=== PATIENT | female | born 1955 | race Caucasian/White ===

== ENCOUNTER 2016-10-21 13:45 | Inpatient (IN) | payer MEDICARE, MEDICAID ==
[~2016-10-21] VITALS: Ht 162.6 cm; Wt 84.2 kg
--- NOTE | ~2016-10-21 | HEMODYNAMI ---
PATIENT:DIANA PARISH MEDICAL RECORD: [id number] : 59 [id number] ADMISSION DATE: 10/21/16 Generatedon:10/24/201612:03 Patient name: DIANA PARISH Patient #: [id number] : 1955 Date of study: 10/24/2016 Page: Of Hemodynamic Procedure Report Patient Data Patient Demographics Procedure consent was obtained First Name: DIANA Gender: Female Last Name: JEM : 1955 [facility] Initial: D Age: 61 year(s) Patient #: [id number] Race: SSN: [id number] Additional ID: [id number] Contact details Address: [address] State: [place] City: [place] Zip code: [address] Past Medical History Allergies Allergen Reaction Date Comments Reported Penicillins 06/24/2016 Admission Admission Data Admission Date: 10/21/2016 Admission Time: 16:04 Admit Source: Other Insurance Payor: Medicaid, Room #: D.2301 Medicare Lab Results Lab Result Date: 10/24/2016 Lab Result Time: 0:00 Biochemistry Name Units Result Min Max BUN mg/dl 28 --(----)-* 7 18 Creatinine mg/dl 1.8 --(----)-* 0.6 1.3 CBC Name Units Result Min Max Hemoglobin g/dl 16.6 --(---*)-- 13.5 17.5 Procedure Procedure Types Cath Procedure Diagnostic Procedure LHC LHC w/Coronaries w/Grafts PCI Procedure Coronary Stent Initial Procedure Description Procedure Date Procedure Date: 10/24/2016 Procedure Start Time: 11:09 Procedure End Time: 12:02 Procedure Staff Name Function Sanchez Saleh MD Performing Physician Melisa Martinez RT Scrub Carrie Acevedo RN Nurse Ethan Purdy RT Motors And Generators Inspector Aissatou Huddleston RT Monitor Procedure Data Cath Procedure Fluoroscopy Diagnostic fluoroscopy Total fluoroscopy Time: 9.3 time: 9.3 min min Diagnostic fluoroscopy Total fluoroscopy dose: dose: 1538 mGy 1538 mGy Contrast Material Contrast Material Type Amount (ml) Isovue 300 134 Entry Location Entry Primary Successful Side Size Upsize Upsize Entry Closure Succes sful Closure Location (Fr) 1 (Fr) 2 (Fr) Remarks Device Remarks Femoral Left 5 Fr Vascade artery Closure System Brachial Right 5 Fr 6 Fr Exoseal artery Short Estimated blood loss: 20 ml Diagnostic catheters Device Type Used For End Catheter Placement Cordis 5Fr 3DRC Catheter Procedure (MP) Cordis 5Fr JL 4.0 LV Angiography Catheter (MP) Terumo 5Fr Prescott 110cm Procedure catheter Procedure Complications No complications Procedure Medications Medication Administration Route Dosage Oxygen 10 l/min Heparin Flush Bag added to field 2 bags (1000units/500ml NS) Lidocaine 2% added to field 20 Dopamine I.V. drip 5 mcg/kg/min (400mg/250ml D5W) unlisted medication 30 mcg/kg/min unlisted medication 35 mcg/kg/min unlisted medication 40 mcg/kg/min Fentanyl I.V. 50 mcg Fentanyl I.V. 50 mcg 0.9% NaCl I.V. 75 ml Heparin Bolus I.V. 4000 units Hemodynamics Rest HGB: 16.6 (g/dl) Heart Rate: 59 (bpm) Snapshots Pre Cath Intra NCS Post Cath Vital Signs Time Heart Resp SPO2 NIBP Rhythm Pain Sedation Rate (ipm) (%) (mmHg) Status Level (bpm) 10:29:13 58 20 95 Time NSR 0 (11) 4(A) Exceeded , No pain 10:30:07 58 20 95 Aborted NSR 0 (11) 4(A) , No pain 10:31:51 65 21 94 108/59(83) NSR 0 (11) 4(A) , No pain 10:36:05 58 20 94 98/67(79) NSR 0 (11) 4(A) , No pain 10:40:11 58 20 94 109/66(79) NSR 0 (11) 4(A) , No pain 10:44:17 58 20 95 104/62(86) NSR 0 (11) 4(A) , No pain 10:49:16 58 21 95 Measuring NSR 0 (11) 4(A) , No pain 10:50:31 60 21 94 102/64(78) NSR 0 (11) 4(A) , No pain 10:54:37 59 20 94 105/70(84) NSR 0 (11) 4(A) , No pain 10:58:47 59 20 94 106/64(86) NSR 0 (11) 4(A) , No pain 11:02:55 60 20 94 110/69(88) NSR 0 (11) 4(A) , No pain 11:07:07 60 20 93 107/63(88) NSR 0 (11) 4(A) , No pain 11:11:17 60 20 94 113/65(85) NSR 0 (11) 4(A) , No pain 11:15:27 61 20 94 105/68(83) NSR 0 (11) 4(A) , No pain 11:19:35 58 20 94 106/68(84) NSR 0 (11) 4(A) , No pain 11:23:42 59 20 94 105/70(85) NSR 0 (11) 4(A) , No pain 11:27:50 59 20 96 105/71(84) NSR 0 (11) 4(A) , No pain 11:31:56 60 20 97 113/73(91) NSR 0 (11) 4(A) , No pain 11:36:08 60 20 95 112/68(85) NSR 0 (11) 4(A) , No pain 11:40:18 60 20 95 110/73(87) NSR 0 (11) 4(A) , No pain 11:44:28 60 20 95 110/66(84) NSR 0 (11) 4(A) , No pain 11:48:35 63 20 95 112/75(87) NSR 0 (11) 4(A) , No pain 11:52:45 64 21 94 116/74(92) NSR 0 (11) 4(A) , No pain 11:56:55 64 20 97 113/74(92) NSR 0 (11) 4(A) , No pain 11:59:53 62 20 95 112/64(91) NSR 0 (11) 4(A) , No pain Medications Time Medication Route Dose Verified Delivered Reason Notes Effectiveness by by 10:14:00 Oxygen ETT 10 l/min Sanchez Carrie Per physician Delfino Acevedo RN 10:14:09 Lidocaine 2% added 20ml vial Sanchez Carrie used for to Delfino Acevedo RN procedure field 10:14:19 Propofol IV 30 Sanchez Carrie for sedation pt on 1000mg/100ml mcg/kg/min Delfino Acevedo RN propofol infusion for intubation sedation 10:14:19 Dopamine I.V. 5 mcg/kg/min Sanchez Carrie Per physician continuing (400mg/250ml drip Delfino Acevedo RN from icu D5W) 10:14:50 0.9% NaCl I.V. 75 ml Sanchez Carrie Per physician Delfino Acevedo RN 10:14:57 Heparin Flush added 2 bags Sanchez Carrie used for Bag to Delfino Acevedo RN procedure (1000units/500ml field NS) 10:44:01 Propofol IV 35mcg/kg/min Sanchez Carrie for sedation pt on 1000mg/100ml Delfino cAevedo RN propofol infusion for intubation sedation. dose increased due to patient movement 10:54:55 Propofol IV 40 Sanchez Carrie for sedation pt on 1000mg/100ml mcg/kg/min Delfino Acevedo RN propofol infusion for intubation sedation. dose increased due to patient movement 11:10:38 Fentanyl I.V. 50 mcg Sanchez Carrie for sedation Delfino Acevedo RN 11:14:54 Fentanyl I.V. 50 mcg Sanchez Carrie for sedation Delfino Acevedo RN 11:49:43 Heparin Bolus I.V. 4000 units Sanchez Maganaecca for dose Delfino Acevedo RN anticoagulation verified wt dr saleh Procedure Log Time Note 10:03:52 Informed consent obtained and on chart 10:10:23 Insurance Payor : Medicare, Medicaid 10:11:20 Lab Result : Hemoglobin 16.6 g/dl 10:11:20 Lab Result : Creatinine 1.8 mg/dl 10:11:20 Lab Result : BUN 28 mg/dl 10:11:32 Procedure type changed to Cath procedure, Diagnostic procedure, LHC, LHC w/Coronaries w/Grafts, PCI procedure, Coronary Stent Initial 10:12:08 Diagnostic Cath Status : Elective 10:13:11 Admit Source: Other 10:13:16 Ethan Purdy RT(R) sent for patient. Start room use. 10:13:18 Time tracking: Regular hours 10:13:24 Plan of Care:Hemodynamics will remain stable., Cardiac rhythm will remain stable., Comfort level will be maintained., Respiratory function will remain adequate., Patient/ family verbilizes understanding of procedure., Procedure tolerated without complication., Recovers from procedure without complications.. 10:14:00 Oxygen 10 l/min ETT was given by Carrie Acevedo RN; Per physician; 10:14:04 Patient received from ICU to CCL 1 On ventilator. Tansferred to table in Supine position. 10:14:09 Lidocaine 2% 20ml vial added to field was given by Carrie Acevedo RN; used for procedure; 10:14:19 Propofol 1000mg/100ml 30 mcg/kg/min IV was given by Carrie Acevedo RN; for sedation; pt on propofol infusion for intubation sedation 10:14:19 Dopamine (400mg/250ml D5W) 5 mcg/kg/min I.V. drip was given by Carrie Acevedo RN; Per physician; continuing from icu 10:14:29 H&P Date Dictated: 10/21/2016 Within 30 days and on chart.. 10:14:35 Family in waiting room. 10:14:37 Patient NPO since Midnight. 10:14:50 0.9% NaCl 75 ml I.V. was given by Carrie Acevedo RN; Per physician; 10:14:57 Heparin Flush Bag (1000units/500ml NS) 2 bags added to field was given by Carrie Acevedo RN; used for procedure; 10:26:04 Correct patient and procedure confirmed by team. 10:28:42 ECG and BP/O2 sat monitors applied to patient. 10:28:46 Vital chart was started 10:28:49 Baseline sample Acquired. 10:28:59 Rhythm: sinus rhythm 10:29:01 Full Disclosure recording started 10:29:11 Unable to provide pre-op teaching due to educational barrier. sedated/ventilator 10:30:38 Is the patient allergic to Iodine/contrast media? No. 10:30:42 Is patient on blood thinner?Yes 10:30:47 ACC The patient was administered the following blood thiners within the last 24 hours: ACCPlavix 10:31:45 Airway obstruction? Yes COPD 10:32:41 IV patent on arrival in left forearm with 0.9% NaCl at [facility]. 10:35:14 Lab results completed and on chart. 10:35:18 Right groin area was prepped with chlora-prep and draped in sterile fashion 10:35:26 Alarms reviewed by R. N. 10:35:32 Sharps counted by scrub and verified by R.N. 10:35:34 Physician paged 10:35:40 Use device set Femoral Dx 10:35:41 Acist Syringe opened to sterile field. 10:35:42 Bag Decanter opened to sterile field. 10:35:42 Cardinal Cath Pack opened to sterile field. 10:35:43 Terumo 5Fr [place] Sheath opened to sterile field. 10:35:43 St Blaise 260cm J .035 wire opened to sterile field. 10:35:45 Acist Hand Control opened to sterile field. 10:35:45 Acist Manifold opened to sterile field. 10:35:48 Cordis Infinity 5Fr Multipack catheter opened to sterile field. 10:35:49 Tegaderm 4 x 4 opened to sterile field. 10:37:54 Zero performed for pressure channel P1 10:43:41 Physical assessment completed. ASA score P 3 - A patient with severe systemic disease as per Sanchez Saleh MD. 10:44:01 Propofol 1000mg/100ml 35mcg/kg/min IV was given by Carrie Acevedo RN; for sedation; pt on propofol infusion for intubation sedation. dose increased due to patient movement 10:54:55 Propofol 1000mg/100ml 40 mcg/kg/min IV was given by Carrie Acevedo RN; for sedation; pt on propofol infusion for intubation sedation. dose increased due to patient movement 11:06:36 Physician arrived 11:06:36 --------ALL STOP TIME OUT------ 11:06:37 Final Timeout: patient, procedure, and site verified with staff and physician. All members of the team are in agreement. 11:06:39 Right groin site verified by team. 11:06:49 Sedation plan: IV Moderate Sedation Fentanyl 11:09:51 Procedure started. 11:09:54 Local anesthetic to right femoral artery with Lidocaine 2% by Sanchez Saleh MD.INITIAL ACCESS ONLY 11:10:38 Fentanyl 50 mcg I.V. was given by Carrie Acevedo RN; for sedation; 11:14:54 Fentanyl 50 mcg I.V. was given by Carrie Acevedo RN; for sedation; 11:16:02 unable to get access on the right illiac 11:16:12 Local anesthetic to left femerol artery with Lidocaine 2% by Sanchez Saleh MD.ADDITIONAL ACCESS 11:16:34 A 5 Fr sheath was inserted into the Left Femoral artery 11:16:54 A Cordis 5Fr 3DRC Catheter (MP) was advanced over the wire and used for Procedure. 11:19:09 Left illiac total occluded 11:19:32 Terumo 5Fr [place] Sheath opened to sterile field. 11:33:16 Patient diabetic? Yes. 11:33:18 If diabetic: On Metformin? No 11:33:28 Snore? Yes 11:33:30 Sleep apnea? No 11:33:31 Deviated septum? No 11:33:40 Dentures? No ? 11:35:48 Bilateral groins site verified by team. 11:36:16 Right Brachial site verified by team. 11:36:51 Local anesthetic to right brachial artery with Lidocaine 2% by Sanchez Saleh MD.ADDITIONAL ACCESS 11:38:43 Vascade 5Fr Closure Device opened to sterile field. 11:39:19 Sheath removed intact; hemostasis achieved with Vascade Closure System to the Left Femoral artery. 11:41:43 Terumo 5Fr [place] Sheath opened to sterile field. 11:42:22 A 5 Fr sheath was inserted into the Right Brachial artery 11:44:03 A Cordis 5Fr JL 4.0 Catheter (MP) was advanced over the wire and used for LV Angiography. 11:44:17 EF : 15 % 11:44:24 SVG to LAD occluded. 11:45:12 Catheter removed. 11:45:17 A Terumo 5Fr Prescott 110cm catheter was advanced over the wire and used for Procedure. 11:46:09 LCA angiography performed. 11:47:21 RCA angiography performed. 11:47:31 Terumo 6Fr [place] Sheath opened to sterile field. 11:47:32 Merit BasixCompak Inflation Kit opened to sterile field. 11:47:35 Smalls Whisper J 300cm 0.014 guide wire opened to sterile field. 11:48:06 Medtronic Launcher 6Fr JL 3.5 guide catheter opened to sterile field. 11:48:25 Catheter removed. 11:48:26 Proceeding to intervention. 11:48:34 PCI Cath status Elective 11:48:45 Sheath upsized to a 6 Fr Short. 11:49:00 ACC PCI Site: mLAD has ?% stenosis. 11:49:10 6 Fr jl 3.5 guide catheter was inserted over the wire 11:49:18 Whisper wire advanced. 11:49:43 Heparin Bolus 4000 units I.V. was given by Carrie Acevedo RN; for anticoagulation; dose verified wt dr saleh 11:52:56 Inflation number: 1 A Common Sense Media Leslie 2.5 X 15 balloon was prepped and advanced across the Mid LAD, then inflated to 11 HAYDE for 0:10 (min:sec). 11:53:15 Balloon removed over the wire. 11:56:50 Inflation Number: 2 A Instructuretronic Integrity 2.5 X 18 stent was prepped and advanced across the Mid LAD. The stent was deployed at 13 HAYDE for 0:10 (min:sec). 11:57:48 Cordis 6Fr Exoseal opened to sterile field. 11:57:54 Guide catheter removed. 11:58:11 Sheath removed intact; hemostasis achieved with Exoseal to the Right Brachial artery. 11:58:20 Procedure ended.(Physican Out) 11:59:31 Fluoroscopy time 09.30 minutes. 11:59:38 Fluoroscopy dose: 1538 mGy 11:59:38 Flurop Dose total: 1538 11:59:45 Contrast amount:Isovue 300 134ml. 11:59:46 Sharps counted by scrub and verified by R.N. 11:59:51 Insertion/operative site no bleeding no hematoma. 12:00:07 Post-op/insertion site Left Femoral artery dressed using a 4 x 4 and Tegaderm. 12:00:13 Post-op/insertion site Right Brachial artery dressed using a 4 x 4 and Tegaderm. 12:00:20 Post-procedure physical assessment completed. ASA score P 3 - A patient with severe systemic disease as per Sanchez Saleh MD. 12:00:25 Post procedure rhythm: unchanged. 12:00:29 Estimated blood loss: 20 ml 12:00:42 Patient needs reinforcement of post procedure teaching. 12:00:54 Procedure and supply charges have been captured, reviewed, submitted and are correct. 12:02:04 Procedure Complication : No complications 12:02:08 Vital chart was stopped 12:02:09 See physician's report for complete and final results. 12:02:14 Report given to ICU. 12:02:18 Patient transfered to ICU with Bed. 12:02:21 Procedure ended. 12:02:21 Full Disclosure recording stopped 12:02:34 End room use (Document Last) Intervention Summary Intervention Notes Time ActionType Lesion and Equipment Action# Pressure Duration Attributes Used 11:52:56 Inflate Mid LAD Hebron 1 11 00:10 balloon Sci Leslie 2.5 X 15 balloon 11:56:50 [address] stent Mid LAD Medtronic 2 13 00:10 Integrity 2.5 X 18 stent Device Usage Item Name Manufacture Quantity Catalog Number Hospital Part Current Mini mal Lot# / Charge Number Stock Stock Serial# Code Acist Acist 1 55289 428482 036202 808636 20 Syringe Medical Systems Inc Bag Microtek 1 2002S 883474 73314 418752 5 Decanter Medical Inc. Cardinal Cardinal 1 [id number] 086669 05321 045731 5 Cath Pack Health Terumo 5Fr Terumo 3 [id number] 867794 219178 815624 [address] Blaise 1 325170 993910 789240 992076 30 260cm J .035 wire Acist Hand Acist 1 73675 024595 945006 380013 5 Control Medical Systems Inc Acist Acist 1 11635 127641 120359 586805 5 Manifold Medical Systems Inc Cordis Cardinal 1 [id number] 423414 08665 837631 30 HealthSource 5Fr Multipack catheter Tegaderm 4 3M 1 1626W 877763 324094 455748 5 x 4 Cordis 5Fr Cardinal 1 750678 5 N2N Commerce Skift Catheter (MP) Vascade 5Fr Cardiva 1 [id number] 916255 17019 699447 10 Closure NeuWave Medical, Device Inc. Terumo 6Fr Terumo 1 [id number] 950839 979067 796314 40 Slender Glidesheath Cordis 5Fr Cardinal 1 485485 5 JL 4.0 Health Catheter (MP) Terumo 5Fr Terumo 1 16-2794 860219 853871 859027 5 Prescott 110cm catheter Terumo 6Fr Terumo 1 [id number] 777513 274451 805818 40 [place] Sheath Merit Merit 1 AD4222 583583 735062 505487 15 BasixCompak Medical Inflation Kit Smalls Smalls 1 [id number] 821526 512940 596762 5 Whisper J Vascular 300cm 0.014 guide wire Medtronic Medtronic 1 [id number] 332970 72367 853050 1 Launcher 6Fr JL 3.5 guide catheter Hebron Sci Hebron 1 [id number] 572066 844067 311966 1 [id number] PayParrot Scientific 2.5 X 15 balloon Medtronic Medtronic 1 [id number] 465687 397881 680330 1 [id number] Integrity 2.5 X 18 stent Cordis 6Fr Cardinal 1 EX600 955718 517202 289781 10 [facility] Skift Signature Audit [place] Stage Time Signature Unsigned Intra-Procedure 10/24/2016 Aissatou Huddleston 12:03:01 PM RT(R) Signatures Monitor : Aissatou Huddleston Signature : RT Date : Time : [id number] [place] [address]
[~2016-10-21 13:45] MED LIST: AMBIEN10 MG; ATENOLOL25 MG PO; ATROVENT 0.02%2.5 ML UPD; BETAPACE 80 MG80 MG PO; BREO ELLIPTA 11 EACH INH; CARDIZEM CD240 MG PO; COMBIVENT INH14.7 GM INH; CRESTOR20 MG; FLOVENT DI50 MCG/DIS; IMDUR30 MG; IMDUR30 MG OR; KLOR-CON 1010 MEQ PO; LASIX20 MG; NORCO 10/325 TA1 TA1; PACERONE200 MG PO; PAXIL20 MG; PLAVIX75 MG PO; PROAIR HFA8.5 GM INH; XARELTO20 MG PO
[2016-10-21 14:24] LABS: BASOPHILS 0.4 % (0.0-2.0); EOSINOPHILS 1.9 % (0-7); HEMATOCRIT 47.7 % (36.0-48.0); HEMOGLOBIN 14.9 g/dL (12-16); IMMATURE GRANULOCYTES 0.2 % (0-5); LYMPHOCYTES 25.9 % (15-50); MCH 32.7 pg (26.0-34.0); MCHC 31.2 g/dL (31.0-37.0); MCV 104.6 fL (80.0-100.0); MEAN PLATELET VOLUME 10.6 fL (7.4-10.4); NEUTROPHILS 62.6 % (40-80); PLATELET COUNT 120 10x3/uL (130-400); RBC 4.56 10x6/uL (4.00-5.40); RDW 15.7 % (11.5-14.5); WBC 5.3 10x3/uL (4.8-10.8)
[2016-10-21 14:37] LABS: ALBUMIN 3.1 g/dL (3.4-5.0); ANION GAP 8.8 mmol/L (8-16); BILIRUBIN - TOTAL 1.05 mg/dL (0.2-1.3); CALCIUM 8.7 mg/dL (8.5-10.1); CARBON DIOXIDE 32.6 mmol/L (21.0-32.0); CREATININE - SERUM 1.1 mg/dL (0.6-1.3); POTASSIUM - SERUM 3.4 mmol/L (3.5-5.1); PROTEIN - SERUM 6.5 g/dL (6.4-8.2)
[2016-10-21 14:47] LABS: TROPONIN-I 0.036 ng/mL (0.000-0.060)
[2016-10-21 15:28] LABS: APPEARANCE HAZY (CLEAR); BILIRUBIN NEGATIVE (NEGATIVE); COLOR YELLOW (YELLOW); GLUCOSE NEGATIVE (NEGATIVE); KETONE NEGATIVE (NEGATIVE); LEUKOCYTE ESTERASE TRACE (NEGATIVE); NITRITE NEGATIVE (NEGATIVE); PROTEIN TRACE mg/dL (NEGATIVE)
[2016-10-21 15:29] LABS: BACTERIA MANY /hpf (NONE SEEN); EPITHELIAL CELLS 0-5 /hpf (0-5); RED CELLS - URINE 0-5 /hpf (0-5); WHITE CELLS - URINE 0-5 /hpf (0-5)
--- NOTE | 2016-10-21 17:10 | NUR ---
TRANSFER FROM ER BY W/C. RASHIDAINTED TO ROOM. CALL LIGHT IN REACH. WILL CONT. PLAN OF CARE.
[2016-10-21 17:23] VITALS: BP 130/90; BMI 34.2
[2016-10-21] MEDS ORDERED: LASIX40 MG PO (17:40)
[2016-10-21] MEDS ORDERED: REQUIP0.25 MG PO (17:43)
[2016-10-21] MEDS ORDERED: PROPAFENONE HC150 MG PO (17:45)
[2016-10-21] MEDS ORDERED: SINGULAIR10 MG PO (17:46)
[2016-10-21] MEDS ORDERED: HYDROCODONE-APA1 TAB PO (17:48)
[2016-10-21] MEDS ORDERED: LOPRESSOR25 MG PO (17:49)
[2016-10-21] MEDS ORDERED: LEVOTHYROXINE75 MCG PO (17:50)
--- NOTE | 2016-10-21 19:00 | NUR ---
RECEIVED REPORT AND ASSUMED PT CARE FROM DAY SHIFT NURSE @ THIS TIME.
[2016-10-21 20:25] VITALS: BP 116/81
--- NOTE | 2016-10-21 21:30 | NUR ---
PT RESTING IN BED WITHOUT C/O OR DISTRESS NOTED. DENIES ANY FUTHER C/O PAIN. ST ON TELE, HR 100'S. OCC PAC'S NOTED. CALL LIGHT WITHIN REACH. WILL CONT TO MONITOR.
[2016-10-22 00:41] VITALS: BP 120/70
[2016-10-22 05:48] VITALS: BP 126/72
[2016-10-22 06:34] LABS: BASOPHILS 0.6 % (0.0-2.0); EOSINOPHILS 2.1 % (0-7); HEMATOCRIT 46.6 % (36.0-48.0); HEMOGLOBIN 14.2 g/dL (12-16); IMMATURE GRANULOCYTES 0.2 % (0-5); LYMPHOCYTES 39.4 % (15-50); MCH 31.8 pg (26.0-34.0); MCHC 30.5 g/dL (31.0-37.0); MCV 104.3 fL (80.0-100.0); MONOCYTES 8.7 % (2-11); PLATELET COUNT 122 10x3/uL (130-400); RBC 4.47 10x6/uL (4.00-5.40); RDW 15.7 % (11.5-14.5); WBC 5.3 10x3/uL (4.8-10.8)
[2016-10-22 07:09] LABS: ALBUMIN 2.9 g/dL (3.4-5.0); BILIRUBIN - TOTAL 1.2 mg/dL (0.2-1.3); CALCIUM 8.5 mg/dL (8.5-10.1); CARBON DIOXIDE 31.6 mmol/L (21.0-32.0); POTASSIUM - SERUM 3.6 mmol/L (3.5-5.1); PROTEIN - SERUM 6.2 g/dL (6.4-8.2); TROPONIN-I 0.043 ng/mL (0.000-0.060)
[2016-10-22 08:55] VITALS: BP 130/89
--- NOTE | 2016-10-22 10:00 | NUR ---
TELEMETRY SR. RESP UL ON 02 2L NC. CALL LIGHT IN REACH. WILL CONT. PLAN OF CARE.
[2016-10-22 12:38] VITALS: Ht 162.6 cm; Wt 84.2 kg
[2016-10-22 13:42] VITALS: BP 125/85
--- NOTE | 2016-10-22 16:45 | NUR ---
US CHIVO AT BS. WILL CONT. PLAN OF CARE.
[2016-10-22 17:02] VITALS: BP 122/80
[2016-10-22 20:15] VITALS: BP 104/73
--- NOTE | 2016-10-22 22:40 | NUR ---
PT SITTING UP IN BEDSIDE CHAIR. ALERT/ORIENTED. DECLINED TO HAVE FSBS DONE. HS MEDS GIVEN. 96/SR PER TELEMETRY. SEE ASSESSMENT. CPOC.
[2016-10-23 00:23] VITALS: BP 103/72
--- NOTE | 2016-10-23 03:14 | NUR ---
ASSISTED UP TO USE BATHROOM TO VOID, O2 @ 4L/NC. NO DISTRESS. CPOC.
[2016-10-23 04:20] VITALS: BP 105/72
[2016-10-23 05:11] LABS: BASOPHILS 0.5 % (0.0-2.0); EOSINOPHILS 1.1 % (0-7); HEMOGLOBIN 14.4 g/dL (12-16); IMMATURE GRANULOCYTES 0.4 % (0-5); LYMPHOCYTES 31.2 % (15-50); MCH 32.1 pg (26.0-34.0); MCHC 30.6 g/dL (31.0-37.0); MCV 104.7 fL (80.0-100.0); MEAN PLATELET VOLUME 10.8 fL (7.4-10.4); MONOCYTES 9.2 % (2-11); NEUTROPHILS 57.6 % (40-80); PLATELET COUNT 108 10x3/uL (130-400); RBC 4.49 10x6/uL (4.00-5.40); RDW 15.4 % (11.5-14.5); WBC 5.7 10x3/uL (4.8-10.8)
[2016-10-23 06:06] LABS: BILIRUBIN - TOTAL 1.4 mg/dL (0.2-1.3); CALCIUM 8.2 mg/dL (8.5-10.1); CARBON DIOXIDE 29.1 mmol/L (21.0-32.0)
[2016-10-23 06:08] LABS: ANION GAP 13.1 mmol/L (8-16); CREATININE - SERUM 1.3 mg/dL (0.6-1.3); POTASSIUM - SERUM 4.2 mmol/L (3.5-5.1)
--- NOTE | 2016-10-23 07:30 | NUR ---
RESTING QUIETLY SITTING IN CHAIR RESP UNLABORED DENIES ANY NEEDS OR DISCOMFORT AT THIS TIME NAD NOTED
[2016-10-23 08:00] VITALS: BP 96/65
[2016-10-23 11:42] LABS: BASOPHILS 0.2 % (0.0-2.0); EOSINOPHILS 1.9 % (0-7); HEMATOCRIT 47.6 % (36.0-48.0); HEMOGLOBIN 14.7 g/dL (12-16); IMMATURE GRANULOCYTES 0.4 % (0-5); LYMPHOCYTES 29.6 % (15-50); MCH 32.3 pg (26.0-34.0); MCHC 30.9 g/dL (31.0-37.0); MCV 104.6 fL (80.0-100.0); MEAN PLATELET VOLUME 11.2 fL (7.4-10.4); MONOCYTES 9.9 % (2-11); PLATELET COUNT 104 10x3/uL (130-400); RBC 4.55 10x6/uL (4.00-5.40); RDW 15.5 % (11.5-14.5); WBC 5.4 10x3/uL (4.8-10.8)
--- NOTE | 2016-10-23 11:51 | NUR ---
FSBS 107
[2016-10-23 11:56] LABS: ANION GAP 13.3 mmol/L (8-16); CALCIUM 8.8 mg/dL (8.5-10.1); CARBON DIOXIDE 29.9 mmol/L (21.0-32.0); CREATININE - SERUM 1.5 mg/dL (0.6-1.3); POTASSIUM - SERUM 4.2 mmol/L (3.5-5.1)
[2016-10-23 12:00] VITALS: BP 95/68
[2016-10-23 16:00] VITALS: BP 104/71
[2016-10-23 20:00] VITALS: BP 109/70
[2016-10-24] VITALS (65 sets, daily range): BP systolic 81–137; BP diastolic 29–91
--- NOTE | 2016-10-24 02:08 | NUR ---
0200 DR. ARTEAGA NOTIFIED OF PT STATUS. 0206 SIXTO GALE NEXT OF KIN NOTIFIED 0210 DR. CACERES NOTIFIED 0215 TRANSFERED PT TO ROOM 2301
[2016-10-24 02:13] LABS: ALBUMIN 3.1 g/dL (3.4-5.0); ALKALINE PHOSPHATASE 84 U/L (46-116); ALT (SGPT) 19 U/L (10-68); BILIRUBIN - TOTAL 2.43 mg/dL (0.2-1.3); CALCIUM 8.8 mg/dL (8.5-10.1); CHLORIDE - SERUM 97 mmol/L (98-107); PROTEIN - SERUM 6.6 g/dL (6.4-8.2); SODIUM 134 mmol/L (136-145); UREA NITROGEN 25 mg/dL (7-18)
[2016-10-24 02:14] LABS: CALC OSMOLALITY 269 mosm/kg (275-300); CARBON DIOXIDE 21.7 mmol/L (21.0-32.0); CREATININE - SERUM 1.9 mg/dL (0.6-1.3); eGFR NON AFRICAN AMERICAN 29 mL/min (90-120)
[2016-10-24 02:15] LABS: GLUCOSE 65 mg/dL (74-106); POTASSIUM - SERUM 6.1 mmol/L (3.5-5.1)
--- NOTE | 2016-10-24 02:20 | NUR ---
PT REC'D TO ROOM 2301 ON VENT VIA 7.5 ETT TAPED @ 22CM LIPLINE SEE FLOWSHEET FOR VENT SETTINGS, BILAT SOFT WRIST RESTRAINTS APPLIED, RIGHT A/C PIV WITH NS @ 50CC/HR, RIGHT FOREARM PIV WITH DOPAMINE INFUSING @ 5MCG/KG/MIN, BBS CLEAR TO AUSCULTATION, 16FR NORTH STARTED WITH A SMALL RETURN OF APPROX 20CC JAKUB COLORED URINE, BILAT SCD'S APPLIED, LE'S DRY, PPP, SR UP X 2, VISIBLE TO NURSES STATION
[2016-10-24 02:27] LABS: CKMB 2.5 U/L (0.0-3.6); CREATINE KINASE 87 UL (21-215)
[2016-10-24 02:29] LABS: TROPONIN-I 0.185 ng/mL (0.000-0.060)
--- NOTE | 2016-10-24 02:58 | NUR ---
0133 [employer] SECTION DIRECTOR REPORTS PT NOT FEELING WELL, VS WERE FOLLOWS 90/50, 91, 22, 98% 4LPM, 97.5. SR WITH MASSIVE ST ELEVATION. FOUND PT IN RECLINER AGONAL BREATHING. RAPID RESPONSE CALLED, MOVED TO PT TO BED COMPLETELY UNRESPONSIVE AT THIS TIME UNABLE TO PALPATE PULSE. SIMONE BELL CALLED AT 0135. SEE CODE BLUE SHEET.
--- NOTE | 2016-10-24 03:05 | NUR ---
FSBS 51
--- NOTE | 2016-10-24 03:10 | NUR ---
1/2 AMP D50 ADMINISTERED VIA RIGHT A/C PIV, PT REMAINS UNRESPONSIVE ON THE VENT, BP STABLE ON DOPAMINE, WILL MONITOR CLOSELY FOR CHANGES.
--- NOTE | 2016-10-24 03:35 | NUR ---
SERUM GLUCOSE 142 PER ABG
--- NOTE | 2016-10-24 03:55 | NUR ---
PT COUGHING AND GAGGING ON ETT, AWAKENS TO VERBAL STIMULI, FOLLOWING COMMANDS AT THIS, EXPLAINED WHAT HAPPENED TO PT, PT NODS IN UNDERSTANDING, DIPRIVAN BEGUN TO RIGHT A/C @ 5MCG/KG/MIN.
--- NOTE | 2016-10-24 04:15 | NUR ---
PT RESTING COMFORTABLY ON VENT, 16 FR OGT PLACED, PLACEMENT VERIFIED VIA SM AIR BOLUS AUSCULTATED OVER EPIGASTRIM, OGT TO LIWS, THIN YELLOW DRAINAGE NOTED.
[2016-10-24 05:45] LABS: BASOPHILS 0.1 % (0.0-2.0); EOSINOPHILS 0.1 % (0-7); HEMATOCRIT 52.8 % (36.0-48.0); HEMOGLOBIN 16.6 g/dL (12-16); IMMATURE GRANULOCYTES 0.6 % (0-5); LYMPHOCYTES 8.3 % (15-50); MCH 32.5 pg (26.0-34.0); MCHC 31.4 g/dL (31.0-37.0); MCV 103.3 fL (80.0-100.0); MEAN PLATELET VOLUME 11.6 fL (7.4-10.4); MONOCYTES 2.3 % (2-11); NEUTROPHILS 88.6 % (40-80); PLATELET COUNT 100 10x3/uL (130-400); RBC 5.11 10x6/uL (4.00-5.40); RDW 15.2 % (11.5-14.5); WBC 10.5 10x3/uL (4.8-10.8)
[2016-10-24 05:55] LABS: ALBUMIN 3.9 g/dL (3.4-5.0); ALKALINE PHOSPHATASE 107 U/L (46-116); ALT (SGPT) 24 U/L (10-68); CALC OSMOLALITY 277 mosm/kg (275-300); CALCIUM 9.5 mg/dL (8.5-10.1); CARBON DIOXIDE 19.6 mmol/L (21.0-32.0); CHLORIDE - SERUM 97 mmol/L (98-107); CKMB 3.1 U/L (0.0-3.6); CREATINE KINASE 108 UL (21-215); CREATININE - SERUM 1.8 mg/dL (0.6-1.3); GLUCOSE 96 mg/dL (74-106); PROTEIN - SERUM 7.8 g/dL (6.4-8.2); SODIUM 136 mmol/L (136-145); TROPONIN-I 0.066 ng/mL (0.000-0.060); UREA NITROGEN 28 mg/dL (7-18); eGFR NON AFRICAN AMERICAN 30 mL/min (90-120)
--- NOTE | 2016-10-24 06:00 | NUR ---
NO VISITORS IN AT THIS TIME, AM MEDS GIVEN
--- NOTE | 2016-10-24 07:15 | NUR ---
ASSESSMENT COMPLETE. AROUSES TO PAINFUL STIMULI, OPENS EYES ON VENT, BECOMES AGITATED WHEN SHE OPENS HER EYES, UNABLE TO ASSESS IF SHE FOLLOWS COMMANDS. PERRLA 4MM BRISK. S1S2 NOTED, RADIAL AND PEDAL PULSES PALP. NSR 62. RUL, RML, LIMA EXPIRATORY WHEEZE AND CRACKLES. RLL, LLL DIMINISHED. HYPOACTIVE BOWEL SOUNDS X4. OGT IN PLACE, CLAMPED. GENERALIZED WEAKNESS. NORTH DRAINING CONCENTRATED URINE. SCD'S ON. SEE FLOWSHEET FOR VENT SETTINGS. RF AND RAC PIV SEE IV FLOWSHEET. FOR OTHER ASSESSMENT FINDINGS SEE FLOWSHEET.
--- NOTE | 2016-10-24 08:15 | NUR ---
CALLED PATIENT'S EMERGENCY NUMBER LISTED, THE NUMBER IS FOR A FAMILY FRIEND, FRANCISCA CARABALLO. SHE SAID SHE SPOKE WITH THE PATIENT LAST NIGHT PRIOR TO THE CODE AND THE PATIENT SAID SHE WOULD BE GOING FOR A HEART CATH IN AM. VERBAL CONSENT OBTAINED AND WITNESSED WITH A SECOND RN. ASKED FRANCISCA FOR SON'S PHONE NUMBER.
--- NOTE | 2016-10-24 08:30 | NUR ---
TRIED TO CALL PATIENT'S SON, REESE, AT [phone] PER THE NUMBER GIVEN BY FRANCISCA BUT NO ONE ANSWERED. LEFT A VOICEMAIL. CALLED FRANCISCA BACK AND DOUBLE VERIFIED CONSENT FOR BLOOD AND CARDIAC CATH FOR TODAY. SHE SAID SHE DID NOT HAVE ANY OTHER NUMBERS FOR A PATIENT'S FAMILY MEMBER.
[2016-10-24 09:24] LABS: APPEARANCE SLT CLOUDY (CLEAR); BILIRUBIN NEGATIVE (NEGATIVE); COLOR DK YELLOW (YELLOW); GLUCOSE NEGATIVE (NEGATIVE); KETONE NEGATIVE (NEGATIVE); LEUKOCYTE ESTERASE 1+ (NEGATIVE); NITRITE NEGATIVE (NEGATIVE); PROTEIN 1+ mg/dL (NEGATIVE); SPECIFIC GRAVITY 1.015 (1.005-1.020)
[2016-10-24 09:26] LABS: BACTERIA MODERATE /hpf (NONE SEEN); HYALINE CAST 0-5 /lpf (NONE SEEN); MUCUS <1+ /lpf (NONE SEEN); RED CELLS - URINE 0-5 /hpf (0-5); WAXY CAST RARE /lpf (NONE SEEN)
[2016-10-24 09:27] LABS: AMORPHOUS SEDIMENT <1+ /lpf (NONE SEEN)
--- NOTE | 2016-10-24 09:59 | NUR ---
Nutrition follow-up: Pt is now intubated, sedated; s/p code blue Labs reviewed NPO; 16F OGT -> LIWS scheduled for heart cath Will need nutrition support started if pt remains NPO > 24-[address] following.
--- NOTE | 2016-10-24 10:00 | NUR ---
DR. BEJARANO AT BEDSIDE. NO NEW ORDERS.
--- NOTE | 2016-10-24 10:18 | NUR ---
VENDOR QUALITY SUPERVISOR TRANSFERRING PATIENT. NSR IN 70'S. BP STABLE, 5MC DOP, 30MIC DIP. O2 SAT 93%.
--- NOTE | 2016-10-24 10:39 | NUR ---
DR. ADRIAN AT BEDSIDE REVIEWING PATIENT'S CHART.
--- NOTE | 2016-10-24 11:10 | NUR ---
PATIENT'S SON REESE FERNANDO, SAID FRANCISCA REACHED OUT TO HIM THROUGH FACEBOOK. HE IS ON HIS WAY TO THE HOSPITAL NOW. UPDATED ON THE PATIENT'S CONDITION.
--- NOTE | 2016-10-24 12:45 | NUR ---
PATIENT ARRIVED BACK TO UNIT, CONNECTED BACK TO MONITORS. VSS. FULL ASSESSMENT TO FOLLOW IN DOCUMENTATION
--- NOTE | 2016-10-24 13:25 | NUR ---
PATIENT'S SON AT BEDSIDE. UPDATED ON CONDITION. WILL CHANGE HIM TO EMERGENCY CONTACT
[2016-10-24 13:56] LABS: ANION GAP 16.2 mmol/L (8-16); CALCIUM 8.4 mg/dL (8.5-10.1); CARBON DIOXIDE 26.3 mmol/L (21.0-32.0); CREATININE - SERUM 1.8 mg/dL (0.6-1.3); POTASSIUM - SERUM 4.5 mmol/L (3.5-5.1)
--- NOTE | 2016-10-24 14:16 | EC ---
PATIENT:DIANA PARISH DATE OF SERVICE: 10/21/16 SEX: F MEDICAL RECORD: [id number] DATE OF : 59 LOCATION:[facility] D230 AGE OF PATIENT: 61 ADMISSION DATE: 10/21/16 REFERRING PHYSICIAN: INTERPRETING PHYSICIAN: MARY CARMEN SALEH MD ECHOCARDIOGRAM REPORT ECHO CHARGES 4 ECHO COMPLETE CLINICAL DIAGNOSIS: CHF ECHOCARDIOGRAPHIC MEASUREMENTS (adult normal given) AC root (d.<3.7cm) 3.3 LV Septum d (<1.2 cm> 1.1 Valve Excursion 1.7 LV Septum (systole) 1.6 Left Atria (s.<4.0cm> 4.8 LVPW d(<1.2cm) 1.1 RV (d.<2.3cm) 2.7 LVPW (sytole) 1.6 LV diastole(<5.6CM) 5.7 MV E-F(>70mm/sec) LV systole 4.3 LVOT Diameter 2.0 MV exc.(>10mm) Est.ejection fraction (50-75%) Pericardial Effusion N DOPPLER: LVIT A E 128.0 LA RVSP 45.4 LVOT 47.0 AOP1/2T Asc. Ao 106 RVOT 51.0 RA PA 47.0 AV Gradient Peak 4.5 AV Mean 2.4 AV Area 1.2 MV Gradient Peak 7.4 MV Mean 2.7 MV Area COMMENTS: Glass Mold Repairer: Arielle ESCALERA Oracle Apex Developer:Arielle Saleh TAPE# PACS DATE OF SERVICE: 10/23/2016 Echocardiogram FINDINGS: 1. Left ventricular chamber size is mildly dilated. Left ventricular systolic function is markedly reduced, overall ejection fraction 20%. 2. Left atrium is enlarged at ____ cm. Right atrium and right ventricle chamber sizes are as well mildly dilated. 3. Valvular structures have normal structure and motion. ECHOCARDIOGRAM REPORT [id number] DIANA PARISH 4. Doppler interrogation reveals moderate mitral regurgitation, moderate tricuspid regurgitation, no other valvular insufficiency or stenosis. Pulmonary systolic pressure is mildly elevated estimated at 45 mmHg. 5. No evidence of pericardial effusion or left ventricular thrombus. TRANSINT:[id number] Voice Confirmation ID: [id number] DOCUMENT ID: [id number] MARY CARMEN SALEH MD at 6487 CC: [id number] DICTATION DATE: 10/24/16 1001 TECHNOLOGY APPLICATIONS ENGINEER: 10/24/16 1147 ADM IN [facility] [address] [id number]
--- NOTE | 2016-10-24 14:16 | CN ---
PATIENT NAME:DIANA PARISH MEDICAL RECORD: [id number] : 59 LOCATION:[id number] ADMIT DATE: 10/21/16 ACCOUNT: [id number] CONSULTING PHYSICIAN: MARY CARMEN CACERES MD REFERRING PHYSICIAN: NOHEMI ARTEAGA MD DATE OF CONSULTATION: 10/21/2016 DIAGNOSES: 1. Shortness of breath, dyspnea on exertion. 2. Chronic obstructive pulmonary disease. 3. Paroxysmal atrial fibrillation. 4. Angina. 5. Coronary artery disease. 6. Previous percutaneous transluminal coronary angioplasty stent. 7. Hypertension. HISTORY OF PRESENT ILLNESS: Mrs. Parish presents with increasing shortness of breath as well as chest pain and chest discomfort compatible with angina. She has a history of coronary artery disease. Last cardiac intervention was 06/24/2016. Her symptomatology has worsened over the past week. She has had a history of paroxysmal atrial fibrillation for which she could not tolerate sotalol due to diarrhea. This was changed from her amiodarone to Rythmol. She is on Rythmol as well. She is on Lopressor. The Lopressor is only at 25 mg b.i.d., her heart rates in the 110 to 115 range. REVIEW OF SYSTEMS: The patient reports easy bruising but reports no swollen glands. The patient reports no fever, no night sweats, no significant weight gain, no significant weight loss. No significant exercise tolerance. The patient reports no dry eyes, no irritation, no vision change. The patient reports no difficulty hearing and no ear pain. The patient reports no frequent nose bleeds or nose and sinus problems. The patient reports on arm pain on exertion. No shortness of breath while lying down. No history of heart murmur. The patient reports no cough, no wheezing or coughing up blood. The patient reports no abdominal pain, no vomiting. Normal appetite. No diarrhea and not vomiting blood. No nausea and no constipation. The patient reports no incontinence. No difficulty urinating. No hematuria. No increased frequency. The patient reports no muscle aches. No weakness, no arthralgias, no back pain. No swelling of the extremities. The patient reports no abnormal mole, no jaundice, no rashes. Reports no loss of consciousness. No weakness and no numbness. No seizures, dizziness, or headaches. The patient reports no depression, no sleep disturbance, feeling safe in a relationship and no alcohol abuse. The patient reports on fatigue. Reports no runny nose or sinus pressure. No itching, no hives, and no frequent sneezing. PHYSICAL EXAMINATION: GENERAL APPEARANCE: Well-nourished, well-developed, appears stated age. Level of distress, comfortable. PSYCHIATRIC: Mental status, alert, normal affect. Orientation, oriented to time, place and person. EYES: Lids and conjunctiva, noninjected. No discharge, no pallor. ENT: Lips, teeth, gums, normal dentition. Oropharynx, no cyanosis, no pallor. NECK: Carotid arteries, bilateral normal upstroke, no bruits, no thrills. JUGULAR VEINS: No jugular venous pressure or distention. CERVICAL LYMPH NODES: Nontender, nonenlarged. THYROID: Not enlarged. Nontender. No nodules. CONSULT REPORT [id number] DIANA PARISH LUNGS: Respiratory effort, unlabored. CHEST: Normal curvature. No thoracic deformity. No chest wall tenderness. Percussion, resonant. Auscultation, clear. No wheezes, no rales, no rhonchi. CARDIOVASCULAR: Precordial exam, nondisplaced. No heaves or pericardial thrills. Rate and rhythm, regular. Heart sounds, normal S1, normal S2. No S3, no gallop, no rub. Systolic murmur, not heard. Diastolic murmur, not heard. EXTREMITIES: No cyanosis, no edema. Peripheral pulses, full and equal in all extremities, except as noted. No bruits appreciated. ABDOMEN: Soft, nondistended. Normal aorta. No bruit. Nontender. No masses. Liver, nontender, no hepatomegaly. Spleen, nontender, no splenomegaly. MUSCULOSKELETAL: No joint tenderness. No joint swelling. No erythema. NEUROLOGICAL: Normal gait, normal strength, normal tone. SKIN: Warm and dry. OVERALL IMPRESSION: She does not have congestive heart failure, ejection fraction is 55%. She does not have significant valvular disease. This is most likely due to the tachycardia as well as possible new hemodynamically significant coronary artery disease. We will try to avoid cardiac catheterization at this time. Optimizing medical management. We will increase Lopressor to 100 mg b.i.d. and see how she tolerates this from the standpoint of her COPD and see if this improves her symptomatology of shortness of breath. TRANSINT:[id number] Voice Confirmation ID: [id number] DOCUMENT ID: [id number] MARY CARMEN CACERES MD at 1416 CC: [id number] DICTATION DATE: 10/21/161819 GLASS NOVELTY MAKER: 10/21/16 2352 ADM IN [place] [id number] [place] [address]
--- NOTE | 2016-10-24 14:31 | NUR ---
NOTIFIED DR. CACERES THAT I WAS UNABLE TO DOPPLER PATIENT'S LEFT PEDAL PULSE. HE SAID HE WAS AWARE. NOTIFIED HIM THAT THE PATIENT'S HR DROPPED INTO THE 40'S WHEN TRYING TO WEAN DOPAMINE. NEW ORDERS RECEIVED.
--- NOTE | 2016-10-24 15:15 | NUR ---
REASSESSMENT COMPLETE. NO CHANGES IN NEURO, RESPIRATORY, GI/, OR MUSC ASSESSMENT. RIGHT GROIN DRESSING DOES NOT APPEAR TO HAVE ANY MORE BLEEDING. FOR OTHER ASSESSMENT FINDINGS SEE FLOWSHEET
--- NOTE | 2016-10-24 17:15 | NUR ---
ASKED DR. ADRIAN IF SHE WANTED ME TO HOLD THE EVENING DOSE OF LASIX, SHE SAID YES, HOLD IT. RESUME IN AM
--- NOTE | 2016-10-24 18:54 | NUR ---
PATIENT'S SON CALLED. PASSWORD VERIFIED, UPDATE PROVIDED.
--- NOTE | 2016-10-24 19:35 | NUR ---
REC'D PT ON VENT VIA 7.5ETT TAPED @ 22CM LIPLINE SEE FLOWSHEET FOR VENT SETTINGS, PT AROUSABLE TO VOICE BUT DOES NOT FOLLOW COMMANDS, RIGHT A/C PIV WITH DIPRIVAN INFUSING @ 40MCG/KG/MIN, RIGHT FOREARM PIV WITH DOPAMINE @ 5MCG/KG/MIN, RIGHT HAND PIV WITH 1/2NS @ 100CC/HR, OGT TAPED SECURELY TO ETT, PLACEMENT VERIFIED VIA SM AIR BOLUS AUSCULTATED OVER EPIGASTRIM, RIGHT BRACHIAL DRSG CDI NO BLEEDING OR HEMATOMA, RIGHT GROIN DRSG WITH BLOODY DRAINAGE NOTED, NO FURTHER BLEEDING NOTED, LEFT GROIN DRSG CDI, NO BLEEDING OR HEMATOMA, NORTH PATENT DRAINING CONCENTRATED URINE, PP WEAK TO RIGHT FOOT, LEFT PULSES ABSENT, MD AWARE, BILAT SOFT WRIST RESTRAINTS INTACT, SR UP X 2, BED IN LOW POSITION, VISIBLE TO NURSES STATION.
--- NOTE | 2016-10-24 20:40 | NUR ---
EVENING MEDS GIVEN, VSS, RT AT BS, PT WEANED TO 80%, WILL MONITOR FOR CHANGES.
--- NOTE | 2016-10-24 21:00 | NUR ---
NO VISITORS IN AT THIS TIME
--- NOTE | 2016-10-24 21:00 | NUR ---
NO VISITORS IN AT THIS TIME.
--- NOTE | 2016-10-24 23:00 | NUR ---
REASSESSMENT COMPLETED, PT COUGHING AND GAGGING ON ETT, DIPRIVAN INCREASED TO 45MCG/KG/MIN, RIGHT A/C PIV LEAKING, DC'D WITH CATH TIP INTACT, Delmy WEBBER RN PLACED @ 20 GAUGE TO RIGHT HAND X 2 ATTEMPTS, DIPRIVAN PLACED TO LEFT HAND PIV, BP STABLE.
[2016-10-25] VITALS (39 sets, daily range): BP systolic 83–150; BP diastolic 46–92
--- NOTE | 2016-10-25 01:00 | NUR ---
PT REPOSITIONED UP IN BED, ARMS ELEVATED AND HEELS BRIDGED FOR COMFORT, VSS.
--- NOTE | 2016-10-25 03:00 | NUR ---
RADIOLOGY @ BS FOR CXR
[2016-10-25 04:22] LABS: BASOPHILS 0 % (0.0-2.0); EOSINOPHILS 0 % (0-7); HEMATOCRIT 48.3 % (36.0-48.0); HEMOGLOBIN 15.7 g/dL (12-16); IMMATURE GRANULOCYTES 0.2 % (0-5); LYMPHOCYTES 7.3 % (15-50); MCH 32.4 pg (26.0-34.0); MCHC 32.5 g/dL (31.0-37.0); MEAN PLATELET VOLUME 11.6 fL (7.4-10.4); MONOCYTES 3.6 % (2-11); NEUTROPHILS 88.9 % (40-80); RBC 4.84 10x6/uL (4.00-5.40); RDW 15.5 % (11.5-14.5); WBC 9.6 10x3/uL (4.8-10.8)
[2016-10-25 04:36] LABS: MCV 99.8 fL (80.0-100.0); PLATELET COUNT 123 10x3/uL (130-400)
[2016-10-25 04:41] LABS: BILIRUBIN - TOTAL 3.1 mg/dL (0.2-1.3); CALCIUM 8.3 mg/dL (8.5-10.1); CREATININE - SERUM 1.5 mg/dL (0.6-1.3); PROTEIN - SERUM 5.9 g/dL (6.4-8.2)
[2016-10-25 04:42] LABS: APTT 29.6 SECONDS (22.8-39.4); INR 2.2 (0.85-1.17); PROTIME 24.5 SECONDS (11.6-15.0)
[2016-10-25 04:43] LABS: ALBUMIN 2.8 g/dL (3.4-5.0)
[2016-10-25 04:58] LABS: D-DIMER-QUANTITATIVE 19.84 ug/mLFEU (0.20-0.54)
[2016-10-25 05:02] LABS: MAGNESIUM - SERUM 1.8 mg/dL (1.8-2.4); PHOSPHOROUS 3.5 mg/dL (2.5-4.9)
[2016-10-25 05:04] LABS: TROPONIN-I 0.211 ng/mL (0.000-0.060)
--- NOTE | 2016-10-25 05:30 | NUR ---
PT REPOSITIONED UP AND ONTO RIGHT SIDE SUPPORTED WITH PILLOWS, BP STABLE WILL CONT TO MONITOR FOR CHANGES.
--- NOTE | 2016-10-25 06:15 | NUR ---
AM MEDS GIVEN DOWN OGT AND CLAMPED X 30 MINUTES, NO VISITORS IN AT THIS TIME.
--- NOTE | 2016-10-25 10:11 | NUR ---
PATIENT IS ON THE VENT AND SEDATED. SHE IS NOT ABLE TO ANSWER MY QUESTIONS. I HAVE NOT SEEN ANY FAMILY HERE TO INTERVIEW. CM TO FOLLOW.
--- NOTE | 2016-10-25 17:50 | NUR ---
0800 AM ASSESMENT IS COMPLETE SEE FLOW SHEEET FOR FINDINGS.. PT IS SEDATED ON VENT AND ORALLY INTUBATED... DIPRIVAN FOR SEDATION AND DOPAMINE INFUSING.. THERE ARE 3 PIV 2 ON THE RIGHT AND 1 LEFT ALL WITHOUT REDNESS OR SWELLING.. OGT TO LIWS WITH THICK GREEN DRAINAGE IN CANNISTER.. 0900 WITHOUT VISITOR AT BEDSIDE.. 1000 [address] ADRIAN IN TO SEE PT .. UPDATE GIVEN.. 1130 DR BEJARANO IN TO SEE PT UPDATE GIVEN AND SEDATION IS DECREASED SLIGHTLY THERE IS A CHANGE MADE TO THE VENT BY DR SOREN ZHOUVRODALIS OF 14 TV 500 PEP5 PS 12 1200 VISITOR AT THE BEDSIDE.. UPDATE ISGIVEN.. 1300 CCONTINUE TO TITRATE THE DIPRIVAN AND DOPAMINE DOWN .. 1400 SON CALLED UPDATE GIVEN.. 1500 WITHOUT VISITORS AT THIS TIME.. 1700 SON CALLED AND UPDATE GIVEN AGAIN.. PT REMAINS WITHOUT CHANGES..
--- NOTE | 2016-10-25 19:20 | NUR ---
REPORT REC'D AND CARE ASSUMED, REC'D PT ON VENT VIA 7.5 ETT TAPED SECURELY AT 22CM LIPLINE SEE FLOWSHEETS FOR VENT SETTINGS, PT AROUSABLE TO NAME DOES NOT OPEN EYES OR FOLLOW COMMANDS, OGT TAPED SECURELY TO ETT, PLACEMENT VERIFIED VIA SM AIR BOLUS AUSCULTATED OVER EPIGASTRIM, LEFT HAND PIV WITH DIPRIVAN @ 20MCG/KG/MIN, PT RESTLESS IN BED BITING ETT, DIPRIVAN INCREASED TO 30MCG/KG/MIN, RIGHT FOREARM SWOLLEN AT PIV SITE DOPAMINE PAUSED, PT JUMPS WHEN FLUSHING, DOPAMINE MOVED TO RIGHT HAND WITH 1/2NS @ 100, DOPAMINE INFUSING @ 4.4MCG/KG/MIN, NORTH PATENT DRAINING CONCENTRATED URINE, RIGHT PP BY DOPPLER, UNABLE TO DOPPLER PULSE ON LEFT, MD AWARE, BILAT SOFT WRIST RESTRAINTS INTACT.
--- NOTE | 2016-10-25 20:15 | NUR ---
RIGHT FOREARM PIV DC'D WITH CATH TIP INTACT, 20GAUGE ATTEMPTED TO LEFT FOREARM BY MYSELF WHICH WAS UNSUCCESSFUL, 20 GAUGE PLACED TO LEFT FOREARM BY Delmy WEBBER RN X 1, DOPAMINE RESUMED TO LEFT FOREARM PIV.
--- NOTE | 2016-10-25 21:05 | NUR ---
EVENING MEDS GIVEN, PT REPOSITIONED UP AND ONTO RIGHT SIDE SUPPORTED WITH PILLOWS.
--- NOTE | 2016-10-25 23:30 | NUR ---
REASSESSMENT COMPLETED, PT REPOSITIONED IN BED FOR COMFORT, VSS, WILL CONT TO MONITOR FOR CHANGES.
[2016-10-26] VITALS (38 sets, daily range): BP systolic 103–148; BP diastolic 54–100
--- NOTE | 2016-10-26 01:00 | NUR ---
NO CHANGES IN STATUS
--- NOTE | 2016-10-26 03:00 | NUR ---
COMPLETE BATH AND LINEN CHANGE GIVEN, DRSGS TO RIGHT ARM AND GROIN CHANGED AND REDRESSED WITH GAUZE AND TEGADERMS, LEFT GROIN DRSG REMOVED AND LEFT OPEN TO AIR.
--- NOTE | 2016-10-26 03:40 | NUR ---
RADIOLOGY @ BS FOR AM CXR
--- NOTE | 2016-10-26 05:00 | NUR ---
PT REPOSITIONED UP AND ONTO RIGHT SIDE SUPPORTED WITH PILLOWS.
[2016-10-26 05:06] LABS: BASOPHILS 0 % (0.0-2.0); EOSINOPHILS 0 % (0-7); HEMATOCRIT 48.4 % (36.0-48.0); HEMOGLOBIN 15.5 g/dL (12-16); IMMATURE GRANULOCYTES 0.2 % (0-5); LYMPHOCYTES 5.2 % (15-50); MEAN PLATELET VOLUME 11.8 fL (7.4-10.4); MONOCYTES 3.7 % (2-11); NEUTROPHILS 90.9 % (40-80); PLATELET COUNT 117 10x3/uL (130-400); RBC 4.84 10x6/uL (4.00-5.40); RDW 15.9 % (11.5-14.5); WBC 9.1 10x3/uL (4.8-10.8)
[2016-10-26 05:37] LABS: ALBUMIN 2.7 g/dL (3.4-5.0); BILIRUBIN - TOTAL 2.6 mg/dL (0.2-1.3); CALCIUM 8.4 mg/dL (8.5-10.1); CARBON DIOXIDE 29.6 mmol/L (21.0-32.0); MAGNESIUM - SERUM 1.6 mg/dL (1.8-2.4); POTASSIUM - SERUM 3.6 mmol/L (3.5-5.1); PROTEIN - SERUM 5.8 g/dL (6.4-8.2)
--- NOTE | 2016-10-26 06:20 | NUR ---
AM MEDS GIVEN, NO VISITORS IN AT THIS TIME, PULMOCARE BEGUN TO OGT @ 20CC/HR WILL MONITOR FOR CHANGES.
--- NOTE | 2016-10-26 09:39 | NUR ---
Nutrition follow-up: Pulmocare started @ 20 ml/hr via OGT Labs reviewed Wt: 199# Recommend advancing TF to goal rate of 50 ml/hr. RDN following.
--- NOTE | 2016-10-26 13:21 | NUR ---
PATIENT REMAINS ON THE VENT AND UNBLE TO ANSWER QUESTIONS. I STILL HAVE NOT SEEN ANY FAMILY HERE TO INTERVIEW. CM TO FOLLOW.
--- NOTE | 2016-10-26 14:30 | NUR ---
EXTUBATED AND OGT DC'D BY RT, 4L NC INITIATED, AWAKE AND FOLLOWS COMMANDS, SAT 95%, CALL LIGHT IN REACH, NO NEEDS AT THIS TIME
--- NOTE | 2016-10-26 15:00 | NUR ---
ASSESSMENT COMPLETE, NO ACUTE CHANGE FROM PREVIOUS, VSS, CONITNUES ON DOPAMINE AT 3 MCG, AWAKE AND FOLLOWING COMMANDS
--- NOTE | 2016-10-26 17:15 | NUR ---
BP 144/75, HR 62, DOPAMINE TITRATED TO 2 MCG
--- NOTE | 2016-10-26 18:30 | NUR ---
FSBS 154, 2 UNITS HUMALOG GIVEN PER S/S, DAUGHTER AT BEDSIDE, STATUS UPDATED, NO NEEDS AT THIS TIME
--- NOTE | 2016-10-26 19:00 | NUR ---
REPORT RECEIVED AND ASSESSMENT COMPLETED. HAD TO USE DOPPLER TO FIND PULSE IN RIGHT ARM, BUT IT IS PRESENT. SOME BRUISING AROUND RIGHT BRACHIAL CATH SITE. PT ON 2 MCG DOPAMINE DRIP. VSS. WILL CONTINUE TO MONITOR
--- NOTE | 2016-10-26 19:29 | NUR ---
BEDSIDE SHIFT REPORT GIVEN TO STEVE RN
--- NOTE | 2016-10-26 21:35 | NUR ---
2100 MEDS GIVEN NO OTHER CHANGES AT THIS TIME. VSS. WILL MONITOR.
--- NOTE | 2016-10-26 23:18 | NUR ---
2300 ASSESSMENT COMPLETED. SEE ASSESSMENT FOR DETAILS. DOPAMINE TITRATED UP TO 3MCG. WILL CONTINUE TO MONITOR.
[2016-10-27] VITALS (84 sets, daily range): BP systolic 92–156; BP diastolic 43–103
--- NOTE | 2016-10-27 01:00 | NUR ---
PT SLEEPING IN ROOM. VSS. WILL MONITOR FOR CHANGES.
--- NOTE | 2016-10-27 03:00 | NUR ---
REASSESSMENT COMPLETED. SEE FLOWSHEET. DOPAMINE INCREASED TO 4 MCG. VSS. WILL MONITOR.
[2016-10-27 04:56] LABS: BASOPHILS 0 % (0.0-2.0); EOSINOPHILS 0 % (0-7); HEMOGLOBIN 15.6 g/dL (12-16); IMMATURE GRANULOCYTES 0.1 % (0-5); LYMPHOCYTES 4.4 % (15-50); MCH 32.2 pg (26.0-34.0); MCHC 31.2 g/dL (31.0-37.0); MEAN PLATELET VOLUME 11.1 fL (7.4-10.4); MONOCYTES 3.8 % (2-11); NEUTROPHILS 91.7 % (40-80); PLATELET COUNT 94 10x3/uL (130-400); RBC 4.85 10x6/uL (4.00-5.40); RDW 16.2 % (11.5-14.5); WBC 8.7 10x3/uL (4.8-10.8)
[2016-10-27 05:10] LABS: MCV 103.1 fL (80.0-100.0)
--- NOTE | 2016-10-27 05:11 | NUR ---
NO CHANGES IN STATUS AT THIS TIME. VSS. WILL MONITOR.
[2016-10-27 05:24] LABS: CALC OSMOLALITY 282 mosm/kg (275-300); CALCIUM 8.6 mg/dL (8.5-10.1); CARBON DIOXIDE 31.1 mmol/L (21.0-32.0); CHLORIDE - SERUM 101 mmol/L (98-107); CREATININE - SERUM 0.8 mg/dL (0.6-1.3); GLUCOSE 160 mg/dL (74-106); POTASSIUM - SERUM 3.7 mmol/L (3.5-5.1); SODIUM 139 mmol/L (136-145); UREA NITROGEN 18 mg/dL (7-18); eGFR NON AFRICAN AMERICAN 78 mL/min (90-120)
--- NOTE | 2016-10-27 07:00 | NUR ---
REC'D CARE OF PT.
--- NOTE | 2016-10-27 07:56 | NUR ---
INITIAL ASSESSMENT COMPLETED PER FLOW SHEET
--- NOTE | 2016-10-27 10:27 | NUR ---
PATIENT STATES SHE LIVES ALONE. SHE HAS TWO CHILDREN, DEUCE, BUT DOES NOT PROVIDE THEIR PHONE NUMBERS. SHE STATES SHE DOES NOT HAVE ANYONE AT HOME TO ASSIST HER AT DISCHARGE. WE DISCUSSED POSSIBLE REHAB FOR HER AT DISCHARGE, ACUTE OR SNF. PATIENT'S PCP IS DR. UMER MALIK. SHE GETS HER MEDICATIONS FROM [facility]. SHE HAS O2 AT HOME AND A NEBULIZER. SHE STATES SHE GETS IT FROM [facility]. THERE ARE 4 STEPS TO ENTER HER HOME. PATIENT MAY NEED TO GO TO REHAB BEFORE GOING HOME SINCE SHE LIVES ALONE AND STATES SHE DOES NOT HAVE ANYONE TO ASSIST HER. CM TO FOLLOW. Is the patient Alert and Oriented? Yes 0 * How many steps to enter\exit or inside your home? 4 0 * PCP DR. UMER MALIK 0 * Pharmacy [facility] 0 * Preadmission Environment Home Alone 0 * ADLs Independent 0 * Equipment Nebulizer Oxygen 0 * Other Equipment PATIENT STATES SHE GETS HER O2 AND NEBS FROM [facility] 0 * List name and contact numbers for known caregivers / representatives who currently or will assist patient after discharge: CHILDREN: DEUCE DOES NOT HAVE PHONE NUMBER 0 * Community resources currently utilized None 0 * Additional services required to return to the preadmission environment? Yes 0 * Can the patient safely return to the preadmission environment? No 0 * Has this patient been hospitalized within the prior 30 days at any hospital? No 0 Grand Total: 0
--- NOTE | 2016-10-27 11:16 | NUR ---
CONFUSED AT TIMES. A&O AT THIS TIME. SEE FLOW SHEET FOR ASSESSMENT.
--- NOTE | 2016-10-27 12:39 | NUR ---
BACK TO BED INDEPENDENTLY.
--- NOTE | 2016-10-27 14:05 | NUR ---
STARTED WEANING DOPAMINE. HR DROPS FROM 60'S INTO 40'S. BACK ON AT 4 MCG.
--- NOTE | 2016-10-27 16:07 | NUR ---
TAKING FULL LIQUIDS FINE.
--- NOTE | 2016-10-27 18:00 | NUR ---
FAMILY AT BEDSIDE. UPDATED.
--- NOTE | 2016-10-27 19:00 | NUR ---
REPORT RECEIVED. PT'S CARE ASSUMED. ASSESSMENT COMPLETED PER FLOW SHEETS. PT AWAKE, ORIENTED TO NAME, CONFUSED WITH PLACE AND TIME. REORIENTED. DENIES SOB OR DISCOMFORT AT THIS TIME. HVAC MECHANICAL ENGINEER SHOWS S/R HR TO 72. LUNG SOUNDS CRACKLES TO ULB WITH DIMINISHED TO LLB, UNLABORED. O2SAT TO 96% ON 5L VIA NC. PIV INTACT, INFUSING IV FLUIDS VIA PUMP. NORTH INTACT TO GRAVITY WITH CL.Y DRAINAGE TO BAG. PPP, SCD'S OFF FOR SKIN INTEGRITY. CALL LIGHT IN REACH. WILL CONT TO MONITOR.
--- NOTE | 2016-10-27 21:00 | NUR ---
NO VISITORS AT THIS TIME. SCHEDULED MEDS GIVEN PER ORDER.PT SWALLOWS WITHOUT DIFFIC. VSS. CONT TO MONITOR.
--- NOTE | 2016-10-27 23:00 | NUR ---
REASSESSMENT COMPLETED PER FLOW SHEETS. NO ACUTE SINGS OF DISTRESS NOTED AT THIS TIME. VSS. REPOSITIONED FOR COMFORT. PILLOWS IN USE FOR SUPPORT. HOB UP. SIDE RAILS UP X2. CALL LIGHT IN REACH. CPOC.
[2016-10-28] VITALS (41 sets, daily range): BP systolic 90–150; BP diastolic 49–105
--- NOTE | 2016-10-28 01:00 | NUR ---
PT RESTING QUIETLY WITHOUT DISTRESS. TITRATED DOPAMINE PER ORDER. VSS. NO COMPLAINS VOICES AT THIS TIME. REPOSITIONED FOR COMFORT. CALL LIGHT IN REACH. CPOC.
--- NOTE | 2016-10-28 03:00 | NUR ---
REASSESSMENT COMPLETED. SEE FLOW SHEETS FOR ALL FINDINGS. NO ACUTE CHANGES IN PT'S CONDITION NOTED. VSS. TITRATE DOPAMINE PER ORDER. CONT TO MONITOR.
[2016-10-28 04:58] LABS: BASOPHILS 0 % (0.0-2.0); EOSINOPHILS 0 % (0-7); HEMOGLOBIN 14.7 g/dL (12-16); IMMATURE GRANULOCYTES 0.1 % (0-5); MCH 32.2 pg (26.0-34.0); MCHC 31.3 g/dL (31.0-37.0); MCV 102.8 fL (80.0-100.0); MEAN PLATELET VOLUME 10.9 fL (7.4-10.4); MONOCYTES 4.7 % (2-11); NEUTROPHILS 90.2 % (40-80); PLATELET COUNT 78 10x3/uL (130-400); RBC 4.57 10x6/uL (4.00-5.40); RDW 15.7 % (11.5-14.5); WBC 6.8 10x3/uL (4.8-10.8)
[2016-10-28 05:18] LABS: ALBUMIN 2.5 g/dL (3.4-5.0); ALKALINE PHOSPHATASE 70 U/L (46-116); ALT (SGPT) 43 U/L (10-68); BILIRUBIN - TOTAL 1.72 mg/dL (0.2-1.3); CALC OSMOLALITY 285 mosm/kg (275-300); CALCIUM 8.1 mg/dL (8.5-10.1); CARBON DIOXIDE 32.3 mmol/L (21.0-32.0); CHLORIDE - SERUM 102 mmol/L (98-107); CREATININE - SERUM 0.8 mg/dL (0.6-1.3); GLUCOSE 175 mg/dL (74-106); MAGNESIUM - SERUM 1.6 mg/dL (1.8-2.4); PHOSPHOROUS 2.4 mg/dL (2.5-4.9); POTASSIUM - SERUM 3.2 mmol/L (3.5-5.1); PROTEIN - SERUM 5.6 g/dL (6.4-8.2); SODIUM 141 mmol/L (136-145); UREA NITROGEN 15 mg/dL (7-18); eGFR NON AFRICAN AMERICAN 78 mL/min (90-120)
[2016-10-28 05:34] LABS: PLATELET ESTIMATE DECREASED
--- NOTE | 2016-10-28 07:30 | NUR ---
RECEIVED PT FOR CARE. PT RESTING IN BED WITH EYES OPEN. CALL LIGHT WITHIN REACH. ASSESSMENT COMPLETED. VSS AT THIS TIME.
--- NOTE | 2016-10-28 09:21 | NUR ---
PHYSICAL THERAPY AT BEDSIDE. PT ASSISTED UP TO CHAIR. CALL LIGHT WITHIN REACH.
--- NOTE | 2016-10-28 09:22 | NUR ---
Nutrition follow-up: Pt extubated and pt receiving a full liquid diet at this time. Labs reviewed Wt: 199# RDN will order Glucerna Shake with meals RDN following.
--- NOTE | 2016-10-28 11:12 | OP ---
PATIENT NAME: DIANA PARISH MEDICAL RECORD: [id number] :59 LOCATION:D.[facility] D.2301 ADMISSION DATE:10/21/16 SURGEON: MARY CARMEN CACERES MD DATE OF OPERATION: 10/24/2016 PROCEDURES: 1. PTCA, stent LAD through the patent vein graft. 2. Left heart catheterization. 3. Selective coronary angiography. 4. Vein graft angiography. INDICATION: Status post ventricular tachycardia arrest, coronary artery disease and angina. PROCEDURE IN DETAIL: After informed consent was obtained and after detailed explanation of risks, benefits, as well as alternative therapies, the patient with angiogram and angioplasty. The left femoral area was prepped and draped in normal sterile fashion. The left femoral artery was cannulated via modified Seldinger technique with placement of 5-Japanese sheath. However, there is total occlusion of the iliac, right femoral area. We could not find any vascular structure. The right brachial area was prepped and draped in normal sterile fashion placement of 6-Japanese sheath. The catheterization was performed through this sheath. FINDINGS: 1. The left main is with no significant angiographic disease. 2. Left anterior descending is totally occluded proximally. 3. Vein graft to the LAD is patent; however, there is a 90% to 95% stenosis after the patent vein graft. 4. Left circumflex has severe diffuse disease and has totally occluded in mid vessel. The distal circumflex fills via left to left collaterals. 5. The right coronary is diffusely diseased, only mildly. No discrete flow-limiting stenosis. PTCA STENT OF THE LAD THROUGH THE VEIN GRAFT: The stent used was a 2.5 x 18 mm Integrity. Result was 0% residual stenosis. OVERALL IMPRESSION: Successful percutaneous transluminal coronary angioplasty stent of the left anterior descending through the patent vein graft going from 90% to 95% initial stenosis to 0% residual. TRANSINT:[id number] Voice Confirmation ID: [id number] DOCUMENT ID: [id number] MARY CARMEN CACERES MD at 1112 CC: [id number] DICTATION DATE: 10/24/16 1203 AREA FIELD MANAGER: 10/24/16 1413 [place] [address]
--- NOTE | 2016-10-28 11:42 | NUR ---
NOTIFIED DR. CACERES OF PT'S BRADYCARDIA AND HAVING SOME JUNCTIONAL RHYTHM BEATS. ORDERS TO STOP METOPROLOL AND CORDARONE AT THIS TIME.
--- NOTE | 2016-10-28 15:37 | NUR ---
1330-ASSISTED TO BED-TOLERATED WELL- 1415-RESP RX STARTED-HR [id number] TURNED OFF--PT C/O SLIGHT SOB- 1500-FAMILY AT BEDSDIDE-INFORMED OF PT MISSING GLASSES-ASSISTING TO LOOK FOR SAME
--- NOTE | 2016-10-28 17:25 | NUR ---
PT REPORTED STILL NOT ABLE TO FIND GLASSES-BELONGING BAGS CHECKED UNT APPEALS EXAMINER INFORMED
--- NOTE | 2016-10-28 19:00 | NUR ---
RECEIVED PATIENT FOR CARE, PT RESTING IN BED WITH EYES CLOSED, OPENS EYES TO ME ENTERING ROOM. VSS, SHIFT ASSESSMENT COMPLETE. SEE FLOWSHEET. PT DENIES NEED, NO RESP DISTRESS NOTED. PATIENT IS IN CONTROLLED A-FIB AT THIS MOMENT, WILL MONITOR.
--- NOTE | 2016-10-28 21:00 | NUR ---
NO VISITORS AT THIS TIME, VSS, PT RESTING WITH EYES CLOSED.
--- NOTE | 2016-10-28 22:36 | NUR ---
PATIENT'S DAUGHTER CALLED AT THIS TIME, UPDATE GIVEN.
--- NOTE | 2016-10-28 23:00 | NUR ---
REASSESSMENT COMPLETE, NO CHANGES AT THIS TIME. REPOSITIONED FOR COMFORT.
[2016-10-29] VITALS (21 sets, daily range): BP systolic 73–150; BP diastolic 51–110
--- NOTE | 2016-10-29 01:00 | NUR ---
PATIENT RESTING WITH EYES CLOSED, RR EVEN AND NON-LABORED. CONTROLLED A-FIB ON HM.
--- NOTE | 2016-10-29 03:00 | NUR ---
REASSESSMENT COMPLETE. NO CHANGES AT THIS TIME.
[2016-10-29 04:41] LABS: BASOPHILS 0 % (0.0-2.0); EOSINOPHILS 0.3 % (0-7); HEMATOCRIT 46.9 % (36.0-48.0); IMMATURE GRANULOCYTES 0.3 % (0-5); LYMPHOCYTES 10.3 % (15-50); MCH 32.7 pg (26.0-34.0); MCV 102.2 fL (80.0-100.0); MEAN PLATELET VOLUME 11.6 fL (7.4-10.4); MONOCYTES 7.1 % (2-11); PLATELET COUNT 54 10x3/uL (130-400); RBC 4.59 10x6/uL (4.00-5.40)
[2016-10-29 04:48] LABS: CALC OSMOLALITY 284 mosm/kg (275-300); CALCIUM 7.9 mg/dL (8.5-10.1); CARBON DIOXIDE 37.4 mmol/L (21.0-32.0); CHLORIDE - SERUM 102 mmol/L (98-107); CREATININE - SERUM 0.6 mg/dL (0.6-1.3); MAGNESIUM - SERUM 1.6 mg/dL (1.8-2.4); PHOSPHOROUS 1.8 mg/dL (2.5-4.9); POTASSIUM - SERUM 3.6 mmol/L (3.5-5.1); SODIUM 142 mmol/L (136-145); UREA NITROGEN 14 mg/dL (7-18); eGFR NON AFRICAN AMERICAN > 90 mL/min (90-120)
[2016-10-29 04:49] LABS: GLUCOSE 118 mg/dL (74-106)
--- NOTE | 2016-10-29 05:00 | NUR ---
PATIENT DENIES NEED, REPOSITIONED FOR COMFORT. VSS.
--- NOTE | 2016-10-29 07:00 | NUR ---
REC'D REPORT FROM OUTGOING RN - PT LYING IN BED SUPINE - AA&O X4 - CONTINUE POC
--- NOTE | 2016-10-29 08:00 | NUR ---
ASSESSMENT COMPLETE - VVS - CONTROLLED AFIB PER CONT CARBON COATER MACHINE OPERATOR - BREAKFAST TRAY GIVEN TO PT. - PT ATE ~50%. CONTINUE POC
--- NOTE | 2016-10-29 08:30 | NUR ---
PHYS THERAPY AT BEDSIDE - TRANSFERRED PT TO CHAIR (SEE PT FLOW SHEET) - PT RESTING COMFORTAABLY. CONT POC.
--- NOTE | 2016-10-29 11:00 | NUR ---
SHAMPOOED PTs HAIR - PT RESTING IN CHAIR - ASSESSMENT COMPLETE - CONT POC
--- NOTE | 2016-10-29 11:45 | NUR ---
REESE CALLED STATED - PT'S FREIND 'CARLO MAY HAVE PT'S GLASSES'. ASKED EITHER PT OR SON WILL CONTACT CARLO. PT DID NOT REMEMBER CARLO'S NUMBER - BUT ASKED THIS RN TO PLUG IN CELL PHONE TO OBTAIN NUMBER.
--- NOTE | 2016-10-29 12:00 | NUR ---
LUNCH TRAY SET UP FOR PT - PT RECLINING IN CHAIR EATING. PT ASKED FOR HER GLASSES. PT STATED SHE HAD THEM WHEN SHE CAME TO HOSPITAL. WILL F/U WITH HOUSE SUPRVIOSR AND HOUSEKEEPING.
--- NOTE | 2016-10-29 12:45 | NUR ---
DR. BEJARANO ORDERED CARDIZEM DRIP SET RATE OF 10 ML/HOUR. CPOC
--- NOTE | 2016-10-29 14:15 | NUR ---
REESE - PT'S SON - CALLED TO ASK IF 'DEBBI' HAS A PARISH TO PT'S HOME AND IF DEBBI DRIVES A WHITE CAR. PT RESTING WITH EYES CLOSED - RESPRIATIONS REG RATE AND RHYTHM. EASILY AROUNDS TO VERBAL STIMULI. PT STATED HER NEIGHBOR. ROS HAS A PARISH AND DEBBI'S GIRLFREIND DRIVES WHITE CAR. INFORMED REESE - THANKED FOR PHONE CALL
--- NOTE | 2016-10-29 16:00 | NUR ---
I&O COMPLETE - PT RESTING VOICED NO NEEDS AT THIS TIME - 3580 DINNER TRAY SET UP FOR PT. CONT POC
--- NOTE | 2016-10-29 17:45 | NUR ---
PAGED DR DUMONT TO ASK IF PT COULD BE TRANSFERRED TO TELEMETRY FLOOR. AGREED TO TRANSFER.
--- NOTE | 2016-10-29 19:05 | NUR ---
REPORT RECEIVED AND CARE TAKEN OVER. SHIFT ASSESSMENT COMPLETE, PATIENT STATES SHE'S HAD A GOOD DAY AND FEELS MUCH BETTER. PATIENT IS AFEBRILE, ALERT AND ORIENTED. CRACKLES HEARD IN UPPER LOBES OF LUNGS, DIMINISHED IN BASES. S1S2 NOTED WITH HM SHOWING UNCONTROLLED A-FIB WITH A RATE OF 122. CARDIZEM STARTED TODAY AND GOING AT 10MLS/HR. BOWEL SOUNDS ACTIVE, PERIPHERAL PULSES PALPABLE. GENERAILIZED EDEMA NOTED IN ALL EXTREMITIES. PIRIPHERAL IV'S IN BOTH HANDS AND LEFT FOREARM. ALL ARE PATENT, FLUSH WITH EASE, AND WITHOUT SWELLING OR REDNESS. BRUISES NOTED ON LEFT AC SITE AND GROIN FROM RECENT CATH SITE. NROTH CATHETER DRAINING CLEAR YELLOW URINE TO GRAVITY, WITHOUT KINKS. PATIENT REQUESTS CUP OF ICE, DENIES FURTHER NEED. VSS, WILL CONTINUE TO MONITOR.
--- NOTE | 2016-10-29 21:00 | NUR ---
FAMILY AT BEDSIDE, REPORT GIVEN, IN PROCESS OF TRANSFERRING PT TO FLOOR.
--- NOTE | 2016-10-29 22:16 | NUR ---
PT ARRIVED VIA BED FORM ICU. NORTH CAUGHT IN WHEELS AND LEAKING. NEW NORTH BAG PLACED. UCAF PER CM HR 109. O2 2LNC. BRUSIES NOTED TO BILAT ARMS. SCD'S REMOVED AND SKIN INSPECTED. NO BREAKDOWN NOTED. ALERT AND ORIENTED. FAMILY AT BEDSIDE. WILL CONTINUE TO MONITOR.
--- NOTE | 2016-10-30 00:01 | NUR ---
FSBS 185. 2 UNITS HUMALOG GIVEN SUB-Q TO UPPER L ARM PER S/S. PT DENIES ANY DISCOMFORT. WILL CONTINUE TO MONITOR.
--- NOTE | 2016-10-30 02:36 | NUR ---
PT AWAKE; DENIES ANY DISCOMFORT. WILL CONTINUE TO MONITOR. SR UP X2, CALL LIGHT WITHIN REACH.
[2016-10-30 04:25] VITALS: BP 126/65
--- NOTE | 2016-10-30 05:23 | NUR ---
PT AWAKE; DENIES ANY DISCOMFORT. WILL CONTINUE TO MONITOR.
--- NOTE | 2016-10-30 06:21 | NUR ---
VSS THIS AM. CAF PER CM. PT DENIES ANY DISCOMFORT. NEEDS MET; WILL CONTINUE TO MONITOR.
[2016-10-30 06:31] LABS: BASOPHILS 0 % (0.0-2.0); EOSINOPHILS 0.2 % (0-7); HEMATOCRIT 46.9 % (36.0-48.0); HEMOGLOBIN 15.3 g/dL (12-16); IMMATURE GRANULOCYTES 0.3 % (0-5); MCH 32.6 pg (26.0-34.0); MCHC 32.6 g/dL (31.0-37.0); MEAN PLATELET VOLUME 11.3 fL (7.4-10.4); MONOCYTES 8.8 % (2-11); NEUTROPHILS 82.7 % (40-80); RBC 4.69 10x6/uL (4.00-5.40); RDW 16.1 % (11.5-14.5); WBC 6.3 10x3/uL (4.8-10.8)
[2016-10-30 06:32] LABS: PLATELET COUNT 68 10x3/uL (130-400)
[2016-10-30 06:43] LABS: CALC OSMOLALITY 285 mosm/kg (275-300); CALCIUM 8.4 mg/dL (8.5-10.1); CARBON DIOXIDE 35.8 mmol/L (21.0-32.0); CHLORIDE - SERUM 101 mmol/L (98-107); CREATININE - SERUM 0.7 mg/dL (0.6-1.3); GLUCOSE 133 mg/dL (74-106); MAGNESIUM - SERUM 1.9 mg/dL (1.8-2.4); PHOSPHOROUS 2.1 mg/dL (2.5-4.9); SODIUM 143 mmol/L (136-145); UREA NITROGEN 11 mg/dL (7-18); eGFR NON AFRICAN AMERICAN > 90 mL/min (90-120)
[2016-10-30 06:46] LABS: POTASSIUM - SERUM 2.9 mmol/L (3.5-5.1)
[2016-10-30 08:44] VITALS: BP 140/64
--- NOTE | 2016-10-30 09:19 | NUR ---
TELEMETRY AFIB. RESP UL ON 02 2L NC. IV PATENT. AMBULATES HALLWAY WITH PT ASSIST. WILL CONT. PLAN OF CARE.
[2016-10-30 13:13] VITALS: BP 130/91
[2016-10-30 17:01] VITALS: BP 118/68
--- NOTE | 2016-10-30 19:39 | NUR ---
RESUMED CARE OF PT, LYING IN BED RESPIRATIONS EVEN AND UNLABORED ON 2LPM VIA NC. 93 CAF ON TELEMETRY. RIGHT HAND INFUSING CARDIZEM @ 10 AND 1/2 NS @ 50. NORTH TO GRAVITY. PLAN OF CARE DISCUSSED. NO NEEDS VOICED AT THIS TIME, WILL CONTINUE TO MONITOR. SEE NURSE ASSESSMENT. CALL LIGHT IN REACH.
[2016-10-30 20:00] VITALS: BP 111/77
--- NOTE | 2016-10-30 23:47 | NUR ---
CRESTER AT BEDSIDE TO OBTAIN VITALS, CALL LIGHT IN REACH. WILL CONTINUE TO MONITOR. FSBS 187, REFUSED TREATMENT AT THIS TIME.
[2016-10-31] VITALS: BP 102/53
[2016-10-31 04:00] VITALS: BP 119/58
[2016-10-31 05:09] LABS: BASOPHILS 0 % (0.0-2.0); EOSINOPHILS 2.5 % (0-7); HEMATOCRIT 45.6 % (36.0-48.0); HEMOGLOBIN 14.3 g/dL (12-16); IMMATURE GRANULOCYTES 0.4 % (0-5); LYMPHOCYTES 14.8 % (15-50); MCH 31.6 pg (26.0-34.0); MCHC 31.4 g/dL (31.0-37.0); MCV 100.9 fL (80.0-100.0); MEAN PLATELET VOLUME 10.4 fL (7.4-10.4); MONOCYTES 10.8 % (2-11); NEUTROPHILS 71.5 % (40-80); RBC 4.52 10x6/uL (4.00-5.40); RDW 16.1 % (11.5-14.5); WBC 7.7 10x3/uL (4.8-10.8)
[2016-10-31 05:28] LABS: PLATELET COUNT 93 10x3/uL (130-400)
[2016-10-31 05:51] LABS: ALBUMIN 2.4 g/dL (3.4-5.0); ALKALINE PHOSPHATASE 74 U/L (46-116); ALT (SGPT) 30 U/L (10-68); CALCIUM 8.5 mg/dL (8.5-10.1); CARBON DIOXIDE 35.8 mmol/L (21.0-32.0); CHLORIDE - SERUM 101 mmol/L (98-107); CREATININE - SERUM 0.8 mg/dL (0.6-1.3); GLUCOSE 134 mg/dL (74-106); MAGNESIUM - SERUM 1.7 mg/dL (1.8-2.4); PHOSPHOROUS 2.6 mg/dL (2.5-4.9); PROTEIN - SERUM 5.7 g/dL (6.4-8.2); SODIUM 140 mmol/L (136-145); eGFR NON AFRICAN AMERICAN 78 mL/min (90-120)
[2016-10-31 06:00] LABS: CALC OSMOLALITY 282 mosm/kg (275-300); POTASSIUM - SERUM 3.3 mmol/L (3.5-5.1); UREA NITROGEN 17 mg/dL (7-18)
--- NOTE | 2016-10-31 06:35 | NUR ---
MORNING MEDS PASSED, NO CHANGES FROM PREVIOUS ASSESSMENT. 40MEQ POTASSIUM GIVEN FOR AM POTASSIUM OF 3.3. WILL CONTINUE TO MONITOR.
[2016-10-31 08:00] VITALS: BP 104/67
--- NOTE | 2016-10-31 08:00 | NUR ---
EATING BREAKFAST TOLERATING WELL DENIES ANY NEEDS OR DISCOMFORT
--- NOTE | 2016-10-31 09:20 | NUR ---
ASSESSMENT COMPLETED.pT IS ON dROPPLET ISOLATION.TELEMERTY SHOWS CAF WITH A RATE OF 76.02 AT 2 L/M PER NC.PT HAS LEFT HAND SL AND A RIGHT HAND WITH A CARDIZEM DRIP AT 10 AND 0.5 NS AT 50. NORTH CATH TO BESIDE DRAINAGE. SCD ON.UP IN BEDSIDE CHAIR. WILL MONITOR
[2016-10-31] MEDS ORDERED: LOPRESSOR25 MG PO (10:14)
[2016-10-31] MEDS ORDERED: XARELTO20 MG PO (10:15)
[2016-10-31 12:00] VITALS: BP 109/79
[2016-10-31 16:00] VITALS: BP 119/72
--- NOTE | 2016-10-31 17:13 | NUR ---
UP IN CHAIR. DENIES ANY NEEDS.CALL LIGHT IN REACH
--- NOTE | 2016-10-31 19:30 | NUR ---
ASSESSMENT COMPLETE, DENIES NEEDS AT THIS TIME. 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 O2 @2L NC IN PLAXCE, TELEMETRY IN PLACE SHOWING HR 106 UCAFIB PER JUNIOR NETWORK ENGINEER. LEFT HAND WITH 1/2 NS INFUSING W/O DIFF VIA PUMPAT 50CC/HR NO R/S NOTED AT SITE. CARDIZEM INFUSING W/O DIFF VIA PUMP AT 10CC/HR TO RT HAND WITH NO R/S NOTED AT SITE. UP WITH PT, NORTH CATH INTACT AND PATENT WITH YELLOW URINE NOTED IN BAG. BILAT GROIN DRSGS CDI. BRUISING NOTED TO BILAT ARMS. HOB UP SR UP X2, C/L IN REACH. CONTINUE TO MONITOR.
[2016-10-31 20:03] VITALS: BP 121/66
[2016-11-01 01:37] VITALS: BP 123/62
[2016-11-01 04:19] VITALS: BP 136/85
[2016-11-01 06:01] LABS: BASOPHILS 0 % (0.0-2.0); EOSINOPHILS 0.8 % (0-7); HEMATOCRIT 46.8 % (36.0-48.0); HEMOGLOBIN 14.9 g/dL (12-16); IMMATURE GRANULOCYTES 0.4 % (0-5); LYMPHOCYTES 11.7 % (15-50); MCH 32.1 pg (26.0-34.0); MCHC 31.8 g/dL (31.0-37.0); MCV 100.9 fL (80.0-100.0); MEAN PLATELET VOLUME 10.7 fL (7.4-10.4); MONOCYTES 9.2 % (2-11); NEUTROPHILS 77.9 % (40-80); RBC 4.64 10x6/uL (4.00-5.40); RDW 16.1 % (11.5-14.5); WBC 7.5 10x3/uL (4.8-10.8)
[2016-11-01 06:06] LABS: PLATELET COUNT 113 10x3/uL (130-400)
[2016-11-01 06:25] LABS: CALC OSMOLALITY 278 mosm/kg (275-300); CALCIUM 9.1 mg/dL (8.5-10.1); CHLORIDE - SERUM 100 mmol/L (98-107); CREATININE - SERUM 0.7 mg/dL (0.6-1.3); GLUCOSE 160 mg/dL (74-106); POTASSIUM - SERUM 3.9 mmol/L (3.5-5.1); PRO BNP 5586 pg/mL (0-125); SODIUM 137 mmol/L (136-145); UREA NITROGEN 17 mg/dL (7-18); eGFR NON AFRICAN AMERICAN > 90 mL/min (90-120)
--- NOTE | 2016-11-01 07:40 | NUR ---
ASSESSMENT COMPLETED.TELEMTERY SHOWS CAF AT 88. CARDIZEM DRIP AT 10CC HR INFUSING INTO RIGHT HAND. NORTH CATH PATENT TO BEDSIDE GRAVITY BAG. DENIES ANY NEEDS. SR UP WITH CALL LIGHT IN REACH.
[2016-11-01 08:06] VITALS: BP 157/78
--- NOTE | 2016-11-01 11:12 | NUR ---
IV RESTARTED IN R ARM ON 2ND ATTEMPT WITH 20G. MONITOR SHOWS CAF AT RATE OF 92
[2016-11-01 12:01] VITALS: BP 116/74
--- NOTE | 2016-11-01 13:23 | NUR ---
Nutrition Follow Up: Chart reviewed. Pt is eating 75% meal avg on a Diabetic [facility] Soft diet. Wt loss 11# since admit. +BM 11/01/16. Labs noted - Glucose elevated. Meds noted including 1/2 NS @ 50 ml/hr, Prednisone, Lactulose, Humalog, Lasix. Pt with good po intake at this time. Rec continue current diet. RD following.
--- NOTE | 2016-11-01 14:12 | NUR ---
HOB UP. DENIES ANY NEEDS. VISITOR AT BEDSIDE. WILL MONITOR
[2016-11-01 16:14] VITALS: BP 129/72
--- NOTE | 2016-11-01 18:06 | NUR ---
PT EATING DIET. DENIES ANY NEEDS. CALL LIGHT IN REACH WITH SR UP
--- NOTE | 2016-11-01 19:30 | NUR ---
LYING SUPINE IN BED WITH HOB UP, SR UP X2, C/L IN REACH. TV ON REMAINS IN DROPLET ISOLATION PER PROTOCOL FOR MRSA IN SPUTUM. RESP UNLAB. CARDIZEM GTT AT 5CC/HR VIA PUMP TO RT HAND WITH NO R/S NOTED AT SITE. 1/2NS INFUSING W/O DIFF VIA PUMP AT 10CC/HR TO RT UPPER ARM WITH NO R/S NOTED SITE. NORTH CATH INTACT AND PATENT WITH YELLOW URINE NOTED IN BAG. VOICES NO C/O PAIN OR DISCOMFORT AT THIS TIME. CONTINUE TO MONITOR.
[2016-11-01 20:09] VITALS: BP 124/61
--- NOTE | 2016-11-01 22:57 | NUR ---
EYES CLOSED, RESP UNLAB WITH O2 @ 5L NC IN USE. HOB UP SR UP X2, C/L IN REACH CONTINUE TO MONITOR.
[2016-11-02 01:22] VITALS: BP 144/70
[2016-11-02 06:27] VITALS: BP 126/75
[2016-11-02 06:39] LABS: BASOPHILS 0 % (0.0-2.0); EOSINOPHILS 0.8 % (0-7); HEMATOCRIT 45.2 % (36.0-48.0); HEMOGLOBIN 14.4 g/dL (12-16); IMMATURE GRANULOCYTES 0.3 % (0-5); LYMPHOCYTES 12.7 % (15-50); MCH 32.3 pg (26.0-34.0); MCHC 31.9 g/dL (31.0-37.0); MCV 101.3 fL (80.0-100.0); MEAN PLATELET VOLUME 10.4 fL (7.4-10.4); MONOCYTES 10.7 % (2-11); NEUTROPHILS 75.5 % (40-80); RBC 4.46 10x6/uL (4.00-5.40); RDW 16.2 % (11.5-14.5); WBC 9.2 10x3/uL (4.8-10.8)
[2016-11-02 06:42] LABS: PLATELET COUNT 136 10x3/uL (130-400)
[2016-11-02 06:50] LABS: CALC OSMOLALITY 284 mosm/kg (275-300); CALCIUM 8.8 mg/dL (8.5-10.1); CARBON DIOXIDE 34.2 mmol/L (21.0-32.0); CHLORIDE - SERUM 101 mmol/L (98-107); CREATININE - SERUM 0.7 mg/dL (0.6-1.3); GLUCOSE 160 mg/dL (74-106); POTASSIUM - SERUM 3.9 mmol/L (3.5-5.1); SODIUM 140 mmol/L (136-145); UREA NITROGEN 21 mg/dL (7-18); eGFR NON AFRICAN AMERICAN > 90 mL/min (90-120)
[2016-11-02 08:00] VITALS: BP 120/75
[2016-11-02 11:42] VITALS: BP 110/62; BP 123/79
--- NOTE | 2016-11-02 12:34 | NUR ---
PT IS ALERT. ASSESSMENT DONE PER FLOWSHEET. NO OTHER NEEDS AT THIS TIME. CHRISTA ORTIZ DC'D AT THIS TIME. WILL CONTINUE TO MONITOR.
[2016-11-02 16:00] VITALS: BP 121/73
[2016-11-02 20:02] VITALS: BP 114/76
[2016-11-03 01:11] VITALS: BP 120/78
[2016-11-03 04:36] VITALS: BP 113/78
[2016-11-03 05:20] LABS: BASOPHILS 0 % (0.0-2.0); HEMOGLOBIN 14.9 g/dL (12-16); IMMATURE GRANULOCYTES 0.4 % (0-5); LYMPHOCYTES 17.1 % (15-50); MCH 32.3 pg (26.0-34.0); MCHC 31.7 g/dL (31.0-37.0); MCV 101.7 fL (80.0-100.0); MEAN PLATELET VOLUME 10.5 fL (7.4-10.4); MONOCYTES 9.4 % (2-11); NEUTROPHILS 72.1 % (40-80); RBC 4.62 10x6/uL (4.00-5.40); WBC 9.3 10x3/uL (4.8-10.8)
[2016-11-03 05:25] LABS: PLATELET COUNT 173 10x3/uL (130-400)
[2016-11-03 05:32] LABS: CALC OSMOLALITY 282 mosm/kg (275-300); CARBON DIOXIDE 33.4 mmol/L (21.0-32.0); CHLORIDE - SERUM 99 mmol/L (98-107); CREATININE - SERUM 0.8 mg/dL (0.6-1.3); GLUCOSE 153 mg/dL (74-106); POTASSIUM - SERUM 4.1 mmol/L (3.5-5.1); SODIUM 138 mmol/L (136-145); UREA NITROGEN 24 mg/dL (7-18); eGFR NON AFRICAN AMERICAN 78 mL/min (90-120)
[2016-11-03 08:00] VITALS: BP 117/73
--- NOTE | 2016-11-03 09:24 | NUR ---
PT IS ALERT. ASSESSMENT DONE PER FLOWSHEET. NO CO PAIN AT THIS TIME. WILL CONTINUE TO MONITOR.
--- NOTE | 2016-11-03 10:52 | NUR ---
Patient Name: DIANA Haney PARISH Encounter No: [id number] : 1955 Primary Insurance: [employer] MEDICARE ADV Anticipated DC Date: Planned Disposition: Home with home health External Planned Provider: [facility] resumption DCP follow-up note: CM RECEIVED REQUEST TO ASSIST PT WITH MEALS ON WHEELS AND QUESTIONS REGARDING HAVING A PROGRAMS DIRECTOR FROM MEDICAID TO ASSIST IN THE HOME. RN JOHN FRIAS CALLED [facility] [address], , VERIFIED MEALS ON WHEELS DOES EXIST AND PROVIDED PT INFORMATION FOR AAA TO CONTACT FOR MEALS ON WHEELS AND POSSIBLE [employer] APPLICATION ASSISTANCE FOR POSSIBLE AIDE SERVICES IN PT'S HOME. CM PROVIDED PT WITH HER MEDICAID PARTICIPANT HANDBOOK, DISCUSSED REFERRAL TO [facility] [address] AND INFORMED PT THAT [facility] [address] WILL CONTACT HER IN ABOUT 5 DAYS AND COME TO PT'S HOUSE TO ASSIST WITH [employer] PROGRAM. CM DISCUSSED DISCHARGE PLAN AND NEEDS; PT REPORTS SHE WILL BE GOING HOME AT DISCHARGE AND NEEDS ONLY HER [facility] RESUMED. FOR DISCHARGE, NOTIFY [facility], , FAX DISCHARGE INFORMATION TO [phone]. CM TO FOLLOW AND ASSIST NEEDED. Kali Murphy, CASE MANAGEMENT
[2016-11-03 12:00] VITALS: BP 112/52
--- NOTE | 2016-11-03 14:13 | NUR ---
PT IS ALERT. NO SS OF DISTRESS AT THIS TIME. WILL CONTINUE TO MONITOR.
[2016-11-03] MEDS ORDERED: CARDIZEM CD240 MG PO (15:56)
[2016-11-03] MEDS ORDERED: CORDARONE200 MG PO (15:56)
[2016-11-03 16:00] VITALS: BP 118/79
[2016-11-03] MEDS ORDERED: PREDNISONE10 MG PO (16:02)
[2016-11-03] MEDS ORDERED: SYMBICORT 16010.2 GM INH (16:06)
--- NOTE | 2016-11-03 16:50 | NUR ---
Patient Name: DIANA PARISH Encounter No: [id number] : 1955 Primary Insurance: WELL[employer] MEDICARE ADV Anticipated DC Date: 11-03-2016 Planned Disposition: Home with Home Health External Planned Provider: [facility] DCP follow-up note: CM RECEIVED DISCHARGE ORDER, PROVIDED AND DISCUSSED IMPORTANT MESSAGE FROM MEDICARE. PT DENIES DISHARGE NEEDS OTHER THAN HER HOME HEALTH RESUMPTION. CM CALLED JEA-NPAUL OF [facility], , NOTIFIED OF DISCHARGE HOME TODAY AND FAXED DISCHARGE INFORMATION TO [phone]. Kali Murphy, CASE MANAGEMENT
--- NOTE | 2016-11-03 17:16 | NUR ---
D/C INSTRUCTIONS GIVEN TO PT. PT EATING SUPPER, AND REFUSED TO SIGN PAPERWORK UNTIL SHE WAS FINISHED EATING. PT ALSO REFUSED TO ALLOW NURSE TO REMOVE IV OR TELEMETRY UNTIL SHE WAS DONE EATING.
--- NOTE | 2016-11-03 17:37 | NUR ---
THIS NURSE ATTEMPTED TO HAVE PT SIGN D/C PAPERS AND REMOVE IV AND HEART MONITOR.PT IN RESTROOM. WILL TRY AGAIN.
--- NOTE | 2016-11-03 17:50 | NUR ---
D/C INSTRUCTIONS GIVEN AND PT SIGNED. IV REMOVED AND TELEMETRY REMOVED. PT AWAITNG RIDE HOME.
--- NOTE | 2016-11-03 19:03 | NUR ---
PT TO PERSONAL AUTO VIA WC ACCOMPANIED BY FAMILY MEMBER. ALL BELONGINGS WITH PT AND DISCHARGE INSTRUCTIONS GIVEN.
== END 2016-11-03 19:04 | disposition home health service (06) | DRG 248 ==
LOC: D.ER 13:45 → D.ICU 16:04 → D.M2 16:04 → D.ICU 10-24 02:29 → D.M2 10-29 21:39
PROVIDERS: Emergency Medicine; Family Medicine; Internal Medicine Interventional Cardiology; Internal Medicine Pulmonary Disease; ADMIT Family Medicine
PROC: B2121ZZ Fluoroscopy of Single Coronary Artery Bypass Graft using Low Osmolar Contrast (ICD-10-PCS; 2016-10-24)
PROC: B2111ZZ Fluoroscopy of Multiple Coronary Arteries using Low Osmolar Contrast (ICD-10-PCS; 2016-10-24)
PROC: B2151ZZ Fluoroscopy of Left Heart using Low Osmolar Contrast (ICD-10-PCS; 2016-10-24)
PROC: 5A12012 Performance of Cardiac Output, Single, Manual (ICD-10-PCS; 2016-10-24)
PROC: 0BH17EZ Insertion of Endotracheal Airway into Trachea, Via Natural or Artificial Opening (ICD-10-PCS; 2016-10-24)
PROC: 5A1945Z Respiratory Ventilation, 24-96 Consecutive Hours (ICD-10-PCS; 2016-10-24)
PROC: 02703DZ Dilation of Coronary Artery, One Artery with Intraluminal Device, Percutaneous Approach (ICD-10-PCS; principal; 2016-10-24 10:13)
PROC: 4A023N7 Measurement of Cardiac Sampling and Pressure, Left Heart, Percutaneous Approach (ICD-10-PCS; 2016-10-24 10:13)
DX: I25.119 Atherosclerotic heart disease of native coronary artery with unspecified angina pectoris (principal); I50.33 Acute on chronic diastolic (congestive) heart failure; J96.21 Acute and chronic respiratory failure with hypoxia; J15.212 Pneumonia due to Methicillin resistant Staphylococcus aureus; J44.1 Chronic obstructive pulmonary disease with (acute) exacerbation; I47.2 Ventricular tachycardia; I13.0 Hypertensive heart and chronic kidney disease with heart failure and stage 1 through stage 4 chronic kidney disease, or unspecified chronic kidney disease; I48.92 Unspecified atrial flutter; F17.203 Nicotine dependence unspecified, with withdrawal; J98.11 Atelectasis; N39.0 Urinary tract infection, site not specified; N17.9 Acute kidney failure, unspecified; I48.0 Paroxysmal atrial fibrillation; E11.22 Type 2 diabetes mellitus with diabetic chronic kidney disease; N18.9 Chronic kidney disease, unspecified; E78.5 Hyperlipidemia, unspecified; E03.9 Hypothyroidism, unspecified; N64.4 Mastodynia; E87.5 Hyperkalemia; I95.9 Hypotension, unspecified; Z78.1 Physical restraint status; D69.6 Thrombocytopenia, unspecified; R74.8 Abnormal levels of other serum enzymes; B96.20 Unspecified Escherichia coli [E. coli] as the cause of diseases classified elsewhere; F31.9 Bipolar disorder, unspecified; M51.36 Other intervertebral disc degeneration, lumbar region; G25.81 Restless legs syndrome; J30.9 Allergic rhinitis, unspecified; Z95.5 Presence of coronary angioplasty implant and graft; Z95.1 Presence of aortocoronary bypass graft

== ENCOUNTER 2016-11-11 11:31 | Inpatient (IN) | payer MEDICARE, MEDICAID ==
[~2016-11-11] VITALS: Ht 162.6 cm; Wt 98.7 kg
--- NOTE | ~2016-11-11 | HEMODYNAMI ---
PATIENT:DIANA PARISH MEDICAL RECORD: [id number] : [birth year] [facility] [id number] ADMISSION DATE: 11/11/16 Generatedon:11/16/201611:15 Patient name: DIANA PARISH Patient #: [id number] : 1955 Date of study: 11/16/2016 Page: Of Hemodynamic Procedure Report Patient Data Patient Demographics Procedure consent was obtained First Name: DIANA Gender: Female Last Name: JEM : 1955 [facility] Initial: D Age: 61 year(s) Patient #: [id number] Race: SSN: [id number] Additional ID: [id number] Contact details Address: [address] State: [place] City: [place] Zip code: [address] Past Medical History Allergies Allergen Reaction Date Comments Reported Penicillins 06/24/2016 Other allergy 11/16/2016 iodine, Penicillin, statins, lisinopril Admission Admission Data Admission Date: 11/11/2016 Admission Time: 18:55 Arrival Date: 11/11/2016 Arrival Time: 0:00 Admit Source: Other Insurance Payor: Medicare Room #: D.[id number] Lab Results Lab Result Date: 11/16/2016 Lab Result Time: 0:00 Biochemistry Name Units Result Min Max BUN mg/dl 26 --(----)-* 7 18 Creatinine mg/dl 1 --(--*-)-- 0.6 1.3 CBC Name Units Result Min Max Hemoglobin g/dl 12.4 *-(----)-- 13.5 17.5 Procedure Procedure Types Cath Procedure Diagnostic Procedure Cardioversion Procedure Description Procedure Date Procedure Date: 11/16/2016 Procedure Start Time: 10:31 Procedure End Time: 10:37 Procedure Staff Name Function Sanchez Saleh MD Performing Physician Benji Merritt RN Nurse Ethan Purdy RT Monitor Melisa Martinez RT Scrub Procedure Data Cath Procedure Fluoroscopy Diagnostic fluoroscopy Total fluoroscopy Time: 0 time: 0 min min Diagnostic fluoroscopy Total fluoroscopy dose: 0 dose: 0 mGy mGy Contrast Material Contrast Material Type Amount (ml) Isovue 370 0 Estimated blood loss: 0 ml Procedure Complications No complications Hemodynamics Rest HGB: 12.4 (g/dl) Heart Rate: 104 (bpm) Snapshots Pre Cath Intra NCS Post Cath Vital Signs Time Heart Resp SPO2 NIBP (mmHg) Rhythm Pain Sedation Rate (ipm) (%) Status Level (bpm) 10:20:40 104 25 136/105(119) NSR 0 (11) 10(A) , No pain 10:25:39 103 27 Measuring NSR 0 (11) 10(A) , No pain 10:27:03 103 24 Time NSR 0 (11) 10(A) Exceeded , No pain 10:30:40 102 32 Time NSR 0 (11) 10(A) Exceeded , No pain 10:34:15 100 31 Time NSR 0 (11) 10(A) Exceeded , No pain 10:34:50 99 22 Aborted NSR 0 (11) 10(A) , No pain 10:35:22 104 Aborted NSR 0 (11) 10(A) , No pain 10:37:13 49 35 84 67/48(56) NSR 0 (11) 10(A) , No pain 10:41:05 49 32 87 Time NSR 0 (11) 10(A) Exceeded , No pain 10:45:06 50 52 97 Time NSR 0 (11) 10(A) Exceeded , No pain 10:49:49 50 43 93 Time NSR 0 (11) 10(A) Exceeded , No pain 10:51:52 49 38 93 Aborted NSR 0 (11) 10(A) , No pain 10:54:11 49 23 90 94/66(89) NSR 0 (11) 10(A) , No pain 11:11:44 53 38 97 Time NSR 0 (11) 10(A) Exceeded , No pain 11:15:05 80 Time NSR 0 (11) 10(A) Exceeded , No pain Procedure Log Time Note 9:36:28 Ethan AGUIAR(R) sent for patient. Start room use. 9:36:29 Time tracking: Regular hours 9:36:33 Plan of Care:Hemodynamics will remain stable., Cardiac rhythm will remain stable., Comfort level will be maintained., Respiratory function will remain adequate., Patient/ family verbilizes understanding of procedure., Procedure tolerated without complication., Recovers from procedure without complications.. 9:46:38 Lab Result : Hemoglobin 12.4 g/dl 9:46:38 Lab Result : Creatinine 1 mg/dl 9:46:38 Lab Result : BUN 26 mg/dl 9:48:48 Diagnostic Cath Status : Elective 9:49:05 Admit Source: Other 9:49:12 Arrival Date: 11/11/2016 12:00:00 AM 9:49:20 Insurance Payor : Medicare 10:15:32 Patient received from Med II to CCL 1 Alert and oriented. Tansferred to table in Supine position. 10:15:33 Warm blankets applied, and lori hugger turned on for patient comfort. 10:15:33 Correct patient and procedure confirmed by team. 10:15:35 Signed procedure consent form obtained from patient. 10:15:36 ECG and BP/O2 sat monitors applied to patient. 10:15:38 Full Disclosure recording started 10:15:42 H&P Date Dictated: 11/16/2016 New H&P dictated by physician.. 10:15:44 Pre-procedure instructions explained to patient. 10:15:44 Pre-op teaching completed and patient verbalized understanding. 10:15:46 Family in waiting room. 10:15:47 Patient NPO since Midnight. 10:17:36 Patient allergic to Other allergyiodine, Penicillin, statins, lisinopril 10:17:44 Is the patient allergic to Iodine/contrast media? Yes. 10:17:45 Was the patient premedicated? No 10:17:48 Is patient on blood thinner?Yes 10:17:52 ACC The patient was administered the following blood thiners within the last 24 hours: Xarelto 10:18:15 Patient diabetic? No. 10:18:18 Previous problem with sedation/anesthesia? No ? 10:18:20 Snore? Yes 10:19:40 Vital chart was started 10:19:41 Baseline sample Acquired. 10:20:15 Sleep apnea? Yes 10:20:16 Deviated septum? No 10:20:17 Opens mouth fully? Yes 10:20:17 Sticks out tongue? Yes 10:20:21 Airway obstruction? Yes copd 10:20:25 Dentures? Yes out 10:20:29 Pre procedure: right dorsailis pedis pulse 2+ Normal; easily identifiable; not easily obliterated 10:20:34 Patient pain scale 0/10 ?. 10:22:22 IV started by Benji Merritt RN inright hand with a 20 gauge IV catheter with 0.9% NaCl at KVO. 10:22:25 Lab results completed and on chart. 10::31 Alarms reviewed by R. N. 10::31 Sharps counted by scrub and verified by R.N. 10:23:48 IV Extension Set opened to sterile field. 10:27:26 Physician paged 10:27:35 Dr. Askew present and monitoring patient for TIVA. 10::40 Physician arrived 10::40 --------ALL STOP TIME OUT------ 10::41 Final Timeout: patient, procedure, and site verified with staff and physician. All members of the team are in agreement. 10::54 Physical assessment completed. ASA score P 2 - A patient with mild systemic disease as per Sanchez Saleh MD. 10:28:57 Sedation plan: IV Moderate Sedation Versed, Fentanyl 10:30:46 Zero performed for pressure channel P1 10:31:01 Quick combo pads placed on patients chest and back. 10:31:03 Defibrillator synced and charged to 200 Joules. 10:31:54 Procedure started. 10:33:39 Quick Combo opened to sterile field. 10:35:07 Defibrillator synced and charged to 300 Joules. 10:35:25 Shock delivered. 10:36:26 Patient cardioverted to sinus rhythm . 10:36:35 Procedure ended.(Physican Out) 10:37:05 Fluoroscopy time 00.00 minutes. 10:37:07 Flurop Dose total: 0 10:37:07 Fluoroscopy dose: 0 mGy 10:37:11 Contrast amount:Isovue 370 0ml. 10:37:13 Sharps counted by scrub and verified by R.N. 10:37:15 Insertion/operative site no bleeding no hematoma. 10:37:20 Post procedure rhythm: sinus rhythm 10:37:24 Estimated blood loss: 0 ml 10:37:26 Post procedure instruction explained to patient.Patient verbalizes understanding. 10:37:26 Patient needs reinforcement of post procedure teaching. 10:37:32 Procedure and supply charges have been captured, reviewed, submitted and are correct. 10:37:36 Procedure Complication : No complications 10:37:38 Vital chart was stopped 10:37:39 See physician's report for complete and final results. 10:37:52 Report given to Med II. 10:37:56 Patient transfered to Med II with Stretcher. 10:37:59 Procedure ended. 10:37:59 Full Disclosure recording stopped 10:54:41 End room use (Document Last) Device Usage Item Name Manufacture Quantity Catalog Hospital Part Current Minimal Lot# / Number Charge Number Stock Stock Serial# Code IV [facility] 1 [id number] 5 Extension Set MPSTOR [id number] 5 Combo Signature Audit Cool Stage Time Signature Unsigned Intra-Procedure 11/16/2016 Ethan Purdy 11:15:37 AM RT(R) Signatures Monitor : Ethan Purdy RT Signature : Date : Time : [place] [place] [address]
[~2016-11-11 11:31] MED LIST changes: +CORDARONE200 MG PO; +HYDROCODONE-APA1 TAB PO; +LASIX40 MG PO; +LEVOTHYROXINE75 MCG PO; +LOPRESSOR25 MG PO; +PREDNISONE10 MG PO; +PROPAFENONE HC150 MG PO; +REQUIP0.25 MG PO; +SINGULAIR10 MG PO; +SYMBICORT 16010.2 GM INH
[2016-11-11 13:42] LABS: BASOPHILS 0.3 % (0.0-2.0); EOSINOPHILS 1.3 % (0-7); HEMATOCRIT 44.3 % (36.0-48.0); IMMATURE GRANULOCYTES 0.3 % (0-5); LYMPHOCYTES 27.8 % (15-50); MCH 32.4 pg (26.0-34.0); MCHC 31.6 g/dL (31.0-37.0); MCV 102.5 fL (80.0-100.0); MEAN PLATELET VOLUME 10.5 fL (7.4-10.4); MONOCYTES 5.4 % (2-11); NEUTROPHILS 64.9 % (40-80); PLATELET COUNT 154 10x3/uL (130-400); RBC 4.32 10x6/uL (4.00-5.40); RDW 15.1 % (11.5-14.5); WBC 7.8 10x3/uL (4.8-10.8)
[2016-11-11 13:47] LABS: ANION GAP 10.2 mmol/L (8-16); CALCIUM 9.2 mg/dL (8.5-10.1); CARBON DIOXIDE 34.6 mmol/L (21.0-32.0); CREATININE - SERUM 0.9 mg/dL (0.6-1.3); POTASSIUM - SERUM 3.8 mmol/L (3.5-5.1)
[2016-11-11 13:51] LABS: APTT 24.4 SECONDS (22.8-39.4); INR 1.17 (0.85-1.17); PROTIME 14.8 SECONDS (11.6-15.0)
[2016-11-11 13:53] LABS: D-DIMER-QUANTITATIVE 1.73 ug/mLFEU (0.20-0.54)
[2016-11-11 21:54] LABS: CKMB 1.9 U/L (0.0-3.6); CREATINE KINASE 45 UL (21-215); THYROID STIMULATING HORMONE 3.69 uIU/mL (0.36-3.74); TROPONIN-I 0.032 ng/mL (0.000-0.060)
[2016-11-12] VITALS (10 sets, daily range): BP systolic 80–162; BP diastolic 42–88; BMI 30.9
[2016-11-12 02:12] LABS: CKMB 1.5 U/L (0.0-3.6); CREATINE KINASE 28 UL (21-215); TROPONIN-I 0.072 ng/mL (0.000-0.060)
--- NOTE | 2016-11-12 07:45 | NUR ---
INTRODUCED MYSELF TO PT PRIMARY RN FOR TODAYS SHIFT. PT IS ALERT AND ORIENTED RESTING COMFORTABLY. PT STATES HER R.LEG IS SLIGHTLY ACHING STILL BUT JUST SLIGHT DISCOMFORT. SHIFT ASSESSMENT COMPLETED. PT HAS A L.FA PIV WITH DRSG CDI AND SWAB CAPS IN USE. CL IN REACH, BED IN LOWEST, SIDE RAILS X2. PT DENIES ANY CURRENT NEEDS. WILL CPOC.
[2016-11-12 08:11] LABS: CKMB 1.6 U/L (0.0-3.6); CREATINE KINASE 25 UL (21-215); TROPONIN-I 0.058 ng/mL (0.000-0.060)
--- NOTE | 2016-11-12 09:07 | HP ---
PATIENT: DIANA PARISH MEDICAL RECORD: [id number] ACCOUNT: [id number] LOCATION:[address] : [birth year] ADMISSION DATE: 11/11/16 HISTORY AND PHYSICAL EXAMINATION HISTORY OF PRESENT ILLNESS: Ms. Parish is a 61-year-old white female patient of Dr. Sanders who presents to the Emergency Room with increasing shortness of breath and tachycardia, has a known history of coronary artery disease and atrial fibrillation. She is tachycardic. Her chest x-ray reveals a large heart. Her BNP is elevated. Cardiac enzymes are pending. A VQ scan was performed in the ER, which is low probability. She has got bilateral pulmonary edema on exam. She has a JVD and a gallop. She is admitted at this time for CHF. PAST MEDICAL HISTORY: Significant for known coronary artery disease, atrial fib, COPD, hepatitis, diabetes which is diet controlled, GERD, hypertension, previous CABG, leaky heart valve, asthma. She had echo, last echo showed an ejection fraction of 20%. PAST SURGICAL HISTORY: Include a CABG, gallbladder, right knee replacement, tubal ligation, excision of right axillary mass, cardiac stents, and inguinal hernia repair. ALLERGIES: TO PENICILLIN. INTOLERANCE TO STATINS AND LISINOPRIL. HOME MEDICATIONS: Show Atrovent inhaler, Plavix 75 mg a day, which she apparently has not been taking, amiodarone 200 mg b.i.d., diltiazem 240 daily, Requip 0.25 at bedtime, Linwood 10, potassium 10 mEq daily, Lasix 40 mg b.i.d., Singulair 10 mg a day, Symbicort 2 puffs b.i.d., and levothyroxine 75 mcg a day. FAMILY HISTORY: Noncontributory. SOCIAL HISTORY: She has been a smoker, recently quit. REVIEW OF SYSTEMS: She denies any fever. She denies much in the way of chest pain mostly shortness of breath, edema, and worsening fatigue. She has also been experiencing some orthopnea. PHYSICAL EXAMINATION: GENERAL: She appears moderately ill. HEENT: Sclerae nonicteric. HEART: She is tachycardic with a gallop. She also has some JVD. LUNGS: With bilateral crackles and rales. ABDOMEN: Soft. Bilateral lower extremity edema. IMPRESSION: Congestive heart failure, known coronary disease, chronic obstructive pulmonary disease, cardiomyopathy, hypothyroidism, asthma, tobacco abuse. PLAN: Admit. Consult cardiology. Diurese for now. Daily weights. Repeat an echo. Continue home meds. See orders for plan. TRANSINT:[id number] Voice Confirmation ID: [id number] DOCUMENT ID: [id number] HISTORY AND PHYSICAL [id number] DIANA PARISH MATTHEW DO at 0907 CC: [id number] DICTATION DATE: 11/11/161942 ELECTRIC LINEMAN: 11/11/162038 ADM IN [place] [id number] [place] [id number]
--- NOTE | 2016-11-12 11:03 | NUR ---
PT SITTING UP IN BED RESTING QUIETLY WATCHING TV. RR NONLABORED WITH NC @3L IN PLACE. PT DENIES ANY CURRENT PAIN OR NEEDS. CL IN REACH. WILL CPOC.
--- NOTE | 2016-11-12 13:17 | NUR ---
PT WENT INTO FLUTTER WITH HR OF 97. PRIMARY AWARE. WILL CONTACT CARDIOLOGY.
--- NOTE | 2016-11-12 13:18 | NUR ---
Patient Name: DIANA Haney PARISH Admission Status: ER Accout number: [id number] Admission Date: 11-11-2016 : 1955 Admission Diagnosis: CHF Attending: ZO Current LOS: 1 Anticipated DC Date: 11/15/16 Planned Disposition: Return home alone. Primary Insurance: [employer] MEDICARE ADV Discharge Planning Comments: Cm met with patient to complete initial discharge planning assessment. Patient gave consent to complete assessment. Patient reports she lives home alone and is mostly independent in her care. She requires assistance with bathing at this time. She currently has [facility], PT, SN, and [employer]. Patient has o2 at home that she uses 17/04. She will need her home health resumed at discharge. CM will continue to follow and will assist with dc plans/needs. Digital Engineer: Anila Ontiveros Rn, CCM Is the patient Alert and Oriented? Yes * PCP Dr. Sanders * Pharmacy [facility] * Preadmission Environment Home Alone * ADLs Partial Dependent * Partial ADLs (Assistance needed) Bathing * Equipment Bedside Commode Oxygen Shower Chair * Other Equipment Uses [facility] for her Oxygen * List name and contact numbers for known caregivers / representatives who currently or will assist patient after discharge: Ethan Cochran [facility] - [phone] * Community resources currently utilized Home Health * Please name any agencies selected above. [facility] * Additional services required to return to the preadmission environment? No * Can the patient safely return to the preadmission environment? Yes * Has this patient been hospitalized within the prior 30 days at any hospital? Yes
--- NOTE | 2016-11-12 16:01 | NUR ---
PT STATES SHE IS FEELING 'FUNNY' VITALS TAKEN AND BP 85/52 MANUALLY TAKEN VIA L.ARM. R.ARM MANUAL 86/48. HR 52 FLUTTER. GAVE VERBAL ORDER FOR 250ML FLUID BOLUS. INITITATED VIA L.FA PIV WITH DRSG CDI AND SWAB CAPS IN USE. PT SITTING UP IN BEDSIDE CHAIR AND DENIES ANY FURTHER NEEDS AT THIS TIME. WILL CTM CLOSELY.
--- NOTE | 2016-11-12 17:01 | NUR ---
PAGED CARDIOLOGY PER PRIMARY REQUEST R/T DROP IN HR AND BP. WILL CTM CLOSELY AND WAIT DELIVERY TRUCK DRIVER HEAVY BACK.
[2016-11-12 17:09] LABS: BASOPHILS 0.3 % (0.0-2.0); EOSINOPHILS 1.4 % (0-7); HEMATOCRIT 42.3 % (36.0-48.0); IMMATURE GRANULOCYTES 0.2 % (0-5); LYMPHOCYTES 27.4 % (15-50); MCH 32.2 pg (26.0-34.0); MCHC 30.7 g/dL (31.0-37.0); MCV 104.7 fL (80.0-100.0); MEAN PLATELET VOLUME 10.5 fL (7.4-10.4); NEUTROPHILS 63.7 % (40-80); PLATELET COUNT 122 10x3/uL (130-400); RBC 4.04 10x6/uL (4.00-5.40); RDW 15.4 % (11.5-14.5); WBC 6.4 10x3/uL (4.8-10.8)
[2016-11-12 17:29] LABS: ANION GAP 14.5 mmol/L (8-16); CALCIUM 8.4 mg/dL (8.5-10.1); CARBON DIOXIDE 28.6 mmol/L (21.0-32.0); CREATININE - SERUM 1.2 mg/dL (0.6-1.3); POTASSIUM - SERUM 4.1 mmol/L (3.5-5.1)
--- NOTE | 2016-11-12 17:34 | NUR ---
PT SITTING UP IN BEDSIDE CHAIR EATING DINNER. RR NONLABORED WITH NC @3L IN PLACE. TELEMETRY RUNNING 47 FLUTTER. BP STILL LOW MANUALLY CHECKED AND IS 82/54. WILL CTM CLOSELY.
--- NOTE | 2016-11-12 19:35 | NUR ---
BYSTOLIC, AMIODARONE AND BUMEX HELD AT THIS TIME. PT REMAINS IN A-FLUTTER IN THE 40'S-50'S. B/P 88/54. PT UPDATED ON POC AND VERBALIZES UNDERSTANDING.
--- NOTE | 2016-11-12 21:39 | NUR ---
PT LAYING IN BED, WATCHING TV. NO NEEDS OR C/O VOICED. WILL CONT TO MONITOR.
[2016-11-13 04:00] VITALS: BP 108/67
[2016-11-13 05:42] LABS: BASOPHILS 0.2 % (0.0-2.0); EOSINOPHILS 2.3 % (0-7); HEMATOCRIT 42.7 % (36.0-48.0); HEMOGLOBIN 13.6 g/dL (12-16); IMMATURE GRANULOCYTES 0.6 % (0-5); LYMPHOCYTES 32.6 % (15-50); MCH 32.2 pg (26.0-34.0); MCHC 31.9 g/dL (31.0-37.0); MEAN PLATELET VOLUME 10.5 fL (7.4-10.4); MONOCYTES 7.8 % (2-11); NEUTROPHILS 56.5 % (40-80); PLATELET COUNT 129 10x3/uL (130-400); RBC 4.22 10x6/uL (4.00-5.40); RDW 15.3 % (11.5-14.5); WBC 5.3 10x3/uL (4.8-10.8)
[2016-11-13 05:43] LABS: MCV 101.2 fL (80.0-100.0)
[2016-11-13 06:00] LABS: ANION GAP 8.9 mmol/L (8-16); CALCIUM 8.8 mg/dL (8.5-10.1); POTASSIUM - SERUM 3.9 mmol/L (3.5-5.1)
[2016-11-13 08:00] VITALS: BP 92/45
--- NOTE | 2016-11-13 09:56 | NUR ---
ADMINISTERED MORNING MEDICATIONS. HELD BYSTOLIC R/T BP STILL LOW IT HAS BEEN IMPROVING THOUGH. HR NOW A.FIB CONTROLLED IN THE 80S. DID GIVE SCHEDULED AMIODARONE AND WILL CONTINUE TO MONITER TELEMETRY CLOSELY FOR ANY CHANGES OR DROPS. PT IS LYING BACK IN BED RESTING QUIETLY C/O CHRONIC BACK PAIN AND NOT BEING ABLE TO SLEEP. STATES SHE TAKES NORCO AT HOME AND A SLEEPING PILL AND IS REQUESTING IT ORDERED, WILL DISCUSS THIS WITH PRIMARY. PT DENIES ANY FURTHER NEEDS AT THIS TIME. CL IN REACH, BED IN LOWEST, SIDE RAILS X2. WILL CPOC.
--- NOTE | 2016-11-13 10:42 | NUR ---
PT TAKING SHOWER. ORDERED NEW IV MEDS TO CORRECT HR RHYTHM. WILL START AFTER SHOWER.
[2016-11-13 11:53] VITALS: BP 107/62
--- NOTE | 2016-11-13 13:04 | NUR ---
ADMINISTERED CORVERT IV OVER 10MINS ORDERED PER . PT DID RECIEVE MAG IVPB PREMED ORDERED. ADMINISTERED VIA L.HAND PIV ACCESS WITH HENRY CDI AND SWAB CAPS IN USE. VSS. PREMED BP 101/58 WITH HR 105 UNCONTROLLED A.FIB. POST VITALS BP 99/69 WITH HR 102 UNCONTROLLED A.FIB. PT SITTING UP ON SIDE OF BED RESTING COMFORTABLY WATCHING TV. TELEMETRY BEING MONITERED CLOSELY. WILL CTM VITALS AND HR CLOSELY.
--- NOTE | 2016-11-13 13:46 | NUR ---
PT IS NOW CONVERTED TO SINUS TACHYCARDIA @102. VSS. PT RESTING QUIETLY DENIES ANY CURRENT NEEDS.
[2016-11-13] MEDS ORDERED: AMBIEN10 MG PO (13:59)
[2016-11-13 15:57] VITALS: BP 115/69
--- NOTE | 2016-11-13 19:20 | NUR ---
INITIAL ROUNDS MADE. PT SITTING UP IN BED RESTING WELL, NO NEEDS OR C/O AT THIS TIME. WILL CONT TO MONITOR.
[2016-11-13 20:36] VITALS: BP 118/88
[2016-11-14 01:24] VITALS: BP 102/50
--- NOTE | 2016-11-14 02:01 | NUR ---
RESTING WELL WITH EYES CLOSED, NO DISTRESS NOTED. WILL CONT TO MONITOR.
[2016-11-14 04:35] LABS: BASOPHILS 0.2 % (0.0-2.0); EOSINOPHILS 1.9 % (0-7); HEMATOCRIT 43.3 % (36.0-48.0); HEMOGLOBIN 13.6 g/dL (12-16); IMMATURE GRANULOCYTES 0.2 % (0-5); LYMPHOCYTES 26.4 % (15-50); MCH 31.9 pg (26.0-34.0); MCHC 31.4 g/dL (31.0-37.0); MCV 101.4 fL (80.0-100.0); MEAN PLATELET VOLUME 10.2 fL (7.4-10.4); MONOCYTES 7.8 % (2-11); NEUTROPHILS 63.5 % (40-80); PLATELET COUNT 124 10x3/uL (130-400); RBC 4.27 10x6/uL (4.00-5.40); RDW 15.2 % (11.5-14.5); WBC 5.7 10x3/uL (4.8-10.8)
[2016-11-14 04:53] LABS: ANION GAP 11.1 mmol/L (8-16); CALCIUM 8.9 mg/dL (8.5-10.1); CARBON DIOXIDE 29.4 mmol/L (21.0-32.0); CREATININE - SERUM 0.9 mg/dL (0.6-1.3)
[2016-11-14 04:56] LABS: POTASSIUM - SERUM 4.5 mmol/L (3.5-5.1)
[2016-11-14 06:26] VITALS: BP 125/92
--- NOTE | 2016-11-14 07:37 | NUR ---
RECEIVED PT AAOX4 RESP WNL PT C/O THROAT PAIN AND GENERALIZED DISCOMFORT NAD NOTED WILL CONTINUE TO MONITOR
[2016-11-14 07:47] VITALS: BP 107/81
[2016-11-14 11:10] VITALS: BP 118/60
[2016-11-14 13:28] VITALS: Ht 162.6 cm; Wt 98.7 kg
[2016-11-14 16:27] VITALS: BP 109/76
--- NOTE | 2016-11-14 19:20 | NUR ---
INITIAL ROUNDS MADE. PT SITTING UP IN BED WITH FAMILY AT BEDSIDE. PT DENIES NEEDS OR C/O AT THIS TIME. O2 3L NC. RT IN ROOM FOR SCHEDULED TREATMENT.
[2016-11-14 20:00] VITALS: BP 119/85
[2016-11-15] VITALS: BP 146/96
--- NOTE | 2016-11-15 00:30 | NUR ---
WOOD ENGRAVER AT BEDSIDE FOR VS. NEEDS ADDRESSED. CALL LIGHT IN REACH. WILL CONT TO MONITOR.
--- NOTE | 2016-11-15 02:57 | NUR ---
C/O SOB, RT ON UNIT GIVING UPDRAFT SCHEDULED PRN.
[2016-11-15 04:00] VITALS: BP 121/92
[2016-11-15 05:36] LABS: BASOPHILS 0.2 % (0.0-2.0); EOSINOPHILS 0.9 % (0-7); HEMATOCRIT 39.9 % (36.0-48.0); HEMOGLOBIN 12.4 g/dL (12-16); IMMATURE GRANULOCYTES 0.3 % (0-5); LYMPHOCYTES 12.6 % (15-50); MCH 31.8 pg (26.0-34.0); MCHC 31.1 g/dL (31.0-37.0); MCV 102.3 fL (80.0-100.0); MEAN PLATELET VOLUME 10.6 fL (7.4-10.4); MONOCYTES 8.1 % (2-11); NEUTROPHILS 77.9 % (40-80); PLATELET COUNT 115 10x3/uL (130-400); RDW 15.4 % (11.5-14.5); WBC 5.8 10x3/uL (4.8-10.8)
[2016-11-15 06:07] LABS: ANION GAP 12.7 mmol/L (8-16); CALCIUM 8.7 mg/dL (8.5-10.1); CARBON DIOXIDE 28.4 mmol/L (21.0-32.0); POTASSIUM - SERUM 4.1 mmol/L (3.5-5.1)
--- NOTE | 2016-11-15 07:30 | NUR ---
RECEIVED PT RESTING QUIETLY EYES CLOSED RESP UNLABORED NAD NOTED
[2016-11-15 07:53] VITALS: BP 107/66
[2016-11-15 11:44] VITALS: BP 105/65
[2016-11-15 15:24] VITALS: BP 100/73
--- NOTE | 2016-11-15 19:00 | NUR ---
INITIAL ROUNDS MADE. PT LYING IN BED WATCHING TV. DENIES NEEDS OR C/O AT THIS TIME. WILL CONT TO MONITOR.
[2016-11-15 20:00] VITALS: BP 95/65
[2016-11-16] VITALS (39 sets, daily range): BP systolic 90–151; BP diastolic 22–96
--- NOTE | 2016-11-16 00:30 | NUR ---
OPERATIONS TECHNICIAN AT BEDSIDE FOR VS, NEEDS ADDRESSED. CALL LIGHT IN REACH. WILL CONT TO MONITOR.
--- NOTE | 2016-11-16 05:12 | NUR ---
ASSISTED UP TO BATHROOM.
[2016-11-16 05:57] LABS: BASOPHILS 0.6 % (0.0-2.0); EOSINOPHILS 3.9 % (0-7); HEMATOCRIT 39.1 % (36.0-48.0); HEMOGLOBIN 12.2 g/dL (12-16); IMMATURE GRANULOCYTES 0.2 % (0-5); LYMPHOCYTES 35.3 % (15-50); MCHC 31.2 g/dL (31.0-37.0); MCV 102.6 fL (80.0-100.0); MONOCYTES 9.1 % (2-11); NEUTROPHILS 50.9 % (40-80); PLATELET COUNT 127 10x3/uL (130-400); RBC 3.81 10x6/uL (4.00-5.40); RDW 15.6 % (11.5-14.5); WBC 4.6 10x3/uL (4.8-10.8)
[2016-11-16 06:10] LABS: ANION GAP 11.5 mmol/L (8-16); CALCIUM 8.8 mg/dL (8.5-10.1); CARBON DIOXIDE 28.7 mmol/L (21.0-32.0); CREATININE - SERUM 1.1 mg/dL (0.6-1.3); POTASSIUM - SERUM 4.2 mmol/L (3.5-5.1)
--- NOTE | 2016-11-16 09:24 | NUR ---
UP TO AMBULATE WITH PT ASSIST. RESP UL ON 02 3L NC. TELEMETRY UCAF. HR 104. NPO FOR CARDIOVERSION. WILL CONT. PLAN OF CARE.
--- NOTE | 2016-11-16 10:10 | NUR ---
PRE-OPS GIVEN. TO HANDMADE TILE ARTIST BY BED.
--- NOTE | 2016-11-16 11:45 | NUR ---
BACK FROM DOUGH SHEETER. VW WNL. HR 54 NSR. WILL CONT. PLAN OF CARE.
--- NOTE | 2016-11-16 14:10 | NUR ---
Nutrition follow-up: Diet: Low sodium PO intake 100% of most meals Labs reviewed +BM PO intake remains good at this time. RDN following.
--- NOTE | 2016-11-16 14:33 | NUR ---
B/P 134/64. HR 64 NSR. C/O SOB. FEELS HOT BUT COLD TO TOUCH. UNABLE TO OBTAIN ACCURATE PULSE OX. ABGS ORDERED. UD GIVEN. DR. CACERES NOTIFIED. WILL MONITOR.
--- NOTE | 2016-11-16 15:06 | NUR ---
RAPID RESPONCE CALLED. X-RAY DONE. UNABLE TO OBTAIN ABGS. B/P DROPPED TO 57 SYS. NS BOLLUS STARTED. APNEA NOTES. TO ICU BY BED ON 100% NONREBREATHER.
--- NOTE | 2016-11-16 16:29 | NUR ---
1505 PT ARRIVED IN THE ICU VIA BED FROM THE FLOOR POST RAPID RESPONSE.. PT IS ON 100% NON REBREATHER O2 MASK AND SATURATION IS <70% HEART TRATE IS 50BPM BP 60/24 .. THERE IS BILATERAL PIV WITH NS INFUSING INTO THE RIGHT PIV... DIPHORETIC WITH RESTLESSNES AND CYANOTIC.. 1515 DR CACERES CALLED FOR HEMODYNAMICS.. ORDERS RECIEVED FOR DOPAMINE AND LEVOPHED PRESSORS AT THIS TIME.. 1520 DR CANTRELL IN UNIT AFTER CONSULT,, ANESTHESIA CONSULTED AND HERE TO INTUBGATE PT.. PT INTUABTTED BY DR LAMAS WITH A SIZE 8.[address] E[address] TO VENTILATOR DR CANTRELL PLACED VENT SETTINGS AT THIS TIME TO SIMV 16 TV 600 100% fio2 5/10.. PT WAS AWKA E AND REQUESTING ICE UNTIL SEDATION GIVEN FOR INTUBATION BY DR MOYA.. 1540 LEFT PIV ACCESSED AND NS BOLUS STARTED AT 999CC/HR DOPAMINE 5 MCG AND LEVOPHED INITIATED At 20 MCG INTO THE LEFT PIV.. 1535 2 AMP BICARB GIVEN PER DR CANTRELL VO.. 1545 DR DEAL CONSULTED FOR CVL PLACEMENT.. 1550 DR DEAL HERE NAD CVL PLACED TO PTS. RIGHT SUBCLAVIAN.. ABGs OBTAINED.. 1625 INCONTINENT .. COMPLETE BATH AND LINEN CHANGE DONE.. NORTH CATH PLACED.. LESS THAN 5CC OBTAINED IN NORTH CATH.. NGT DROPPED IMMIDIATE RETURN OF GRGEEN EMSIS.. 1645 WEIGHT CLERK CALLED R/O CARDIAC TAMPANDE 1650BS 104 LAB DRAWN WITH BLOOD CULTURES..
--- NOTE | 2016-11-16 16:54 | NUR ---
9602 ENTRY LEVEL ACCOUNTING CLERK AT BEDSIDE,,
[2016-11-16 17:09] LABS: BASOPHILS 0.2 % (0.0-2.0); EOSINOPHILS 0.6 % (0-7); IMMATURE GRANULOCYTES 2.1 % (0-5); LYMPHOCYTES 20.3 % (15-50); MCH 32.8 pg (26.0-34.0); MCHC 31.1 g/dL (31.0-37.0); MONOCYTES 9.3 % (2-11); NEUTROPHILS 67.5 % (40-80); PLATELET COUNT 104 10x3/uL (130-400); RBC 4.27 10x6/uL (4.00-5.40); RDW 15.9 % (11.5-14.5)
[2016-11-16 17:14] LABS: MCV 105.4 fL (80.0-100.0); WBC 6.7 10x3/uL (4.8-10.8)
--- NOTE | 2016-11-16 17:15 | NUR ---
LEADER TIER AT BEDSIDE. CALLED RESULTS TO [facility]
[2016-11-16 17:51] LABS: ALKALINE PHOSPHATASE 116 U/L (46-116); ALT (SGPT) 47 U/L (10-68); BILIRUBIN - TOTAL 2.34 mg/dL (0.2-1.3); CALC OSMOLALITY 285 mosm/kg (275-300); CALCIUM 8.1 mg/dL (8.5-10.1); CHLORIDE - SERUM 103 mmol/L (98-107); CKMB 1.5 U/L (0.0-3.6); CREATINE KINASE 37 UL (21-215); GLUCOSE 117 mg/dL (74-106); PROTEIN - SERUM 6.2 g/dL (6.4-8.2); SODIUM 140 mmol/L (136-145); TROPONIN-I 0.052 ng/mL (0.000-0.060); UREA NITROGEN 30 mg/dL (7-18)
[2016-11-16 17:54] LABS: CARBON DIOXIDE 20.1 mmol/L (21.0-32.0); CREATININE - SERUM 1.6 mg/dL (0.6-1.3); POTASSIUM - SERUM 5.7 mmol/L (3.5-5.1); eGFR NON AFRICAN AMERICAN 35 mL/min (90-120)
--- NOTE | 2016-11-16 18:19 | NUR ---
COMPLETED 2600 NS BOLUS. CVP 24
--- NOTE | 2016-11-16 18:54 | NUR ---
PT'S SON CALLED AND UPDATED THEM ON PT'S STATUS. THEY STATED THEY WOULD BE UP HERE IN AN HOUR.
--- NOTE | 2016-11-16 19:41 | NUR ---
REPORT RECEIVED AND ASSESSMENT COMPLETED. SEE FLOWSHEET FOR FULL DETAILS. VSS. WILL CONTINUE TO MONITOR.
--- NOTE | 2016-11-16 21:15 | NUR ---
LEVOPHED DECREASED TO 19 MCG FAMILY AT BEDSIDE. ANSWERED QUESTIONS REGARDING PT CARE AND UPDATED ON STATUS. 2100 MEDS GIVEN. WILL MONITOR
--- NOTE | 2016-11-16 23:00 | NUR ---
REASSESSMENT COMPLETED. SEE FLOWSHEET. VSS. LEVOPHED NOW RUNNING AT 14 MCG. WILL CONTINUE TO TITRATE AND MONITOR CLOSELY
[2016-11-17] VITALS (92 sets, daily range): BP systolic 80–127; BP diastolic 43–76
--- NOTE | 2016-11-17 02:22 | NUR ---
REILLYPHED RUNNING AT 9MCG AT THIS TIME.
--- NOTE | 2016-11-17 03:00 | NUR ---
REASSESSMENT COMPLETED. SEE FLOWSHEET.
[2016-11-17 04:49] LABS: BASOPHILS 0 % (0.0-2.0); EOSINOPHILS 0 % (0-7); HEMATOCRIT 38.1 % (36.0-48.0); HEMOGLOBIN 11.7 g/dL (12-16); IMMATURE GRANULOCYTES 0.4 % (0-5); LYMPHOCYTES 9.5 % (15-50); MCH 31.8 pg (26.0-34.0); MCHC 30.7 g/dL (31.0-37.0); MCV 103.5 fL (80.0-100.0); MEAN PLATELET VOLUME 11.1 fL (7.4-10.4); MONOCYTES 2.8 % (2-11); NEUTROPHILS 87.3 % (40-80); PLATELET COUNT 94 10x3/uL (130-400); RBC 3.68 10x6/uL (4.00-5.40); RDW 15.9 % (11.5-14.5); WBC 7.2 10x3/uL (4.8-10.8)
[2016-11-17 05:07] LABS: ALBUMIN 2.3 g/dL (3.4-5.0); BILIRUBIN - TOTAL 1.47 mg/dL (0.2-1.3); CALCIUM 7.6 mg/dL (8.5-10.1); CREATININE - SERUM 1.6 mg/dL (0.6-1.3); MAGNESIUM - SERUM 1.6 mg/dL (1.8-2.4); PROTEIN - SERUM 5.2 g/dL (6.4-8.2)
[2016-11-17 05:10] LABS: ANION GAP 10.6 mmol/L (8-16); CARBON DIOXIDE 29.7 mmol/L (21.0-32.0); POTASSIUM - SERUM 4.3 mmol/L (3.5-5.1)
--- NOTE | 2016-11-17 05:13 | NUR ---
LEVOPHED NOW AT 3 MCG. WILL CONTINUE TO MONITOR AND TITRATE ACCORDINGLY.
--- NOTE | 2016-11-17 07:00 | NUR ---
REC'D REPORT AND RESUMED CARE, ETT TO VENTILATION AND SECURED, 75 % FIO2 IN USE, SAT 98%, EYES OPEN TO SPEECH, FOLLOWS COMMANDS, ASSESSMENT COMPLETE PER FLOWSHEET, REPOSITIONED UP AND TO BACK WITH HEELS FLOATED
--- NOTE | 2016-11-17 09:00 | NUR ---
AM MEDS GIVEN WITHOUT DIFFICULTY
--- NOTE | 2016-11-17 09:40 | CN ---
PATIENT NAME:DIANA BOB MEDICAL RECORD: [id number] : 59 LOCATION:[facility].2303 ADMIT DATE: 11/11/16 ACCOUNT: [id number] CONSULTING PHYSICIAN: MAURI CANTRELL MD REFERRING PHYSICIAN: PATRICIA CARUSO DO DATE OF CONSULTATION: 11/16/2016 CONSULT REQUESTING PHYSICIAN: Dr. Catracho Glez. REASON FOR CONSULTATION: Hypotension, obuma-jg-bfthcuv hypoxic respiratory failure, atrial fibrillation, status post cardioversion. HISTORY OF PRESENT ILLNESS: Ms. Bob is a 61-year-old female, who was admitted on 11/11/2016 for worsening shortness of breath, tachycardia. She was found that the patient was in atrial fibrillation. The patient has a VQ scan. There was low probability for the PE with a positive D-dimer. She will have a cardioversion today and on post-cardioversion, the patient becomes hypotensive and a rapid response was called. The patient was in sinus rhythm at a rate of 60 and the blood pressure was also in mid 60. The patient was transferred to the ICU and the patient was electively intubated. The patient requires IV bolus, as well as dopamine and Levophed to keep her blood pressure above 90. REVIEW OF SYSTEMS: The detail is not obtainable. PAST MEDICAL HISTORY: 1. COPD of severe degree. 2. Congestive heart failure with EF of 20% with severe systolic dysfunction. 3. Hypertension. 4. Coronary artery disease, status post stent placement and angioplasty. 5. Status post CABG. 6. History of heart murmur. 7. History of cardiopulmonary arrest after ventricular tachycardia. 8. COPD-asthma, overlap syndrome. PAST SURGICAL HISTORY: 1. Cholecystectomy. 2. History of knee replacement. 3. History of coronary artery bypass graft. 4. Tubal ligation. 5. Cardiac catheterization and stent placement. 6. Bilateral inguinal hernia repair. ALLERGIES: SHE IS ALLERGIC TO PENICILLIN, STATINS, WHICH CAUSES MUSCLE PAIN, AND ALSO SHE IS ALLERGIC TO LISINOPRIL. PRESENT MEDICATIONS: She was on Xarelto. Her other medication was reviewed, but it looks like she was off of the Xarelto on this admission. She was on Plavix. PERSONAL AND SOCIAL HISTORY: The patient is a current everyday smoker. FAMILY HISTORY: Noncontributory. PHYSICAL EXAMINATION: VITAL SIGNS: Blood pressure is now 113/84, initially her blood pressure are in CONSULT REPORT [id number] DIANA BOB the mid 60s, pulse is 104, respiration is 18, temperature 98.1, SpO2 prior to extubation was 99% on 3 liters. She was saturating 91% to 92% ____ nonrebreather prior to the intubation. HEENT: Conjunctivae are pink, sclerae nonicteric. NECK: Supple. There is elevated JVD. CHEST: There are bilateral crackles. Wheeze on forceful expiration. HEART: Rate and rhythm regular. There is a grade II/ systolic murmur. The heart sound a bit distant. ABDOMEN: Soft, bowel sounds present. No hepatosplenomegaly. RECTAL: Deferred. EXTREMITIES: No cyanosis. No clubbing. SKIN: Mottled. CENTRAL NERVOUS SYSTEM: The patient is awake and alert. She follows command. IMAGING: Chest radiograph on 10/2016, there is a cardiomegaly. There is increased interstitial marking. There is questionable infiltrate in the lower lobes. LABORATORY DATA: CBC: The WBC is 4.6, hemoglobin is 12.2, hematocrit 39.1 and the platelet count is 127. Chemistry: Sodium is 138, potassium 4.2, BUN is 31 and creatinine is 1.1. ABG: The pH was 7.35, pCO2 was 41.1, the pO2 was 94, bicarbonate 22.8, the lactic acid level was 9.26 and the glucose is 33. IMPRESSION: 1. Foqfu-qj-thrdvgu hypoxic hypercapnic respiratory failure, acute exacerbation of chronic obstructive pulmonary disease. 2. Shock, cardiogenic versus septic. 3. Lactic acidosis secondary shock and hypotension. 4. Hypoglycemia. 5. Congestive heart failure with a chronic systolic dysfunction with an EF of 20%. 6. Paroxysmal atrial fibrillation, normal sinus rhythm, now post-cardioversion 7. Mild pulmonary hypertension of 40 secondary to severe chronic obstructive pulmonary disease and left heart failure. RECOMMENDATION: 1. We will continue mechanical ventilation. 2. DVT and GI stress ulcer prevention. 3. Start her on broad-spectrum antibiotic to cover for MRSA and GNR with the patient's recent hospitalization. 4. Normal saline IV fluid bolus. 5. D50, 1 ampule times 1 now. 6. During resuscitation, the patient got 1 ampule of bicarbonate. 7. Albuterol ipratropium nebulizer. 8. Check the CTA of the chest and start her on Lovenox of therapeutic dose. I would doubt embolic stroke as the patient is pretty awake and alert and she was moving all 4 extremities. 9. Follow up series of labs, chest x-ray and ABGs. Check the blood culture, urine culture and sputum culture. Discussed with Dr. Saleh, who is going to check the cardiac echo. We will get the CTA when the patient is stable. Dr. Glez, once again thanks for involving me in the care of Ms. Bob. The critical time care time was 1 hour and 20 minutes. CONSULT REPORT [id number] DIANA BOB TRANSINT:[id number] Voice Confirmation ID: [id number] DOCUMENT ID: [id number] MAURI CANTRELL MD at 0940 CC: CATRACHO GLEZ M.D. [id number] DICTATION DATE: 11/16/16 1706 PROMOTIONS ASSOCIATE: 11/16/16 2330 ADM IN [place] [id number] [place] [address]
--- NOTE | 2016-11-17 10:11 | NUR ---
Nutrition consult/follow-up: Pt is now intubated, sedated s/p cardiopulmonary arrest. Received order from Dr. Ramsey to begin TF. Recommend starting Pulmocare @ 20 ml/hr with gradual increase to goal rate of 50 ml/hr. Order put in [facility] medical record. RDN following.
--- NOTE | 2016-11-17 11:00 | NUR ---
ASSESSMENT COMPLETE SEE FLOWSHEET, NO ACUTE CHANGE FROM PREVIOUS ASSESSMENT, VSS, CONTINUES ON VENT WITH 50 % FIO2
--- NOTE | 2016-11-17 12:00 | NUR ---
DAUGHTER AT BEDSIDE, STATUS UPDATED, AWAITING PT PROCEDURE, CT OF HEAD AND CTA OF CHEST, NO OTHER NEEDS AT THIS TIME
--- NOTE | 2016-11-17 15:00 | NUR ---
CONTINUES ON VENT WITH 50% FIO2, LEVAPHED AT 2 MCG, DOBUTAMINE AT 7.5 MCG, AND PROPOFAL AT 25 MCG, OPENS EYES AND FOLLOWS COMMANDS, ASSESSMENT COMPLETE PER FLOWSHEET, NO ACUTE CHANGE FROM PREVIOUS
--- NOTE | 2016-11-17 15:45 | NUR ---
BATH AND LINEN CHANGE, MEDIUM, GREEN FORMED STOOL, BUTTOCK WITH SKINTEAR B/L BUT CHEEKS, MEPILX HEART SHAPE DRESSING APPLIED, PER DR LUZ IN RADIOLOGY WILL NEED TO GIVE PATIENT 50 MG BENEDRYL BEFOR PROCEDURE, ORDER PLACED
--- NOTE | 2016-11-17 17:51 | NUR ---
FSBS 186, 4 UNITS HUMALOG PER S/S, TO RLQ ABDOMEN
--- NOTE | 2016-11-17 21:00 | NUR ---
FAMILY AT BEDSIDE, UPDATE GIVEN,
--- NOTE | 2016-11-17 21:30 | NUR ---
PT TO CT AT THIS TIME,
--- NOTE | 2016-11-17 21:45 | NUR ---
PT BACK FROM CT. TOLERATED WELL, PLACED BACK ON MONITORS, WILL CON'T TO MONITOR
--- NOTE | 2016-11-17 23:15 | NUR ---
REASSESSMENT COMPLETE, NO CHANGES NOTED, PT RESTING AT THIS TIME, NO NEEDS NOTED, VSS, WILL CON'T TO MONITOR
[2016-11-18] VITALS (64 sets, daily range): BP systolic 103–126; BP diastolic 50–66
--- NOTE | 2016-11-18 01:00 | NUR ---
PT REPOSITIONED IN BED. LEVOPHED HAS BEEN TITRATED OFF, AND DOBUTAMINE IS NOW AT 5.
--- NOTE | 2016-11-18 01:00 | NUR ---
REPOSTIONED FOR COMFORT, ORAL CARE PROVIDED,
--- NOTE | 2016-11-18 01:35 | NUR ---
ASSISTED PT TO BSC
--- NOTE | 2016-11-18 03:00 | NUR ---
REASSESSSMENT COMPLETE, NO CHANGES NOTED, WILL CON'T TO MONITOR
--- NOTE | 2016-11-18 05:00 | NUR ---
REPOSITIONED FOR COMFORT, ORAL PROVIDED,
[2016-11-18 05:53] LABS: BASOPHILS 0 % (0.0-2.0); EOSINOPHILS 0 % (0-7); HEMATOCRIT 36.9 % (36.0-48.0); HEMOGLOBIN 11.4 g/dL (12-16); IMMATURE GRANULOCYTES 0.5 % (0-5); LYMPHOCYTES 6.3 % (15-50); MCH 31.3 pg (26.0-34.0); MCHC 30.9 g/dL (31.0-37.0); MEAN PLATELET VOLUME 10.2 fL (7.4-10.4); MONOCYTES 4.1 % (2-11); NEUTROPHILS 89.1 % (40-80); PLATELET COUNT 103 10x3/uL (130-400); RBC 3.64 10x6/uL (4.00-5.40); RDW 16.5 % (11.5-14.5); WBC 8.7 10x3/uL (4.8-10.8)
[2016-11-18 06:05] LABS: MCV 101.4 fL (80.0-100.0)
[2016-11-18 06:06] LABS: ALBUMIN 2.3 g/dL (3.4-5.0); BILIRUBIN - TOTAL 1.3 mg/dL (0.2-1.3); CALCIUM 7.8 mg/dL (8.5-10.1); CARBON DIOXIDE 30.6 mmol/L (21.0-32.0); MAGNESIUM - SERUM 1.8 mg/dL (1.8-2.4); PROTEIN - SERUM 5.1 g/dL (6.4-8.2)
[2016-11-18 06:13] LABS: ANION GAP 10.7 mmol/L (8-16); CREATININE - SERUM 1.1 mg/dL (0.6-1.3); POTASSIUM - SERUM 3.3 mmol/L (3.5-5.1)
--- NOTE | 2016-11-18 07:00 | NUR ---
REC'D REPORT AND RESUMED CARE, ETT TO VENTILATION AND SECURED, FIO2 45%, WITH SAT 95%, RIGHT NARE NGT WTO LIWS, RESIDUAL CHECK 10 CC, RIGHT SCTL WITH PROPOFAL AT AT 30 MCG, DOBUTAMINE AT 5 MCG, NS AT 5 CC/HR, AND BICAB GTT AT 50 CC/HR, B/L WRIST RESTRAINTS IN USE, NORTH TO GRAVITY WITH JAKUB CONCENTRATE DRAINAGE TO BAG, SCD'S B/L, AROUSES TO VERBAL STIMULI, ATTEMPTS TO MOUTH WORDS AROUND ETT, FOLLOWS COMMANDS, SHAKES HEAD NO TO QUESTION OF PAIN, TUBE FEEDING INITIATED PULMOCARE AT 20 CC/HR, PER ORDER AND RECOMMENDATION WITH WATER FLUSHES SET UP FOR 25 CC Q2H, ORAL CARE AND SUCTION COMPLETED, REPOSITIONED TO LEFT SIDE WITH PILLOW PROPPED TO BACK AND HEELS FLOATED, WILL CONTINUE WITH POC
--- NOTE | 2016-11-18 08:46 | CN ---
PATIENT NAME:DIANA PARISH MEDICAL RECORD: [id number] : 59 LOCATION:[facility].2303 ADMIT DATE: 11/11/16 ACCOUNT: [id number] CONSULTING PHYSICIAN: MARY CARMEN CACERES MD REFERRING PHYSICIAN: PATRICIA CARUSO DO DATE OF CONSULTATION: 11/12/2016 Cardiology Consultation DIAGNOSES: 1. Angina. 2. Coronary artery disease. 3. Recent percutaneous transluminal coronary angioplasty stent of the left circumflex. 4. Tachycardia. 5. Chronic obstructive pulmonary disease. 6. Cardiomyopathy. 7. Congestive heart failure, chronic systolic dysfunction. HISTORY OF PRESENT ILLNESS: Mrs. Parish was recently admitted, had a cardiac ventricular tachycardia arrest. Underwent cardiac catheterization revealing single vessel disease to the left circumflex, underwent successful PTCA stent of the left circumflex. She does have a history of a cardiomyopathy, ejection fraction in the 20% to 25% range. She was tried on a beta-brandon during that admission. It was stopped secondary to worsening of her COPD. Her blood pressure controlled on diltiazem. She has had no further ventricular tachycardia. She is on amiodarone for that. She remains on aspirin. The Plavix has been questionable and if she is actually taking that. PHYSICAL EXAMINATION: GENERAL APPEARANCE: Well-nourished, well-developed, appears stated age. Level of distress, comfortable. PSYCHIATRIC: Mental status, alert, normal affect. Orientation, oriented to time, place and person. EYES: Lids and conjunctiva, noninjected. No discharge, no pallor. ENT: Lips, teeth, gums, normal dentition. Oropharynx, no cyanosis, no pallor. NECK: Carotid arteries, bilateral normal upstroke, no bruits, no thrills. JUGULAR VEINS: No jugular venous pressure or distention. CERVICAL LYMPH NODES: Nontender, nonenlarged. THYROID: Not enlarged. Nontender. No nodules. LUNGS: Respiratory effort, unlabored. CHEST: Normal curvature. No thoracic deformity. No chest wall tenderness. Percussion, resonant. Auscultation, clear. No wheezes, no rales, no rhonchi. CARDIOVASCULAR: Precordial exam, nondisplaced. No heaves or pericardial thrills. Rate and rhythm, regular. Heart sounds, normal S1, normal S2. No S3, no gallop, no rub. Systolic murmur, not heard. Diastolic murmur, not heard. EXTREMITIES: No cyanosis, no edema. Peripheral pulses, full and equal in all extremities, except as noted. No bruits appreciated. ABDOMEN: Soft, nondistended. Normal aorta. No bruit. Nontender. No masses. Liver, nontender, no hepatomegaly. Spleen, nontender, no splenomegaly. MUSCULOSKELETAL: No joint tenderness. No joint swelling. No erythema. NEUROLOGICAL: Normal gait, normal strength, normal tone. SKIN: Warm and dry. REVIEW OF SYSTEMS: The patient reports easy bruising but reports no swollen CONSULT REPORT [id number] DIANA PARISH. The patient reports no fever, no night sweats, no significant weight gain, no significant weight loss. No significant exercise tolerance. The patient reports no dry eyes, no irritation, no vision change. Patient reports no difficulty hearing and no ear pain. Patient reports no frequent nose bleeds or nose and sinus problems. Patient reports on arm pain on exertion. No shortness of breath while lying down. No history of heart murmur. Patient reports no cough, no wheezing or coughing up blood. Patient reports no abdominal pain, no vomiting. Normal appetite. No diarrhea and not vomiting blood. No nausea and no constipation. Patient reports no incontinence. No difficulty urinating. No hematuria. No increased frequency. Patient reports no muscle aches. No weakness, no arthralgias, no back pain. No swelling of the extremities. Patient reports no abnormal mole, no jaundice, no rashes. Reports no loss of consciousness. No weakness and no numbness. No seizures, dizziness, or headaches. The patient reports no depression, no sleep disturbance, feeling safe in a relationship and no alcohol abuse. Patient reports on fatigue. Reports no runny nose or sinus pressure. No itching, no hives, and no frequent sneezing. At this time, she continues to have heart failure symptomatology, palpitations and chest pain, she is quite tachycardic in the 110-120 range, it is sinus tachycardia. We will discontinue her diltiazem. We will try Bystolic. Hopefully, this will give better heart rate control, but not worsen the disease. Continue her amiodarone. We will reload her on Plavix as it is questionable if she has taken the Plavix and continue the Plavix at 75 mg q. day. Further care depends upon her heart rate, blood pressure response as well as symptomatology response with the addition of the Bystolic. TRANSINT:[id number] Voice Confirmation ID: [id number] DOCUMENT ID: [id number] MARY CARMEN CACERES MD at 0846 CC: [id number] DICTATION DATE: 11/12/16 1110 ART OBJECTS SALESPERSON: 11/12/16 1331 ADM IN [place] [place] [address]
--- NOTE | 2016-11-18 08:47 | OP ---
PATIENT NAME: DIANA PARISH MEDICAL RECORD: [id number] :59 LOCATION:[facility] D.2303 ADMISSION DATE:11/11/16 SURGEON: MARY CARMEN CACERES MD DATE OF OPERATION: 11/16/2016 PROCEDURE: DC cardioversion. INDICATION: Atrial fibrillation. PROCEDURE IN DETAIL: Ms. Parish received IV conscious sedation per anesthesia. Continuous heart rate, O2 saturation, blood pressure monitoring all remained stable. She received 1 shock restoring sinus rhythm. OVERALL IMPRESSION: Successful DC cardioversion from atrial fibrillation to sinus rhythm. TRANSINT:[id number] Voice Confirmation ID: [id number] DOCUMENT ID: [id number] MARY CARMEN CACERES MD at 0847 CC: [id number] DICTATION DATE: 11/16/16 1037 INTERPERSONAL COMMUNICATIONS PROFESSOR: 11/16/16 1321 ADM IN [facility] [address] [id number]
--- NOTE | 2016-11-18 08:47 | EC ---
PATIENT:DIANA PARISH DATE OF SERVICE: 11/11/16 SEX: F MEDICAL RECORD: [id number] DATE OF : 59 LOCATION:D.[facility] D.230 AGE OF PATIENT: 61 ADMISSION DATE: 11/11/16 REFERRING PHYSICIAN: INTERPRETING PHYSICIAN: MARY CARMEN SALEH MD ECHOCARDIOGRAM REPORT ECHO CHARGES 5 ECHO LIMITED 1 DOPPLER ECHO COLOR FLOW 2 DOPPLER ECHO PULSE CLINICAL DIAGNOSIS: CARDIOMEGALY ECHOCARDIOGRAPHIC MEASUREMENTS (adult normal given) AC root (d.<3.7cm) 0 LV Septum d (<1.2 cm> 0 Valve Excursion 0 LV Septum (systole) 0 Left Atria (s.<4.0cm> 0 LVPW d(<1.2cm) 0 RV (d.<2.3cm) 0 LVPW (sytole) 0 LV diastole(<5.6CM) 0 MV E-F(>70mm/sec) 0 LV systole 0 LVOT Diameter 0 MV exc.(>10mm) 0 Est.ejection fraction (50-75%) Pericardial Effusion N DOPPLER: LVIT 0 A 0 E 0 LA 0 RVSP 70.2 LVOT 0 AOP1/2T 0 Asc. Ao 0 RVOT 0 RA 0 PA 0 AV Gradient Peak 0 AV Mean 0 AV Area 0 MV Gradient Peak 0 MV Mean 0 MV Area 0 COMMENTS: LIMITED STUDY (2-D,COLOR,DOPPLER) COMPLETE ECHO DONE ON 10/23/16 Conveyor Installer: Arielle ESCALERA Welder Fitter Apprentice:1 Dr. Saleh TAPE# PACS DATE OF SERVICE: 11/16/2016 Limited Echocardiogram FINDINGS: 1. Left ventricular chamber size is dilated. Left ventricular systolic function is markedly reduced. Overall ejection fraction is 20% to 25%; however, this has not changed from previous study. 2. No pericardial effusion is present. 3. No evidence of tamponade. ECHOCARDIOGRAM REPORT [id number] DIANA PARISH TRANSINT:[id number] Voice Confirmation ID: [id number] DOCUMENT ID: [id number] MARY CARMEN SALEH MD at 0847 CC: [id number] DICTATION DATE: 11/17/16 0832 RESIDENTIAL FRAMING CARPENTER: 11/17/16 1007 ADM IN [address] [place] [address]
--- NOTE | 2016-11-18 09:30 | NUR ---
AM MEDS GIVEN PER PROTOCAL AND MAR ORDER
--- NOTE | 2016-11-18 11:00 | NUR ---
NO ACUTE CHANGE FROM PREVIOUS ASSESSMENT, VSS, CONTINUES ON DOBUTAMINE AT 5 MCG, REPOSITIONED TO RIGHT SIDE WITH HEELS FLOATED, PROPOFAL SEDATION IN USE AT 30 MCG, EASILY AROUSES VERBAL STIMULI, FOLLOWS COMMANDS, MOUTHS WORDS AROUND ETT. WILL CONTINUE WITH POC
--- NOTE | 2016-11-18 11:36 | NUR ---
FSBS 177, 4 UNITS HUMALOG GIVEN PER S/S
--- NOTE | 2016-11-18 12:06 | NUR ---
SON REESE AND FRIEND AT BEDSIDE, YELLOW COLORED RING WITH BLACK STONE REMOVED BY REESE, STATUS UPDATED, AWAITNG RESULT OF CT AND CTA, NO OTHER NEEDS AT THIS TIME
--- NOTE | 2016-11-18 13:00 | NUR ---
FIO2 CHANGED TO 40% BY DR CANTRELL, O2 SAT 98%
--- NOTE | 2016-11-18 13:33 | OP ---
PATIENT NAME: DIANA PARISH MEDICAL RECORD: [id number] :59 LOCATION:D.ICU D.2303 ADMISSION DATE:11/11/16 SURGEON: DIANNE DEAL MD DATE OF OPERATION: 11/16/2016 PREOPERATIVE DIAGNOSES: 1. Undifferentiated shock. 2. Status post code blue. 3. Respiratory failure on the ventilator. 4. Congestive heart failure, undifferentiated. 5. Atrial flutter. 6. Chronic obstructive pulmonary disease. 7. Diabetes mellitus. 8. Hypertension. 9. Coronary artery disease. POSTOPERATIVE DIAGNOSES: 1. Undifferentiated shock. 2. Status post code blue. 3. Respiratory failure on the ventilator. 4. Congestive heart failure, undifferentiated. 5. Atrial flutter. 6. Chronic obstructive pulmonary disease. 7. Diabetes mellitus. 8. Hypertension. 9. Coronary artery disease. PROCEDURE: Right subclavian vein triple-lumen central venous line placement. SURGEON: Dianne Deal MD. REPORT OF PROCEDURE: The patient's right chest was prepped and draped in sterile fashion. A needle was used to cannulate the right subclavian vein. The guidewire was advanced with ease. Over this wire, a dilator was placed followed by the triple-lumen catheter. The catheter aspirated a nonpulsatile dark blood and flushed easily in all 3 ports. This was sutured into place with 3-0 silk ties and dressed appropriately. COMPLICATIONS: None. CONDITION: Critical. ANESTHESIA: General endotracheal. BLOOD LOSS: Minimal. Procedure done at the bedside. TRANSINT:[id number] Voice Confirmation ID: [id number] DOCUMENT ID: [id number] OPERATIVE REPORT [id number] DIANA PARISH DIANNE DEAL MD at 1333 CC: [id number] DICTATION DATE: 11/16/16 1653 PORTER SAMPLE CASE: 11/16/162018 ADM IN [facility] [address] [place] [address]
--- NOTE | 2016-11-18 13:53 | NUR ---
REPOSITIONED TO LEFT SIDE WITH PILLOW PROPPED TO BACK AND HEELS FLOATED
--- NOTE | 2016-11-18 15:00 | NUR ---
NO ACUTE CHANGE FROM PREVIOUS ASSESSMENT, VSS, CONTINUES ON DOBUTAMINE AT 3MCG, PROPOFAL AT 30 MCG, BICARB GTT AT 50 CC/HR, RIGHT NARE NGT WITH PULMOCARE TF AT 20 CC/HR, RESTING WITH NO SIGNS OF DISTRESS, VSS
--- NOTE | 2016-11-18 18:01 | NUR ---
FSBS 186, 4 UNITS HUMALOG GIVEN PER S/S
--- NOTE | 2016-11-18 18:24 | NUR ---
REPOSITIONED TO BACK WITH HEELS FLOATED, VSS, DENIES PAIN, CONTINUES ON VENT WITH 40% FIO2, DOBUTAMINE AT 3 MCG, PROPOFAL AT 30 MCG, BICARB GTT AT 50 CC/HR, LEVAQUIN INFUSING AT 100 CC/HR,
--- NOTE | 2016-11-18 19:10 | NUR ---
ASSESSMENT COMPLETED. SEDATED ON VENT, PT AGITATED AND BITING ETT. SEDATION INCREASED. 8.0 ETT TAPED AT LIP LINE @ 22CM, VENT SETTINGS PER FLOW SHEET. RT NARE NGT, PLACEMENT VERIFIED VIA AIR BOLUS HEARD IN STOMACH WITH PULMOCARE @ 40CC/HR VIA PUMP, RESIDUAL = 38CC. RT TLSC WITH IVF PER FLOW SHEET, CVP ZEROED AND CALIBRATED WITH GOOD WAVE FORM, CVP=13. NORTH CATH INTACT WITH JAKUB COLORED URINE IN BAG. PPP. UPPER AND LOWER EXTREMITY EDEMA NOTED. DOBUTAMINE INCREASED TO 7.5 MCG/KG/MIN PER ORDERS. SB ON THE MONITOR.
--- NOTE | 2016-11-18 21:00 | NUR ---
FAMILY AT BEDSIDE. UPDATE GIVEN.
--- NOTE | 2016-11-18 22:10 | NUR ---
FAMILY CALLED FOR UPDATE. PASSWORD PROVIDED.
--- NOTE | 2016-11-18 23:00 | NUR ---
REASSESSMENT COMPLETED. SR ON THE MONITOR.
[2016-11-19] VITALS (25 sets, daily range): BP systolic 92–153; BP diastolic 49–85
--- NOTE | 2016-11-19 01:00 | NUR ---
NO CHANGES AT THIS TIME. WILL CONT TO MONITOR.
--- NOTE | 2016-11-19 03:33 | NUR ---
RADIOLOGY HERE FOR CXR. TOLLERATED WELL.
[2016-11-19 03:43] LABS: BASOPHILS 0 % (0.0-2.0); EOSINOPHILS 0 % (0-7); HEMATOCRIT 37.9 % (36.0-48.0); IMMATURE GRANULOCYTES 0.4 % (0-5); MCH 32.1 pg (26.0-34.0); MCHC 31.7 g/dL (31.0-37.0); MCV 101.3 fL (80.0-100.0); MEAN PLATELET VOLUME 10.4 fL (7.4-10.4); MONOCYTES 4.1 % (2-11); NEUTROPHILS 89.5 % (40-80); PLATELET COUNT 101 10x3/uL (130-400); RBC 3.74 10x6/uL (4.00-5.40); RDW 16.9 % (11.5-14.5); WBC 7.8 10x3/uL (4.8-10.8)
[2016-11-19 04:00] LABS: ALBUMIN 2.5 g/dL (3.4-5.0); ANION GAP 10.7 mmol/L (8-16); BILIRUBIN - TOTAL 1.24 mg/dL (0.2-1.3); CALCIUM 8.4 mg/dL (8.5-10.1); CARBON DIOXIDE 30.8 mmol/L (21.0-32.0); MAGNESIUM - SERUM 1.9 mg/dL (1.8-2.4); POTASSIUM - SERUM 3.5 mmol/L (3.5-5.1); PROTEIN - SERUM 5.6 g/dL (6.4-8.2)
--- NOTE | 2016-11-19 05:30 | NUR ---
turned and repositioned. oral care per vap. no tx per electrolyte protocol required. hob up. cont current poc.
--- NOTE | 2016-11-19 07:15 | NUR ---
REC'D REPORT FROM OUTGOING RN - PT LYING IN BED HOB 30 DEGREES - EYE CLOSED - RESPIRATIONS REG RATE AND RHYTHM - CONT POC
--- NOTE | 2016-11-19 09:30 | NUR ---
ASSESSMENT COMPLETE - MEDICATIONS GIVEN - SEE NOV - VACATION SEDATION COMPLETED - PT COUGHING AND TRYING TO REACH EET - PT ABLE TO MOVE ALL EXT - CONT POC DR. GARCIA AT BEDSIDE - LASIX ORDERED - SEE NOV
--- NOTE | 2016-11-19 10:24 | NUR ---
DR. GLEZ AT BEDSIDE FOR ASSESSMENT - PT ON SEDATION VACATION - ABLE TO GIVE MD THUMBS UP WHEN ASKED - PLAN TO WEAN PT TO BIPAP OR CPAP PT TOLERATES
--- NOTE | 2016-11-19 11:00 | NUR ---
ASSESSMENT COMPLETE - PT SEDATED BUT EASILY AWAKENED BY VERBAL STIMULI - DENIES PAIN OR NEEDS - RT WEANING PT (SEE rt FLOW SHEET0
--- NOTE | 2016-11-19 13:00 | NUR ---
RT AT BEDSIDE - STOPPED PROPOFOL PER RT - PLAN TO EXTUBATE PT. PT RESTING WITH EYES CLOSED RESPIRATIONS REGULAR RATE AND RHYTHM - EAISLY AWAKENED BY VERBAL STIMULI. CONT POC
--- NOTE | 2016-11-19 13:12 | NUR ---
SON CALLED TO CHECK ON PT. PASSWORD CONFIRMED - UPDATED FAMILY - CPOC
--- NOTE | 2016-11-19 13:15 | NUR ---
ICE CHIPS GIVEN TO PT - PT ABLE TO FOLLOW COMMANDS - VOICED NO CONCERNS CPOC
--- NOTE | 2016-11-19 14:30 | NUR ---
BED BATH GIVEN - CHANGED BED CLOTHES AND LINENS -
--- NOTE | 2016-11-19 15:00 | NUR ---
SON AND AT BEDSIDE - ANSWERED ALL QUESTIONS - PT ABLE TO EAT ICE CHIPS. SWALLOW STUDY CONSULT ENTERED IN ORDER TO CHANGE DIET FROM NPO.
--- NOTE | 2016-11-19 16:20 | NUR ---
DTR CALLED - VERIFIED PASSWORD - ANSWERED ALL QUETIONS - DTR WANTS PT TO GO TO REHAB AFTER D/C. ANSWERED ALL QUESTIONS.
--- NOTE | 2016-11-19 18:00 | NUR ---
FAMILY AT BEDSIDE - PT RESTING SUPINE IN BED - CPOC
--- NOTE | 2016-11-19 19:00 | NUR ---
INITIAL ASSESSMENT COMPLETE. EXTUBATED TODAY AND NOW ON 2L O2. ALERT AND ORIENTED. S1S2 NOTED, BRADYCARDIA WITH RATE OF 56 ON MONITOR. SEE ASSESSMENT FLOWSHEET FOR MORE DETAILS.
--- NOTE | 2016-11-19 20:00 | NUR ---
PATIENT BEGAN TO THROW FREQUENT PVC'S. BMP ORDERED. COVERED K PER ELECTROLYTE PROTOCOL.
[2016-11-19 20:19] LABS: ANION GAP 7.7 mmol/L (8-16); CALCIUM 8.6 mg/dL (8.5-10.1); CARBON DIOXIDE 33.8 mmol/L (21.0-32.0); CREATININE - SERUM 1.1 mg/dL (0.6-1.3); POTASSIUM - SERUM 3.5 mmol/L (3.5-5.1)
--- NOTE | 2016-11-19 23:00 | NUR ---
REASSESSMENT COMPLETE. PATIENT STILL THROWING SOME PVC'S AND ALSO BECAME MORE BRADYCARDIC, EKG ORDERED, RETURNED TO NORMAL SINUS ALIDA CARDIA WITH A RATE OF 58.
[2016-11-20] VITALS (24 sets, daily range): BP systolic 96–146; BP diastolic 48–78
--- NOTE | 2016-11-20 01:00 | NUR ---
PATIENT DENIES NEED AT THIS TIME. REPOSITIONED FOR COMFORT. VSS.
--- NOTE | 2016-11-20 03:00 | NUR ---
REASSESSMENT COMPLETE. NO ACUTE CHANGES FROM INITIAL ASSESSMENT. NORMAL SINUS ALIDA CARDIA ON MONITOR. VSS. WARM BLANKET GIVEN UPON REQUESTS. ICE CHIPS GIVEN. DENIES FURTHER NEED.
[2016-11-20 04:45] LABS: BASOPHILS 0 % (0.0-2.0); EOSINOPHILS 0 % (0-7); HEMATOCRIT 39.4 % (36.0-48.0); IMMATURE GRANULOCYTES 0.4 % (0-5); LYMPHOCYTES 4.4 % (15-50); MCH 31.4 pg (26.0-34.0); MCHC 30.5 g/dL (31.0-37.0); MCV 103.1 fL (80.0-100.0); MEAN PLATELET VOLUME 10.9 fL (7.4-10.4); MONOCYTES 4.4 % (2-11); NEUTROPHILS 90.8 % (40-80); PLATELET COUNT 89 10x3/uL (130-400); RBC 3.82 10x6/uL (4.00-5.40); RDW 17.3 % (11.5-14.5); WBC 7.3 10x3/uL (4.8-10.8)
[2016-11-20 05:00] LABS: ALBUMIN 2.6 g/dL (3.4-5.0); BILIRUBIN - TOTAL 1.41 mg/dL (0.2-1.3); CALCIUM 8.6 mg/dL (8.5-10.1); CARBON DIOXIDE 31.2 mmol/L (21.0-32.0); MAGNESIUM - SERUM 1.9 mg/dL (1.8-2.4); POTASSIUM - SERUM 4.2 mmol/L (3.5-5.1); PROTEIN - SERUM 5.7 g/dL (6.4-8.2)
--- NOTE | 2016-11-20 05:10 | NUR ---
RESTING WITH EYES CLOSED IN BED. RR EVEN AND NON-LABORED. VSS.
--- NOTE | 2016-11-20 07:34 | NUR ---
UP IN BED AWAKE AT THIS TIME. NO ACUTE DISTRESS NOTED. ALERT AND ORIENTED. WILL CONTINUE PLAN FO CARE.
--- NOTE | 2016-11-20 09:06 | NUR ---
NOTED PT TOLERATES ICE CHIPS AND WATER WELL WITHOUT ANY COUGHING OR SIGN OF ASPIRATION. NO ACUTE DISTRESS NOTED. WILL CONTINUE PLAN FO CARE.
--- NOTE | 2016-11-20 12:07 | NUR ---
UP IN BED WATCHING TV AT THIS TIME. DENIES ANY NEEDS. NO ACUTE DISTRESS NOTED. WILL CONTINUE PLAN OF CARE.
--- NOTE | 2016-11-20 14:06 | NUR ---
RESTING IN BED AT THIS TIME, RESPIRATIONS AT STEADY AND UNLABORED RATE. NO ACUTE DISTRESS NOTED. WILL CONTINUE PLAN OF CARE.
--- NOTE | 2016-11-20 16:05 | NUR ---
UP IN BED AT THIS TIME AWAKE. DENIES ANY NEEDS. NO ACUTE DISTRESS NOTED. WILL CONTINUE PLAN OF CARE.
--- NOTE | 2016-11-20 17:33 | NUR ---
UP IN BED EATING SUPPER AT THIS TIME. NO ACUTE DISTRESS NOTED. TURNED Q2H. WILL CONTINUE PLAN OF CARE.
--- NOTE | 2016-11-20 19:30 | NUR ---
RECEIVED PATIENT RESTING IN BED AWAKE, REASSESSMENT COMPLETE PER FLOWSHEET. PATIENT IS AO X4, DEMEANOR IS PLEASANT. EYES PERRLA @ 3MM WITH BRISK RESPONSE, SCLERA IS WHITE. PATIENT ON 2L VIA NC WITH OXYGEN SAT 96%, THROAT IS HOARSE AND SORE FROM PREVIOUS INTUBATION. S1/S2 NOTED WITH PATIENT NSR ON TELEMETRY WITH HR OF 64, RHYTHMIC AND REGULAR. LUNG SOUNDS ARE CLEAR BILATERAL UPPER WITH DIMINISHED LOWER, BREATHING IS EVEN AND EFFORTLESS. ABDOMEN IS SOFT AND ROUND, BOWEL SOUNDS ACTIVE X4. NORTH SECURED IN PLACE, DARK CONCENTRATED JAKUB NOTED IN COLLECTION BAG. FULL ROM ALL EXTREMITIES WITH SLIGHT WEAKNESS NOTED, FULL STACK DEVELOPER/PEDAL STRENGTH EQUAL AND BILATERAL. R IJ CVL NOTED WITH TRIPLE LUMEN, PATENT WITH FLUIDS INFUSING. PATIENT DENIES PAIN OR OTHER NEEDS AT THIS TIME, ALL VSS AND WILL CONTINUE TO MONITOR.
--- NOTE | 2016-11-20 21:00 | NUR ---
NO VISITORS AT THIS TIME, HS MEDS GIVEN WITHOUT DIFFICULTY. PATIENT REPOSITIONED FOR COMFORT, NO FURTHER NEEDS AT THIS TIME. ALL VSS AND WILL CONTINUE TO MONITOR.
--- NOTE | 2016-11-20 23:13 | NUR ---
REASSESSMENT COMPLETE, NO CHANGES NOTES, PT RESTING AT THIS TIME, VSS, CALL LIGHT IN REACH
[2016-11-21] VITALS (25 sets, daily range): BP systolic 79–154; BP diastolic 41–98
--- NOTE | 2016-11-21 01:00 | NUR ---
PATIENT RESTING IN BED WITH EYES CLOSED, BREATHING IS EVEN AND UNLABORED. 2L VIA NC WITH PATIENT 96% O2 SAT, HR 67 NSR ON TELMETRY. ALL VSS AND WILL CONTINUE TO MONITOR.
--- NOTE | 2016-11-21 03:00 | NUR ---
REASSESSMENT COMPLETE PER FLOWSHEET, PATIENT RESTING IN BED WITH EYES CLOSED. SLIGHT RHONCHI NOTED THROUGHOUT ALL AGUERO, BREATHING IS EVEN AND EFFORTLESS. PATIENT NSR ON TELEMETRY WITH HR OF 64, RHYTHMIC AND REGULAR. PATIENT DENIES PAIN OR OTHER NEEDS AT THIS TIME, ALL VSS AND WILL CONTINUE TO MONITOR.
[2016-11-21 04:08] LABS: BASOPHILS 0 % (0.0-2.0); EOSINOPHILS 0 % (0-7); HEMATOCRIT 38.8 % (36.0-48.0); HEMOGLOBIN 11.8 g/dL (12-16); IMMATURE GRANULOCYTES 0.3 % (0-5); LYMPHOCYTES 5.1 % (15-50); MCH 31.6 pg (26.0-34.0); MCHC 30.4 g/dL (31.0-37.0); MONOCYTES 4.7 % (2-11); NEUTROPHILS 89.9 % (40-80); PLATELET COUNT 97 10x3/uL (130-400); RBC 3.73 10x6/uL (4.00-5.40); RDW 17.3 % (11.5-14.5); WBC 6.2 10x3/uL (4.8-10.8)
[2016-11-21 04:45] LABS: ALBUMIN 2.4 g/dL (3.4-5.0); ANION GAP 8.6 mmol/L (8-16); BILIRUBIN - TOTAL 1.22 mg/dL (0.2-1.3); CALCIUM 8.6 mg/dL (8.5-10.1); CARBON DIOXIDE 33.2 mmol/L (21.0-32.0); MAGNESIUM - SERUM 1.8 mg/dL (1.8-2.4); POTASSIUM - SERUM 3.8 mmol/L (3.5-5.1); PROTEIN - SERUM 5.4 g/dL (6.4-8.2)
--- NOTE | 2016-11-21 05:00 | NUR ---
PATIENT RESTING IN BED WITH EYES CLOSED, BREATHING IS EVEN AND UNLABORED. PATIENT OXYGEN SAT 97% ON 2L VIA NC, PATIENT NSR WITH HR 61 ON TELEMETRY. NO FURTHER NEEDS AT THIS TIME, ALL VSS AND WILL CONTINUE TO MONITOR.
--- NOTE | 2016-11-21 07:30 | NUR ---
ASSESSMENT COMPLETE. AAO X4. PT HOARSE IN VOICE, DENIES PAIN. NSR WITH BIGEMENY PVC. S1S2 NOTED, RADIAL AND PEDAL PULSES PALP. 2L NC. DIMINISHED RLL, LLL. ACTIVE BOWEL SOUNDS X4. NORTH DRAINING CONCENTRATED URINE. GENERALIZED WEAKNESS AND EDEMA. SEE FLOWSHEET FOR SKIN ASSESSMENT. RIJ PATENT, SEE IV FLOWSHEET. FOR OTHER ASSESSMENT FINDINGS SEE FLOWSHEET.
--- NOTE | 2016-11-21 09:05 | NUR ---
NO VISITORS AT THIS TIME. ATE ALL OF BREAKFAST WITH NO DIFFICULTY. DENIES NEEDS. MEDS GIVEN, NO DIFFICULTY SWALLOWING NOTED.
--- NOTE | 2016-11-21 10:21 | NUR ---
SPOKE WITH DAJUAN CANSECO WITH CARDIOLOGY, SAID TO DECREASE DOBUTAMINE TO 5 SET RATE THEN CHECK WITH DR. CACERES AROUND 2PM IF PATIENT TOLERATES IT
--- NOTE | 2016-11-21 10:21 | NUR ---
Nutrition follow-up: Diet has advanced to regular mechanical soft with thin liquids PO intake 100% of breakfast this am. PO intake is usually good Labs reviewed Wt: 212# Will provide food choices with selective menus and honor food preferences within diet restrictions. RDN following.
--- NOTE | 2016-11-21 11:10 | NUR ---
REASSESSMENT COMPLETE, SEE FLOWSHEET FOR DETAILS. MINIMAL CHANGES.
--- NOTE | 2016-11-21 12:39 | NUR ---
REPLACING MAG PER ELECTROLYTE PROTOCOL. NO DIFFICULTY EATING FOOD ON TRAY. CONTINUES TO SOUND HOARSE. DENIES NEEDS.
--- NOTE | 2016-11-21 14:28 | NUR ---
SPOKE WITH DR. CUEVA, OK TO TRANSFER TO FLOOR FROM HIS STANDPOINT LONG PULM. OK'D IT. SPOKE WITH DR. BEJARANO EARLIER, SAID OK TO GO TO FLOOR.
--- NOTE | 2016-11-21 14:40 | NUR ---
PT AT BEDSIDE. GOT PATIENT UP TO CHAIR. SAYS OK TO TRANSFER WITH SUPERVISION
--- NOTE | 2016-11-21 17:01 | NUR ---
RECEIVED PT VIA WHEELCHAIR FROM ICU. NO CO PAIN AT THIS TIME. WILL CONTINUE TO MONITOR. NOTED PINK COCCYX AND A TEGADERM OVER TWO SKIN TEARS ON THE MIDDLE OF PT'S BACK. SCD'S ON BUT NOT ATTACHED AT THIS TIME PT IS UP IN THE CHAIR. NO OTHER NEEDS.
[2016-11-22] VITALS: BP 155/74
[2016-11-22 04:00] VITALS: BP 158/81
--- NOTE | 2016-11-22 04:57 | NUR ---
PT AWAKE, ALERT, ORIENTED, DENIES ANY NEEDS. CONTINUE TO MONITOR CLOSELY.
[2016-11-22 05:31] LABS: BASOPHILS 0 % (0.0-2.0); EOSINOPHILS 0.1 % (0-7); HEMATOCRIT 40.5 % (36.0-48.0); HEMOGLOBIN 12.5 g/dL (12-16); IMMATURE GRANULOCYTES 0.4 % (0-5); LYMPHOCYTES 4.6 % (15-50); MCH 32.1 pg (26.0-34.0); MCHC 30.9 g/dL (31.0-37.0); MCV 104.1 fL (80.0-100.0); MEAN PLATELET VOLUME 10.8 fL (7.4-10.4); MONOCYTES 4.7 % (2-11); NEUTROPHILS 90.2 % (40-80); PLATELET COUNT 96 10x3/uL (130-400); RBC 3.89 10x6/uL (4.00-5.40); RDW 17.1 % (11.5-14.5); WBC 7.4 10x3/uL (4.8-10.8)
[2016-11-22 06:05] LABS: ALBUMIN 2.8 g/dL (3.4-5.0); ANION GAP 8.1 mmol/L (8-16); BILIRUBIN - TOTAL 1.22 mg/dL (0.2-1.3); CALCIUM 9.1 mg/dL (8.5-10.1); CARBON DIOXIDE 34.9 mmol/L (21.0-32.0); CREATININE - SERUM 0.9 mg/dL (0.6-1.3); MAGNESIUM - SERUM 2.1 mg/dL (1.8-2.4); PHOSPHOROUS 3.2 mg/dL (2.5-4.9)
[2016-11-22 07:52] VITALS: BP 136/64
--- NOTE | 2016-11-22 08:00 | NUR ---
ASSESSMENT DONE. PT LAYING IN BED PLAYING ON PHONE. A/O. DENIES PAIN OR DISCOMFORT AT THIS TIME. RIGHT SUB CVL WITH DRESSING INTACT AND SWAB CAPS IN PLACE. NORTH PATENT TO BSD WITH WHAT APPEARS TO BE BLOOD IN URINE NOTED. PT STATES THAT STARTED YESTERDAY. NO CLOTS NOTED. DENIES DISCOMFORT. DENIES CATH BEING PULLED THAT SHE CAN RECALL. ENCOURAGED FLUIDS. WEARING SCD'S. CALL LIGHT WITH IN REACH. DENIES NEEDS AT THIS TIME. WILL CONT. TO MONITOR.
--- NOTE | 2016-11-22 10:14 | NUR ---
PT SITTING UP IN CHAIR AT BEDSIDE VISITING WITH FRIEND. URINE SEEMS TO BE CLEARING UP SOME. WILL CONT. TO MONITOR.
--- NOTE | 2016-11-22 10:49 | NUR ---
PATIENT SITTING IN CHAIR. NO APPARENT DISTRESS NOTED. O2 VIA NC. WILL CONTINUE TO MONITOR.
[2016-11-22 11:34] VITALS: BP 137/60
[2016-11-22 16:05] VITALS: BP 154/70
--- NOTE | 2016-11-22 17:45 | NUR ---
PT SITTING UP IN CHAIR AT BEDSIDE. LOWER EXTREMITIES ELEVATED. NORTH PATENT, URINE TEA COLORED. PT DENIES NEEDS AT THIS TIME. CALL LIGHT WITH IN REACH. WILL CONT. TO MONITOR.
[2016-11-22 20:00] VITALS: BP 175/99
--- NOTE | 2016-11-22 20:04 | NUR ---
PT SITTING UP IN CHAIR, AWAKE, ALERT, ORIENTED, TALKING WITH A VISITOR. PT DENIES ANY ACUTE NEEDS. CONTINUE TO MONITOR CLOSELY.
--- NOTE | 2016-11-22 21:08 | NUR ---
PT TAKING A SHOWER AT THIS TIME.
[2016-11-23] VITALS: BP 149/84
[2016-11-23 04:00] VITALS: BP 124/55
--- NOTE | 2016-11-23 04:09 | NUR ---
PT LYING IN BED, EYES CLOSED, RESPIRATIONS EVEN AND UNLABORED. PT IS EASILY ROUSABLE TO VERBAL STIMULI. PT DENIES ANY NEEDS. CONTINUE TO MONITOR CLOSELY.
[2016-11-23 05:50] LABS: CALC OSMOLALITY 292 mosm/kg (275-300); CALCIUM 8.5 mg/dL (8.5-10.1); CARBON DIOXIDE 36.8 mmol/L (21.0-32.0); CHLORIDE - SERUM 104 mmol/L (98-107); CREATININE - SERUM 0.8 mg/dL (0.6-1.3); PHOSPHOROUS 3.3 mg/dL (2.5-4.9); POTASSIUM - SERUM 3.7 mmol/L (3.5-5.1); SODIUM 143 mmol/L (136-145); UREA NITROGEN 30 mg/dL (7-18); eGFR NON AFRICAN AMERICAN 78 mL/min (90-120)
[2016-11-23 05:52] LABS: BASOPHILS 0.1 % (0.0-2.0); EOSINOPHILS 1.9 % (0-7); HEMATOCRIT 39.9 % (36.0-48.0); HEMOGLOBIN 12.4 g/dL (12-16); LYMPHOCYTES 13.6 % (15-50); MCHC 31.1 g/dL (31.0-37.0); MCV 103.1 fL (80.0-100.0); MEAN PLATELET VOLUME 10.5 fL (7.4-10.4); MONOCYTES 7.8 % (2-11); NEUTROPHILS 75.6 % (40-80); PLATELET COUNT 106 10x3/uL (130-400); RBC 3.87 10x6/uL (4.00-5.40); RDW 16.9 % (11.5-14.5); WBC 8.3 10x3/uL (4.8-10.8)
[2016-11-23 05:55] LABS: GLUCOSE 143 mg/dL (74-106)
--- NOTE | 2016-11-23 07:45 | NUR ---
ASSESSMENT DONE. PT SLEEPING. EASILY AWAKEN. STATES SHE IS FEELING BETTER. NORTH CATH PATENT TO BSD. URINE CRANBERRY COLOR, NO CLOTS NOTED. CVL DRESSING WAS CHANGED LASTNIGHT AFTER PT'S SHOWER, AND REMAINS INTACT. CALL LIGHT WITH IN REACH. WILL CONT. TO MONITOR.
[2016-11-23 08:00] VITALS: BP 127/59
--- NOTE | 2016-11-23 09:23 | NUR ---
UP AMBULATING HALLWAY WITH PT ASSIST. WILL CONT. PLAN OF CARE.
--- NOTE | 2016-11-23 10:51 | NUR ---
PT SITTING UP IN CHAIR AT BEDSIDE. A/O. PLAYING ON HER PHONE. DENIES NEEDS AT THIS TIME. CALL LIGHT WITH IN REACH. WILL CONT. TO MONITOR.
--- NOTE | 2016-11-23 11:05 | NUR ---
Patient Name: DIANA PARISH Encounter No: [id number] : 1955 Primary Insurance: [employer] ADV Anticipated DC Date: Planned Disposition: Inpatient Rehab External Planned Provider: [facility] INPAT[facility] DCP follow-up note: CM REVIEWED THERAPY NOTES, MET WITH PT IN ROOM TO DISCUSS DISCHARGE PLAN OF HOME ALONE WITH HOME HEALTH RESUMPTION. THAT CONTINUES TO BE PT'S GOAL SHE HAS A SMALL DOG SHE CARES FOR AT HOME AND WOULD LIKE TO GET HOME SOON POSSIBLE. CM DISCUSSED PROGRESS WITH REHAB, BEING ALONE AT HOME AND HAVING SAFE DISCHARGE PLAN. CM DISCUSSED AVAILABILITY OF INPATIENT AND DETENTION REHAB. PT IS NOT INTERESTED IN DETENTION REHAB, WOULD CONSIDER INPATIENT REHAB AT [facility]; PT FEELS SHE CAN TOLERATE THREE HOURS OF PROGRESSIVE THERAPY PER DAY WITH GOAL TO RETURN HOME AT DISCHARGE. INPATIENT REHAB REQUIRES PREAUTH FROM PT'S INSURANCE, WAITING OCCUPATIONAL THERAPY ASSESSMENT AND IP REHAB SCREENING RESULTS. Kali Murphy, CASE MANAGEMENT
[2016-11-23 12:00] VITALS: BP 126/56
--- NOTE | 2016-11-23 12:38 | NUR ---
PT SITTING IN CHAIR IN ROOM. RECEIVING UPDRAFT TX VIA MASK AND ATTEMPTING TO TALK ON THE PHONE. DENIES NEEDS. CALL LIGHT WITH IN REACH. WILL CONT. TO MONITOR.
--- NOTE | 2016-11-23 12:47 | NUR ---
Nutrition follow-up: Diet: mechanical soft PO intake ~75-100% of meals Labs reviewed Wt: 183# Pt continues to work with speech. PO intake is good at this time. RDN following.
--- NOTE | 2016-11-23 12:48 | NUR ---
Rehab Prescreening Consult recieved and the chart has been reviewed. She is [employer] managed medicare and will require a preauth. All information has been submitted for their review. An OT eval will be sent once it is completed. Bobbi Wilcox RN Clinical Liaison, Rehab
[2016-11-23 16:00] VITALS: BP 140/72
--- NOTE | 2016-11-23 16:45 | NUR ---
CVL DRESSING CHANGED
--- NOTE | 2016-11-23 17:41 | NUR ---
PT SITTING IN CHAIR AT BEDSIDE. TALKING ON PHONE. A/O. DENIES NEEDS AT THIS TIME. CALL LIGHT WITH IN REACH. WILL CONT. TO MONITOR.
--- NOTE | 2016-11-23 18:13 | NUR ---
OT NOTE: PT COMPLETED TOILETING WITH MOD A FOR TOILETING HYGIENE. PT COMPLETED TOILET TRANSFER WITH MIN A. PT COMPLETED BED MOB WITH CGA. PT COMPLETED BUE AROM IN ALL PLANES FOR INCREASED ACTIVITY TOLERANCE. THANK YOU, MAGGIE SCHAFER/Mayra
[2016-11-23 21:56] VITALS: BP 138/75
[2016-11-24 01:17] VITALS: BP 144/64
--- NOTE | 2016-11-24 02:15 | NUR ---
PT RESTING WELL WITHOUT C/O OR DISTRESS NOTED. WILL CONT TO MONITOR. CALL LIGHT WITHIN REACH.
[2016-11-24 05:11] VITALS: BP 152/69
[2016-11-24 06:19] LABS: CALC OSMOLALITY 294 mosm/kg (275-300); CALCIUM 8.8 mg/dL (8.5-10.1); CARBON DIOXIDE 35.5 mmol/L (21.0-32.0); CHLORIDE - SERUM 105 mmol/L (98-107); CREATININE - SERUM 0.7 mg/dL (0.6-1.3); GLUCOSE 139 mg/dL (74-106); POTASSIUM - SERUM 4.3 mmol/L (3.5-5.1); SODIUM 144 mmol/L (136-145); UREA NITROGEN 28 mg/dL (7-18); eGFR NON AFRICAN AMERICAN > 90 mL/min (90-120)
--- NOTE | 2016-11-24 06:29 | NUR ---
NORTH CATHETER REMOVED AT THIS TIME. BULB DEFLATED AND 10 CC'S REMOVED FROM CATH, CATH OUT WITHOUT DIFFICULTY AND TIP INTACT. CALL LIGHT WITHIN REACH. PT INSTRUCTED TO USE CALL LIGHT WHEN NEEDING TO VOID.
[2016-11-24 06:41] LABS: BASOPHILS 0.1 % (0.0-2.0); EOSINOPHILS 1.5 % (0-7); HEMATOCRIT 42.5 % (36.0-48.0); IMMATURE GRANULOCYTES 1.4 % (0-5); LYMPHOCYTES 13.9 % (15-50); MCH 32.1 pg (26.0-34.0); MCHC 30.6 g/dL (31.0-37.0); MCV 104.9 fL (80.0-100.0); MEAN PLATELET VOLUME 10.2 fL (7.4-10.4); MONOCYTES 6.9 % (2-11); NEUTROPHILS 76.2 % (40-80); PLATELET COUNT 119 10x3/uL (130-400); RBC 4.05 10x6/uL (4.00-5.40); RDW 17.2 % (11.5-14.5); WBC 7.3 10x3/uL (4.8-10.8)
[2016-11-24 07:19] LABS: APPEARANCE TURBID (CLEAR); BILIRUBIN NEGATIVE (NEGATIVE); COLOR RED (YELLOW); GLUCOSE NEGATIVE (NEGATIVE); KETONE NEGATIVE (NEGATIVE); LEUKOCYTE ESTERASE TRACE (NEGATIVE); NITRITE NEGATIVE (NEGATIVE); PROTEIN 3+ mg/dL (NEGATIVE); SPECIFIC GRAVITY 1.025 (1.005-1.020); UROBILINOGEN NORMAL (NORMAL)
[2016-11-24 07:20] LABS: RED CELLS - URINE >50 /hpf (0-5); WHITE CELLS - URINE 0-5 /hpf (0-5)
[2016-11-24 07:22] LABS: BACTERIA FEW /hpf (NONE SEEN); EPITHELIAL CELLS NSEEN /hpf (0-5)
--- NOTE | 2016-11-24 07:46 | NUR ---
AM ROUNDING- PT SITTING UP IN BED WITH EYES OPEN RESTING. VERY SOFT SPOKEN. ON MONITOR SHOWING SR, HR 67 WITH BBB. FSBS Q6H. ON EP, WILL CHECK AM LABS AND TX PER PROTOCOL. RIGHT SIDED CVL SEEN WITH NS RUNNING AT KVO (10CC). ON 02 AT 2L VIA NC. SCDS ARE ON. PER REPORT FROM DESIGN AND SALES CONSULTANT NURSE CHANDRIKA, NORTH CATHETER WAS REMOVED THIS AM ON DESIGN AND SALES CONSULTANT. WILL CONTINUE TO MONITOR.
[2016-11-24 08:10] VITALS: BP 141/71
[2016-11-24 12:25] VITALS: BP 139/68
--- NOTE | 2016-11-24 15:01 | NUR ---
CARLO NOE NP ON UNIT. NOTIFIED HER OF PT C/O PAIN AND THAT PT STATED SHE DID NOT WANT TO TAKE TYLENOL AND THAT HER "KIDNEY DOCTOR DOES NOT WANT HER TAKING TYLENOL". ALSO INFORMED CARLO NOE NP THAT PTS URINE IS BLOOD-TINGED AFTER HAVING NORTH CATHETER REMOVED THIS AM ON AGRICULTURAL PURCHASING AGENT. INFORMED CARLO NOE NP THAT PT HAS URINATED ONLY TWICE SO FAR ON SHIFT. AWAITING NEW ORDERS.
[2016-11-24 16:18] VITALS: BP 151/79
--- NOTE | 2016-11-24 16:52 | NUR ---
GAVE PT HER NORCO ORDERED FOR PAIN. PT URINATED WHILE IN ROOM ON BED PRESSLEY. SIMON MUNOZ ASSISTED PT OFF BED PRESSLEY. URINE APPEARED CONCENTRATED, BUT DIDN'T LOOK BLOOD-TINGED IT DID EARLIER ON SHIFT. WILL CONTINUE TO MONITOR.
--- NOTE | 2016-11-24 17:35 | NUR ---
PT SITTING UP IN BED WITH EYES OPEN EATING DINNER. DENIES ANY NEED AT CURRENT TIME. WILL CONTINUE TO MONITOR.
--- NOTE | 2016-11-24 18:41 | NUR ---
OT NOTE: PT COMPLETED BED MOB WITH SUPV. PT COMPLETED DYNAMIC SITTING BALANCE AT EOB WITH SBA/CGA. PT COMPLETED SELF GROOMING TASK WITH SET UP. THANK YOU, MAGGIE SCHAFER/Mayra
[2016-11-24 20:00] VITALS: BP 140/63
[2016-11-25] VITALS: BP 139/64
--- NOTE | 2016-11-25 01:08 | NUR ---
2030)DISCUSSED WITH X-RAY ORDER FOR CT PELVIC WITH CONTRAST. ALLERGIC TO IODINE.STATES BREAKS OUT IN A RASH WITH SOME SOB.HOUSERSUPERVISOR KRISTY CHAVIS VOTIFIED OF NEED TO CALL
--- NOTE | 2016-11-25 03:32 | NUR ---
POSTIE AT BEDSIDE TO OBTAIN VITALS, CALL LIGHT IN REACH. WILL CONTINUE WITH PLAN OF CARE.
[2016-11-25 04:00] VITALS: BP 133/67
[2016-11-25 06:42] LABS: CALC OSMOLALITY 290 mosm/kg (275-300); CALCIUM 8.6 mg/dL (8.5-10.1); CARBON DIOXIDE 36.7 mmol/L (21.0-32.0); CHLORIDE - SERUM 106 mmol/L (98-107); CREATININE - SERUM 0.6 mg/dL (0.6-1.3); GLUCOSE 95 mg/dL (74-106); POTASSIUM - SERUM 4.1 mmol/L (3.5-5.1); SODIUM 144 mmol/L (136-145); UREA NITROGEN 23 mg/dL (7-18); eGFR NON AFRICAN AMERICAN > 90 mL/min (90-120)
[2016-11-25 06:43] LABS: BASOPHILS 0.2 % (0.0-2.0); EOSINOPHILS 1.8 % (0-7); HEMATOCRIT 40.3 % (36.0-48.0); HEMOGLOBIN 12.5 g/dL (12-16); IMMATURE GRANULOCYTES 1.3 % (0-5); LYMPHOCYTES 17.6 % (15-50); MCH 32.6 pg (26.0-34.0); MCV 104.9 fL (80.0-100.0); MEAN PLATELET VOLUME 10.2 fL (7.4-10.4); MONOCYTES 10.3 % (2-11); NEUTROPHILS 68.8 % (40-80); PLATELET COUNT 122 10x3/uL (130-400); RBC 3.84 10x6/uL (4.00-5.40); RDW 16.9 % (11.5-14.5); WBC 6.2 10x3/uL (4.8-10.8)
--- NOTE | 2016-11-25 07:40 | NUR ---
9136- CALLED DR. CARROLL'S OFFICE TO INFORM DR. CARROLL OF PT BEING ALLERGIC TO IODINE. PT WAS SUPPOSE TO HAVE CT OF ABDOMEN WITH CONTRAST YESTERDAY. STRIPPER BLACK AND WHITE NURSE VIC STATED SHE TALKED TO LIFE CONSULTANT AND TRIED TO CALL LAST NIGHT BUT WAS TOLD TO CALL THIS AM TO INFORM HIM. NO ANSWER FROM DR. CARROLL'S OFFICE. WILL TRY AGAIN SHORTLY.
--- NOTE | 2016-11-25 07:43 | NUR ---
AM ROUNDING- PT LAYING IN BED ON BACK WITH EYES OPEN CURRENTLY RECEIVING A BREATHING TX. PT STATES TO ME SHE FEELS BETTER THAN YESTERDAY WITH NO PAIN. ON MONITOR SHOWING SR, HR 67. FSBS Q6H, 95 THIS AM THAT PER CAMP HOUSEKEEPER NURSE VIC, DID NOT NEED COVERAGE. ON 02 AT 2L VIA NC. RIGHT CVL SEEN WITH NS RUNNING AT KVO (10). ON EP, WILL CHECK AM LABS AND TX PER PROTOCOL. SCDS ARE ON. NO NEED AT CURRENT TIME. WILL CONTINUE TO MONITOR AND FOLLOW PLAN OF CARE.
--- NOTE | 2016-11-25 07:53 | NUR ---
PAGED CARLO NOE PLASTIC PARTS FABRICATOR TRIMMER TO INFORM HER OF PTS BLOOD PRESSURE THIS AM (194/90). AWAITING CALLBACK.
--- NOTE | 2016-11-25 07:55 | NUR ---
RECEIVED CALLBACK FROM CARLO NOE NP. NEW ORDERS RECEIVED.
[2016-11-25 07:56] VITALS: BP 194/90
--- NOTE | 2016-11-25 09:56 | NUR ---
CALLED DR. CARROLL'S OFFICE TO INFORM HIM ABOUT PT BEING ALLERGIC TO IODINE. DR. CARROLL ORDERED A CT OF ABDOMEN WITH CONTRAST YESTERDAY. SPOKE WITH DIAMANTE. DIAMANTE STATED THAT DR. CARROLL JUST LEFT OFFICE AND SHE WOULD LEAVE A MESSAGE FOR HIM AND A PHONE NUMBER SO HE COULD CALL BACK. WILL AWAIT CALLBACK.
--- NOTE | 2016-11-25 10:01 | NUR ---
DR. CARROLL CALLED BACK. INFORMED ME TO HAVE RADIOLOGY CALL HIM DIRECTLY ON HIS CELL PHONE. WILL CALL RADIOLOGY AND INFORM THEM OF THIS.
--- NOTE | 2016-11-25 10:03 | NUR ---
CALLED RADIOLOGY AND SPOKE WITH COREEN. GAVE HIM DR. CARROLL'S CELL PHONE NUMBER REQUESTED BY DR. CARROLL. WILL CONTINUE TO MONITOR AND AWAIT NEW ORDERS.
--- NOTE | 2016-11-25 10:17 | NUR ---
RADILOGY CALLED BACK WITH NEW ORDERS PER DR. CARROLL. PT WILL BE HAVING ALLERGY PROTOCOL INTERVENTIONS PLACED FOR THE CT SCAN OF ABDOMEN WITH CONTRAST. INFORMED PHARMACY AND SENT THEM THE SHEET RADIOLOGY GAVE ME TO INITATE FOR PROCEDURE TO GET MEDICATIONS PREPARED. INSTRUCTED PT TO NOT EAT OR DRINK ANYTHING FOR PROCEDURE. PT AGREED. WILL CONTINUE TO MONITOR AND CONTINUE WITH PLAN OF CARE.
--- NOTE | 2016-11-25 10:51 | NUR ---
SPOKE WITH COREEN FROM RADIOLOGY, COREEN STATED TO START CONTRAST ALLERGY PROTOCOL TONIGHT AT 1900 AND TO FOLLOW PROTOCOL UNTIL 0700 IN AM AND THEY WILL DO CT WITH CONTRAST OF ABDOMEN THEN. PT SAID TO HAVE PT NPO AT 0400 ON 11/26/16. WILL INFORM PT AND PLACE NPO ON DOOR. WILL PASS THIS ALONG IN REPORT TONIGHT TO DISPLAY DECORATOR.
[2016-11-25 12:22] VITALS: BP 121/57
--- NOTE | 2016-11-25 14:49 | NUR ---
DR. CARROLL ON UNIT. I INFORMED HIM THAT PT WILL BE GOING FOR CT OF ABDOMEN WITH CONTRAST TOMORROW MORNING. INFORMED HIM THAT THE CONTRAST ALLERGY PROTOCOL WILL BE STARTED THIS EVENING AT 1900. DR. CARROLL STATED OKAY.
[2016-11-25 16:06] VITALS: BP 140/62
--- NOTE | 2016-11-25 16:29 | NUR ---
OT NOTE: PT COMPLETED BUE AROM EXERCISES FOR INCREASED AX TOLERANCE WITH ADLS. PT COMPLETED BED MOB WITH SIDE RAILS WITH SUPV. PT COMPLETED SUPINE TO SIT WITH SUPV. PT COMPLETED ORAL HYGIENE WITH SET UP. THANK YOU, MAGGIE SCHAFER/Mayra
--- NOTE | 2016-11-25 17:34 | NUR ---
PT IS CURRENTLY LAYING IN BED ON BACK WITH EYES OPEN ON CELL PHONE. DENIES ANY NEED AT CURRENT TIME. WILL CONTINUE TO MONITOR.
--- NOTE | 2016-11-25 17:48 | NUR ---
PT SITTING UP IN BED WITH EYES OPEN RESTING. DENIES ANY NEED AT CURRENT TIME. WILL CONTINUE TO MONITOR.
[2016-11-25 20:31] VITALS: BP 122/75
--- NOTE | 2016-11-25 21:38 | NUR ---
PT LAYING IN BED NO DISTRESS OBSERVED CALL LIGHT IN REACH SRX2 BED LOW AND LOCKED WILL MONITYOR
[2016-11-26 00:15] VITALS: BP 147/64
--- NOTE | 2016-11-26 04:26 | NUR ---
ATTEMPTED TO CALL CT TO FIND OUT WHEN THEY ARE TAKING PT FOR HER CT SO I CAN PRE MED HER BUT NOONE IS THERE YET. WILL RELAY TO DAYSHIFT NURSE. PT IS SUPPOSED TO TAKE ORAL PRE-MED 1 HOUR PRIOR TO HAVING CT DONE.
--- NOTE | 2016-11-26 04:27 | NUR ---
AM LAB DRAW COMPLETED AND DRAWN VIA R.CHEST CVL LINE, FLUSHED PRIOR AND WASTED 10ML THEN FLUSHED AFTER DRAW. BLOOD SENT TO LAB. PT VERY SLEEPY AND DENIES ANY CURRENT NEEDS AT THIS TIME. CL IN REACH. WILL CPOC.
[2016-11-26 04:30] VITALS: BP 111/51
[2016-11-26 04:35] LABS: BASOPHILS 0 % (0.0-2.0); EOSINOPHILS 0 % (0-7); HEMOGLOBIN 11.7 g/dL (12-16); IMMATURE GRANULOCYTES 0.9 % (0-5); MCH 32.1 pg (26.0-34.0); MCHC 30.8 g/dL (31.0-37.0); MCV 104.1 fL (80.0-100.0); MEAN PLATELET VOLUME 9.8 fL (7.4-10.4); MONOCYTES 4.6 % (2-11); NEUTROPHILS 87.5 % (40-80); PLATELET COUNT 116 10x3/uL (130-400); RBC 3.65 10x6/uL (4.00-5.40); RDW 16.6 % (11.5-14.5); WBC 5.7 10x3/uL (4.8-10.8)
[2016-11-26 05:01] LABS: CALC OSMOLALITY 288 mosm/kg (275-300); CALCIUM 8.2 mg/dL (8.5-10.1); CARBON DIOXIDE 37.2 mmol/L (21.0-32.0); CHLORIDE - SERUM 105 mmol/L (98-107); CREATININE - SERUM 0.7 mg/dL (0.6-1.3); GLUCOSE 241 mg/dL (74-106); MAGNESIUM - SERUM 1.8 mg/dL (1.8-2.4); PHOSPHOROUS 7.4 mg/dL (2.5-4.9); POTASSIUM - SERUM 4.5 mmol/L (3.5-5.1); PRO BNP 12490 pg/mL (0-125); SODIUM 140 mmol/L (136-145); UREA NITROGEN 19 mg/dL (7-18); eGFR NON AFRICAN AMERICAN > 90 mL/min (90-120)
--- NOTE | 2016-11-26 05:31 | NUR ---
ADMINISTERED PARTS CLASSIFIER MEDS WITH A SIP OF WATER. PT REFUSED FSBS AND SS INSULIN R/T NOT BEING A DIABETIC AND SCARED TO "BOTTOM OUT" PT STATES SHE HAS MANY TIMES BEFORE.
--- NOTE | 2016-11-26 07:00 | NUR ---
PT REC'D FROM [facility]. CT HERE TO ADMINISTERED PO CONTRAST. PT RESTING IN BED. AAOX4. RATING CURRENT PAIN IN LOWER BACK /10. WILL REASSESS. PT CURRENTLY NPO FOR CT. TATIANA YEE, IN ROOM. BED LOW, CALL LIGHT IN REACH, DENIES NEEDS. CPOC.
--- NOTE | 2016-11-26 07:45 | NUR ---
PO MEDS ADMINISTERED DUE TO PT ALLERGY TO IODINE AND CT WITH CONTRAST MEDIA BEING USED. CT HERE TO TAKE PT FOR SCAN.
[2016-11-26 07:55] VITALS: BP 168/84
--- NOTE | 2016-11-26 09:30 | NUR ---
MORNING MEDS PASSED BY TATIANA VARGAS. BREAKFAST TRAY ORDERED FOR PT. PRN NORCO ADMINISTERED PER PT COMPLAINTS OF 7 ABD, BACK, AND LEG PAIN. WILL REASSESS. BED LOW, CALL LIGHT IN REACH, DENIES NEEDS. CPOC.
--- NOTE | 2016-11-26 10:07 | NUR ---
UP SOB. RESP UL ON . ALEXANDRA NEEDS AT THIS TIME. WILL MONITOR.
[2016-11-26 11:47] VITALS: BP 110/91
--- NOTE | 2016-11-26 11:59 | NUR ---
CURRENT FSBS 268. 10 UNITS OF INSULIN ADMINISTERED PER SS. TATIANA VARGAS, IN ROOM. DR. CUEVA IN ROOM DISCUSSING POSSIBLE REHAB SCREENING. BED LOW, CALL LIGHT IN REACH, DENIES NEEDS. CPOC.
[2016-11-26 15:30] VITALS: BP 138/83
--- NOTE | 2016-11-26 18:00 | NUR ---
FSBS 277. 10 UNITS OF INSULIN ADMINISTERED PER SS.
--- NOTE | 2016-11-26 19:18 | NUR ---
INITIAL ROUNDS COMPLETED. PT DENIED ANY DISCOMFORT. WILL CONTINUE TO MONITOR. CALL LIGHT WITHIN REACH.
[2016-11-26 20:26] VITALS: BP 144/85
--- NOTE | 2016-11-26 22:18 | NUR ---
ASSESSMENT COMPLETED AT 1940 HRS. VSS. SR WITH BBB PER CM HR 66. O2 2.5LNC. VOICE HOARSE. IV TO RTLSC WITH NS AT 10CC/HR. IV PATENT. LUNGS DIMINISHED IN BASES BILAT. 1+ BILAT PEDAL EDEMA NOTED. SCD'S IN USE. SCD'S REMOVED AND SKIN INSPECTED. NO BREAKDOWN NOTED. PT INCONTINENT OF URINE AT 2100 HRS. INCONTINENT CARE DONE. PM MEDS GIVEN. PT REFUSES PM BUMEX. PT CURRENTLY TALKING ON PHINE. WILL CONTINUE TO MONITOR. SR UP X2, CALL LIGHT WITHIN REACH.
--- NOTE | 2016-11-27 00:24 | NUR ---
BS 209. 8 UNITS HUMALOG GIVEN SUB-Q TO UPPER L ARM. PT DENIES ANY DISCOMFORT. WILL CONTINUE TO MONITOR. CALL LIGHT WITHIN REACH.
[2016-11-27 00:35] VITALS: BP 165/77
--- NOTE | 2016-11-27 02:58 | NUR ---
PT RESTING WITH EYES CLOSED. RESP EVEN AND REGULAR. SR UP X2, CALL LIGHT WITHIN REACH.
[2016-11-27 04:17] VITALS: BP 145/66
--- NOTE | 2016-11-27 04:21 | NUR ---
PT INCONTINENT OF URINE ON FLOOR. INCONTINENT CARE DONE. WILL CONTINUE TO MONITOR.
[2016-11-27 05:54] LABS: BASOPHILS 0 % (0.0-2.0); EOSINOPHILS 0.2 % (0-7); HEMATOCRIT 38.7 % (36.0-48.0); HEMOGLOBIN 12.1 g/dL (12-16); IMMATURE GRANULOCYTES 0.8 % (0-5); MCH 32.1 pg (26.0-34.0); MCHC 31.3 g/dL (31.0-37.0); MCV 102.7 fL (80.0-100.0); MEAN PLATELET VOLUME 9.9 fL (7.4-10.4); MONOCYTES 9.3 % (2-11); NEUTROPHILS 79.7 % (40-80); PLATELET COUNT 138 10x3/uL (130-400); RBC 3.77 10x6/uL (4.00-5.40); RDW 16.6 % (11.5-14.5)
[2016-11-27 05:59] LABS: WBC 8.4 10x3/uL (4.8-10.8)
[2016-11-27 06:13] LABS: CALC OSMOLALITY 281 mosm/kg (275-300); CALCIUM 8.6 mg/dL (8.5-10.1); CARBON DIOXIDE 33.7 mmol/L (21.0-32.0); CHLORIDE - SERUM 103 mmol/L (98-107); CREATININE - SERUM 0.7 mg/dL (0.6-1.3); SODIUM 139 mmol/L (136-145); UREA NITROGEN 21 mg/dL (7-18); eGFR NON AFRICAN AMERICAN > 90 mL/min (90-120)
[2016-11-27 06:15] LABS: GLUCOSE 123 mg/dL (74-106)
--- NOTE | 2016-11-27 06:39 | NUR ---
VSS THROUGHOUT NIGHT. PT DENIED AN DISCOMFORT. NEEDS MET; WILL CONTINUE TO MONITOR.
[2016-11-27 07:41] VITALS: BP 103/63
[2016-11-27 11:39] VITALS: BP 120/85
--- NOTE | 2016-11-27 14:59 | NUR ---
ALERT AND ORIENTED X4. URINARY URGENCY. LINEN CHANGE. SINUS RHYTHM 84bpm ON TELEMETRY. SOB MANAGED WITH OXYGEN THERAPY. DENIES PAIN. CONTINUE PLAN OF CARE AND SAFETY PRECAUTIONS.
[2016-11-27 15:21] VITALS: BP 137/70
--- NOTE | 2016-11-27 19:30 | NUR ---
ASSESSMENT COMPLETE, DENIES NEEDS AT THIS TIME. HOB UP SR UP X2, C/L IN REACH. O2 @.5L VIA NC. RESP SLIGHTLY LABORED UPON EXERTION, USES BED PRESSLEY W/O DIFF WITH ASSIST. RT TLSC INTACT AND PATENT WITH NS INFUSING W/O DIFF VIA PUMP AT KVO. EVANS WELL. VOICES NO C/O PAIN OR DISCOMFORT AT THIS TIME. TELEMETRY IN PLACE SHOWING HR SR BBB PER HYDRATOR OPERATOR. CONTINUE TO MONITOR.
[2016-11-27 20:30] VITALS: BP 129/47
[2016-11-28 00:30] VITALS: BP 178/78
--- NOTE | 2016-11-28 01:15 | NUR ---
SITTING UP IN BEDSIDE CHAIR WATCHING TVM DENIES NEEDS AT THIS TIME. BILAT SCDS TO LOWER LEGS INTACT. UP WITH MIN ASSIST TO BSC. EVANS WELL. C/L IN REACH. REMAINS UCAFIB AT THIS TIME. CONTINUE TO MONITOR.
[2016-11-28 04:45] VITALS: BP 111/47
[2016-11-28 05:30] LABS: BASOPHILS 0 % (0.0-2.0); EOSINOPHILS 0.8 % (0-7); HEMATOCRIT 37.9 % (36.0-48.0); HEMOGLOBIN 12.1 g/dL (12-16); IMMATURE GRANULOCYTES 0.9 % (0-5); LYMPHOCYTES 13.1 % (15-50); MCH 32.2 pg (26.0-34.0); MCHC 31.9 g/dL (31.0-37.0); MCV 100.8 fL (80.0-100.0); MEAN PLATELET VOLUME 9.6 fL (7.4-10.4); MONOCYTES 6.6 % (2-11); NEUTROPHILS 78.6 % (40-80); PLATELET COUNT 134 10x3/uL (130-400); RBC 3.76 10x6/uL (4.00-5.40); RDW 16.4 % (11.5-14.5); WBC 7.7 10x3/uL (4.8-10.8)
[2016-11-28 06:09] LABS: ALBUMIN 2.5 g/dL (3.4-5.0); ALKALINE PHOSPHATASE 73 U/L (46-116); ALT (SGPT) 104 U/L (10-68); BILIRUBIN - DIRECT 0.44 mg/dL (0.00-0.30); BILIRUBIN - TOTAL 0.94 mg/dL (0.2-1.3); CALC OSMOLALITY 285 mosm/kg (275-300); CALCIUM 7.9 mg/dL (8.5-10.1); CARBON DIOXIDE 35.5 mmol/L (21.0-32.0); CHLORIDE - SERUM 103 mmol/L (98-107); CREATININE - SERUM 0.7 mg/dL (0.6-1.3); GLUCOSE 130 mg/dL (74-106); POTASSIUM - SERUM 4.1 mmol/L (3.5-5.1); PROTEIN - SERUM 4.8 g/dL (6.4-8.2); SODIUM 141 mmol/L (136-145); UREA NITROGEN 20 mg/dL (7-18); eGFR NON AFRICAN AMERICAN > 90 mL/min (90-120)
[2016-11-28 08:00] VITALS: BP 145/69
--- NOTE | 2016-11-28 09:54 | NUR ---
[facility]. Bobbi Wilcox RN CL
--- NOTE | 2016-11-28 10:20 | NUR ---
ALERT AND ORIENTED X4. AMBULATING IN BOWMAN ASSISTED BY PHYSICAL THERAPY. CONVERTS FROM SINUS TO UNCONTROLLED A-FIB 150bpm ON TELEMETRY. RETURN TO ROOM. SITTING IN CHAIR. DENIES PAIN. CHRONIC SOB MANAGED WITH OXYGEN THERAPY AND UPDRAFTS. PAGE TO NOTIFY OF CHANGE. CONTINUE PLAN OF CARE. BED LOCKED AND LOW. CALL LIGHT IN REACH. TWO SIDERAILS UP.
--- NOTE | 2016-11-28 11:52 | NUR ---
ALERT AND ORIENTED X4. SITTING IN BED EATING LUNCH. DAUGHTER AT BEDSIDE. BP-102/66, HR-124bpm UNCONTROLLED A-FIB. BYSTOLIC 10mg ORDERED PER . ADMINISTER 5mg BYSTOLIC TO MONITOR BP. ADMINISTER OTHER 5mg BYSTOLIC IF BP TOLERATES PER . DENIES PAIN. OXYGEN THERAPY CONTINUED. CONTINUE PLAN OF CARE. BED LOCKED AND LOW. CALL LIGHT IN REACH. TWO SIDERAILS UP.
[2016-11-28 12:00] VITALS: BP 102/66
--- NOTE | 2016-11-28 13:15 | NUR ---
ALERT AND ORIENTED X4. RESTING IN BED. FAMILY AT BEDSIDE. BP-109/66, HR-133bpm UNCONTROLLED A-FIB ON TELEMETRY. BP TOLERATED. ADMINISTER OTHER HALF OF PRESCRIBED DOSE OF BYSTOLIC 5mg. TOTAL DOSE ORDERED NOW RECIEVED. CONITNUE TO MONITOR. BED LOCKED AND LOW. CALL LIGHT IN REACH. TWO SIDERAILS UP.
--- NOTE | 2016-11-28 14:10 | NUR ---
ALERT AND ORIENTED X4. RESTING IN BED. PATIENT STATES,"I FEEL FUNNY, I DON'T LIKE THAT NEW MEDICINE YOU GAVE ME. IT MAKES MY LIPS FEEL FUNNY AND MY MOUTH DRY." ENCOURAGE TO DRINK MORE WATER. BP RECHECKED MANUALLY. BP-110/68 MANUALLY. O2 90% WITH 2.5L NC. INCREASE O2 TO 3L NC. O2 SAT 93%. CONTINUE PLAN OF CARE. UNCONTROLLED A-FIB 133bpm ON TELEMETRY. BED LOCKED AND LOW. CALL LIGHT IN REACH. TWO SIDERAILS UP.
[2016-11-28 16:00] VITALS: BP 114/73
[2016-11-28 20:00] VITALS: BP 109/62
[2016-11-29] VITALS: BP 108/72
--- NOTE | 2016-11-29 01:17 | NUR ---
HR 105 UNCAFIB AT THIS TIME. EYES CLOSED, RESP UNLAB, WITH O2 @ 2.5L IN PLACE, RT TLSC INTACT AND PATENT WITH NS AT KVO VIA PUMP W/O DIFF. HOB UP SR UP X2, C/L IN REACH. CONTINUE TO MONITOR.
[2016-11-29 04:15] VITALS: BP 110/63
[2016-11-29 06:10] LABS: BASOPHILS 0 % (0.0-2.0); EOSINOPHILS 0.4 % (0-7); LYMPHOCYTES 11.5 % (15-50); MCH 32.1 pg (26.0-34.0); MCHC 31.6 g/dL (31.0-37.0); MCV 101.6 fL (80.0-100.0); MEAN PLATELET VOLUME 10.2 fL (7.4-10.4); MONOCYTES 5.5 % (2-11); NEUTROPHILS 81.6 % (40-80); PLATELET COUNT 138 10x3/uL (130-400); RBC 3.74 10x6/uL (4.00-5.40); RDW 16.5 % (11.5-14.5); WBC 7.1 10x3/uL (4.8-10.8)
[2016-11-29 06:47] LABS: ANION GAP 6.6 mmol/L (8-16); CALCIUM 8.1 mg/dL (8.5-10.1); CARBON DIOXIDE 36.5 mmol/L (21.0-32.0); POTASSIUM - SERUM 4.1 mmol/L (3.5-5.1)
[2016-11-29 06:52] LABS: CREATININE - SERUM 0.9 mg/dL (0.6-1.3)
[2016-11-29 08:11] VITALS: BP 116/61
--- NOTE | 2016-11-29 10:53 | NUR ---
Nutrition follow-up: Diet: Regular PO intake ~75% average of most meals Labs reviewed +BM Wt: 218# RDN following.
[2016-11-29 11:58] VITALS: BP 99/49
[2016-11-29 15:55] VITALS: BP 146/73
--- NOTE | 2016-11-29 19:09 | NUR ---
ALERT AND ORIENTED X4. SITTING UP IN BED. NO CHANGE. SINUS ALIDA 59bpm ON TELEMETRY. PREPARE SHIFT CHANGE REPORT. CONTINUE PLAN OF CARE AND SAFETY PRECAUTION.
[2016-11-29 20:29] VITALS: BP 128/56
--- NOTE | 2016-11-29 21:00 | NUR ---
RECEIVED IN BEDROOM. LAYING IN BED WITH EYES OPEN. IV INFUSING. DENIES PAIN. REQUEST PRN AMBIAN FOR SLEEP. SCD'S ON. O2 @ 2.5 L/M VIA NC. BED ALARM ON. CALL LIGHT IN REACH
[2016-11-30 01:50] VITALS: BP 128/56
[2016-11-30 05:40] VITALS: BP 124/57
[2016-11-30 05:55] LABS: BASOPHILS 0 % (0.0-2.0); EOSINOPHILS 0.5 % (0-7); HEMATOCRIT 36.5 % (36.0-48.0); HEMOGLOBIN 11.4 g/dL (12-16); IMMATURE GRANULOCYTES 0.7 % (0-5); LYMPHOCYTES 10.2 % (15-50); MCH 31.8 pg (26.0-34.0); MCHC 31.2 g/dL (31.0-37.0); MEAN PLATELET VOLUME 9.9 fL (7.4-10.4); MONOCYTES 6.4 % (2-11); NEUTROPHILS 82.2 % (40-80); PLATELET COUNT 140 10x3/uL (130-400); RBC 3.58 10x6/uL (4.00-5.40); RDW 16.2 % (11.5-14.5); WBC 7.3 10x3/uL (4.8-10.8)
[2016-11-30 06:26] LABS: ANION GAP 4.2 mmol/L (8-16); CALCIUM 8.6 mg/dL (8.5-10.1); CARBON DIOXIDE 39.3 mmol/L (21.0-32.0); CREATININE - SERUM 0.9 mg/dL (0.6-1.3); POTASSIUM - SERUM 3.5 mmol/L (3.5-5.1)
[2016-11-30 07:47] VITALS: BP 144/66
--- NOTE | 2016-11-30 10:42 | NUR ---
Recieved a call from Kami Catalan RN , she has spoken to Jolanta Barajas LPN with [email or web address]. This patient is approved for acute inpatient rehab 7 days with U/D due on 12/07/16 to Jolanta Barajas or Fax# [phone] Authorization # [id number]. She will be accepted today to the IRF if physician agrees. Bobbi Wilcox RN CL
[2016-11-30 11:45] VITALS: BP 121/55
[2016-11-30] MEDS ORDERED: BYSTOLIC5 MG PO (12:46)
[2016-11-30] MEDS ORDERED: XARELTO20 MG PO (12:46)
[2016-11-30] MEDS ORDERED: MUCINEX DM ER1 EAC1 PO (12:47)
[2016-11-30] MEDS ORDERED: BENZONATATE200 MG PO (12:47)
[2016-11-30] MEDS ORDERED: PULMICORT0.5 MG/21 UPD (12:47)
[2016-11-30] MEDS ORDERED: BUMEX2 MG PO (12:47)
[2016-11-30] MEDS ORDERED: PROTONIX40 MG PO (12:48)
--- NOTE | 2016-11-30 13:40 | NUR ---
Patient Name: DIANA PARISH Encounter No: [id number] : 1955 Primary Insurance: [employer] ADV Anticipated DC Date: 11-30-2016 Planned Disposition: Inpatient Rehab External Planned Provider: [facility] INPATIENT REHAB DCP follow-up note: CM RECEIVED MESSAGE FROM [facility] OF INPATIENT REHAB, THEY PLAN TO ACCEPT PT TODAY, FOR REHAB. PT NOTIFIED, IN AGREEMENT WITH DISCHARGE TO INPATIENT REHAB. IMPORTANT MESSAGE FROM MEDICARE PROVIDED AND DISCUSSED. [facility] INPATIENT REHAB TO CONTACT MED 2 NURSE WITH ROOM NUMBER WHEN READY TO ACCEPT PT AND NURSE REPORT. Kali Murphy, CASE MANAGEMENT
[2016-11-30] MEDS ORDERED: BACTRIM DS TABL1 TAB PO (14:03)
[2016-11-30] MEDS ORDERED: IPRAT-ALBUT 0.5-3 ML IH (14:03)
[2016-11-30] MEDS ORDERED: FLORAJEN3 CAPS460 MG PO (14:04)
[2016-11-30] MEDS ORDERED: PREDNISONE20 MG PO (14:04)
--- NOTE | 2016-11-30 15:30 | NUR ---
PT TO BE DISCHARGED TO REHAB THIS AFTERNOON CENTRAL LINE INPLACE AND SALINE LOCKED TELEMETRY REMOVED AND RETURNED NO DISTRESS OBSERVED AT THIS TIME WILL TRANSPORT PT TO REHAB BY WHEELCHAIR AFTER REPORT IS CALLED
[2016-11-30 15:47] VITALS: BP 128/61
--- NOTE | 2016-11-30 16:53 | NUR ---
CVL DC'D BLUE TIP INTACT REPORT CALLED TO REHAB CLIF CHAVIS AND JULIETA MONTES ASSISTED PT DOWN TO REHAB BY WHEELCHAIR
== END 2016-11-30 16:54 | DRG 291 ==
LOC: D.ER 11:31 → OBSVTIME 18:35 → D.M2 18:35 → D.ICU 18:55 → D.M2 11-21 16:58
PROVIDERS: Emergency Medicine; Internal Medicine Interventional Cardiology; Internal Medicine Pulmonary Disease; ADMIT Family Medicine
PROC: 0BH17EZ Insertion of Endotracheal Airway into Trachea, Via Natural or Artificial Opening (ICD-10-PCS; 2016-11-16)
PROC: 5A1945Z Respiratory Ventilation, 24-96 Consecutive Hours (ICD-10-PCS; 2016-11-16)
PROC: 0T9B70Z Drainage of Bladder with Drainage Device, Via Natural or Artificial Opening (ICD-10-PCS; 2016-11-16)
PROC: 0D9670Z Drainage of Stomach with Drainage Device, Via Natural or Artificial Opening (ICD-10-PCS; 2016-11-16)
PROC: 05H533Z Insertion of Infusion Device into Right Subclavian Vein, Percutaneous Approach (ICD-10-PCS; principal; 2016-11-16 12:00)
DX: I11.0 Hypertensive heart disease with heart failure (principal); R65.21 Severe sepsis with septic shock; J96.22 Acute and chronic respiratory failure with hypercapnia; J96.21 Acute and chronic respiratory failure with hypoxia; A41.9 Sepsis, unspecified organism; K72.00 Acute and subacute hepatic failure without coma; I48.92 Unspecified atrial flutter; J44.1 Chronic obstructive pulmonary disease with (acute) exacerbation; N39.0 Urinary tract infection, site not specified; I50.23 Acute on chronic systolic (congestive) heart failure; I25.119 Atherosclerotic heart disease of native coronary artery with unspecified angina pectoris; E03.9 Hypothyroidism, unspecified; I42.9 Cardiomyopathy, unspecified; E11.649 Type 2 diabetes mellitus with hypoglycemia without coma; I27.2 Other secondary pulmonary hypertension; I48.0 Paroxysmal atrial fibrillation; B96.20 Unspecified Escherichia coli [E. coli] as the cause of diseases classified elsewhere; D69.6 Thrombocytopenia, unspecified; I70.212 Atherosclerosis of native arteries of extremities with intermittent claudication, left leg; R49.0 Dysphonia; K21.9 Gastro-esophageal reflux disease without esophagitis; Z95.1 Presence of aortocoronary bypass graft; Z87.891 Personal history of nicotine dependence

== ENCOUNTER 2016-11-30 14:49 | Inpatient (IN) | payer MEDICARE, MEDICAID ==
[~2016-11-30] VITALS: Ht 162.6 cm; Wt 98.4 kg
[~2016-11-30 14:49] MED LIST changes: +AMBIEN10 MG PO; +BACTRIM DS TABL1 TAB PO; +BENZONATATE200 MG PO; +BUMEX2 MG PO; +BYSTOLIC5 MG PO; +FLORAJEN3 CAPS460 MG PO; +IPRAT-ALBUT 0.5-3 ML IH; +MUCINEX DM ER1 EAC1 PO; +PREDNISONE20 MG PO; +PROTONIX40 MG PO; +PULMICORT0.5 MG/21 UPD
--- NOTE | 2016-11-30 17:00 | NUR ---
RECIEVED/WC TO ROOM;WHEN APPROACHED,NOTED THAT BLOOD WAS COMING FROM DISCONTINUED CVL SITE.PRESSURE APPLIED.4X4'S 10PK PRESSURE DRESSING PUT IN PLACE TO SITE.ASSISTED UP OUT OF WC TO BED.O2 ON AT 3L/NC.CLOTHING CHANGED ALONG WITH BED LINENS.CL IN PLACE.
[2016-11-30 19:00] VITALS: BP 126/64
[2016-11-30 19:48] VITALS: BP 126/64; BMI 37.3
--- NOTE | 2016-11-30 20:00 | NUR ---
PT IS RESTING IN BED WITH EYES OPEN. ALERT AND ORIENTED X 3. PT BEING ADMITTED TO UNIT BY ALLEN LOPEZ RN. PT IS ALERT AND ORIENTED X 4. DENIES ACUTE DISCOMFORT AT THIS TIME. BULKY DRESSING NOTED TO OLD CVL SITE TO RIGHT CHEST. VSS. O2 IS ON @ 3LPM PER NC. TELEMETRY IS ON AND INTACT. SR'S ARE UP X 3 IN BED. CALL LIGHT AND BEDSIDE TABLE ARE WITHIN EASY REACH.
--- NOTE | 2016-11-30 22:55 | NUR ---
PT IS RESTING QUIETLY IN BED WITH EYES CLOSED. RESPS ARE EVEN AND UNLABORED. NO ACUTE DISTRESS NOTED.
--- NOTE | 2016-12-01 01:21 | NUR ---
PT IS RESTING QUIETLY IN BED WITH EYES CLOSED.
--- NOTE | 2016-12-01 03:21 | NUR ---
PT ASSISTED TO THE BATHROOM WITH SBA.
--- NOTE | 2016-12-01 04:10 | NUR ---
RESTING IN BED ON LEFT SIDE, EYES CLOSED. RESPIRING QUIETLY.
[2016-12-01 07:12] LABS: BASOPHILS 0 % (0.0-2.0); EOSINOPHILS 1.9 % (0-7); HEMATOCRIT 35.7 % (36.0-48.0); HEMOGLOBIN 11.2 g/dL (12-16); IMMATURE GRANULOCYTES 0.5 % (0-5); MCH 32.1 pg (26.0-34.0); MCHC 31.4 g/dL (31.0-37.0); MCV 102.3 fL (80.0-100.0); MEAN PLATELET VOLUME 9.9 fL (7.4-10.4); MONOCYTES 5.7 % (2-11); NEUTROPHILS 73.9 % (40-80); PLATELET COUNT 133 10x3/uL (130-400); RBC 3.49 10x6/uL (4.00-5.40); RDW 16.5 % (11.5-14.5); WBC 6.3 10x3/uL (4.8-10.8)
[2016-12-01 07:16] LABS: CALC OSMOLALITY 282 mosm/kg (275-300); CALCIUM 8.1 mg/dL (8.5-10.1); CHLORIDE - SERUM 102 mmol/L (98-107); CREATININE - SERUM 0.8 mg/dL (0.6-1.3); POTASSIUM - SERUM 3.6 mmol/L (3.5-5.1); SODIUM 141 mmol/L (136-145); UREA NITROGEN 20 mg/dL (7-18); eGFR NON AFRICAN AMERICAN 78 mL/min (90-120)
[2016-12-01 07:17] LABS: GLUCOSE 76 mg/dL (74-106)
--- NOTE | 2016-12-01 07:27 | NUR ---
RESTING IN BED.
[2016-12-01 09:00] VITALS: BP 127/61
[2016-12-01 13:43] VITALS: Ht 162.6 cm; Wt 98.4 kg
--- NOTE | 2016-12-01 14:27 | NUR ---
PT RESTING IN BED WITH EYES OPEN CALL LIGHT IN REACH NO PROBLEMS WILL MONITER
[2016-12-01 19:00] VITALS: BP 130/56
--- NOTE | 2016-12-01 20:15 | NUR ---
PT IN BED WITH HOB UP FOR COMFORT, WATCHING TV, 02 @ 2L VIA N/C, BED IN LOWEST POSITION AND CALL LIGHT WITHIN REACH.
--- NOTE | 2016-12-02 00:08 | NUR ---
PT IN BED WITH HOB UP FOR COMFORT, EYES CLOSED, CHEST RISING AND FALLING, 02 @ 2L VIA N/C, BED IN LOWEST POSITION AND CALL LIGHT WITHIN REACH.
--- NOTE | 2016-12-02 02:05 | NUR ---
PT RESTING, EYES CLOSED. BED LOW. CL IN REACH.
[2016-12-02 08:16] LABS: BASOPHILS 0 % (0.0-2.0); EOSINOPHILS 2.3 % (0-7); HEMATOCRIT 38.6 % (36.0-48.0); HEMOGLOBIN 12.3 g/dL (12-16); LYMPHOCYTES 28.9 % (15-50); MCH 32.4 pg (26.0-34.0); MCHC 31.9 g/dL (31.0-37.0); MCV 101.6 fL (80.0-100.0); MEAN PLATELET VOLUME 9.9 fL (7.4-10.4); MONOCYTES 5.9 % (2-11); NEUTROPHILS 61.9 % (40-80); PLATELET COUNT 138 10x3/uL (130-400); RDW 16.5 % (11.5-14.5); WBC 6.1 10x3/uL (4.8-10.8)
--- NOTE | 2016-12-02 08:30 | NUR ---
PT RESTING IN BED WITH EYES OPEN CALL LIGHT IN REACH WILL MONITER
[2016-12-02 08:53] LABS: ANION GAP 9.1 mmol/L (8-16); CALCIUM 8.4 mg/dL (8.5-10.1); CARBON DIOXIDE 34.7 mmol/L (21.0-32.0); CREATININE - SERUM 0.9 mg/dL (0.6-1.3); POTASSIUM - SERUM 3.8 mmol/L (3.5-5.1)
[2016-12-02 09:00] VITALS: BP 103/43
--- NOTE | 2016-12-02 12:30 | NUR ---
PT RESTING IN BED WITH EYES OPEN CALL LIGHT IN REACH PT EATING LUNCH TOLERATING WELL
--- NOTE | 2016-12-02 17:58 | NUR ---
PT RESTING IN BED WITH EYES OPEN CALL LIGHT IN REACH WILL MONITER
[2016-12-02 19:00] VITALS: BP 119/61
--- NOTE | 2016-12-02 19:55 | NUR ---
PT IS RESTING IN BED WITH EYES OPEN. ALERT AND ORIENTED X 4. DENIES ACUTE DISCOMFORT AT THIS TIME. O2 IS ON @ 2LPM PER NC. NO SOB NOTED. TELEMETRY BOX IS ON AND INTACT. SR'S ARE UP X 2 IN BED. CALL LIGHT AND BEDSIDE TABLE ARE WITHIN EASY REACH.
--- NOTE | 2016-12-02 22:07 | NUR ---
PT IS RESTING QUIETLY IN BED WITH EYES CLOSED. RESPS ARE EVEN AND UNLABORED. NO ACUTE DISTRESS NOTED.
--- NOTE | 2016-12-03 00:07 | NUR ---
RESTING IN BED WITH EYES CLOSED.
--- NOTE | 2016-12-03 01:15 | NUR ---
PT RESTING, EYES CLOSED. BED LOW. CL IN REACH.
--- NOTE | 2016-12-03 03:15 | NUR ---
PT IS RESTING IN BED WITH EYES CLOSED. NO DISTRESS NOTED.
[2016-12-03 07:00] VITALS: BP 119/42
--- NOTE | 2016-12-03 08:00 | NUR ---
SHIFT ASSMT COMPLETED.CL IN REACH.
--- NOTE | 2016-12-03 12:00 | NUR ---
SITTING ON SIDE OF BED EATING LUNCH.
--- NOTE | 2016-12-03 19:45 | NUR ---
PT IS RESTING IN BED WITH EYES OPEN. ALERT AND ORIENTED X 4. DENIES ACUTE DISCOMFORT AT THIS TIME. VSS. O2 IS ON @ 2LPM PER NC. NO SOB NOTED. TELEMETRY UNIT IS INTACT. SR'S ARE UP X 2 IN BED. CALL LIGHT AND BEDSIDE TABLE ARE WTIHIN EASY REACH.
[2016-12-03 20:00] VITALS: BP 126/58
--- NOTE | 2016-12-03 21:27 | NUR ---
PT IS RESTING QUIETLY IN BED WITH EYES CLOSED. RESPS ARE EVEN AND UNLABORED. NO ACUTE DISTRESS NOTED.
--- NOTE | 2016-12-03 23:23 | NUR ---
RESTING IN BED WITH EYES CLOSED.
--- NOTE | 2016-12-04 03:04 | NUR ---
RESTING IN BED WITH EYES CLOSED.
--- NOTE | 2016-12-04 04:29 | NUR ---
PT RESTING QUIETLY, EYES CLOSED, LYING ON RIGHT SIDE, NO S/S OF ACUTE DISTRESS.
[2016-12-04 07:00] VITALS: BP 139/75
--- NOTE | 2016-12-04 08:00 | NUR ---
SHIFT ASSMT COMPLETED.INDEPENDENT IN ROOM.DENIES NEEDS.CL IN REACH.
--- NOTE | 2016-12-04 12:00 | NUR ---
SITTING UP ON SIDE OF BED.DENIES NEEDS.
--- NOTE | 2016-12-04 16:00 | NUR ---
NO C/O TODAY.RESTED WELL.DENIES NEEDS.
[2016-12-04 23:38] VITALS: BP 115/50
--- NOTE | 2016-12-05 00:18 | NUR ---
PT RECEIVED IN BED WATCHING TV. NO CONCERNS OR COMPLAINTS. PT VISITING WITH VISITORS AT 1945. MEDICATIONS GIVEN PER MAR AND WITHOUT DIFFICULTY. NO CONCERNS NOTED. CALL LIGHT IN REACH.
--- NOTE | 2016-12-05 03:23 | NUR ---
PT IN BED WITH EYES CLOSED AND CHEST RISING. NO CONCERNS NOTED AT THIS TIME. CALL LIGHT IN REACH.
[2016-12-05 06:10] LABS: BASOPHILS 0 % (0.0-2.0); EOSINOPHILS 1.9 % (0-7); HEMATOCRIT 39.1 % (36.0-48.0); HEMOGLOBIN 12.3 g/dL (12-16); IMMATURE GRANULOCYTES 0.7 % (0-5); LYMPHOCYTES 25.8 % (15-50); MCH 31.7 pg (26.0-34.0); MCHC 31.5 g/dL (31.0-37.0); MCV 100.8 fL (80.0-100.0); MEAN PLATELET VOLUME 9.8 fL (7.4-10.4); MONOCYTES 5.2 % (2-11); NEUTROPHILS 66.4 % (40-80); PLATELET COUNT 127 10x3/uL (130-400); RBC 3.88 10x6/uL (4.00-5.40); RDW 16.2 % (11.5-14.5); WBC 5.7 10x3/uL (4.8-10.8)
[2016-12-05 06:31] LABS: ANION GAP 5.7 mmol/L (8-16); CALCIUM 8.7 mg/dL (8.5-10.1); CREATININE - SERUM 0.9 mg/dL (0.6-1.3); POTASSIUM - SERUM 3.7 mmol/L (3.5-5.1)
--- NOTE | 2016-12-05 08:05 | NUR ---
PATIENT AWAKE AND SITTING UP ON THE SIDE OF THE BED TO EAT BREAKFAST. ALERT/ORIENT X4. CALL LIGHT WITHIN REACH. VOICES NO NEEDS AT THIS TIME
[2016-12-05 09:27] VITALS: BP 119/61
--- NOTE | 2016-12-05 10:00 | NUR ---
PATIENT IN REHAB ROOM WORKING WITH PHYSICAL THERAPIST. DENIES ANY PAIN/DISC AT THIS TIME
--- NOTE | 2016-12-05 13:32 | NUR ---
PATIENT IN REHAB ROOM. WORKING WITH OCCUAPTIONAL THERAPIST
--- NOTE | 2016-12-05 15:53 | NUR ---
PATIENT IS A MIN ASST FROM BED TO WHEELCHAIR AND WHEELCHAIR TO TOILET
--- NOTE | 2016-12-05 18:09 | NUR ---
PATIENT SITTING UP AT THE SIDE OF THE BED TO EAT SUPPER. GOOD APPETITE. ATE 100%
--- NOTE | 2016-12-05 19:30 | NUR ---
PT. IN BED WITH HOB UP FOR COMFORT AND LE'S UP ON PILLOW TO BRIDGE HEELS. ASSESSMENT COMPLETED. NO VOICED NEEDS AT THIS TIME AND HER CALL LIGHT IS WITHIN REACH.
[2016-12-05 19:37] VITALS: BP 106/54
--- NOTE | 2016-12-05 23:04 | NUR ---
PT. IN BED WITH HOB UP FOR COMFORT LYING ON HER LEFT SIDE. EYES ARE CLOSED AND RESP. ARE EVEN. CALL LIGHT WITHIN REACH.
--- NOTE | 2016-12-06 06:01 | NUR ---
PT. IN BED WITH HOB UP FOR COMFORT WITH EYES CLOSED AND RESP. EVEN. PT. AWAKENS EASILY FOR MORNING MEDICATIONS. PT. HAS NO VOICED NEEDS AT THIS TIME AND HAS HER CALL LIGHT WITHIN REACH.
--- NOTE | 2016-12-06 08:00 | NUR ---
SHIFT ASSMT COMPLETED.DENIES NEEDS.UP TO SIDE OF BED FOR BREAKFAST.CL IN REACH.O2 ON AT 2L/NC.
[2016-12-06 09:07] VITALS: BP 124/55
--- NOTE | 2016-12-06 12:00 | NUR ---
CO NARES HAVING SOME BLEEDING AT TIMES.HUMIDIFICATION ON O2.NO BLEEDING NOTED AT PRESENT.
--- NOTE | 2016-12-06 12:10 | NUR ---
Nutrition Follow Up: Pt was in therapy at the time of RD visit. Interview deferred. Chart reviewed. Pt is eating 78% meal avg on a regular diet. +BM 12/04/16. No new wt to assess. Meds noted including Bumex, Synthroid. Labs noted. Pt with good po intake at this time. Rec continue current diet. RD following.
--- NOTE | 2016-12-06 16:00 | NUR ---
UP IN THERAPY ROOM. EVANS WELL
[2016-12-06 19:15] VITALS: BP 102/40
--- NOTE | 2016-12-06 20:34 | NUR ---
PT IN BED WITH HOB UP FOR COMFORT, WATCHING TV, PT STATES SHE HAS A PAIN LEVEL OF 7/10 AND REQUESTED A PAIN PILL, NORCO GIVEN, BED IN LOWEST POSITION AND CALL LIGHT WITHIN REACH.
--- NOTE | 2016-12-07 01:25 | NUR ---
PATIENT IN BED, EYES CLOSED. RESPIRATIONS UNLABORED.
--- NOTE | 2016-12-07 05:25 | NUR ---
PT IN BED WITH HOB UP FOR COMFORT, EYES CLOSED, CHEST RISING AND FALLING, 02 @ 2L, BED IN LOWEST POSITION AND CALL LIGHT WITHIN REACH.
[2016-12-07 06:07] LABS: BASOPHILS 0.2 % (0.0-2.0); EOSINOPHILS 2.7 % (0-7); HEMATOCRIT 42.8 % (36.0-48.0); HEMOGLOBIN 13.7 g/dL (12-16); IMMATURE GRANULOCYTES 1.5 % (0-5); LYMPHOCYTES 37.9 % (15-50); MCH 32.4 pg (26.0-34.0); MCV 101.2 fL (80.0-100.0); MEAN PLATELET VOLUME 9.9 fL (7.4-10.4); NEUTROPHILS 49.7 % (40-80); PLATELET COUNT 116 10x3/uL (130-400); RBC 4.23 10x6/uL (4.00-5.40); RDW 16.4 % (11.5-14.5); WBC 4.8 10x3/uL (4.8-10.8)
[2016-12-07 06:53] LABS: ANION GAP 8.7 mmol/L (8-16); CALCIUM 9.1 mg/dL (8.5-10.1); CARBON DIOXIDE 34.2 mmol/L (21.0-32.0); POTASSIUM - SERUM 3.9 mmol/L (3.5-5.1)
[2016-12-07 07:58] VITALS: BP 112/57
--- NOTE | 2016-12-07 08:00 | NUR ---
SHIFT ASSMT COMPLETED.DENIES NEEDS.BREAKFAST GIVEN.
--- NOTE | 2016-12-07 12:00 | NUR ---
EATING LUNCH.DENIES NEEDS.CL IN REACH.
[2016-12-07] MEDS ORDERED: BYSTOLIC5 MG PO (12:20)
--- NOTE | 2016-12-07 12:30 | RHP ---
PATIENT: DIANA PARISH MEDICAL RECORD: [id number] ACCOUNT: [id number] LOCATION:[facility] [id number] : 59 ADMISSION DATE: 11/30/16 REHABILITATION HISTORY AND PHYSICAL EXAMINATION POST ADMISSION PHYSICIAN EXAMINATION DATE OF ADMISSION TO THE REHAB: 11/30/2016 ADMITTING DIAGNOSES: Congestive heart failure myopathy complicated by cmxwt-qt-ybitapn systolic congestive heart failure with an ejection fraction of 20%, and an bickb-zc-kaglxgl hypoxic and hypercapnic respiratory failure secondary to systolic congestive heart failure. HISTORY OF PRESENT ILLNESS: The patient is a 61-year-old female patient admitted with CHF myopathy due to aikhn-tr-vydzfyy systolic heart failure with an EF of 20%. She presented to the Emergency Room on November 11 with increasing shortness of breath and tachycardia. She has a known history of coronary artery disease and atrial fibrillation. She was tachycardic. Her chest x-ray revealed cardiomegaly. Her BNP was elevated at 8041 and jessica to 12,490. She had bilateral pulmonary edema on exam. She also had JVD and a gallop noted. She was admitted at that time for CHF. Cardiology was consulted due to her cardiomyopathy and recent V-tach with arrest. On November 16, she was cardioverted. Post-cardioversion, the patient became hypotensive. Rapid response was called. The patient was in sinus rhythm at 60 and blood pressure was in the mid 60s systolic. She was transferred to ICU. She was electively intubated. The patient required IV fluid bolus as well as dopamine and Levophed to keep her blood pressure above 90. She remained in the ICU for 5 days, was extubated on November 19, with 2 L via nasal cannula to titrate her sat to 92% or greater. Post-extubation, she had a bedside swallow evaluation, which showed oropharyngeal dysphagia and speech disturbance. Speech therapy was recommended for 5-7 days for following safety, speech and diet tolerance. Currently, she is continuing to work with speech therapy, OT and PT. She needs to be continued on humidified O2, neb treatments q.4 hours and p.r.n., wean her on steroid, wean her O2 as tolerated. She is on IV Bumex at this time and will need to be changed over to p.o. at some time. Continue antitussives and ____. Follow up labs and also a chest x-ray. She will need to be continued to work with PT, OT and speech for her weakness, dizziness and increased shortness of breath when rising from a chair, bed or tub. She has peripheral muscle weakness, decrease in endurance. She also has some problems with safety, swallowing and speech. She will be admitted to the rehab. She wants to go back and live independently and alone, and she will need help with getting back her mobility and ADLs. COMORBIDITIES: In this patient include hypertension, AFib, nswsu-ad-ubcnepn heart failure, bilateral pneumonia, hxshh-nt-obefcyh respiratory failure, dysphagia, history of severe sepsis with shock, hemoptysis, bilateral pulmonary effusions, pulmonary edema, left ventricular dysfunction, history of cardiomyopathy, hyperlipidemia, hypothyroidism, bipolar disorder, diabetes, debility and weakness. PAST MEDICAL HISTORY: Significant for known coronary artery disease, atrial fibrillation, COPD, hepatitis, diabetes, gastroesophageal reflux disease, hypertension. PAST SURGICAL HISTORY: Includes coronary artery bypass grafting, gallbladder surgery, right knee replacement, tubal ligation, excision of a right axillary HISTORY AND PHYSICAL [id number] PARISH,DIANA D mass, cardiac stents, and inguinal hernia repair. ALLERGIES: PENICILLIN, ANY TYPE OF STATIN, LISINOPRIL AND IODINE. CURRENT MEDICATIONS: Include Bumex 2 mg b.i.d., Xarelto 20 mg daily; prednisone 20 mg, she is on a tapering dose; Protonix 40 mg daily, Bystolic 10 mg daily, Synthroid 75 mcg daily, ____ mg daily, Plavix 75 mg daily, zolpidem 10 mg q.h.s. p.r.n. She is on Bactrim 1 tab b.i.d., Requip 0.25 mg h.s., potassium 10 mEq b.i.d., Singulair 10 mg q.h.s., DuoNeb updrafts q.6 hours or q.2 hours p.r.n., [place] 10/325 one tab q.4 hours p.r.n., Mucinex DM b.i.d., Pulmicort 0.5 mg b.i.d., Tessalon Perles 200 mg t.i.d. p.r.n., and amiodarone 10 mg b.i.d. HABITS: No current alcohol or tobacco use. FAMILY HISTORY: Noncontributory. SOCIAL HISTORY: The patient hopes to return back home and get back to her prior level of functioning. REVIEW OF SYSTEMS: GENERAL: Does complain of weakness. HEENT: Denies cold, cough, or congestion. CARDIOVASCULAR: Denies chest pain. PHYSICAL EXAMINATION: VITAL SIGNS: Stable, afebrile. GENERAL: A well-developed female in no acute distress, alert upon exam. HEENT: Normocephalic, atraumatic. Mucosa moist. NECK: Supple. No lymphadenopathy. LUNGS: Clear at this time. HEART: Irregular rate and rhythm at this time. ABDOMEN: Benign. EXTREMITIES: No clubbing, cyanosis or edema. NEUROLOGIC: Intact. LABORATORY DATA: White count is 6.3, H&H of 11 and 35, and platelet count was noted to be 133. Her sodium is 141, potassium is 3.6, BUN and creatinine of 20 and 0.8 and blood sugar is noted to be 76. ASSESSMENT: This is a 61-year-old female patient admitted to rehab with a working diagnosis of congestive heart failure-induced myopathy with an ejection fraction of 20%: The patient has potential to make improvement. We instituted the following multidisciplinary therapies including, but not limited to physical, occupational, respiratory, speech, nutritional services, prosthetics and orthotics. Given her complex condition and risk for more complications, rehabilitation services cannot be provided at a lower level of care such as a detention facility. PLAN: 1. Admit to [facility] rehab for intensive inpatient therapy to include the following disciplines: A. Physical therapy to improve gait, all transfer skills and bed mobility to a modified independent level. B. Occupational therapy to improve activities of daily living to a modified independent level. HISTORY AND PHYSICAL [id number] DIANA PARISH C. Case management to assist with discharge planning and placement options. D. Nutrition to assist with nutritional needs. E. Rehabilitation nursing to assist in monitoring the patient's underlying medical conditions and to assist with any type of bowel or bladder management. 2. The patient's current medication and medical care will be continued. 3. The patient will be placed on standard fall precautions. 4. The patient's estimated length of stay is approximately 7-10 days. 5. We will discuss this patient during care team staff meeting this week. 6. We will watch her BNP and chest x-ray closely during her stay. TRANSINT:[id number] Voice Confirmation ID: [id number] DOCUMENT ID: [id number] OSIEL CUEVA MD at 1230 CC: [id number] DICTATION DATE: 12/01/16834 DEVELOPING MACHINE OPERATOR: 12/01/16 1047 ADM IN [id number] [place] [address]
--- NOTE | 2016-12-07 14:57 | NUR ---
CARE TEAM MEETING: PATIENT DISCHARGING HOME IN AM WITH SONU AT HOME TO RESUME HOME HEALTH. NO NEW DME NEEDED AT THIS TIME, APPOINTMENTS: DR. MALIK 12/16/16 @ 11:45, DR. CCAERES/DAJUAN CANSECO 01/09/17 @ 10:15, DR. CARROLL 12/19/16 @ 1:30. PATIENT CHOICE FORM FOR HOME HEALTH AND [facility] FORM SIGNED, EXPLAINED AND FILED IN CHART WITH UNDERSTANDING NOTED. CLINICALS WILL BE FAXED TO [facility] AT [facility] WHEN PATIENT LEAVES THE BUILDING.WILL CONTINUE TO FOLLOW WITH PATIENT UNTIL DISCHARGED
--- NOTE | 2016-12-07 16:00 | NUR ---
RESTING QUIETLY.PLANS FOR D/C [place].
[2016-12-07 20:04] VITALS: BP 126/55
--- NOTE | 2016-12-07 20:14 | NUR ---
PT IN BED VISITING WITH FRIEND. NO CONCERNS NOTED AT THIS TIME. CALL LIGHT IN REACH.
--- NOTE | 2016-12-07 23:20 | NUR ---
PT IN BED WITH EYES CLOSED AND CHEST RISING. NO SIGN/SYMPTOMS OF DISTRESS NOTED. CALL LIGHT IN REACH.
--- NOTE | 2016-12-08 05:04 | NUR ---
PT IN BED WITH EYES CLOSED AND CHEST RISING. NO SIGN/SYPTOMS OF DISTRESS NOTED. CALL LIGHT IN REACH.
--- NOTE | 2016-12-08 08:00 | NUR ---
PATIENT SITTING ON THE SIDE OF THE BED TO EAT BREAKFAST. ALERT/ORIENT X4. CALL LIGHT WITHIN REACH. VOICES NO NEEDS AT THIS TIME
[2016-12-08 08:21] VITALS: BP 117/44
--- NOTE | 2016-12-08 09:51 | NUR ---
DR. Yung CUEVA INTO SEE PATIENT. DISCHARGE INSTRUCTIONS WRITTEN. PATIENT TO BE DISCHARGED TO HOME.
--- NOTE | 2016-12-08 12:46 | NUR ---
PATIENT GIVEN DISCHARGE INSTRUCTIONS. MEDICATIONS PATIENT DOES NOT HAVE CALLED INTO [facility]
--- NOTE | 2016-12-08 13:44 | NUR ---
PATIENTS SON HERE TO TRANSFER PATIENT HOME. TAKEN OUT BY STAFF.
--- NOTE | 2016-12-09 09:16 | NUR ---
DISCHARGE CLINICALS FAXED TO [facility] AT AUTH # [id number] WITH CONFORMATION RECIEVED
== END 2016-12-08 13:47 | disposition home health service (06) | DRG 91 ==
LOC: D.REHAB 14:49
PROVIDERS: ADMIT Emergency Medicine
DX: G72.89 Other specified myopathies (principal); I50.23 Acute on chronic systolic (congestive) heart failure; J96.22 Acute and chronic respiratory failure with hypercapnia; J96.21 Acute and chronic respiratory failure with hypoxia; J18.9 Pneumonia, unspecified organism; J90 Pleural effusion, not elsewhere classified; J44.1 Chronic obstructive pulmonary disease with (acute) exacerbation; F17.203 Nicotine dependence unspecified, with withdrawal; I11.0 Hypertensive heart disease with heart failure; I48.91 Unspecified atrial fibrillation; K21.9 Gastro-esophageal reflux disease without esophagitis; E11.9 Type 2 diabetes mellitus without complications; E78.5 Hyperlipidemia, unspecified; R53.81 Other malaise; R13.12 Dysphagia, oropharyngeal phase

== ENCOUNTER → 2016-12-19 16:03 | Outpatient (CLI) | payer MEDICARE, MEDICAID ==
[2016-12-01 13:43] VITALS: BMI 37.2
== END | disposition home or self-care (01) ==
LOC: D.LABREF 16:03
DX: R31.9 Hematuria, unspecified (principal)

== ENCOUNTER 2017-05-29 05:45 | Inpatient (IN) | payer MEDICARE, MEDICAID ==
[~2017-05-29] VITALS: Ht 162.6 cm; Wt 86.8 kg
[2017-05-29] VITALS (15 sets, daily range): BP systolic 84–108; BP diastolic 34–75
--- NOTE | ~2017-05-29 | HEMODYNAMI ---
PATIENT:DIANA PARISH MEDICAL RECORD: [id number] : 59 [id number] ADMISSION DATE: 05/29/17 Generatedon:06/16/201716:02 Patient name: DIANA PARISH Patient #: [id number] : 1955 Date of study: 06/16/2017 Page: Of Hemodynamic Procedure Report Patient Data Patient Demographics Procedure consent was obtained First Name: DIANA Gender: Female Last Name: JEM : 1955 [facility] Initial: D Age: 62 year(s) Patient #: [id number] Race: SSN: [id number] Additional ID: [id number] Contact details Address: [address] State: [place] City: [place] Zip code: [address] Past Medical History Allergies Allergen Reaction Date Comments Reported Penicillins 06/24/2016 Other allergy 11/16/2016 iodine, Penicillin, statins, lisinopril Penicillins 06/16/2017 Admission Admission Data Admission Date: 05/29/2017 Admission Time: 7:31 Room #: D.2113 Weight (lbs.): 191 Weight (kg.): 86.64 Procedure Procedure Types Cath Procedure Peripheral Cath Diagnostic Procedure Cath Peripheral Venography IVC/SVC Inferior Venacava Filter Procedure Description Procedure Date Procedure Date: 06/16/2017 Procedure Start Time: 15:40 Procedure Staff Name Function Efrain Park MD Performing Physician Valdez Barahona RT Scrub Ashleigh Hedrick RN Nurse Gunjan England RT Industrial Hygiene Manager Gunjan England RT Monitor Procedure Data Cath Procedure Fluoroscopy Diagnostic fluoroscopy Total fluoroscopy Time: 2.6 time: 2.6 min min Diagnostic fluoroscopy Total fluoroscopy dose: 490 dose: 490 mGy mGy Contrast Material Contrast Material Type Amount (ml) Isovue 300 30 Diagnostic catheters Device Type Used For End Catheter Placement Merit UHF Pigtail VESSEL SIZING 5Fr 65CM catheter Procedure Medications Medication Administration Route Dosage Lidocaine 1% added to field 20 Oxygen NC 3 l/min Heparin Flush Bag added to field 2 bags (1000units/500ml NS) Hemodynamics Rest Heart Rate: 80 (bpm) Snapshots Pre Cath Intra NCS Post Cath Vital Signs Time Heart Resp SPO2 NIBP (mmHg) Rhythm Pain Sedation Rate (ipm) (%) Status Level (bpm) 15:28:46 89 35 96 No Cuff NSR 0 (11) 10(A) , No pain 15:32:46 116 31 96 No Cuff NSR 0 (11) 10(A) , No pain 15:36:46 101 35 98 No Cuff NSR 0 (11) 10(A) , No pain 15:41:45 99 17 Measuring NSR 0 (11) 10(A) , No pain 15:43:09 93 22 98 Time NSR 0 (11) 10(A) Exceeded , No pain 15:45:28 93 41 98 138/86(123) NSR 0 (11) 10(A) , No pain 15:50:19 100 27 97 155/89(110) NSR 0 (11) 10(A) , No pain 15:55:18 104 72 98 Measuring NSR 0 (11) 10(A) , No pain 15:55:24 100 57 98 162/88(108) NSR 0 (11) 10(A) , No pain 16:00:23 101 28 95 Measuring NSR 0 (11) 10(A) , No pain 16:01:04 100 98 96 169/86(125) NSR 0 (11) 10(A) , No pain Medications Time Medication Route Dose Verified Delivered Reason Notes Effe ctiveness by by 15:15:05 Lidocaine 1% added 20ml Ashleigh Efrain for local to vial Ryley Park MD anesthetic field RN 15:15:23 Oxygen NC 3 Ashleigh Ashleigh used for l/min Ryley Hedrick mri special procedures technologist RN 15:15:38 Heparin Flush added 2 Ashleigh Ashleigh used for Bag to bags Ryley Hedrick mri special procedures technologist (1000units/500ml field RN NS) Procedure Log Time Note 15:04:22 Patient Weight : 191 lbs 15:07:27 Use device set IR Diagnostic 15:07:29 Sterile Angiographic Pack opened to sterile field. 15:07:30 Bag Decanter opened to sterile field. 15:07:31 Acist Manifold opened to sterile field. 15:07:31 Acist Hand Control opened to sterile field. 15:07:32 Acist Syringe opened to sterile field. 15:07:40 Micropuncture VSI 4FR kit opened to sterile field. 15:08:53 Time tracking: Regular hours 15:09:15 Plan of Care:Hemodynamics will remain stable., Cardiac rhythm will remain stable., Comfort level will be maintained., Respiratory function will remain adequate., Patient/ family verbilizes understanding of procedure., Procedure tolerated without complication., Recovers from procedure without complications.. 15:09:24 Patient received from [employer] Intellect to Alert and oriented. Tansferred to table in Supine position. 15:09:31 Signed procedure consent form obtained from patient. 15:09:38 H&P Date Dictated: 06/16/2017 Within 30 days and on chart.. 15:09:40 Pre-procedure instructions explained to patient. 15:09:41 Pre-op teaching completed and patient verbalized understanding. 15:09:43 Family in waiting room. 15:09:46 Patient NPO since Midnight. 15:09:57 Patient allergic to Penicillins 15:10:02 Is the patient allergic to Iodine/contrast media? No. 15:10:13 Is patient on blood thinner?Yes 15:11:16 Patient diabetic? Yes. 15:11:18 If diabetic: On Metformin? No 15:11:40 - 15:11:42 ----Pre-sedation anethsthesia assessment.---- 15:11:49 Previous problem with sedation/anesthesia? No ? 15:11:54 Snore? No 15:12:02 Sleep apnea? No 15:12:04 Deviated septum? No 15:12:06 Opens mouth fully? Yes 15:12:09 Sticks out tongue? Yes 15:14:06 Airway obstruction? Yes copd, emphysema 15:14:12 Dentures? No ? 15:14:26 Right neck area was prepped with chlora-prep and draped in sterile fashion 15:14:49 - 15:15:05 Lidocaine 1% 20ml vial added to field was administered by Efrain Park MD; for local anesthetic; 15:15:23 Oxygen 3 l/min NC was administered by Ashleigh Hedrick RN; used for procedure; 15:15:38 Heparin Flush Bag (1000units/500ml NS) 2 bags added to field was administered by Ashleigh Hedrick RN; used for procedure; 15:26:42 Jingshi Wanwei DOC .035 guide wire opened to sterile field. 15:26:43 Terumo 5Fr Whiting Sheath opened to sterile field. 15:26:44 DILATOR, VESSEL 10/20 opened to sterile field. 15:27:55 ECG and BP/O2 sat monitors applied to patient. 15:27:56 Vital chart was started 15:27:57 Baseline sample Acquired. 15:27:59 Full Disclosure recording started 15:28:00 - 15:39:18 Physician arrived 15:40:28 --------ALL STOP TIME OUT------ 15:40:29 Final Timeout: patient, procedure, and site verified with staff and physician. All members of the team are in agreement. 15:40:33 Physical assessment completed. ASA score P 3 - A patient with severe systemic disease as per Efrain Park MD. 15:40:39 Sedation plan: IV Moderate Sedation Versed, Fentanyl 15:40:44 Procedure started. 15:40:58 Local anesthetic to right IJ vein with Lidocaine 1% by Efrain Park MD.INITIAL ACCESS ONLY 15:45:51 A iPourit [facility] Pigtail VESSEL SIZING 5Fr 65CM catheter was advanced over the wire and used for . 15:46:05 Bard HITESH JUGULAR Vena Cava Filter opened to sterile field. 15:46:21 Venous access obtained using ultrasound guidance. 15:46:27 Venogram performed 15:57:30 Procedure ended.(Physican Out) 15:57:48 Fluoroscopy time 02.60 minutes. 15:57:59 Fluoroscopy dose: 490 mGy 15:57:59 Flurop Dose total: 490 15:58:11 Contrast amount:Isovue 300 30ml. 15:58:14 Sharps counted by scrub and verified by R.N. 15:58:18 Procedure and supply charges have been captured, reviewed, submitted an d are correct. 16:02:21 Vital chart was stopped Device Usage Item Name Manufacture Quantity Catalog Hospital Part Current Minima l Lot# / Number Charge Number Stock Stock Serial# Code Sterile Cardinal 1 [id number] 5 Angiographic Health Pack Bag Decanter Microtek 1 [id number] 68455 [id number] 5 Medical Inc. Acist Acist 1 90738 414424 738999 690162 5 Manifold Medical Systems Inc Acist Hand Acist 1 80145 566002 020830 175272 5 Control Medical Systems Inc Acist Syringe Acist 1 94472 426112 763393 777078 20 Medical Systems Inc Micropuncture VSI VASCULAR 1 7266V 877462 799601 5 VSI 4FR kit SOLUTIONS [place] DOC .035 [facility] 1 [id number] 291991 751240 5 [id number] guide wire Terumo 5Fr Terumo 1 CPM246 296173 270215 606943 40 Whiting Sheath DILATOR, [facility] 1 [id number] 214806 87268 016470 5 [id number] VESSEL 07/14 Merit F Merit 1 [id number] 859430 251337 5 Pigtail Medical VESSEL SIZING 5Fr 65CM catheter Bard HITESH Bard 1 [id number] 782975 849967 463682 5 JUGULAR Vena Cava Filter Signature Audit [place] Stage Time Signature Unsigned Intra-Procedure 06/16/2017 Gunjan England 4:02:18 PM RT(R) Signatures Monitor : Gunjan England RT Signature : Date : Time : [facility] [address] [place] [address]
[2017-05-29 06:08] LABS: BASOPHILS 0.6 % (0-2); EOSINOPHILS 4.1 % (0-7); HEMATOCRIT 44.5 % (36.0-48.0); HEMOGLOBIN 13.5 g/dL (12-16); IMMATURE GRANULOCYTES 0.4 % (0-5); LYMPHOCYTES 37.8 % (15-50); MCH 30.4 pg (26.0-34.0); MCHC 30.3 g/dL (31.0-37.0); MCV 100.2 fL (80.0-100.0); MEAN PLATELET VOLUME 10.4 fL (7.4-10.4); MONOCYTES 5.9 % (2-11); NEUTROPHILS 51.2 % (40-80); RBC 4.44 10x6/uL (4.00-5.40); RDW 15.6 % (11.5-14.5); WBC 8.3 10x3/uL (4.8-10.8)
[2017-05-29 06:16] LABS: PLATELET COUNT 183 10x3/uL (130-400)
[2017-05-29 06:33] LABS: ALBUMIN 2.6 g/dL (3.4-5.0); ANION GAP 22.7 mmol/L (8-16); BILIRUBIN - TOTAL 0.79 mg/dL (0.2-1.3); CALCIUM 8.9 mg/dL (8.5-10.1); CREATININE - SERUM 1.2 mg/dL (0.6-1.3); POTASSIUM - SERUM 4.7 mmol/L (3.5-5.1); PROTEIN - SERUM 7.5 g/dL (6.4-8.2)
[2017-05-29 06:58] LABS: TROPONIN-I 0.074 ng/mL (0.000-0.060)
[2017-05-29 06:58] LABS: APPEARANCE SLT CLOUDY (CLEAR); BACTERIA MODERATE /hpf (NONE SEEN); BILIRUBIN NEGATIVE (NEGATIVE); COLOR YELLOW (YELLOW); GLUCOSE 100 mg/dL (NEGATIVE); KETONE NEGATIVE (NEGATIVE); LEUKOCYTE ESTERASE TRACE (NEGATIVE); NITRITE NEGATIVE (NEGATIVE); PROTEIN 3+ mg/dL (NEGATIVE); SPECIFIC GRAVITY 1.015 (1.005-1.020); UROBILINOGEN NORMAL (NORMAL); WHITE CELLS - URINE 0-5 /hpf (0-5)
[2017-05-29 06:59] LABS: AMORPHOUS SEDIMENT <1+ /lpf (NONE SEEN); GRANULAR CAST RARE /lpf (NONE SEEN); MUCUS <1+ /lpf (NONE SEEN)
[2017-05-29 08:01] LABS: MAGNESIUM - SERUM 2.4 mg/dL (1.8-2.4); PHOSPHOROUS 5.3 mg/dL (2.5-4.9)
[2017-05-29 08:06] LABS: HEMOGLOBIN A1C 6.7 % (4.8-6.0)
--- NOTE | 2017-05-29 10:00 | NUR ---
TAKEN OFF BIPAP MASK. PLACED ON NC PER RT. SPO2 97% WILL CONT TO ASSESS.
--- NOTE | 2017-05-29 11:01 | NUR ---
0945 PT ADMITTED INTO THE ICU VIA STRECHR FROM THE ER.. PT IS PLACED ON BIPAP O2 ON ARRIVAL TO UNIT BY RT.. 70% ... PT IS AWAKE AND ALERT SHE IS APPROPRIATE IN HER RESPONSES AT THIS TIME... THERE IS A NORTH CATH WITH CLEAR YELLOW URINE AND A PIV IN HER RIGHT THUMB THAT IS SALINE LOCKED AT THIS TIME.. PT DENIES PAIN STATES THAT SHE WOKE UP AND COULD NOT BREATH.. SR ON MONITOR WITH PVCs NOTED.. 0950 FAMILY IN TO SEE PT AND UPDATE IS GIVEN.. MED LIST OBTAINED PT STATES THAT SHE DOES NOT WANT TO BE INTUBATED AND FAMILY AT BEDSIDE HAS HEARD AND UNDERSTANDS THIS... 1015 FAMILY GONE FROM BEDSIDE.. 1030 SLEEPING WITHOUT C/O
--- NOTE | 2017-05-29 11:54 | NUR ---
DR. CUEVA CALLED IN REGARDS TO INSULIN GTT. FSBS RESULTS REPORTED. STATED TO D/C GTT. NO OTHER ORDERS RECIEVED.
[2017-05-29 12:11] LABS: ANION GAP 8.3 mmol/L (8-16); CALCIUM 8.5 mg/dL (8.5-10.1); CREATININE - SERUM 1.4 mg/dL (0.6-1.3); POTASSIUM - SERUM 4.3 mmol/L (3.5-5.1)
[2017-05-29] MEDS ORDERED: LANOXIN125 MCG PO (12:59)
[2017-05-29] MEDS ORDERED: CARDIZEM60 MG PO (13:01)
[2017-05-29] MEDS ORDERED: BACTRIM DS TABL1 TAB PO (13:01)
--- NOTE | 2017-05-29 15:00 | NUR ---
FAMILY AT BEDSIDE. UPDATE PROVIDED
[2017-05-29 16:21] LABS: ANION GAP 10.4 mmol/L (8-16); CALCIUM 7.9 mg/dL (8.5-10.1); CARBON DIOXIDE 31.9 mmol/L (21.0-32.0); CREATININE - SERUM 1.2 mg/dL (0.6-1.3); POTASSIUM - SERUM 3.3 mmol/L (3.5-5.1)
--- NOTE | 2017-05-29 17:11 | NUR ---
VSS AT THIS TIME. NO ACUTE CHANGES NOTED. PT RESTING WATCHING TV.
--- NOTE | 2017-05-29 19:45 | NUR ---
SHIFT ASSESSMENT COMPLETE. PT SITTING IN HIGH FOWLERS WATCHING TV. SHE IS A&O X4 AND IN GOOD SPIRITS, WEARING GLASSES. PERRLA, 3 MM, BRISK REACTION TO LIGHT. ORAL MUCOSA PINK AND MOIST, NO LESIONS NOTED. NC @ 3 L/MIN, O2 SAT 99%. DIMINISHED LUNG SOUNDS HEARD THROUGHOUT ALL LOBES, RR 22 BREATHS/MIN. S1S2 AUDIBLE, HR 99, NORMAL SINUS RHYTHM. BP 84/49, TEMP 98.0 ORAL. ABD SOFT AND FLAT, NONTENDER TO TOUCH. RADIAL AND PEDAL PULSES PALP. NORTH CATH INTACT DRAINING CLEAR YELLOW URINE. SCDS REMOVED AND SKIN ASSESSED, WNL. SHE REQUESTS A CUP OF ICE, DELIVERED PROMPTLY. EDUCATED HER THAT SHE NEEDS TO TURN AT LEAST EVERY TWO HOURS, BUT SHE STATES THAT SHE WANTS TO REMAIN ON HER BACK AT THIS TIME. STRAIGHTENED UP IV LINES, SWAB CAPS IN PLACE, TUBING LABELED. NO FURTHER REQUESTS. CALL LIGHT IN REACH. BED IN LOWEST POSITION. WILL CONT WITH POC.
[2017-05-29 20:09] LABS: ANION GAP 9.6 mmol/L (8-16); CALCIUM 7.7 mg/dL (8.5-10.1); CARBON DIOXIDE 30.9 mmol/L (21.0-32.0); CREATININE - SERUM 1.6 mg/dL (0.6-1.3); POTASSIUM - SERUM 3.5 mmol/L (3.5-5.1)
--- NOTE | 2017-05-29 21:00 | NUR ---
DAUGHTER CALLED AND GAVE PASSWORD. XFERED PHONE CALL INTO PT'S ROOM. VSS. NO REQUESTS AT THIS TIME. WILL CONT TO MONITOR.
--- NOTE | 2017-05-29 23:00 | NUR ---
REASSESSMENT COMPLETE. PT REQUESTS AMBIEN 10 MG, SLEEPING AID. ADMINISTERED PER REQUEST. HR IS 111 SINUS TACH WITH SOME PVC'S NOTED. BP 95/59. SHE STATES THAT SHE IS NOT IN ANY PAIN AT THE MOMENT. EMPTIED 1800 ML OF CLEAR YELLOW URINE FROM NORTH CATH. REFILLED CUP WITH ICE CHIPS AND SET IT BESIDE THE BED. NO FURTHER REQUESTS. WILL CONT WITH POC.
[2017-05-30] VITALS (38 sets, daily range): BP systolic 86–127; BP diastolic 49–95; Ht 162.6 cm; Wt 86.8 kg
--- NOTE | 2017-05-30 01:00 | NUR ---
PT RESTING PEACEFULLY AT THIS TIME WITH NO S/S OF DISTRESS NOTED. VSS. WILL CONT WITH POC.
--- NOTE | 2017-05-30 02:55 | NUR ---
Reassessment completed per flowsheet, patient resting in bed with eyes open watching TV. Patient AO x4, calm and cooperative. Eyes PERRLA @ 4mm with brisk response, sclera is white. S1/S2 noted Sinus Tach on telemetry with HR 111, rhythmic and regular. Breathing is slightly shallow on 3L via NC with O2 sat 93%, lung sounds clear bilateral upper with diminished mid and lower. All pulses palpable with cap refill < 3 sec, skin is warm/dry to touch. Patient denies pain or other needs at this time, all VSS and will continue to monitor.
[2017-05-30 04:38] LABS: BASOPHILS 0 % (0-2); EOSINOPHILS 0 % (0-7); HEMATOCRIT 36.7 % (36.0-48.0); HEMOGLOBIN 11.3 g/dL (12-16); LYMPHOCYTES 17.6 % (15-50); MCH 29.7 pg (26.0-34.0); MCHC 30.8 g/dL (31.0-37.0); MCV 96.3 fL (80.0-100.0); MONOCYTES 3.1 % (2-11); NEUTROPHILS 79.3 % (40-80); PLATELET COUNT 148 10x3/uL (130-400); RBC 3.81 10x6/uL (4.00-5.40); RDW 15.5 % (11.5-14.5); WBC 3.2 10x3/uL (4.8-10.8)
--- NOTE | 2017-05-30 05:00 | NUR ---
Patient resting in bed with eyes closed, breathing is even and unlabored on 3L via NC. Patient denies pain or other needs at this time, all VSS and will continue to monitor.
[2017-05-30 05:08] LABS: ALBUMIN 2.3 g/dL (3.4-5.0); BILIRUBIN - TOTAL 0.6 mg/dL (0.2-1.3); CALCIUM 8.3 mg/dL (8.5-10.1); CREATININE - SERUM 1.3 mg/dL (0.6-1.3); PROTEIN - SERUM 6.6 g/dL (6.4-8.2)
[2017-05-30 05:12] LABS: MAGNESIUM - SERUM 1.6 mg/dL (1.8-2.4)
--- NOTE | 2017-05-30 07:00 | NUR ---
REPORT RECIEVED FROM OFF GOING RN. PT ALERT AND ORIENTED X4. IN BED WITH NO S/SX OF DISTRESS/DISCOMFORT NOTED. BREATHING NORMAL AND UNLABORED. O2 AT 3L VIA NC. SHOWS CONTROLLED AFIB ON THE MONITOR WHICH IS PTS NORM. HAS A RIGHT PIV THAT IS SL. PATENT. DRESSING C/D/I WITH NO REDDNESS/SWELLING OR C/O PAIN. LEFT FA IV PATNENT WITH DOPAMINE INFUSING AT 5MCG/KG/MIN. BP STABLE. FC NOTED WITH CLEAR YELLOW URINE. CALL LIGHT IN REACH. DENIES NEEDS AT THIS TIME. WILL CONT POC
--- NOTE | 2017-05-30 11:00 | NUR ---
NO CHANGES FROM PREVIOUS ASSESSMENT. FAMILY BROUGHT PT A PEANUT BUTTER AND BANANA SANDWHICH. CALL LIGHT IN REACH. BREATHING NORMAL AND UNLABORED. WILL CONT POC
--- NOTE | 2017-05-30 11:30 | NUR ---
OK TO TRANSFER TO [facility]. AWAITING OPEN BED.
--- NOTE | 2017-05-30 12:47 | NUR ---
* Is the patient Alert and Oriented? Yes 0 * How many steps to enter\exit or inside your home? 3 0 * PCP Dr. Lacy 0 * Pharmacy [facility] 0 * Preadmission Environment Home with Family 0 * ADLs Independent 0 * Equipment Nebulizer Oxygen Rolling Walker Shower Chair 0 * List name and contact numbers for known caregivers / representatives who currently or will assist patient after discharge: Son - Cristofer Cochran [phone] Friend - Tawnya Crisostomo [phone] 0 * Community resources currently utilized Home Health 0 * Please name any agencies selected above. [facility] 0 * Additional services required to return to the preadmission environment? No 0 * Can the patient safely return to the preadmission environment? Yes 0 * Has this patient been hospitalized within the prior 30 days at any hospital? No Patient Name: DIANA Haney PARISH Admission Status: Elective Accout number: [id number] Admission Date: 05-29-2017 : 1955 Admission Diagnosis: Attending: CATRACHO GLEZ Current LOS: 1 Anticipated DC Date: 06-02-2017 Planned Disposition: Home with Home Health Primary Insurance: [employer]ICARE ADV Discharge Planning Comments: CM met with patient to assess dc plans/needs. Patient states she normally lives alone, but her adult son is currently staying with her since his release from residential. She reports she is independent with all ADL's & IADL's. She has a walker but has not been using it. She also has home O2 @ 2-3L, nebulizer & a shower chair. She is currently on service with [facility]. At dc, she plans to return home and resume services. CM will follow & assist as needed. Improvement Intern: Kathleen Hickey
--- NOTE | 2017-05-30 13:57 | NUR ---
PT RESTING WATCHING TV WITH NO S/SX OF DISTRESS/DISCOMFORT NOTED. BREATHING NORMAL AND UNLABORED. CALL LIGHT IN REACH.
--- NOTE | 2017-05-30 15:17 | NUR ---
REPORT CALLED AND GIVEN TO NEVA CHAVIS. PT LEFT VIA BED WITH A PORTABLE O2 TANK AT 3L. PT VITALS STABLE. ALL BELONGINS ACCOUNTED FOR. PT BREATHING NORMAL AND UNLABORED. 0 S/SX OF DISTRESS/DISCOMFORT NOTED. TRANSFERED TO 2112.
--- NOTE | 2017-05-30 15:22 | NUR ---
RECEIVED PT TO ROOM 2112 VIA BED IN STABLE CONDITION RESP UNLABORED AAOX4 LFA SIV OF DOBUTAMINE PATED WITHOUT DIFFICULTY RT HAND SALIN LOCK INTACT BOTH SITES FREE OF REDNESS OR EDEMA F/C PATENT CLEAR YELLOW URINE TELEMETRY UCAFIB 113
--- NOTE | 2017-05-30 21:45 | NUR ---
SHIFT ASSESSMENT COMPLETE. PT IS A&O X4 AND IN GOOD SPIRITS. PERRLA, 3 MM, BRISK REACTION TO LIGHT. GLASSES ARE BEING WORN. NC @ 3 L/MIN, DIMINISHED LUNG SOUNDS THROUGHOUT ALL LOBES. S1S2 AUDIBLE, HR 106. ABD FLAT AND NON TENDER TO TOUCH, BS ACTIVE X4. NORTH CATH DRAINING CLEAR YELLOW URINE. RADIAL AND PEDAL PULSES PALP. R HAND PIV SALINE LOC, L FOREARM PIV INFUSING DOPAMINE @ 5 MCG/KG/MIN. SCDS REMOVED AND SKIN ASSESSED. PT STATES THAT SHE FEELS HOT. REMOVED BLANKET AND COVERED HER WITH JUST A SHEET, APPLIED COOL CLOTH TO FOREHEAD AND FOUND A FAN TO PUT IN HER ROOM. SHE STATES THAT SHE FEELS A LOT BETTER AND THAT SHE SHOULD SLEEP WELL TONIGHT. HER FAMILY IS AT HER BEDSIDE. REFILLED REFRESHMENTS. NO FURTHER REQUESTS. WILL CONT WITH POC.
--- NOTE | 2017-05-31 00:30 | NUR ---
PT IS RESTING ON HER BACK WITH HER FAN ON. NO S/S OF DISTRESS NOTED. WILL CONT WITH POC.
[2017-05-31 00:46] VITALS: BP 107/71
--- NOTE | 2017-05-31 03:00 | NUR ---
REPOSITONED PT FOR COMFORT. REPOSITONED FAN AND REFILLED REFRESHMENTS. CALL LIGHT IN REACH. WILL CONT WITH POC.
[2017-05-31 05:12] VITALS: BP 104/69
[2017-05-31 05:32] LABS: BASOPHILS 0 % (0-2); EOSINOPHILS 0 % (0-7); HEMATOCRIT 36.9 % (36.0-48.0); HEMOGLOBIN 11.5 g/dL (12-16); IMMATURE GRANULOCYTES 0.3 % (0-5); LYMPHOCYTES 5.1 % (15-50); MCH 30.3 pg (26.0-34.0); MCHC 31.2 g/dL (31.0-37.0); MCV 97.1 fL (80.0-100.0); MEAN PLATELET VOLUME 10.2 fL (7.4-10.4); MONOCYTES 3.7 % (2-11); NEUTROPHILS 90.9 % (40-80); PLATELET COUNT 159 10x3/uL (130-400); RDW 15.8 % (11.5-14.5)
[2017-05-31 05:51] LABS: WBC 7.9 10x3/uL (4.8-10.8)
--- NOTE | 2017-05-31 06:05 | NUR ---
PT SLEEPING AT THIS TIME. NO SIGNS OF DISTRESS NOTED. WILL CONT WITH POC.
[2017-05-31 06:29] LABS: ALBUMIN 2.4 g/dL (3.4-5.0); ANION GAP 10.8 mmol/L (8-16); BILIRUBIN - TOTAL 0.5 mg/dL (0.2-1.3); CALCIUM 8.9 mg/dL (8.5-10.1); CARBON DIOXIDE 32.6 mmol/L (21.0-32.0); CREATININE - SERUM 1.1 mg/dL (0.6-1.3); MAGNESIUM - SERUM 1.8 mg/dL (1.8-2.4); POTASSIUM - SERUM 3.4 mmol/L (3.5-5.1); PROTEIN - SERUM 6.9 g/dL (6.4-8.2)
--- NOTE | 2017-05-31 07:48 | NUR ---
0715- DR. DUMONT ON UNIT. INFORMED HIM THAT PT HAS A-FLUTTER WITH HR OF 108. DR. ROUSE IS AWARE WITH NO NEW ORDERS RECIEVED.
--- NOTE | 2017-05-31 07:49 | NUR ---
PARTHA LE STATES THAT PTS WT IS CALCULATED FOR DOBUTAMINE DRIP THIS AM. DRIP IS SET AT AT 10.5CC/HR.
--- NOTE | 2017-05-31 08:27 | NUR ---
PT HAS NORTH CATHETER WITH DARK URINE SEEN.
[2017-05-31 08:32] VITALS: BP 129/68
--- NOTE | 2017-05-31 09:13 | NUR ---
Patient Name: DIANA PARISH Encounter No: [id number] : 1955 Primary Insurance: [employer] ADV Anticipated DC Date: 06-02-2017 Planned Disposition: Home with Home Health External Planned Provider: [facility] DCP follow-up note: CM RECEIVED REQUEST TO MEET WITH PT AND DAUGHTER IN ROOM; PT REPORTS SHE WILL BE GOING TO HER DAUGHTERS FOR ONE TO TWO WEEKS AT DISCHARGE BEFORE RETURNING TO HER HOME; DISCHARGE [address] IS [address] [place] [address], [place]. DAUGHTER IS NEY REYNAGA, . PT WOULD LIKE HER HOME HEALTH TO RESUME ONCE SHE RETURNS HOME FROM HER DAUGHTERS. CM EXPLAINED THAT [facility] [place] [facility], PT IN AGREEEMENT IF HOME HEALTH WILL COME SEE HER AT HER DAUGHTERS. CM CALLED LISET OF [facility], , NOTIFIED OF PT'S REQUEST AND VERIFIED COVERAGE FOR [place]. FOR RESUMPTION OF HOME HEALTH AT DISCHARGE, NOTIFY [facility], , FAX DISCHARGE INFORMATION TO [facility] AT [phone]. DISCHARGE [address]ESS IS [address] [place] [address], [place], [place]. DAUGHTER IS NEY REYNAGA, . Kali Murphy, CASE MANAGEMENT
--- NOTE | 2017-05-31 10:49 | NUR ---
Patient Name: DIANA PARISH Encounter No: [id number] : 1955 Primary Insurance: [employer]ICARE ADV Anticipated DC Date: 06-02-2017 Planned Disposition: Home with Home Health External Planned Provider: : [facility] follow-up note: CM MET WITH PT IN ROOM, DISCUSSED DISCHARGE PLAN OF HOME WITH HOME HEALTH, PT IN AGREEMENT WITH DISCHARGE PLAN. IMPORTANT MESSAGE FROM MEDICARE PROVIDED AND EXPLAINED. FOR RESUMPTION OF HOME HEALTH AT DISCHARGE, NOTIFY [facility], , FAX DISCHARGE INFORMATION TO [facility] AT [phone]. DISCHARGE ADDRESS IS [address] [place] [address], [place], [place]. DAUGHTER IS NEY REYNAGA, . Kali Murphy, CASE MANAGEMENT
[2017-05-31 12:34] VITALS: BP 112/61
--- NOTE | 2017-05-31 17:09 | NUR ---
PTS DAUGHTER IS REQUESTING PT ASSIST PT IN SHOWER. INFORMED DAUGHTER THAT IS FINE LONG IV SITE DOES NOT GET WET. UPON ASSISTED PT WITH SALINE LOCKING IV TO RIGHT THUMB, OTHER IV TO LEFT FOREARM IS LEAKING. ATTEMPTED TO FLUSH IV SITE AND WAS NOT SUCCESFUL. IV REMOVED WITH CATH TIP INTACT. PT HAS IV TO RIGHT HAND. PTS DAUGHTER IS GETTING PT IN SHOWER NOW.
--- NOTE | 2017-05-31 17:33 | NUR ---
DAUGHTER JUST GOT PT OUT OF SHOWER. SIMON CLEMENS ASSITED IN HELPING WITH FRESH LINEN. NO FURTHER NEED AT THIS TIME. WILL CONTINUE TO MONITOR.
--- NOTE | 2017-05-31 18:24 | NUR ---
PT IS CURRENTLY SITTING UP IN BED WITH EYES OPEN RESTING TALKING ON CELLPHONE. PT DENIES ANY NEED AT THIS CURRENT TIME. WILL CONTINUE TO MONITOR.
--- NOTE | 2017-05-31 18:38 | NUR ---
ATTEMPTED TO SITE PT WITH ANOTHER IV CATHETER X2 STICKS WITH WERE NOT SUCCESSFUL. WILL PASS THIS ALONG IN REPORT. PT HAS IV TO RIGHT HAND WITH DOBUTAMINE RUNNING AT 10.5CC.
[2017-05-31 19:00] VITALS: BP 120/74
--- NOTE | 2017-05-31 19:15 | NUR ---
ALERT/AWAKE TALKING ON PHONE. ON O2 AT 3L/NC. RR 18 EVEN U/L. IV IN RT THUMB INTACT WITH DOBUTAMINE INFUSING AT 10.5 ML/HR. NORTH INTACT WITH URINE DRAINING TO GRAVITY. TELEMETRY LEADS IN PLACE. DENIES ANY NEEDS. HAS CL IN REACH.
--- NOTE | 2017-05-31 21:45 | NUR ---
ADMIN SCHED MEDS WITH SIPS OF WATER. FLUSHED RT THUMB IV TO ADMIN LASIX AND FLUSHED AGAIN TO ADMIN SOLUMEDROL. THE SKIN AROUND THE IV SITE IN THUMB STARTING TO LOOK REDDISH. IV RESITED IN RT FA WITH 22G WITH DOBUTAMIN INFUSING AT 10.5 ML/HR. ANOTHER IV SITED IN RT FA WITH 22G TO INFUSE IV ABX.
[2017-06-01 01:15] VITALS: BP 109/66
--- NOTE | 2017-06-01 02:19 | NUR ---
RESTING WITH EYES CLOSED. RR 18 EVEN U/L. 02 AT 3L/NC. NO S/S OF DISTRESS OR DISCOMFORT. CL IN REACH.
[2017-06-01 05:35] LABS: BASOPHILS 0 % (0-2); EOSINOPHILS 0 % (0-7); HEMATOCRIT 36.8 % (36.0-48.0); HEMOGLOBIN 11.7 g/dL (12-16); IMMATURE GRANULOCYTES 0.3 % (0-5); MCH 30.5 pg (26.0-34.0); MCHC 31.8 g/dL (31.0-37.0); MCV 96.1 fL (80.0-100.0); MEAN PLATELET VOLUME 10.1 fL (7.4-10.4); MONOCYTES 3.8 % (2-11); NEUTROPHILS 88.9 % (40-80); PLATELET COUNT 180 10x3/uL (130-400); RBC 3.83 10x6/uL (4.00-5.40); RDW 16.1 % (11.5-14.5)
[2017-06-01 05:59] LABS: ALBUMIN 2.5 g/dL (3.4-5.0); ANION GAP 10.8 mmol/L (8-16); BILIRUBIN - TOTAL 0.5 mg/dL (0.2-1.3); CALCIUM 9.1 mg/dL (8.5-10.1); CARBON DIOXIDE 33.3 mmol/L (21.0-32.0); CREATININE - SERUM 1.1 mg/dL (0.6-1.3); MAGNESIUM - SERUM 1.8 mg/dL (1.8-2.4); POTASSIUM - SERUM 3.1 mmol/L (3.5-5.1)
--- NOTE | 2017-06-01 07:30 | NUR ---
REPORT RECIEVED. PT RESTING QUIELTY, RR EVEN AND UNLABORED. DOBUTAMINE DRIP AT 10.5. PT ON NC AT 3L, BED IN LOWEST POSTION, CALL PERALTA IN REACH, WILL CTM.
--- NOTE | 2017-06-01 07:54 | NUR ---
RECEIVED ORDER FROM DR CANTRELL TO ARRANGE FOR PATIENT TO HAVE A PORTABLE OXYGEN CONCENTRATOR. WENT IN AND SPOKE WITH PATIENT AND SHE CURRENTLY USES [facility]. SHE HAS AN OXYGEN CONCENTRATOR AND E-TANKS. SHE STATED THAT HER E-TANKS ONLY LAST ABOUT 2 HOURS EACH AND SHE CAN'T CARRY THEM ALL WITH HER SO THAT SHE CAN GO OUT. SHE SAID IT IS HARD FOR HER TO GET IN AND GET THEM REFILLED. SHE SAID SHE TALKED TO THE SHOBHA WITH [employer] WHO TOLD HER ALL SHE NEEDED WAS AN ORDER FROM HER DOCTOR TO GET ONE. EXPLAINED THAT WE WILL TRY TO GET ONE FOR HER. THAT SOMETIMES ITS NOT JUST ABOUT THE ORDER, SOMETIMES IT DEPENDS ON WHAT THE INSURANCE WILL PAY FOR. EXPLAINED THAT WITH [employer] THERE MAY BE CERTAIN REQUIREMENTS BEFORE THEY WOULD PAY FOR ONE. EXPLAINED WE WOULD LOOK INTO IT AND LET HER KNOW. BEFORE I LEFT THE ROOM, SHE STATED THAT SHE HAS "CRITTERS" AT HER HOME AND ASKED ABOUT GETTING RID OF THEM BECAUSE HER DAUGHTER DOESN'T LIKE THEM. SHE SAID THAT "SOME PEOPLE ARE JODIE TO NOT HAVE THEM, BUT SHE IS NOT ONE OF THE JODIE ONES". IT WAS CLARIFIED THAT "CRITTERS" ARE ROACHES. I EXPLAINED THAT [employer] USUALLY DON'T DEBUG HOMES, BUT THEY MAKE PARK BOMBS THAT SHE CAN GET AT ALMOST ANY STORE THAT SELLS BUG SPRAYS, AND WHILE SHE WAS AT HER DAUGHTERS HOUSE AFTER DISCHARGE, WOULD BE A GOOD TIME TO SET THEM OFF. EXPLAINED THAT SHE WOULD DEFINATELY HAVE TO MAKE SURE HERE HOUSE WAS WELL CLEANED BEFORE SHE MOVED BACK IN. SHE THEN STATED "WELL, THEY DON'T REALLY BOTHER ME, THEY JUST BOTHER MY DAUGHTER." PATIENT DENIED ANY NEEDS AT THE PRESENT. BREAKFAST HAS BEEN DELIVERED. EXPLAINED WE WOULD LET HER KNOW THE OUTCOME OF THE PORTABLE OXYGEN CONCENTRATOR.
[2017-06-01 08:00] VITALS: BP 120/74
--- NOTE | 2017-06-01 08:57 | NUR ---
Patient Name: DIANA PARISH Encounter No: [id number] : 1955 Primary Insurance: [employer] MEDICARE ADV Anticipated DC Date: 06-02-2017 Planned Disposition: Home with Home Health External Planned Provider: [facility] DCP follow-up note: CM CALLED AND NOTIFIED SABIHA AT [facility], , OF "POC" ORDER. CM FAXED ORDER FOR PORTABLE OXYGEN CONCENTRATOR AND CHART NOTES INDICATING OXYGEN NEEDS TO [facility] AT [phone]. [facility] TO ARRANGE DELIVERY OF PORTABLE OXYGEN CONCENTRATOR IF APPROVED BY PT'S INSURANCE. FOR RESUMPTION OF HOME HEALTH AT DISCHARGE, NOTIFY [facility], , FAX DISCHARGE INFORMATION TO [facility] AT [phone]. DISCHARGE ADDRESS IS [address] [place] [address], [place]. DAUGHTER IS NEY REYNAGA, . Kali Murphy, CASE MANAGEMENT
[2017-06-01 12:00] VITALS: BP 128/83
[2017-06-01 16:00] VITALS: BP 122/74
--- NOTE | 2017-06-01 18:23 | NUR ---
FAMILY AT BEDSIDE, PT RESTING QUIETLY, RR EVEN AND UNLABORED. PT DENIES NEEDS AT THIS TIME, WILL GIVE REPORT ON PT CONDITION FOR THE DAY.
[2017-06-01 19:00] VITALS: BP 116/80
--- NOTE | 2017-06-01 19:58 | NUR ---
ALERT/AWAKE TALKING TO VISITOR. DENIES ANY NEEDS. TWO IV'S IN R FA WITH DOBUTAMINE INFUSING AT 10.5 ML/HR. HAS 02 AT 3L/NC, RR 18 EVEN U/L. TELEMETRY SHOWS 92 AFLUTTER. NORTH INTACT/PATENT. CL AND BEDSIDE TABLE WITH PERSONAL ITEMS IN REACH.
--- NOTE | 2017-06-01 21:45 | NUR ---
ADMIN SCHED MEDS. CHECK BS AT 275, ADMIN 6 UNITS HUMALOG. REQUESTED LIGHTS OFF AND DOOR LEFT OPEN.
[2017-06-02] VITALS: BP 125/68
[2017-06-02 05:34] LABS: BASOPHILS 0 % (0-2); EOSINOPHILS 0 % (0-7); HEMATOCRIT 37.1 % (36.0-48.0); HEMOGLOBIN 11.6 g/dL (12-16); IMMATURE GRANULOCYTES 0.2 % (0-5); LYMPHOCYTES 8.4 % (15-50); MCH 29.9 pg (26.0-34.0); MCHC 31.3 g/dL (31.0-37.0); MCV 95.6 fL (80.0-100.0); MEAN PLATELET VOLUME 10.3 fL (7.4-10.4); MONOCYTES 6.3 % (2-11); NEUTROPHILS 85.1 % (40-80); PLATELET COUNT 186 10x3/uL (130-400); RBC 3.88 10x6/uL (4.00-5.40); RDW 16.2 % (11.5-14.5); WBC 6.5 10x3/uL (4.8-10.8)
[2017-06-02 06:06] LABS: ALBUMIN 2.5 g/dL (3.4-5.0); ANION GAP 11.6 mmol/L (8-16); BILIRUBIN - TOTAL 0.6 mg/dL (0.2-1.3); CALCIUM 9.2 mg/dL (8.5-10.1); CARBON DIOXIDE 33.5 mmol/L (21.0-32.0); CREATININE - SERUM 1.1 mg/dL (0.6-1.3); MAGNESIUM - SERUM 1.6 mg/dL (1.8-2.4); POTASSIUM - SERUM 3.1 mmol/L (3.5-5.1); PROTEIN - SERUM 6.6 g/dL (6.4-8.2)
--- NOTE | 2017-06-02 07:30 | NUR ---
REPORT RECIEVED. RR EVEN AND UNLABORED, PT DENIES NEEDS AT THIS TIME. BED IN LOWEST POSTION, CALL PERALTA IN REACH, WILL CTM.
[2017-06-02 08:00] VITALS: BP 112/79
--- NOTE | 2017-06-02 11:45 | NUR ---
PTS BS 413. WILL GIVE 12 UNITS OF INSULIN AND REPORTED LAB TO CARLO. EXPLAINED TO GIVE HER THE INSULIN AND CTM.
[2017-06-02 12:00] VITALS: BP 115/73
--- NOTE | 2017-06-02 12:43 | NUR ---
CARLO CANSECO GAVE VERBAL ORDER FOR ELECTROLYTE PROTOCOL AND TO TAKE OUT PTS NORTH CATHETER. WILL TREAT POTASSIUM FROM THIS MORNING AND CTM.
--- NOTE | 2017-06-02 14:09 | NUR ---
REMOVED PTS NORTH CATHETER REMOVED WITH BALLOON INTACT. PT TOLERATED WELL. WILL CTM PT.
[2017-06-02 16:00] VITALS: BP 104/73
--- NOTE | 2017-06-02 17:15 | NUR ---
PT TRANSFERRED FROM CHAIR TO BED. DID NOT TOLERATE WELL, BECOME VERY SHORT OF BREATH. AFTER PT GOT BACK IN BED, HER BREATHING REGULATED. PT DENIES OTHER NEEDS, WILL CTM.
--- NOTE | 2017-06-02 18:29 | NUR ---
PT RESTING QUITELY, DENIES NEEDS AT THIS TIME. RR EVEN AND UNLABORED. WILL GIVE REPORT ON PT CONDITION FOR THE DAY.
--- NOTE | 2017-06-02 19:00 | NUR ---
RECEIVED REPORT AND ASSUMED PT CARE FROM DAY SHIFT NURSE @ THIS TIME.
[2017-06-02 20:00] VITALS: BP 110/60
--- NOTE | 2017-06-02 20:00 | NUR ---
INITIAL ASSESSMENT COMPLETED, VSS, AFEBRILE. RESP EVEN UNLABORED. O2 2LPM NC, SATS 97%. DENIES ANY CURRENT C/O PAIN. RIGHT FOREARM WITH IV SITES X2. 1. DOBUTAMINE GTT @ 10.5 CC/HR. 2. NS @ 10 ML/HR. BOTH ARE PATENT AND SITES APPEAR CDI. A-FLUTTER ON TELE, HR 110'S. NO NEEDS VOICED. CALL LIGHT WITHIN REACH. WILL CONT TO MONITOR.
--- NOTE | 2017-06-02 20:58 | NUR ---
PT STATES SHE WILL NOT TAKE THE LASIX THIS PM. STATES "THEY TOOK OUT MY CATHETER, I'M NOT TAKING LASIX". PT INSTUCTED ON THE NEED FOR DIURETICS FOR THE CHF. PT CONT TO REFUSE. COMPLIED WITH PT WISHES.
[2017-06-03 00:03] VITALS: BP 105/61
--- NOTE | 2017-06-03 00:07 | NUR ---
ASSESSMENT UNCHANGED. VSS, AFEBRILE. RESP EVEN UNLABORED. NO NEEDS VOICED. WILL CONT TO MONITOR.
[2017-06-03 03:59] VITALS: BP 102/64
[2017-06-03 06:49] LABS: BASOPHILS 0 % (0-2); EOSINOPHILS 0.1 % (0-7); HEMATOCRIT 40.6 % (36.0-48.0); HEMOGLOBIN 12.7 g/dL (12-16); IMMATURE GRANULOCYTES 0.4 % (0-5); LYMPHOCYTES 11.6 % (15-50); MCHC 31.3 g/dL (31.0-37.0); MEAN PLATELET VOLUME 10.3 fL (7.4-10.4); MONOCYTES 6.8 % (2-11); NEUTROPHILS 81.1 % (40-80); PLATELET COUNT 194 10x3/uL (130-400); RBC 4.23 10x6/uL (4.00-5.40); RDW 16.3 % (11.5-14.5)
[2017-06-03 07:02] LABS: ALBUMIN 2.6 g/dL (3.4-5.0); ANION GAP 11.3 mmol/L (8-16); BILIRUBIN - TOTAL 0.74 mg/dL (0.2-1.3); CALCIUM 9.3 mg/dL (8.5-10.1); CARBON DIOXIDE 31.7 mmol/L (21.0-32.0); MAGNESIUM - SERUM 1.8 mg/dL (1.8-2.4); PROTEIN - SERUM 7.1 g/dL (6.4-8.2)
[2017-06-03 07:49] VITALS: BP 119/78
--- NOTE | 2017-06-03 07:51 | NUR ---
DR. TRIPP ON UNIT. INFORMED HIM THAT PT IS STILL ON DOBUTAMINE DRIP AND DIDN'T KNOW IF HE WANTED TO CONTINUE PT ON DRIP. DR. TRIPP STATES HE WILL HAVE TO LOOK INTO IT BECAUSE HE IS NOT FAMILIAR WITH PT (DR. TRIPP SHADING PAINTER FOR CARDIOLOGY THIS AM). DR. TRIPP STATES HE WILL GET BACK TO ME.
--- NOTE | 2017-06-03 07:53 | NUR ---
AM ROUNDING- RECIEVED REPORT FROM AIRPORT CONTROL OPERATOR NURSE CHANDRIKA. PT IS CURRENT SITTING UP IN BED WITH EYES OPEN RESTING. PT STATES SHE HAS PAIN FROM BACK AREA. ON 02 AT 2L VIA NC. ON MONITOR SHOWING A-FLUTTER, HR 107. IV SEEN TO RIGHT FOREARM WITH DOBUTAMINE RUNNING AT 10.5CC. SECOND IV SEEN TO RIGHT FOREARM WITH NS RUNNING AT 10CC. NO NEED AT THIS CURRENT TIME. WILL CONTINUE TO MONITOR AND CONTINUE WITH PLAN OF CARE.
[2017-06-03 11:48] VITALS: BP 111/80
[2017-06-03 15:21] VITALS: BP 116/79
--- NOTE | 2017-06-03 18:02 | NUR ---
PT IS CURRENTLY SITTING UP IN BED WITH EYES OPEN RESTING. PT DENIES ANY NEED AT THIS TIME. WILL CONTINUE TO MONITOR.
--- NOTE | 2017-06-03 18:06 | NUR ---
PT IS CURRENTLY SITTING UP IN BED WITH EYES OPEN RESTING. PT DENIES ANY NEED AT THIS TIME. WILL CONTINUE TO MONITOR.
[2017-06-03 19:00] VITALS: BP 113/75
--- NOTE | 2017-06-03 19:15 | NUR ---
PATIENT ON THE CALL LIGHT. ANSWERED PATIENT'S LIGHT AND SHE STATED SHE WAS ON THE BEDPAN AND NEEDED TO GET OFF. PATIENT TURNED TO HER LEFT SIDE TO GET OF OF THE BEDPAN WITHOUT ANY DIFFICULTIES NOTED. PATIENT HAD VOIDED 300 ML OF CLEAR JAKUB COLORED URINE. PATIENT DENIES ANY FURTHER NEEDS AT PRESENT TIME. CALL LIGHT IN PATIENT'S REACH. WILL MONITOR PATIENT.
[2017-06-04] VITALS (13 sets, daily range): BP systolic 87–120; BP diastolic 59–82
--- NOTE | 2017-06-04 03:46 | NUR ---
PATIENT RESTING WITH HER EYES CLOSED. NO S/S OF DISTRESS NOTED. CALL LIGHT IN PATIENT'S REACH. WILL MONITOR PATIENT.
[2017-06-04 05:58] LABS: BASOPHILS 0 % (0-2); EOSINOPHILS 1.3 % (0-7); HEMATOCRIT 38.4 % (36.0-48.0); HEMOGLOBIN 12.1 g/dL (12-16); IMMATURE GRANULOCYTES 0.6 % (0-5); LYMPHOCYTES 25.1 % (15-50); MCHC 31.5 g/dL (31.0-37.0); MCV 95.3 fL (80.0-100.0); MEAN PLATELET VOLUME 10.1 fL (7.4-10.4); MONOCYTES 7.8 % (2-11); NEUTROPHILS 65.2 % (40-80); PLATELET COUNT 173 10x3/uL (130-400); RBC 4.03 10x6/uL (4.00-5.40); RDW 16.1 % (11.5-14.5); WBC 7.1 10x3/uL (4.8-10.8)
[2017-06-04 06:03] LABS: ANION GAP 8.5 mmol/L (8-16); CALCIUM 8.7 mg/dL (8.5-10.1); CARBON DIOXIDE 33.5 mmol/L (21.0-32.0); CREATININE - SERUM 1.1 mg/dL (0.6-1.3)
--- NOTE | 2017-06-04 07:52 | NUR ---
AM ROUNDING DONE WITH PATIENT ON PHONE AT THIS TIME AND RECEIVED UPDRAFT TREATMENT. DENIES NEEDS WHEN ASKED. ON HEART MONITOR SHOWING UCAF, HR 109. ON 2L PER NC. 2 IV SEEN TO RIGHT FA, 1 WITH NS INFUSING AT 10 CC/HR AND THE OTHER OF DOBUTAMINE AT 10.5 CC/HR. BSC BESIDE BED. ON EP, WILL CHECK LAB RESUTLS. WILL MONITOR.
--- NOTE | 2017-06-04 10:20 | NUR ---
RE-DRAW OF POTASSIUM IS 3.5
--- NOTE | 2017-06-04 13:05 | NUR ---
NEW ORDERES PER DR TRIPP, DOBUTAMINE STOPPED. WILL CHECK B/P EVERY 15 X 1 HOUR. 1305- B/P 102/75 109.
--- NOTE | 2017-06-04 13:32 | NUR ---
CALLED AND SPOKE TO DR TRIPP R/T B/P OF . HE STATES THAT THIS IS STILL ACCEPTABLE. WILL FOLLOW.
--- NOTE | 2017-06-04 14:14 | NUR ---
1315-103/73 P 111 1330-98/66 P 110 1345-107/68 P 107 1400-109/82 P 100 1415-87/63 P 97 WILL CONTINUE TO MONITOR B/P Q15 MIN FOR A LITTLE WHILE LONGER.
--- NOTE | 2017-06-04 15:06 | NUR ---
1445-B/P 100/59 P 86 1500-101/73 P 98 VITAL SIGNS ARE STABLE AND B/P CUFF REMOVED.
--- NOTE | 2017-06-04 16:41 | NUR ---
1640-CALLED TO ROOM BY DR CANTRELL. PATIENT IS TURNING PRUPLE TO HER LIPS. DR CANTRELL INCREASED HER O2 LEVEL TO 6L PER NC. HER LIPS ARE NOW PINK.
--- NOTE | 2017-06-04 16:58 | NUR ---
CALLED TO ROOM. PATIENT IS WANTING THE DO NOT INTUBATE TAKEN OFF HER CODE STATUS. DONE. SHE IS NOW A FULL CODE.
--- NOTE | 2017-06-04 17:43 | NUR ---
DENIES ANY NEEDS. ON PHONE TALKING, NO SHORTNESS OF BREATH NOTED. DECREASED O2 TO 5L PER NC. WILL MONITOR.
--- NOTE | 2017-06-04 19:44 | NUR ---
AWAKE TALKING ON PHONE. DENIES ANY NEEDS. ASSESSMENTS COMPLETED. HAS CL AND BEDSIDE TABLE WITH PERSONAL ITEMS IN REACH.
--- NOTE | 2017-06-04 21:49 | NUR ---
ADMIN SCHED MEDS. CHECKED BS AT 238, ADMIN HUMALOG 8 UNITS SC. ASSISTED TO BSC TO VOID AND BACK TO BED.
[2017-06-05] VITALS: BP 119/81
--- NOTE | 2017-06-05 00:33 | NUR ---
ASSISTED ONTO BEDPAN TO VOID. NO OTHER NEEDS VOICED.
[2017-06-05 04:00] VITALS: BP 109/81
--- NOTE | 2017-06-05 06:23 | NUR ---
ASSISTED TO BSC TO HAVE BM. DECONTAMINATION TECHNICIAN CHANGING BEDDING. ADMIN SCHED MEDS.
[2017-06-05 08:00] VITALS: BP 109/72
--- NOTE | 2017-06-05 08:10 | NUR ---
AM ROUNDING- RECIEVED REPORT FROM GRAPHIC ARTIST NURSE GEOFFREY. PT IS CURRENTLY BEING ASSISTED BY GRAPHIC ARTIST NURSE GEOFFREY ON BED PAIN. ON 02 AT 5L VIA NC. ON MONITOR SHOWING ST, 109 WITH FIRST DEGREE BLOCK. IV SEEN TO RIGHT FOREARM WITH NS RUNNING AT 10CC. SECOND IV SEEN TO RIGHT FOREARM THAT IS CURRENTLY SALINE LOCKED. NO NEED AT THIS CURRENT TIME. WILL CONTINUE TO MONITOR AND CONTINUE WITH PLAN OF CARE.
--- NOTE | 2017-06-05 10:51 | NUR ---
DR. TRIPP ON UNIT. DOBUTAMINE ORDER IS STILL ACTIVE. DR. TRIPP STATES HE D/C THIS MEDICATION ALREADY AND TO GO AHEAD AND D/C ORDER.
--- NOTE | 2017-06-05 11:08 | NUR ---
Nutrition Follow Up: Pt is eating 81% meal avg on a diabetic diet. No new wt to assess. +BM 06/03/17. Labs reviewed - Glucose elevated. Meds noted including Lasix, Solu-Medrol. Rec continue current diet. RD following.
[2017-06-05 12:00] VITALS: BP 107/69
--- NOTE | 2017-06-05 14:42 | NUR ---
Rehab Prescreening Consult recieved and the chart has been reviewed. She is a good IRF candidate, but has [facility] Managed Medicare that requires a preauthorization for rehab. She has a PT eval but will require an OT eval as well prior to submitting information to [facility]. Will discuss with the CM Campos Murphy. Bobbi Wilcox RN Clinical Liaison, Rehab
[2017-06-05 16:00] VITALS: BP 116/80
--- NOTE | 2017-06-05 18:44 | NUR ---
PT IS CURRENTLY SITTING UP IN BED WITH EYES OPEN RESTING. PT DENIES ANY NEED AT THIS CURRENT TIME. WILL CONTINUE TO MONITOR.
--- NOTE | 2017-06-05 18:47 | NUR ---
Patient Name: DIANA PARISH Encounter No: [id number] : 1955 Primary Insurance: [employer] ADV Anticipated DC Date: 06-06-2017 Planned Disposition: Inpatient Rehab External Planned Provider: [facility] INPATIENT REHAB DCP follow-up note: CM RECEIVED ORDER FOR INPATIENT REHAB PRESCREENING, MET WITH PT IN ROOM TO DISCUSS REHAB OPTIONS AND LOCATIONS. PT WOULD LIKE TO BE CONSIDERED FOR INPATIENT REHAB AT [facility]. IF DENIED INPATIENT REHAB, PT WILL DISCHAGE TO HER DAUGHTERS HOME WITH [facility] RESUMPTION. IMPORTANT MESSAGE FROM MEDICARE PROVIDED AND EXPLAINED. CM SPOKE TO CHELO OF INPATIENT REHAB, PT IS A GOOD CANDIDATE FOR REHAB, NEEDS OT EVALUATION AND WILL REQUIRE INSURANCE PREAUTHORIZATION FOR SERVICES. CHELO WILL SUBMIT ONCE OT EVALUATION IS COMPLETED. FOR REHAB. PT NOTIFIED, IN AGREEMENT WITH DISCHARGE TO INPATIENT REHAB. CM WAITING OT EVALUATION COMPLETION AND INSURANCE AUTHORIZATION OR DENIAL FOR [facility] INPATIENT REHAB. Kali Murphy, CASE MANAGEMENT
[2017-06-05 19:00] VITALS: BP 96/59
[2017-06-06] VITALS: BP 82/50
--- NOTE | 2017-06-06 00:34 | NUR ---
NURSE ROUNDS 06/05/17 20:00 - PT AWAKE, ALERT, ORIENTED, REQUESTING TO USE BEDSIDE COMMODE. WE WERE DISCUSSING HER HS MEDS, AND PT STATED THAT SHE DID NOT WANT TO TAKE THE LASIX SO LATE IN THE EVENING R/T BEING UP ALL NIGHT USING THE BATHROOM. PT DENIES ANY OTHER NEEDS. PT STATES THAT SHE WOULD TAKE THE A.M. DOSE OF LASIX, BUT NOT THE HS DOSE. I ASSISTED PT TO BEDSIDE COMMODE WITH MINIMAL TO NO ASSIST, AND WAS PLACED BACK INTO BED WITHOUT ANY DIFFICULTY. PT DENIED ANY OTHER NEEDS. CONTINUE TO MONITOR CLOSELY. BED LOW, CALL LIGHT IN REACH, SIDE RAILS X 2, HOB 30 DEGREES.
--- NOTE | 2017-06-06 02:41 | NUR ---
PT RESTING COMFORTABLY, EYES CLOSED, RESPIRATIONS EVEN AND UNLABORED. CONTINUE TO MONITOR PT CLOSELY. BED LOW, CALL LIGHT IN REACH, SIDE RAILS X 2, HOB 30 DEGREES.
[2017-06-06 04:00] VITALS: BP 86/49
[2017-06-06 04:59] LABS: BASOPHILS 0 % (0-2); EOSINOPHILS 0.9 % (0-7); HEMATOCRIT 38.2 % (36.0-48.0); HEMOGLOBIN 12.1 g/dL (12-16); IMMATURE GRANULOCYTES 0.5 % (0-5); LYMPHOCYTES 19.2 % (15-50); MCH 29.9 pg (26.0-34.0); MCHC 31.7 g/dL (31.0-37.0); MCV 94.3 fL (80.0-100.0); MEAN PLATELET VOLUME 9.8 fL (7.4-10.4); MONOCYTES 8.8 % (2-11); NEUTROPHILS 70.6 % (40-80); PLATELET COUNT 186 10x3/uL (130-400); RBC 4.05 10x6/uL (4.00-5.40); WBC 7.6 10x3/uL (4.8-10.8)
[2017-06-06 05:19] LABS: ANION GAP 9.5 mmol/L (8-16); CALCIUM 8.6 mg/dL (8.5-10.1); CARBON DIOXIDE 32.8 mmol/L (21.0-32.0); CREATININE - SERUM 1.2 mg/dL (0.6-1.3); POTASSIUM - SERUM 3.3 mmol/L (3.5-5.1)
[2017-06-06 08:00] VITALS: BP 118/81
[2017-06-06 12:00] VITALS: BP 122/78
[2017-06-06 16:00] VITALS: BP 104/64
--- NOTE | 2017-06-06 16:35 | NUR ---
WITHOUT CHANGES OR DISTRESS NOTED AT THIS TIME. DENIES NEEDS.
[2017-06-06 19:00] VITALS: BP 98/70
--- NOTE | 2017-06-06 20:20 | NUR ---
PT IS AWAKE, ALERT, ORIENTED, DENIES ANY NEEDS. PT HAS REFUSED HER 19:30 DOSE OF LASIX, STATING SHE DOES NOT WANT TO BE UP ALL NIGHT VOIDING. CONTINUE TO MONITOR CLOSELY. BED LOW, CALL LIGHT IN REACH, SIDE RAILS X 2.
[2017-06-07 04:00] VITALS: BP 100/61
[2017-06-07 04:21] LABS: BASOPHILS 0 % (0-2); HEMATOCRIT 40.2 % (36.0-48.0); HEMOGLOBIN 12.5 g/dL (12-16); IMMATURE GRANULOCYTES 0.8 % (0-5); LYMPHOCYTES 22.5 % (15-50); MCH 29.7 pg (26.0-34.0); MCHC 31.1 g/dL (31.0-37.0); MCV 95.5 fL (80.0-100.0); MONOCYTES 8.1 % (2-11); NEUTROPHILS 67.6 % (40-80); PLATELET COUNT 212 10x3/uL (130-400); RBC 4.21 10x6/uL (4.00-5.40); RDW 16.2 % (11.5-14.5); WBC 7.7 10x3/uL (4.8-10.8)
[2017-06-07 04:37] LABS: ANION GAP 8.5 mmol/L (8-16); CALCIUM 8.6 mg/dL (8.5-10.1); CARBON DIOXIDE 32.6 mmol/L (21.0-32.0); CREATININE - SERUM 1.3 mg/dL (0.6-1.3); POTASSIUM - SERUM 4.1 mmol/L (3.5-5.1)
--- NOTE | 2017-06-07 05:48 | NUR ---
PT AWAKE, ALERT, ORIENTED, HAVING A COUGHING SPELL, WANTING HER PRN COUGH RX, OTHERWISE DENIES ANY NEEDS. CONTINUE TO MONITOR CLOSELY. BED LOW, CALL LIGHT IN REACH, SIDE RAILS X 2, HOB 35-40 DEGREES AT THIS TIME.
--- NOTE | 2017-06-07 07:46 | NUR ---
AM ROUNDING- RECIEVED REPORT FROM PIERCING SPECIALIST NURSE DELFINO. PT IS CURRENTLY SITTING UP ON SIDE OF BED. SIMON MUNOZ JUST ASSISTED PT TO BATHROOM. ON 02 AT 4L VIA NC. ON MONITOR SHOWING A-FLUTTER, HR 85. IV SEEN TO RIGHT FOREARM WITH CARDIZEM RUNNING AT 5CC. SECOND IV SEEN TO RIGHT FOREARM THAT IS CURRENTLY SALINE LOCKED. PT IS CURRENTLY REQUESTING CUP OF ICE. GAVE PT CUP OF ICE REQUESTED. NO FURTHER NEED AT THIS TIME. WILL CONTINUE TO MONITOR AND CONTINUE WITH PLAN OF CARE.
[2017-06-07 12:00] VITALS: BP 111/66
--- NOTE | 2017-06-07 14:21 | NUR ---
OT NOTE: PT REPORTED THAT SHE HAD ANOTHER "EPISODE" OF BLURRED VISION AND SEEING DOUBLE WHEN ATTEMPTING TO AMB WITH PHYSICAL THERAPY. PT ABLE TO SIT UP ON EDGE OF BED; ABLE TO AMB WITH SMALL CRAFT OPERATOR TO BATHROOM AND PERFORM TOILETING TASKS; HOWEVER, PT WITH VERY POOR FUNCTIONAL ENDURANCE; EXTREMELY SOB FOLLOWING THESE ACT. PT WITH EXTENSIVE DISCUSSION ABOUT HER PAST AND THE FACT THAT SHE WOULD BENEFIT FROM CONTINUED THERAPY FOLLOWING DC FROM HERE. PT IN AGREEMENT.
[2017-06-07 16:00] VITALS: BP 101/69
--- NOTE | 2017-06-07 18:09 | NUR ---
PT IS CURRENTLY SITTING UP IN BED WITH EYES OPEN RESTING. PT DENIES ANY NEED AT THIS CURRENT TIME. WILL CONTINUE TO MONITOR.
--- NOTE | 2017-06-07 19:49 | NUR ---
PT AWAKE, ALERT, ORIENTED, SITTING UP IN BED, C/O ON ONE OF HER RIGHT FOREARM IV'S HURTING. IT LOOKS INFILTRATED, WILL ASSESS FURTHER AND REMOVE IF NEEDED. PT DENIES ANY OTHER NEEDS AT THIS TIME. CONTINUE TO MONITOR PT CLOSELY. BED LOW, CALL LIGHT IN REACH, SIDE RAILS X 2, HOB 40 DEGREES.
[2017-06-07 20:14] VITALS: BP 112/56
[2017-06-08] VITALS: BP 138/66
[2017-06-08 04:00] VITALS: BP 94/72
[2017-06-08 05:03] LABS: BASOPHILS 0 % (0-2); EOSINOPHILS 1.1 % (0-7); HEMATOCRIT 41.4 % (36.0-48.0); HEMOGLOBIN 12.8 g/dL (12-16); IMMATURE GRANULOCYTES 0.5 % (0-5); LYMPHOCYTES 20.4 % (15-50); MCH 29.8 pg (26.0-34.0); MCHC 30.9 g/dL (31.0-37.0); MCV 96.3 fL (80.0-100.0); MEAN PLATELET VOLUME 9.9 fL (7.4-10.4); MONOCYTES 7.8 % (2-11); NEUTROPHILS 70.2 % (40-80); PLATELET COUNT 210 10x3/uL (130-400); RDW 16.6 % (11.5-14.5); WBC 8.6 10x3/uL (4.8-10.8)
[2017-06-08 05:21] LABS: ANION GAP 11.3 mmol/L (8-16); CALCIUM 8.8 mg/dL (8.5-10.1); CREATININE - SERUM 1.2 mg/dL (0.6-1.3); POTASSIUM - SERUM 4.3 mmol/L (3.5-5.1)
--- NOTE | 2017-06-08 07:49 | NUR ---
AM ROUNDING- RECIEVED REPORT FROM TOWER HAND NURSE DELFINO. PT IS CURRENTLY SITTING UP IN BED WITH EYES OPEN RESTING. ON O2 AT 4L VIA NC. ON MONITOR SHOWING A-FLUTTER, HR 77. IV SEEN TO RIGHT FOREARM THAT IS CURRENTLY SALINE LOCKED. SECOND IV SEEN RIGHT FOREARM THAT IS CURRENTLY SALINE LOCKED. NO NEED AT THIS CURRENT TIME. WILL CONTINUE TO MONITOR AND CONTINUE WITH PLAN OF CARE.
[2017-06-08 08:00] VITALS: BP 113/52
[2017-06-08 11:57] VITALS: BP 116/80
--- NOTE | 2017-06-08 12:22 | CN ---
PATIENT NAME:DIANA BOB MEDICAL RECORD: [id number] : 59 LOCATION:. D.2113 ADMIT DATE: 05/29/17 ACCOUNT: [id number] CONSULTING PHYSICIAN: MARY CARMEN CACERES MD REFERRING PHYSICIAN: CATRACHO GLEZ M.D. DATE OF CONSULTATION: 05/29/2017 Cardiology Consultation DIAGNOSES: 1. Impending respiratory failure. 2. Shortness of breath. 3. Chronic obstructive pulmonary disease. 4. Congestive heart failure, chronic systolic dysfunction. 5. Cardiomyopathy. 6. Non-Q-wave myocardial infarction. 7. Coronary artery disease. 8. Atrial fibrillation. 9. Xarelto anticoagulation. HISTORY OF PRESENT ILLNESS: Mrs. Bob is well known to us with a history of cardiomyopathy, ejection fraction 20%, history of coronary artery disease, presents with increasing shortness of breath. She has decided that she does not want mechanical intubation. She had a relatively recent hospitalization with mechanical intubation and was difficult to wean her from the vent. She is now on BiPAP. She does have a chest x-ray compatible with congestive heart failure. She is very acidotic, most likely secondary to hypoperfusion. Her ejection fraction is in the 20% range. She is not having any chest pain or chest discomfort. She has no ST-T abnormalities or changes on EKG at this time. PHYSICAL EXAMINATION: GENERAL APPEARANCE: Well-nourished, well-developed, appears stated age. Level of distress, comfortable. PSYCHIATRIC: Mental status, alert, normal affect. Orientation, oriented to time, place and person. EYES: Lids and conjunctiva, noninjected. No discharge, no pallor. ENT: Lips, teeth, gums, normal dentition. Oropharynx, no cyanosis, no pallor. NECK: Carotid arteries, bilateral normal upstroke, no bruits, no thrills. JUGULAR VEINS: No jugular venous pressure or distention. CERVICAL LYMPH NODES: Nontender, nonenlarged. THYROID: Not enlarged. Nontender. No nodules. LUNGS: Bibasilar crackles compatible with CHF. CHEST: Normal curvature. No thoracic deformity. No chest wall tenderness. Percussion, resonant. Auscultation, clear. No wheezes, no rales, no rhonchi. CARDIOVASCULAR: Precordial exam, nondisplaced. No heaves or pericardial thrills. Rate and rhythm, regular. Heart sounds, normal S1, normal S2. No S3, no gallop, no rub. Systolic murmur, not heard. Diastolic murmur, not heard. EXTREMITIES: No cyanosis, no edema. Peripheral pulses, full and equal in all extremities, except as noted. No bruits appreciated. ABDOMEN: Soft, nondistended. Normal aorta. No bruit. Nontender. No masses. Liver, nontender, no hepatomegaly. Spleen, nontender, no splenomegaly. MUSCULOSKELETAL: No joint tenderness. No joint swelling. No erythema. NEUROLOGICAL: Normal gait, normal strength, normal tone. SKIN: Warm and dry. CONSULT REPORT [id number] JEM,DIANA Haney OVERALL IMPRESSION: Most likely this is a combination of chronic obstructive pulmonary disease exacerbation as well as congestive heart failure exacerbation. We will start her on dobutamine that will help perfusion, hopefully help clear the fluid. Continue IV diuresis. I do not plan for cardiac catheterization at this time, only aggressive medical management of the situation. TRANSINT:[id number] Voice Confirmation ID: [id number] DOCUMENT ID: [id number] MARY CARMEN CACERES MD at 1222 CC: [id number] DICTATION DATE: 05/29/17 1151 SUPERCHARGE REPAIR SUPERVISOR: 05/29/17 1205 ADM IN [place] [id number] [place] [id number]
[2017-06-08 16:00] VITALS: BP 103/70
--- NOTE | 2017-06-08 18:24 | NUR ---
PT IS CURRENTLY SITTING UP IN BED TALKING WITH SON AND GUEST AT BEDSIDE. PT DENIES ANY NEED AT THIS CURRENT TIME. WILL CONTINUE TO MONITOR.
--- NOTE | 2017-06-08 19:00 | NUR ---
OT NOTE: PT COMPLETED DYNAMIC SITTING BALANCE WITH CGA AT EOB. PT COMPLETED BED MOB WITH SBA. PT COMPLETED GROOMING TASK AT EOB WITH CGA. PT COMPLETED BUE AROM EXS FOR INCREASED AX TOLERANCE. THANK YOU, MAGGIE SCHAFER/Mayra
--- NOTE | 2017-06-08 19:00 | NUR ---
RECEIVED REPORT AND ASSUMED PT CARE FROM DAY SHIFT NURSE @ THIS TIME.
[2017-06-08 20:00] VITALS: BP 114/77
[2017-06-09 04:00] VITALS: BP 98/58
[2017-06-09 05:29] LABS: BASOPHILS 0 % (0-2); EOSINOPHILS 1.5 % (0-7); HEMATOCRIT 39.7 % (36.0-48.0); HEMOGLOBIN 12.4 g/dL (12-16); IMMATURE GRANULOCYTES 0.5 % (0-5); LYMPHOCYTES 22.1 % (15-50); MCH 29.9 pg (26.0-34.0); MCHC 31.2 g/dL (31.0-37.0); MCV 95.7 fL (80.0-100.0); MEAN PLATELET VOLUME 9.9 fL (7.4-10.4); MONOCYTES 7.4 % (2-11); NEUTROPHILS 68.5 % (40-80); PLATELET COUNT 208 10x3/uL (130-400); RBC 4.15 10x6/uL (4.00-5.40); RDW 16.4 % (11.5-14.5); WBC 8.1 10x3/uL (4.8-10.8)
[2017-06-09 06:31] LABS: ANION GAP 11.1 mmol/L (8-16); CALCIUM 8.8 mg/dL (8.5-10.1); CARBON DIOXIDE 29.8 mmol/L (21.0-32.0); CREATININE - SERUM 1.1 mg/dL (0.6-1.3); POTASSIUM - SERUM 3.9 mmol/L (3.5-5.1)
--- NOTE | 2017-06-09 06:49 | NUR ---
PT ELECTROLYTES ON LABS WNL. NO INTERVENTION PER PROTOCOL THIS AM.
--- NOTE | 2017-06-09 07:48 | NUR ---
AM ROUNDS COMPLETED. INTRODUCED MYSELF TO PT PRIMARY RN FOR TODAYS SHIFT. PT A&O SITTING UP IN BED RESTING QUIETLY. RR NONLABORED. PT DENIES ANY CURRENT PAIN OR NEEDS AT THIS TIME. WILL PULL MORNING MEDICATIONS AND CONTINUE WITH PLAN OF CARE. CL IN REACH, BED IN LOWEST, SIDE RAILS X2. WILL CPOC.
[2017-06-09 08:00] VITALS: BP 101/69
[2017-06-09 12:00] VITALS: BP 96/63
--- NOTE | 2017-06-09 12:07 | NUR ---
FSBS 242 PT REC'D 8 UNITS OF INSULIN PER SS. PT SITTING UP IN BEDSIDE CHAIR ABOUT TO EAT LUNCH WITH DAUGHTER AT BEDSIDE. PT STATES SHE FEELS GOOD SITTING UP AND DENIES ANY CURRENT PAIN OR NEEDS. CL IN REACH. WILL CPOC.
[2017-06-09 16:11] VITALS: BP 132/78
--- NOTE | 2017-06-09 18:45 | NUR ---
OT NOTE: PT COMPLETED SIT TO STAND WITH CGA. PT COMPLETED EOB SITTING WITH SBA. PT COMPLETED BUE AROM EXS FOR INCREASED AX TOLERANCE. THANK YOU, MAGGIE SCHAFER/Mayra
[2017-06-09 20:00] VITALS: BP 104/71
--- NOTE | 2017-06-09 20:03 | NUR ---
ALERT/AWAKE RECEIVING UPDRAFT TX. DENIES PAIN OR ANY NEEDS. IV IN RT FA INTACT SL. ORIENTED TO CL FOR ANY NEEDS.
--- NOTE | 2017-06-09 22:32 | NUR ---
ASSISTED BACK TO BED FROM BSC FROM HAVING BM CONSISTING OF LARGE AMT OF STOOL. NO OTHER NEEDS VOICED.
[2017-06-10] VITALS: BP 110/80
--- NOTE | 2017-06-10 01:57 | NUR ---
RESTING WITH EYES CLOSED. RR EVEN U/L. NO S/S OF DISCOMFORT. CL IN REACH.
[2017-06-10 06:35] LABS: BASOPHILS 0 % (0-2); EOSINOPHILS 2.3 % (0-7); HEMATOCRIT 43.6 % (36.0-48.0); HEMOGLOBIN 13.6 g/dL (12-16); IMMATURE GRANULOCYTES 0.7 % (0-5); LYMPHOCYTES 33.3 % (15-50); MCH 30.2 pg (26.0-34.0); MCHC 31.2 g/dL (31.0-37.0); MCV 96.9 fL (80.0-100.0); MEAN PLATELET VOLUME 9.7 fL (7.4-10.4); MONOCYTES 7.1 % (2-11); NEUTROPHILS 56.6 % (40-80); PLATELET COUNT 201 10x3/uL (130-400); RDW 16.8 % (11.5-14.5); WBC 8.8 10x3/uL (4.8-10.8)
[2017-06-10 06:53] LABS: ANION GAP 7.5 mmol/L (8-16); CALCIUM 8.8 mg/dL (8.5-10.1); CARBON DIOXIDE 34.4 mmol/L (21.0-32.0); CREATININE - SERUM 1.2 mg/dL (0.6-1.3); MAGNESIUM - SERUM 1.8 mg/dL (1.8-2.4); PHOSPHOROUS 3.9 mg/dL (2.5-4.9); POTASSIUM - SERUM 3.9 mmol/L (3.5-5.1)
--- NOTE | 2017-06-10 07:00 | NUR ---
ANSWERED CALL LIGHT, PATIENT SSTATES "I HAVE BEEN SOAKED SINCE 4AM THIS MORNING, I HAVE PRESSED MY CALL LIGHT MULTIPLE TIMES AND THEY KEEP SAYING THEY WILL BE RIGHT BACK, AND NEVER SHOW UP." STATED TO PATIENT THAT I WAS SORRY AND THAT THIS WAS UNACCEPTABLE. CLEANED PATIENT UP AND CHANGED LINENS. PATIENT ASSISTED TO BESIDE COMMODE FOR BOWEL MOVEMENT. CALL LIGHT IN REACH. INSTRUCTED PATIENT TO USE CALL LIGHT WHEN DONE. CPOC
--- NOTE | 2017-06-10 07:20 | NUR ---
RECIEVED REPORT ON PATIENT, PATIENT IS ALERT AND ORIENTED AT THIS TIME. PATIENT IS SITTING ON SIDE OF BED AT THIS TIME, PATIENT STATES SHE NEEDS TO BE CHANGED AND CLEANED UP. PATIENT CLEANED UP, LINENS CHANGED. PATIENT IS ON 4L/MIN VIA NC WITH NAD NOTED. PATIENT IS UNCONTROLLED AFIB ON THE MONITOR WITH A RATE OF 108 AT THIS TIME. BED IS LOW AND LOCKED. CALL LIGHT IN REACH. WILL CONT TO MONITOR PATIENT. CPOC
--- NOTE | 2017-06-10 09:15 | NUR ---
MORNING MEDICATIONS GIVEN, ASSESSMENT DONE. DENIES ANY NEEDS AT THIS TIME. BED LOW AND LOCKED. CPOC
[2017-06-10 09:48] VITALS: BP 112/67
[2017-06-10 10:01] VITALS: BP 135/65
--- NOTE | 2017-06-10 10:30 | NUR ---
PATIENT SITTING UP IN BED, FAMILY AT BEDSIDE. SON AT BEDSIDE. BED LOW AND LOCKED. CALL LIGHT IN REACH. CPOC
--- NOTE | 2017-06-10 11:47 | NUR ---
PATIENT FSBS 205, 8 UNITS OF HUMALOG GIVEN. CPOC
[2017-06-10 12:29] VITALS: BP 124/75
--- NOTE | 2017-06-10 13:58 | NUR ---
PATIENT SLEEPING AT THIS TIME. NAD NOTED. WILL CONT TO MONITOR. CPOC
[2017-06-10 15:11] VITALS: BP 102/79
--- NOTE | 2017-06-10 16:57 | NUR ---
PATIENT ACCOUNTS MANAGER CALLED ME TO PATIENT ROOM, WHEN PATIENT WAS GETTING UP TO BEDSIDE COMMODE, PATIENT STATED SHE GOT DIZZY, AND WAS SHAKEY. VS CHECKED. 02 SAT 98% ON 4 L/MIN, BP 159/63. HR 97. PATIENT STATES THE DIZZINESS AND SHAKINESS ONLY LASTS A FEW SEC AND THEN SHE GETS BETTER. PATIENT BACK TO BED. WILL MONITOR PATIENT.
--- NOTE | 2017-06-10 17:19 | NUR ---
PATIENT ATRIAL FLUTTER ON MONITOR WITH A RATE OF 121. WILL CONT TO MONITOR
--- NOTE | 2017-06-10 17:20 | NUR ---
PAGED DR PETERS
--- NOTE | 2017-06-10 17:28 | NUR ---
SPOKE WITH DR PETERS, HE STATED THAT PATIENT HAS ORTHOSTATIC HYPOTENSION. EDUCATED PATIENT ON PRESSING CALL LIGHT IF SHE NEEDS TO GET UP, NO SUDDEN POSITION CHANGES. PT STATES UNDERSTANDING. CPOC
[2017-06-11] VITALS (7 sets, daily range): BP systolic 92–120; BP diastolic 54–77
--- NOTE | 2017-06-11 01:15 | NUR ---
ASSESSED AT THE BEGINNING OF THE SHIFT. PT IS ALERT AND ORIENTED, ABLE TO VERBALIZE NEEDS. SHE IS GETTING UP TO A BEDSIDE COMMODE WITH ASSIST. HER SON WAS AT THE BEDSIDE FOR ABOUT AN HOUR. SHE HAS HER TEMEMETRY IN PLACE AND WEARS O2 AT 4 LITERS. THE BED IS LOW, RAILS UP X'S 2 WITH THE CALL LIGHT AT HAND.
--- NOTE | 2017-06-11 06:27 | NUR ---
PT WAS ASSISTED UP TO [facility] AND VOIDED. SHE THEN STATED SHE WAS HAVING A SPELL. SHE C/O HEADACHE AND FEELING FUNNY, TINGLING IN HER MOUTH, DRY MOUTH AND DIZZY. HER TELEMETRY WAS CHECKED AND THERE WAS NO CHANGE. HER BP WAS 107/61 PULSE 108 RESP. 17 O2 AT 98%. SHE WAS ASSISTED BACK TO BED AND HER BLOOD SUGAR WAS 103. AT THIS TIME SHE WAS OVER THE SPELL
--- NOTE | 2017-06-11 07:15 | NUR ---
RECIEVED REPORT ON PATIENT, PATIENT IS SLEEPING AT THIS TIME, NAD NOTED. AFIB ON MONITOR WITH A RATE OF 104. PATIENT IS WEARING 4L/MIN VIA NC. BED IS LOW AND LOCKED, CALL LIGHT IN REACH. WILL CONT OT MONITOR PATIENT. CPOC
--- NOTE | 2017-06-11 08:50 | NUR ---
MORNING MEDICATIONS GIVEN, HELD BP MEDICATIONS, LASIX, AND XANAX DUE TO PATIENT BP BEING 99/64. WILL CONT TO MONITOR PATIENT. PATIENT BED LOW AND LOCKED. CALL LIGHT IN REACH. PATIENT STATES SHE FEELS OKAY. WILL MONITOR. CPOC
--- NOTE | 2017-06-11 11:15 | NUR ---
PATIENT FSBS 208, 8 UNITS OF HUMALOG GIVEN. CPOC
--- NOTE | 2017-06-11 13:30 | NUR ---
CALLED TO PATIENT ROOM, PATIENT IS LABORED BREATHING, CLAMMY, LIPS ARE BLUE, PATIENT STATES SHE IS SEEING DOUBLE, HER HEAD IS POUNDING, AND HER TO TONGUE TINGLING. AFIB ON MONITOR RATE OF 107. BP 127/94, O2SAT 98%. INSTRUCTED PATIENT TO SLOW BREATHING, STAYED AT BEDSIDE, UNTIL SPELL PASSED. PAGED DR. DAYANA PANCHAL TO MONITOR PATIENT. CPOC
--- NOTE | 2017-06-11 13:53 | NUR ---
SPOKE WITH DR WINSTON AND DR PETERS REGARDING PATIENT EPISODES SHE IS HAVING. STATED THEY WOULD COME BY AND SEE HERE. WILL CONT OT MONITOR PATIENT. CPOC
[2017-06-11 15:20] LABS: CKMB 2.4 U/L (0.0-3.6); CREATINE KINASE 39 UL (21-215); TROPONIN-I 0.053 ng/mL (0.000-0.060)
--- NOTE | 2017-06-11 15:25 | NUR ---
CARDIZEM DRIP STARTED PER EVELYN العراقي ON MONITOR WITH A RATE OF 108. WILL MONITOR. CPOC
--- NOTE | 2017-06-11 18:49 | NUR ---
20G STARTED TO R UPPER ARM. PATIENT STILL AFIB ON MONITOR RATE 102. CPOC
[2017-06-12] VITALS: BP 98/52
--- NOTE | 2017-06-12 00:24 | NUR ---
INITIAL DOSE OF PREDNISONE 50MG BY MOUTH GIVEN FOR PREMED FOR IODINE ALLERGY PROTOCOL.
--- NOTE | 2017-06-12 02:37 | NUR ---
PT RESTING IN BED WITH NO DISTRESS. CALL LIGHT IN REACH. MONITOR AND CPOC.
[2017-06-12 04:00] VITALS: BP 106/67
[2017-06-12 05:03] LABS: BASOPHILS 0 % (0-2); EOSINOPHILS 0.3 % (0-7); HEMATOCRIT 37.4 % (36.0-48.0); HEMOGLOBIN 11.7 g/dL (12-16); IMMATURE GRANULOCYTES 0.3 % (0-5); LYMPHOCYTES 7.9 % (15-50); MCH 29.5 pg (26.0-34.0); MCHC 31.3 g/dL (31.0-37.0); MEAN PLATELET VOLUME 10.3 fL (7.4-10.4); NEUTROPHILS 88.5 % (40-80); PLATELET COUNT 221 10x3/uL (130-400); RBC 3.96 10x6/uL (4.00-5.40); RDW 16.7 % (11.5-14.5); WBC 6.6 10x3/uL (4.8-10.8)
[2017-06-12 05:08] LABS: MCV 94.4 fL (80.0-100.0)
[2017-06-12 05:13] LABS: ANION GAP 11.8 mmol/L (8-16); CALCIUM 8.2 mg/dL (8.5-10.1); CARBON DIOXIDE 31.7 mmol/L (21.0-32.0); CREATININE - SERUM 1.1 mg/dL (0.6-1.3)
[2017-06-12 05:20] LABS: POTASSIUM - SERUM 4.5 mmol/L (3.5-5.1)
--- NOTE | 2017-06-12 07:15 | NUR ---
RECIEVED REPORT ON PATIENT, PATIENT IS ALERT AND ORIENTED AT THIS TIME. PATIENT HAS A R FA IV WITH CARDIZEM DRIP INFUSING AT 5ML/HR. PATIENT IS CONTROLLED AFIB ON MONITOR WITH A RATE OF 95. PATIENT O2 SAT 100% ON ROOM AIR. NAD NOTED AT THIS TIME. PATIENT DENIES ANY NEEDS. WILL CONT OT MONITOR
[2017-06-12 08:00] VITALS: BP 117/79
--- NOTE | 2017-06-12 09:30 | NUR ---
MORNING MEDICATION GIVEN. ASSESSMENT DONE. CPOC
--- NOTE | 2017-06-12 12:45 | NUR ---
PREMED GIVEN FOR IODINE ALLERGY. CPOC
--- NOTE | 2017-06-12 12:53 | NUR ---
Nutrition Follow Up: Pt is eating 78% meal avg on a diabetic diet. Wt gain noted. +BM 06/11/17. Labs reviewed - glucose elevated. Meds noted including Lasix, Prednisone. Rec continue current diet. RD following.
--- NOTE | 2017-06-12 13:30 | NUR ---
PATIENT GONE TO RADIOLOGY
--- NOTE | 2017-06-12 13:53 | NUR ---
PATIENT BACK TO ROOM. CPOC
--- NOTE | 2017-06-12 15:08 | NUR ---
Spoke to Jolanta Barajas at [facility] MCR ADV re the preauthorization for inpatient rehab for this patient. The Disaster Recovery Analyst has approved IRF for 7 days with update due on 06/19/17. Auth # [id number]. Called to inform the patient's CM Campos Murphy. Per Campos, Dr Kinsey does not want the patient discharged to rehab today. Called Jolanta Barajas at [facility] [phone] and made her aware of delay. Rehab will continue to follow. Bobbi Wilcox RN Clinical Liaison, Rehab
[2017-06-12 15:15] LABS: HEMATOCRIT 38.4 % (36.0-48.0); HEMOGLOBIN 12.1 g/dL (12-16); MCH 30.1 pg (26.0-34.0); MCHC 31.5 g/dL (31.0-37.0); MCV 95.5 fL (80.0-100.0); MEAN PLATELET VOLUME 9.9 fL (7.4-10.4); RBC 4.02 10x6/uL (4.00-5.40); RDW 16.7 % (11.5-14.5); WBC 7.5 10x3/uL (4.8-10.8)
[2017-06-12 15:45] LABS: APTT 28.8 SECONDS (22.8-39.4); INR 2.31 (0.85-1.17); PROTIME 25.5 SECONDS (11.6-15.0)
[2017-06-12 16:00] VITALS: BP 100/73
--- NOTE | 2017-06-12 16:45 | NUR ---
FSBS 317 12 UNITS OF HUMALOG GIVEN.
--- NOTE | 2017-06-12 16:48 | NUR ---
Patient Name: DIANA PARISH Encounter No: [id number] : 1955 Primary Insurance: [employer] ADV Anticipated DC Date: 06-13-2017 Planned Disposition: Inpatient Rehab External Planned Provider: [facility] INPATIENT REHAB DCP follow-up note: CM RECEIVED CALL FROM CHELO OF [facility] INPATIENT REHAB, INSURANCE HAS APPROVED INPATIENT REHAB. CM NOTIFIED PT AND SON IN ROOM WHO ARE WILLING FOR REHAB AT [facility] WHEN STABLE. CM NOTIFIED NIKKI NOE AND DR CARUSO WHO INFORMED CM THAT PT NOW HAS BLOOD CLOT AND IS NOT READY FOR REHAB PLACEMENT. CM NOTIFIED CHELO OF [facility] INPATIENT REHAB WHO WILL CONTACT PT'S INSURANCE TO NOTIFY OF MEDICAL DELAY. CM WAITING MEDICAL STABILITY FOR INPATIENT REHAB AT [facility]. PT MAY REQUIRE ANOTHER PREAUTHORIZATION FOR INPATIENT REHAB. CM TO FOLLOW AND ASSIST NEEDED. Kali Murphy, CASE MANAGEMENT
--- NOTE | 2017-06-12 17:17 | NUR ---
PATIENT GETTING DOPPLER AT BEDSIDE. CPOC
--- NOTE | 2017-06-12 18:35 | NUR ---
R FA IV INFILTRATED. IV DC WITH CATH TIP INTACT. LOOKED TO SEE IF I COULD FIND AN IV, DID NOT SEE ANYTHING, WILL SEE IF CHARGE WILL START. CPOC
[2017-06-12 19:00] VITALS: BP 110/70
--- NOTE | 2017-06-12 19:36 | NUR ---
PT RESTING IN BED. SON AT BEDSIDE. PT ASLEEP AWAKES WITH VERBAL STIMULI. RESPIRATIONS EVEN AND UNLABORED. NO S/S DISTESS. IV TO RIGHT AC INFUSING DILTIAZEM AT 5. BED LOW AND CALLLIGHT WITHIN REACH. WILL CPOC
--- NOTE | 2017-06-12 19:39 | NUR ---
OT NOTE: PT COMPLETED BUE STRENGTHENING EXERCISES FOR INCREASED I WITH ADLS AND FUNCTIONAL MOB WITH RW. PT COMPLETED BED MOB WITH SBA. THANK YOU, MAGGIE SCHAFER/Mayra
--- NOTE | 2017-06-12 21:00 | NUR ---
SUGAR CHAVIS PUT. IV TO RIGHT WRIST 1 ATTEMPT, 22G. PATENT DRSG CDI. BOLUS OF HEPARIN GIVEN PER PROTOCOL. FOR PTT OF 28.8. PT DENIES ANY NEEDS. NO S/S OF DISTRESS. WILL CPOC
--- NOTE | 2017-06-12 22:00 | NUR ---
PT INCONT LARGE AMOUNT. BRIEF CHANGED. PT UP TO BED SIDE COMMODE. GOWN, PAD AND LINEN CHANGED. PT DENIES ANY NEEDS. NO S/S OF DISTRESS. WILL CPOC
[2017-06-13] VITALS: BP 117/66
[2017-06-13 00:46] LABS: HEMATOCRIT 36.8 % (36.0-48.0); HEMOGLOBIN 11.9 g/dL (12-16); MCH 30.6 pg (26.0-34.0); MCHC 32.3 g/dL (31.0-37.0); MCV 94.6 fL (80.0-100.0); MEAN PLATELET VOLUME 9.5 fL (7.4-10.4); RBC 3.89 10x6/uL (4.00-5.40); RDW 16.9 % (11.5-14.5); WBC 8.8 10x3/uL (4.8-10.8)
[2017-06-13 04:47] LABS: BASOPHILS 0 % (0-2); EOSINOPHILS 0 % (0-7); HEMOGLOBIN 11.5 g/dL (12-16); IMMATURE GRANULOCYTES 0.4 % (0-5); MCH 29.3 pg (26.0-34.0); MCHC 31.1 g/dL (31.0-37.0); MCV 94.4 fL (80.0-100.0); MEAN PLATELET VOLUME 9.9 fL (7.4-10.4); MONOCYTES 4.9 % (2-11); NEUTROPHILS 87.7 % (40-80); PLATELET COUNT 210 10x3/uL (130-400); RBC 3.92 10x6/uL (4.00-5.40); RDW 16.4 % (11.5-14.5); WBC 8.4 10x3/uL (4.8-10.8)
[2017-06-13 05:03] LABS: ANION GAP 6.7 mmol/L (8-16); CARBON DIOXIDE 31.3 mmol/L (21.0-32.0); CREATININE - SERUM 1.3 mg/dL (0.6-1.3)
[2017-06-13 08:00] VITALS: BP 120/76
--- NOTE | 2017-06-13 08:00 | NUR ---
AM ROUNDING- RECEIVED REPORT FROM ALUMINUM SIDING APPLICATOR NURSE DAE. PT IS CURRENTLY SITTING UP IN BED WITH EYES OPEN RESTING. ON 02 AT 4L VIA NC. ON MONITOR SHOWING A-FLUTTER, HR 103. IV SEEN TO RIGHT UPPER ARM WITH CARDIZEM RUNNING AT 5CC. IV SEEN TO RIGHT WRIST WITH HEPARIN RUNNING AT 10CC HER ORDER AND HEPARIN PROTOCOL. NO NEED AT THIS CURRENT TIME. WILL CONTINUE TO MONITOR AND CONTINUE WITH PLAN OF CARE.
[2017-06-13 11:56] VITALS: BP 113/73
--- NOTE | 2017-06-13 14:57 | NUR ---
IV TO RIGHT WRIST REMOVED WITH CATH TIP INTACT DUE TO AREA BEING BRUISED AND SWOLLEN. VASCULAR ACCESS NURSE SITED PT WITH MIDLINE CATHETER TO LEFT UPPER ARM.
[2017-06-13 16:00] VITALS: BP 99/61
--- NOTE | 2017-06-13 16:50 | CN ---
PATIENT NAME:DIANA BOB MEDICAL RECORD: [id number] : 59 LOCATION:. D.2113 ADMIT DATE: 05/29/17 ACCOUNT: [id number] CONSULTING PHYSICIAN: MAURI CANTRELL MD REFERRING PHYSICIAN: CATRACHO GLEZ M.D. DATE OF CONSULTATION: 05/29/2017 CONSULT REQUESTING PHYSICIAN: West Pardo MD. REASON FOR CONSULTATION: Acute hypoxic respiratory failure, acute flareup of congestive heart failure, cardiogenic shock. HISTORY OF PRESENT ILLNESS: Ms. Bob is a 61-year-old female who has a history of severe COPD and cardiomyopathy with ejection fraction of 20%. According to the patient, for the last couple of days, she has worsening shortness of breath. She developed orthopnea and PND and came into the ER. On evaluation, it was found the patient was in pulmonary edema and also, she has a metabolic acidosis and blood pressure in the lower 90s. She is awake and alert. Denies any fever or chills and no night sweats. She does not want to be intubated. REVIEW OF SYSTEMS: Mainly in the history of present illness. PAST MEDICAL HISTORY: 1. COPD of severe degree. 2. History of respiratory failure, on mechanical ventilation in October of this year. 3. Congestive heart failure with cardiomyopathy with ejection fraction of 20%. 4. Hypertension. 5. Coronary artery disease, status post CABG and stent placement. 6. History of heart murmur. 7. History of cardiopulmonary arrest after ventricular tachycardia. 8. Chronic obstructive pulmonary disease and asthma overlap syndrome. PAST SURGICAL HISTORY: 1. CABG. 2. Cholecystectomy. 3. History of knee replacement. 4. Tubal ligation. 5. Bilateral inguinal hernia repair. ALLERGIES: SHE IS ALLERGIC TO PENICILLIN, LISINOPRIL AND STATINS. MEDICATIONS: On Mezzobit was reviewed. PERSONAL AND SOCIAL HISTORY: I believe the patient is still smoking. FAMILY HISTORY: Noncontributory. PHYSICAL EXAMINATION: VITAL SIGNS: The blood pressure is 94/48, pulse is 104, respirations 17, temperature is 98.1, and SPO2 is 97% on BiPAP. HEENT: Conjunctivae are pink. Sclerae nonicteric. NECK: Supple. There is elevated JVD. CHEST: There are bilateral crackles. Wheeze on forceful expiration. CONSULT REPORT [id number] DIANA BOB HEART: Rate and rhythm regular, normal sound, no murmur. ABDOMEN: Soft. Bowel sounds present. No hepatosplenomegaly. RECTAL: Deferred. EXTREMITIES: No cyanosis, no clubbing. There is 1+ pedal edema. SKIN: Warm, normal turgor. CENTRAL NERVOUS SYSTEM: The patient is awake and alert. There is no obvious cranial nerve abnormality. The gait was not tested. IMAGING: Chest radiograph on 05/29/2017, there is bilateral pulmonary edema. There is small to moderate-sized bilateral pleural effusion. OTHER LABORATORY DATA: CBC: WBC 8.3, hemoglobin 13.5, hematocrit 44.5, platelet count 183. Chemistry: Sodium is 140, potassium is 4.7, BUN is 12, creatinine is 1.2. The troponin is 0.0674. The proBNP is 5136. ABG: The pH is 7.21, pCO2 is 49.2, the pO2 is 71, and bicarbonate is 19.7. IMPRESSION: 1. Jorje-qg-qotrqoq hypoxic respiratory failure secondary to pulmonary edema, acute flare-up of congestive heart failure with chronic systolic dysfunction, ejection fraction of 20%. 2. Chronic obstructive pulmonary disease exacerbation secondary to congestive heart failure. 3. Lactic acidosis, possible poor perfusion, will doubt infectious process. 4. Metabolic acidosis. 5. Cardiogenic shock. RECOMMENDATION: 1. Continue the BiPAP. The patient does not want to be intubated. She wants to be DNI. 2. IV Lasix. 3. Pressor per Dr. Saleh. 4. Repeat the lactic acid level. 4. Cover with cefepime, Levaquin, and vancomycin if there is any associated sepsis, though the patient does not have any significant leukocytosis. 5. Albuterol/ipratropium nebulizer, Brovana, budesonide nebulizer, methylprednisolone IV. 6. Continue the BiPAP as required. 7. Follow up labs and chest radiograph. Dr. Pardo, thank you for involving me in the care of Ms. Bob. The critical care time is 45 minutes. TRANSINT:[id number] Voice Confirmation ID: [id number] DOCUMENT ID: [id number] MAURI CANTRELL MD at 1650 CC: WEST PARDO MD [id number] DICTATION DATE: 05/29/17 1129 DESULFURIZER HAND: 05/29/17 1203 ADM IN [facility] [address] [id number]
[2017-06-13 17:24] LABS: D-DIMER-QUANTITATIVE 1.84 ug/mLFEU (0.20-0.54)
--- NOTE | 2017-06-13 17:53 | NUR ---
SPOKE WITH NEREIDA IN XRAY. HE STATES LADY FROM CT WILL BE BACK SOON AND HE WILL HAVE HER CALL ME TO GIVE EXACT TIMES TO PRE-MEDICATE PT FOR CTA SCAN TOMORROW. WILL AWAIT CALLBACK.
--- NOTE | 2017-06-13 18:38 | NUR ---
PT IS CURRENTLY SITTING UP IN BED WITH EYES CLOSED RESTING. SON IS AT BEDSIDE. NO NEED AT THIS CURRENT TIME. WILL CONTINUE TO MONITOR.
--- NOTE | 2017-06-13 19:13 | NUR ---
PT RESTING IN BED. LEFT ARM MIDLINE IS BLEEDING. PRESSURE APPLIED. IV PATENT. PT DENIES ANY QUESTIONS OR CONCERNS R/T CT SCAN IN THE MORNING. PT HAS SCD'S ON. BED LOW AND CALL LIGHT IN REACH. WILL CPOC
--- NOTE | 2017-06-13 19:49 | NUR ---
OT NOTE: PT ATTEMPTED SUPINE TO SIT . PT COMPLETED SIDE ROLLING WITH USING SIDE RAIL. PT COMPLETED GROOMING TASK WITH SET UP. PT COMPLETED BUE FM TASKS FOR INCREASED COORDINATION WITH ADLS. THANK YOU, MAGGIE SCHAFER/Mayra
[2017-06-13 20:00] VITALS: BP 114/72
--- NOTE | 2017-06-13 22:03 | NUR ---
PT UP TO BSC. 250 OF URINE. NO INCONT THIS TIME. +1 & +2 PITTING EDEMA TO HIPS AND BUTTOCK. PT HAS SCD'S ON. PT ON 4.5L OF O2 WITH HUMIDITY. PT AAO. DENIES ANY NEEDS. NO S/S OF DISTRESS. WILL CPOC
[2017-06-14] VITALS: BP 120/88
--- NOTE | 2017-06-14 03:40 | NUR ---
PT UP TO BSC. INCONT SMALL AMOUNT. PT CLEANED, DRY. BACK TO BED. MINIMAL ASSIST. PT DENIES ANY NEEDS. JUST STATES SHE FEELS ANXIETY ABOUT CTA IN THE MORNING. NO S/S OF DISTRESS. WILL CPOC
[2017-06-14 04:00] VITALS: BP 117/81
[2017-06-14 04:32] LABS: BASOPHILS 0 % (0-2); EOSINOPHILS 0.6 % (0-7); HEMATOCRIT 37.6 % (36.0-48.0); HEMOGLOBIN 11.8 g/dL (12-16); IMMATURE GRANULOCYTES 0.2 % (0-5); LYMPHOCYTES 9.8 % (15-50); MCH 29.9 pg (26.0-34.0); MCHC 31.4 g/dL (31.0-37.0); MCV 95.2 fL (80.0-100.0); MEAN PLATELET VOLUME 9.6 fL (7.4-10.4); MONOCYTES 7.4 % (2-11); PLATELET COUNT 204 10x3/uL (130-400); RBC 3.95 10x6/uL (4.00-5.40); RDW 16.4 % (11.5-14.5); WBC 8.6 10x3/uL (4.8-10.8)
[2017-06-14 04:54] LABS: ANION GAP 8.2 mmol/L (8-16); CARBON DIOXIDE 33.5 mmol/L (21.0-32.0); CREATININE - SERUM 1.1 mg/dL (0.6-1.3); POTASSIUM - SERUM 3.7 mmol/L (3.5-5.1)
--- NOTE | 2017-06-14 06:38 | NUR ---
PT ASLEEP.. RESPIRATIONS EVEN AND UNLABORED. PT WAKES WITH VERBAL STIMULI. MORNING MEDS GIVEN WITH SIPS OF WATER. PT DENIES ANY NEEDS. NO S/S OF DISTRESS. WILL CPOC
--- NOTE | 2017-06-14 09:17 | NUR ---
PT TO CTA SCAN VIA BED.
[2017-06-14 09:19] VITALS: BP 93/59
[2017-06-14 12:09] VITALS: BP 103/60
--- NOTE | 2017-06-14 12:09 | NUR ---
0715- AM ROUNDING- RECIEVED REPORT FROM PLUMBER GASFITTER NURSE DAE. PT IS CURRENTLY SITTING UP IN BED WITH EYES OPEN RESTING. PT IS NPO CURRENTLY FOR PROCEDURE TODAY. ON 02 AT 4L VIA NC. ON MONTIOR SHOWING A-FLUTTER, HR 106. IV SEEN TO LEFT UPPER ARM WITH HEPARIN RUNNING AT 11CC PER HEPARIN PROTOCOL. IV SEEN TO RIGHT UPPER ARM WITH CARDIZEM RUNNING AT 5CC. NO NEED AT THIS CURRENT TIME. WILL CONTINUE TO MONITOR AND CONTINUE WITH PLAN OF CARE.
[2017-06-14 14:54] VITALS: BP 93/69
--- NOTE | 2017-06-14 17:36 | NUR ---
PTS MIDLINE DRESSING CHANGED PER POLICY.
--- NOTE | 2017-06-14 18:39 | NUR ---
PT IS CURRENTLY SITTING UP IN BED WITH EYES OPEN RESTING. PT DENIES ANY NEED AT THIS CURRENT TIME. WILL CONTINUE TO MONITOR.
[2017-06-14 19:00] VITALS: BP 101/47
--- NOTE | 2017-06-14 19:21 | NUR ---
PT RESTING IN BED. CARDIZEM INFUSING AT 5 TO RIGHT UPPER ARM. HEPARIN INFUSING AT 11 TO LEFT UPPER ARM MIDLINE. PT ASKS FOR A CUP OF ICE. IT WAS PROVIDED. PT HAS SCD'S ON BITLATERAL. O2 ON 4L WITH HUMIDITY NC. PT DENIES ANY NEEDS. NO S/S OF DISTRESS. CALL LIGHT WITHIN REACH. WILL CPOC
--- NOTE | 2017-06-14 20:51 | NUR ---
PT UP ON BEDSIDE COMMODE. C/O DRY MOUTH. WANTS ICE CHIPS. PT INCONT SMALL AMOUNT WHEN GETTING UP TO BSC PT FSBS IS 372 COVERAGE PER SLIDING SCALE WOULD BE 16 UNITS. PT ONLY WANTS HALF OF COVERAGE. PT WILL RECEIVE 8 UNITS. PT DENIES ANY NEEDS. SCD'S ON BILATERAL LOWER EXTREMITIES. PT ON O2 4L NC. FLUSHED LEFT UPPER ARM IV. PATENT DRSG CDI. PT DENIES ANY OTHER NEEDS. NO S/S OF DISTRESS. WILL CPOC.
--- NOTE | 2017-06-14 21:13 | NUR ---
PT OFF BED PRESSLEY. MODERATE AMOUNT OF BROWN BOWEL MOVEMENT. FORMED AND SOFT. 100ML OF URINE. PT IN BED. DENIES ANY NEEDS. WILL CPOC
--- NOTE | 2017-06-14 23:25 | NUR ---
PT ASLEEP. RESPIRATIONS EVEN AND UNLABORED. O2 4L NC WITH HUMIDITY. CARDIZEM INFUSING TO RIGHT UPPER ARM AT 5, HEPARIN INFUSING TO LEFT UPPER ARM THROUGH MIDLINE AT 11. BEDLOW AND CALL LIGHT IN REACH. NO S/S OF DISTRESS. WILL CPOC
[2017-06-15] VITALS: BP 115/72
[2017-06-15 04:00] VITALS: BP 106/52
[2017-06-15 05:22] LABS: BASOPHILS 0 % (0-2); EOSINOPHILS 0 % (0-7); HEMATOCRIT 34.6 % (36.0-48.0); HEMOGLOBIN 11.1 g/dL (12-16); IMMATURE GRANULOCYTES 0.2 % (0-5); MCH 30.7 pg (26.0-34.0); MCHC 32.1 g/dL (31.0-37.0); MCV 95.6 fL (80.0-100.0); MEAN PLATELET VOLUME 9.4 fL (7.4-10.4); MONOCYTES 5.8 % (2-11); PLATELET COUNT 198 10x3/uL (130-400); RBC 3.62 10x6/uL (4.00-5.40); RDW 16.6 % (11.5-14.5)
--- NOTE | 2017-06-15 05:22 | NUR ---
PT AWAKE. EATING SOME GRAMCRACKERS AND DRINKING MILK. PT ASKS FOR ICE CHIPS. PT DENIES ANY OTHER NEEDS. NO S/S OF DISTRESS. WILL CPOC
[2017-06-15 05:28] LABS: WBC 5.9 10x3/uL (4.8-10.8)
[2017-06-15 05:34] LABS: ANION GAP 10.2 mmol/L (8-16); CALCIUM 8.6 mg/dL (8.5-10.1); CARBON DIOXIDE 31.5 mmol/L (21.0-32.0); POTASSIUM - SERUM 3.7 mmol/L (3.5-5.1)
[2017-06-15 05:45] LABS: CREATININE - SERUM 1.4 mg/dL (0.6-1.3)
--- NOTE | 2017-06-15 07:15 | NUR ---
RECIEVED REPORT ON PATIENT, PATIENT IS ALERT AND ORIENTED AT THIS TIME. PATIENT HAS A L UPPER ARM MIDLINE WITH A HEPARIN DRIP INFUSING AT 11ML/HR. PATIENT ALSO HAS A R UPPER ARM IV WITH CARDIZEM INFUSING AT 5ML/HR. PATIENT IS CONTROLLED AFIB ON MONITOR WITH A RATE OF 92 AT THIS TIME. PATIENT DENIES ANY NEEDS OR COMPLAINTS AT THIS TIME. WILL CONT TO MONITOR. CPOC
[2017-06-15 08:29] VITALS: BP 112/62
--- NOTE | 2017-06-15 08:38 | NUR ---
MORNING MEDICATION GIVEN, LASIX AND BYSTOLIC HELD DUE TO BP BEING 112/62 AND PATIENT WANTING TO WAIT TO SEE IF BP COMES UP. WILL CONT TO MONITOR. CPOC
[2017-06-15 10:19] LABS: CA125 134.9 U/mL (0.0-38.1)
--- NOTE | 2017-06-15 12:00 | NUR ---
PATIENT FSBS 317, 12 UNITS OF HUMALOG GIVEN. CPOC
[2017-06-15 12:41] VITALS: BP 126/69
--- NOTE | 2017-06-15 13:20 | NUR ---
Nutrition Follow Up: Pt is eating 100% meal avg on a diabetic diet. +BM 06/15/17. Wt gain noted. Labs reviewed - Glucose continues elevated. Meds noted including Lasix, Prednisone. Rec continue current diet. RD following.
[2017-06-15 14:21] LABS: CA 27-29 31.8 U/mL (0.0-38.6)
--- NOTE | 2017-06-15 14:48 | NUR ---
PATIENT RESTING AT THIS TIME, NAD NOTED. PATIENT IS CONTROLLED AFIB ON MONITOR WITH A RATE OF 90. WILL CONT TO MONITOR. CPOC
[2017-06-15 16:21] VITALS: BP 100/77
--- NOTE | 2017-06-15 16:45 | NUR ---
PATIENT FSBS 418. NOTIFIED CARLO NOE. STATED TO FOLLOW SLIDING SCALE. 20 UNITS GIVEN
--- NOTE | 2017-06-15 17:44 | NUR ---
PATIENT SITTING UP IN BED EATING DINNER. DENIES ANY NEEDS. CPOC
--- NOTE | 2017-06-15 19:15 | NUR ---
Received patient in bed resting, alert and oriented x 4. Telemetry on. PIV in right arm AC is infusing Cardizem @5ml/hr. Midline in left arm AC is infusing Heparin @11ml/hr with next PTT due @2300. SCDs on, pedal pulses weak. Bilateral lower leg swelling with 3+ to 4+ pitting edema. Bruising to both arms, right arm has large patches of black/purple bruises with several small abrasions, scabbed. Left arm has several smaller bruised areas that are red in color. Reports has tingling in both hands, numbness and tingling in both feet. Reports vision problems, double vision, blurry vision, rippling across vision intermittently with periods of clarity. Speech is slurred, has to repeat self several timesw to be understood at times. Denies nausea and vomiting at this time. Does have slight generalized aches and pains, tolerable at this time. Will ask nurse for analgesic when she feels she needs it.
--- NOTE | 2017-06-15 19:20 | NUR ---
addendum to previous note: PTT this morning was 69.5 in therapeutic range. Next PTT will be drawn in the am.
[2017-06-15 20:00] VITALS: BP 118/73
--- NOTE | 2017-06-15 20:00 | NUR ---
Oxygen on @4L/min, resting quietly. No voiced complaints.
--- NOTE | 2017-06-15 20:02 | NUR ---
Patient too weak to get up for weight to be taken, bed scale on her bed does not work. Patient incontinent of urine, hygiene care performed by staff. Reminded to call staff to use bedpan when feels urge to void.
--- NOTE | 2017-06-15 20:45 | NUR ---
Receiving Resp Tx. at this time. Reports breathing improved.
--- NOTE | 2017-06-15 22:05 | NUR ---
HS blood sugar = 228, given insulin per sliding scale (8 Units).
[2017-06-16] VITALS (10 sets, daily range): BP systolic 96–138; BP diastolic 60–85
--- NOTE | 2017-06-16 00:15 | NUR ---
Eyes closed, respirations unlabored, remains on oxygen @4L/min. Deemed to be sleeping.
--- NOTE | 2017-06-16 02:30 | NUR ---
property assessment monitor on, HR = 93/min, rhythm CAF (controlled A-Fib).
--- NOTE | 2017-06-16 02:31 | NUR ---
ADDENDUM: rhythm CAF with BBB (Bundle Branch Block) and occasional PVC.
--- NOTE | 2017-06-16 03:10 | NUR ---
Continues sleeping. No signs of distress.
--- NOTE | 2017-06-16 04:20 | NUR ---
Incontinent of urine, incontinence/hygiene care given with two staff assist. Pads and linens changed. Educated patient on need to call staff when feels urge to void, to use bedpan or bedside commode. Patient verbalized understanding of same.
[2017-06-16 05:38] LABS: BASOPHILS 0 % (0-2); EOSINOPHILS 0.1 % (0-7); HEMATOCRIT 36.6 % (36.0-48.0); HEMOGLOBIN 11.6 g/dL (12-16); IMMATURE GRANULOCYTES 0.1 % (0-5); LYMPHOCYTES 12.2 % (15-50); MCH 30.1 pg (26.0-34.0); MCHC 31.7 g/dL (31.0-37.0); MCV 94.8 fL (80.0-100.0); MEAN PLATELET VOLUME 9.7 fL (7.4-10.4); NEUTROPHILS 82.6 % (40-80); PLATELET COUNT 196 10x3/uL (130-400); RBC 3.86 10x6/uL (4.00-5.40); RDW 16.6 % (11.5-14.5); WBC 7.8 10x3/uL (4.8-10.8)
[2017-06-16 05:43] LABS: CALCIUM 9.6 mg/dL (8.5-10.1); CARBON DIOXIDE 33.6 mmol/L (21.0-32.0); CREATININE - SERUM 1.2 mg/dL (0.6-1.3); POTASSIUM - SERUM 3.6 mmol/L (3.5-5.1)
--- NOTE | 2017-06-16 07:29 | NUR ---
RUTHIE FROM IR SAID TO HOLD PT NPO WITH ICE CHIPS UNTIL THEY DECIDE WHETHER OR NOT TO DO PROCEDURE. WILL CONT TO MONITOR. PT DENIES NEEDS
[2017-06-16 07:49] LABS: INR 1.32 (0.85-1.17); PROTIME 16.3 SECONDS (11.6-15.0)
[2017-06-16 09:17] LABS: SPE - A/G RATIO 1.1 (0.7-1.7); SPE - ALBUMIN 3.2 g/dL (2.9-4.4); SPE - ALPHA-1 GLOBULIN 0.2 g/dL (0.0-0.4); SPE - ALPHA-2 GLOBULIN 0.6 g/dL (0.4-1.0); SPE - GAMMA GLOBULIN 1.1 g/dL (0.4-1.8); SPE - M-SPIKE Not Observed g/dL (Not Observed)
--- NOTE | 2017-06-16 12:41 | NUR ---
PT SITTING UP IN BED AWAITING PROCEDURE. FAMILY AT BEDSIDE WILL CONT TO MONITOR
--- NOTE | 2017-06-16 13:14 | NUR ---
PT FAMILY IS UPSET. I HAVE ASKED PT AND PT FAMILY SEVERAL TIMES WHAT NEEDS TO BE ADDRESSED/WHAT THEY ARE UPSET ABOUT. THEY ARE MAD THAT NOTHING HAS BEEN DONE FOR PT UP TO THIS POINT. STATING THAT THIS HOSPITAL HAS DONE "ABSOLUTELY NOTHING DURING THIS HOSPITAL STAY TO ADDRESS THE BLOOD CLOTS". TRIED EXPLAINING TO PT AND FAMILY THAT THIS IS THE FIRST TIME I PERSONALLY HAVE TAKEN CARE OF HER, BUT WE ARE DOING AN IVC FILTER TODAY PER IR TO FILTER OUT CLOTS ETC. EDUCATED PT SEVERAL TIMES THIS AM EDUCATING HER ON WHAT AN IVC FILTER IS, HOW IT WORKS, WHAT IS GOING TO HAPPEN AFTERWARDS ETC. PT DAUGHTER IS UPSET THAT HER MOTHER IS SWELLING. PT DOES HAVE SIGNIFICANT SWELLING. WHILE TALKING TO THE PT AND FAMILY I TOLD THEM THAT THE SWELLING IS VERY COMMON IN CHF PATIENTS AND WE OFTEN GIVE LASIX TO HELP PREVENT THIS, WHICH WE ARE ALSO DOING. PT DAUGHTER IS STATING THAT HER LEGS HAVE NOT BEEN SWOLLEN DURING HOSPITAL STAY... WHEN TALKING WITH CARLO PEREZ, SHE SAYS THIS IS NOTHING NEW. . AND LOOKING BACK ON PREVIOUS ASSESSMENTS IN [facility] IT IS CHARTED THAT SWELLING WAS PRESENT. PT DAUGHTER IS STILL UPSET AND THREATENING TO "PHARMACOVIGILANCE SCIENTIST UP". I HAVE TOLD PT AND FAMILY THAT I HAVE ANSWERED ALL THEIR QUESTIONS THAT I HAVE ANSWERS TO AT THIS POINT. THEY ARE WORRIED ABOUT THE BLOOD CLOTS IN THE LUNGS, WHICH ARE BEING ADDRESSED WITH HEPARIN DRIP CHANGE IN PO HOME MEDICATION IN THE FUTURE AND THE IVC FILTER TODAY. AND THE SWELLING- ORIGINATING FROM HER CHF AND WE ARE TREATING HER WITH LASIX. LET THEM KNOW THAT DR CARUSO CAN ANSWER ANY MORE QUESTIONS OUT OF MY SCOPE OF PRACTICE WHEN HE ROUNDS TODAY
--- NOTE | 2017-06-16 14:22 | NUR ---
RADIOLOGY CALLED AND SAID THAT PT NEEDS TO BE PREMEDICATED FOR CT SCAN. STANDING ORDERS PLACED IN COMPUTER FOR ALLERGY PROTOCOL. THEY SAID TO START TONIGHT AT [address] COULD BE DONE FIRST THING IN THE AM
--- NOTE | 2017-06-16 14:24 | NUR ---
LLOYD MICHELLE CABLE SPLICING TECHNICIAN HAS BEEN IN PT ROOM FOR 30+ MINUTES
--- NOTE | 2017-06-16 14:30 | NUR ---
APPLIED OXIMIZER NASAL CANNULLA AT 5 LITERS DUE TO DESATURATION WHILE WEARING NASAL CANNULLA. SP02 NOW CURRENTLY AT 92
--- NOTE | 2017-06-16 15:11 | NUR ---
PT TO PROCEDURE
--- NOTE | 2017-06-16 15:27 | NUR ---
PT PTT BACK, PT IS IN PROCEDURE. CALLED AND SPOKE WITH JAISON AND NOTIFIED HER. SHE IS GOING TO TAKE CARE OF IT (ASK DR FOSS WHAT HE WANTS TO DO, DIANA IS OFF RIGHT NOW).
--- NOTE | 2017-06-16 16:26 | NUR ---
PT BACK FROM IVC FILTER PLACEMENT. VERY LETHARGIC ARROUSES TO PAIN. VS ARE WNL. HEPARIN DRIP IS STOPPED JAISON SAID TO VERIFY WITH PRIMARY ABOUT RESTARTING. INCISION TO R NECK DSNG IS CDI. PT CAME BACK ON 4.5 L OXIMIZER RR EVEN AND UNLABORED NO S/S DISTRESS WILL CONT TO MONITOR
--- NOTE | 2017-06-16 16:45 | NUR ---
DR FOSS CALLED AND SAID TO HOLD HEPARIN DRIP UNTIL AT LEAST 1800. DISCUSSED WITH CARLO AND DR CARUSO WELL.. FAMILY AT [facility] ORDER FOR PTT BEFORE RE INITIATION OF HEPARIN DRIP ORDERED.
--- NOTE | 2017-06-16 17:07 | NUR ---
PT STILL SITTING UP IN BED 45 DEGRESS SLEEPING NO S/S DISTRESS RR EVEN AND UNLABORED VS ARE STILL WNL. FAMILY AT BEDSIDE. R NECK DRESSING STILL CDI WILL CONT TO MONITOR
--- NOTE | 2017-06-16 18:00 | NUR ---
PT SITTING UP IN BED STILL SLEEPING R NECK DSNG CDI. VS STILL WNL DAUGHTER AT BEDSIDE
--- NOTE | 2017-06-16 18:19 | NUR ---
STILL WAITING ON PTT LAB TO RESULT..
--- NOTE | 2017-06-16 19:23 | NUR ---
RECEIVED REPORT,SITTING UP IN BED, DAUGHTER HELPING PT EAT, DENIES ANY NEEDS, BED IS LOW, SRX2, CALL LIGHT IN REACH, WILL CONTINUE PLAN OF CARE
--- NOTE | 2017-06-16 20:15 | NUR ---
CALL FROM DR CARUSO. ORDERS TO HAVE SCD'S REMOVED AND TO DISCONTINUE ORDER FOR SCD'S. PT HAS AN IVC FILTER AND NOW ON HEPARIN. TOLD GAVIOTA GIBBS LPN OF NEW ORDER RECEIVED. VERBALIZED UNDERSTANDING.
[2017-06-17] VITALS: BP 115/56
[2017-06-17 01:22] LABS: HEMATOCRIT 37.1 % (36.0-48.0); HEMOGLOBIN 11.6 g/dL (12-16); MCH 29.4 pg (26.0-34.0); MCHC 31.3 g/dL (31.0-37.0); MCV 94.2 fL (80.0-100.0); MEAN PLATELET VOLUME 9.5 fL (7.4-10.4); RBC 3.94 10x6/uL (4.00-5.40); RDW 16.4 % (11.5-14.5)
[2017-06-17 01:24] LABS: WBC 5.5 10x3/uL (4.8-10.8)
--- NOTE | 2017-06-17 02:08 | NUR ---
PT RESTING WELL WITHOUT C/O OR DISTRESS NOTED. CALL LIGHT WITHIN REACH. WILL CONT TO MONITOR.
--- NOTE | 2017-06-17 02:13 | NUR ---
HEPRIN INFUSING @11- PTT RESULTS 40.4, NO CHANGE AT THIS TIME PER PROTOCOL
[2017-06-17 04:00] VITALS: BP 110/64
[2017-06-17 06:54] LABS: MAGNESIUM - SERUM 2.4 mg/dL (1.8-2.4); POTASSIUM - SERUM 4.1 mmol/L (3.5-5.1)
--- NOTE | 2017-06-17 07:39 | NUR ---
AM ROUNDING- RECIEVED REPORT FROM CASHIER RECEPTIONIST NURSE GAVIOTA. PT IS CURRENTLY LAYING IN BED ON BACK WITH EYES OPEN RESTING. NPO ORDERED. PT IS WANTING ICE CHIPS. THIS NURSE INFORMED PT THAT SHE CANNOT HAVE ANYTHING TO EAT OR DRINK DUE TO HAVING PROCEDURE THIS AM. PT AGREES. ON OXIMIZER AT 4.5L VIA NC. ON MONITOR SHOWING A-FLUTTER, HR 95. IV SEEN TO LEFT UPPER ARM MIDLINE WITH HEPARIN RUNNING AT 11CC PER HEPARIN PROTOCOL. IV SEEN TO RIGHT AC WITH CARDIZEM RUNNING AT 5CC. NO NEED AT THIS CURRENT TIME. WILL CONTINUE TO MONITOR AND CONTINUE WITH PLAN OF CARE.
--- NOTE | 2017-06-17 08:12 | NUR ---
PT GIVEN PRE-MED MEDICATIONS ORDERED FOR PROCEDURE TODAY. ASSESSMENT DONE. PT IS CURRENTLY STTING UP IN BED WITH EYES OPEN RESTING ANXIOUSLY AWAITING SCAN SO SHE CAN EAT WHEN DONE. WILL CONTINUE TO MONITOR.
[2017-06-17 08:21] VITALS: BP 102/75
--- NOTE | 2017-06-17 09:41 | NUR ---
PT TO CT SCAN VIA BED.
--- NOTE | 2017-06-17 11:54 | NUR ---
CARLO NOE NP ON UNIT. INFORMED HER OF PTS AND PTS SONS CONCERN FOR PT NOT HAVING THE PAIN MEDICATIONS SHE TAKES AT HOME. CARLO NOE NP IS AWARE OF THIS.
[2017-06-17 12:19] VITALS: BP 122/60
--- NOTE | 2017-06-17 15:00 | NUR ---
PTS CARDIZEM DRIP D/C ORDERED. RIGHT AC SALINE LOCKED. ULTRASOUND CALLED AND STATES FOR PT TO DRINK 3 CUPS OF WATER AND FOR PT TO HAVE FULL BLADDER FOR ULTRASOUND. PT IS AWARE.
--- NOTE | 2017-06-17 16:50 | NUR ---
CARLO NOE NP ON UNIT. CARLO NOE NP AWARE OF PTS BS BEING 422.
--- NOTE | 2017-06-17 17:30 | NUR ---
RECEIVED REPORT, WILL ASSUME CARE OF PT, PT DENIES ANY NEEDS, BED IS LOW, SRX2, CALL LIGHT IN REACH, WILL CONTINUE PLAN OF CARE
--- NOTE | 2017-06-17 17:41 | NUR ---
PT IS CURRENTLY SITTING UP IN BED FINISHING DINNER. SON IS AT BEDSIDE. PT DENIES ANY NEED AT THIS CURRENT TIME. WILL CONTINUE TO MONITOR.
[2017-06-17 20:00] VITALS: BP 132/91
--- NOTE | 2017-06-17 21:00 | NUR ---
BLOODSUGAR-271- GAVE 16 UNITS ORDER
[2017-06-18] VITALS: BP 107/77
--- NOTE | 2017-06-18 02:36 | NUR ---
ASSESSMENT COMPLETE, SEE FLOWSHEET, PT SLEEPING, BEEN NPO SINCE MIDNIGHT, BED IS LOW, SRX2, CALL LIGHT IN REACH, WILL CONTINUE PLAN OF CARE
[2017-06-18 05:55] VITALS: BP 106/77
[2017-06-18 06:25] LABS: HEMATOCRIT 36.5 % (36.0-48.0); HEMOGLOBIN 11.4 g/dL (12-16); MCH 29.6 pg (26.0-34.0); MCHC 31.2 g/dL (31.0-37.0); MCV 94.8 fL (80.0-100.0); MEAN PLATELET VOLUME 9.9 fL (7.4-10.4); RBC 3.85 10x6/uL (4.00-5.40); RDW 16.6 % (11.5-14.5)
[2017-06-18 06:27] LABS: WBC 8.4 10x3/uL (4.8-10.8)
--- NOTE | 2017-06-18 07:57 | NUR ---
AM ROUNDING- RECIEVED REPORT FROM DISCHARGE SPECIALIST NURSE GAVIOTA. PT IS CURRENTLY LAYING IN BED ON BACK WITH EYES OPEN RESTING. PT IS NPO CURRENTLY FOR PROCEDURE. ON 02 AT 4.5L VIA OXIMIZER. ON MONITOR SHOWING A-FLUTTER, HR 88 WITH BBB AND MFPVC (PER LLOYD IN TELEMETRY). IV SEEN TO LEFT UPPER ARM MIDLINE WITH HEPARIN RUNNING AT 11CC PER HEPARIN PROTOCOL. SECOND IV SEEN TO RIGHT AC THAT IS CURRENTLY SALINE LOCKED. NO NEED AT THIS TIME. WILL CONTINUE TO MONITOR AND CONTINUE WITH PLAN OF CARE.
[2017-06-18 08:00] VITALS: BP 109/64
[2017-06-18 12:00] VITALS: BP 118/49
[2017-06-18 16:00] VITALS: BP 101/47
--- NOTE | 2017-06-18 16:47 | NUR ---
PRE-MEDICATION ORDERS PUT IN CARLO NOE NP STATES TO PRE-MEDICATE PT FOR MRI TOMORROW FOR CONTRAST (PT IS ALLERGIC TO IODINE). NPO SIGN PLACED ON PTS DOOR.
--- NOTE | 2017-06-18 18:29 | NUR ---
PT IS CURRENTLY SITTING UP IN BED WITH EYES OPEN RESTING. SIMON MUNOZ AND I CHANGED PTS LINEN. PT BECAME SOB AT TIMES AND WAS INSTRUCTED TO TAKE SLOW DEEP BREATHS. SIMON MUNOZ IS FINISHING UP CLEANING UP PT. WILL CONTINUE TO MONITOR.
--- NOTE | 2017-06-18 19:25 | NUR ---
RECEIVED REPORT, WILL ASSUME CARE OF PT, PT DENIES ANY NEEDS AT THIS TIME, BED IS LOW, SRX2, CALL LIGHT IN REACH, WILL CONTINUE PLAN OF CARE
[2017-06-18 20:00] VITALS: BP 104/80
--- NOTE | 2017-06-18 21:00 | NUR ---
[id number]
[2017-06-19] VITALS: BP 110/76
[2017-06-19 01:10] LABS: HEMATOCRIT 40.1 % (36.0-48.0); HEMOGLOBIN 12.7 g/dL (12-16); MCH 30.2 pg (26.0-34.0); MCHC 31.7 g/dL (31.0-37.0); MCV 95.2 fL (80.0-100.0); MEAN PLATELET VOLUME 9.4 fL (7.4-10.4); RBC 4.21 10x6/uL (4.00-5.40); RDW 16.4 % (11.5-14.5); WBC 9.3 10x3/uL (4.8-10.8)
[2017-06-19 04:00] VITALS: BP 101/44
--- NOTE | 2017-06-19 07:05 | NUR ---
REPORT RECIEVED. RR EVEN AND UNLABORED, PT DENIES NEEDS AT THIS TIME. FAMILY AT BEDSIDE, PT WILL BE GOING FOR MRI OF PELVIS TODAY. WILL CTM.
[2017-06-19 08:00] VITALS: BP 112/73
--- NOTE | 2017-06-19 08:00 | NUR ---
CALLED MRI REGARDING PT NPO STATUS. REPORTED THAT PT DID NOT HAVE TO BE NPO FOR MRI SINCE IT WAS JUST AN MRI OF THE PELVIS. WILL SPEAK TO MD ABOUT PTS DIET ORDER.
--- NOTE | 2017-06-19 10:58 | NUR ---
Patient Name: DIANA PARISH Encounter No: [id number] : 1955 Primary Insurance: [employer] ADV Anticipated DC Date: 06-20-2017 Planned Disposition: Inpatient Rehab External Planned Provider: [facility] DCP follow-up note: CM RECEIVED CALL FROM [facility]AL OF [facility], INPATIENT REHAB WAITING MEDICAL STABILITY TO SUBMIT FOR INSURANCE AUTHORIZATION FOR INPATIENT REHAB. CM NOTIFIED PT AND SON IN ROOM WHO ARE WILLING FOR REHAB AT [facility] WHEN STABLE. CM ENCOURAGED PT TO PARTICIPATE WITH THERAPY WITH EACH SESSION OFFERED, PT ASSURES CM THAT SHE WILL. IMPORTANT MESSAGE FROM MEDICARE PROVIDED AND EXPLAINED. CM WAITING MEDICAL STABILITY FOR INPATIENT REHAB AT [facility]. PT REQUIRES PREAUTHORIZATION FOR INPATIENT REHAB. CM TO FOLLOW AND ASSIST NEEDED. Kali Murphy, CASE MANAGEMENT
[2017-06-19 12:00] VITALS: BP 117/72
--- NOTE | 2017-06-19 14:55 | NUR ---
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
[2017-06-19 16:00] VITALS: BP 92/59
[2017-06-19 16:12] LABS: FACTOR II DNA ANALYSIS Negative (())
--- NOTE | 2017-06-19 17:41 | NUR ---
CALLED PHARMACY REGARDING LASIX NOT BEING IN [place] LAST 1HR. REPORTED THAT THEY WILL BRING IT UP. WILL GIVE WHEN AVAILABLE.
--- NOTE | 2017-06-19 18:35 | NUR ---
PT RESTING QUILETY, RR EVEN AND UNLABORED. PT DENIES NEEDS AT THIS TIME. WILL GIVE REPORT ON PT CONDITION FOR THE DAY.
--- NOTE | 2017-06-19 19:05 | NUR ---
OT NOTE: PT COMPLETED SELF FEEDING WITH SET UP. PT COMPLETED BUE AROM AXS FOR INCREASED I WITH ADLS. THANK YOU, MAGGIE SCHAFER/Mayra
--- NOTE | 2017-06-19 19:53 | NUR ---
RECEIVED REPORT, WILL ASSUME CARE OF PT, PT DENIES ANY NEEDS AT THIS TIME, CALL LIGHT IN REACH, WILL CONTINUE PLAN OF CARE
[2017-06-19 20:51] VITALS: BP 123/69
[2017-06-20 01:15] VITALS: BP 105/79
--- NOTE | 2017-06-20 03:36 | NUR ---
GAVE [place] FOR PAIN, WILL MONITOR
[2017-06-20 03:45] VITALS: BP 105/57
[2017-06-20 05:50] LABS: HEMATOCRIT 37.4 % (36.0-48.0); HEMOGLOBIN 11.7 g/dL (12-16); MCH 29.5 pg (26.0-34.0); MCHC 31.3 g/dL (31.0-37.0); MCV 94.4 fL (80.0-100.0); MEAN PLATELET VOLUME 9.7 fL (7.4-10.4); RBC 3.96 10x6/uL (4.00-5.40); RDW 16.3 % (11.5-14.5)
--- NOTE | 2017-06-20 07:17 | NUR ---
AM ROUNDS- PT RECEIVING AN UPDRAFT AT THIS TIME. RESP EVEN AND REGULAR, LT UPPER MIDLINE AND RT AC SL. BED LOW AND WHEELS LOCKED, BEDSIDE RAILS X2, CALL LIGHT IN REACH, NAD NOTED, WILL CONTINUE TO MONITOR.
[2017-06-20 08:00] VITALS: BP 105/64
--- NOTE | 2017-06-20 08:28 | NUR ---
AM MEDS GIVEN AT THIS TIME. PT IN BED, EATING BREAKFAST DENIES ANY NEEDS AT THIS TIME. CALL LIGHT IN REACH, NAD NOTED, WILL CONTINUE TO MONITOR.
--- NOTE | 2017-06-20 11:28 | NUR ---
BLOOD SUGAR OF 282, 16UNITS OF HUMALOG GIVEN PER S/S. PT IN BED, WITH EYES CLOSED, EASILY AROUSABLE. PT DENIES ANY NEEDS AT THIS TIME. CALL LIGHT IN REACH, NA NOTED, WILL CONTINUE TO MONITOR.
[2017-06-20 12:00] VITALS: BP 109/61
--- NOTE | 2017-06-20 12:21 | NUR ---
Nutrition Follow Up: Pt is eating 88% (100% most meals) meal avg on a diabetic diet. +BM 06/19/17. Wt gain since admit noted. Labs reviewed - glucose elevated. Meds noted including Prednisone, Lasix. Rec continue current diet. RD following.
[2017-06-20 15:23] LABS: LUPUS - THROMBIN NEUT 29.2 sec (0.0-23.0); LUPUS - THROMBIN TIME 39.6 sec (0.0-23.0); LUPUS - THROMBIN TIME MIX 26.9 sec (0.0-23.0); LUPUS - dRVVT 90.6 sec (0.0-47.0); LUPUS - dRVVT CONFIRMATION 1.2 ratio (0.8-1.2); PTT-LA 38.4 sec (0.0-51.9)
[2017-06-20 16:00] VITALS: BP 110/63
--- NOTE | 2017-06-20 17:36 | NUR ---
BLOOD SUGAR OF 155, 8UNITS OF HUMALOG GIVEN PER S/S. PT IN BED, DENIES ANY NEEDS AT THIS TIME. CALL LIGHT IN REACH, NAD NOTED, WILL CONTINUE TO MONITOR.
--- NOTE | 2017-06-20 20:50 | NUR ---
REPOSITION PT, HOB 35 DEGREE, STATE SHE FEEL MORE COMFORTABLE THAN BEFORE.
[2017-06-20 21:26] VITALS: BP 108/70
[2017-06-21] VITALS (13 sets, daily range): BP systolic 57–129; BP diastolic 31–111
--- NOTE | 2017-06-21 03:02 | NUR ---
PT LYING IN BED, AWAKE, ALERT, RESTING COMFORTABLY. CONTINUE TO MONITOR CLOSELY. BED LOW, CALL LIGHT IN REACH, SIDE RAILS X 2, HOB 35-40 DEGREES,
--- NOTE | 2017-06-21 03:48 | NUR ---
PT CODE BLUE, CODE BLUE TEAM RESPONDED, STABLIZED PT AND TRANSPORTED TO ICU.
--- NOTE | 2017-06-21 03:48 | NUR ---
CODE BLUE CALLED. PATIENT STABLIZED AND TRANSPORTED TO ICU.
--- NOTE | 2017-06-21 03:52 | NUR ---
PT FOUND UNRESPONSIVE, GUPPY BREATHING. PT WAS LAST SEEN BY ME SITTING UP IN BED, AWAKE, ALERT, RESPONSIVE. SIMONE BELL HAS BEEN CALLED. I DID REACH HER SON, JAZ, AT [phone], WHO STATES HE WANTS ALL MEASURES TAKEN AND ALL TREATMENTS USED AT THIS TIME FOR HIS MOTHER, INCLUDING BEING VENTED IF NEEDED. JAZ STATED HE IS ON HIS WAY UP HERE. SIMONE TEAM IS IN THE ROOM WITH PT NOW. I ALSO CONTACTED SIXTO GALE WHO IS LISTED AN EMERGENCY CONTACT R/T NOT BEING ABLE TO FIND A CORRECT CONTACT NUMBER FOR PTS SON, HOWEVER, IT IS LISTED ON PTS WHITE BOARD IN PTS ROOM.
[2017-06-21 04:01] LABS: HEMATOCRIT 44.7 % (36.0-48.0); HEMOGLOBIN 13.5 g/dL (12-16); MCH 29.6 pg (26.0-34.0); MCHC 30.2 g/dL (31.0-37.0); RBC 4.56 10x6/uL (4.00-5.40); RDW 16.6 % (11.5-14.5)
--- NOTE | 2017-06-21 04:20 | NUR ---
CARLO NOE HIV COUNSELOR FOR [facility] AND DR. BEJARANO HAVE BEEN NOTIFIED OF PTS HEALTH STATUS CHANGE AND ICU TRANSFER.
--- NOTE | 2017-06-21 04:20 | NUR ---
PT ARRIVES TO ICU. INTUBATED. NORTH PLACED. OGT PLACED. SCD IN PLACE. MIDLINE TO LT ARM; PATENT. ARRIVES ON 5MCG/KG/MIN OF LEVOPHED. PT UNRESPONSIVE. PUPILS 7MM; FIXED. RR 33.
--- NOTE | 2017-06-21 05:00 | NUR ---
SON AT BEDSIDE, UPDATE GIVEN
[2017-06-21 05:46] LABS: ALBUMIN 3.2 g/dL (3.4-5.0); ANION GAP 22.9 mmol/L (8-16); BILIRUBIN - TOTAL 2.04 mg/dL (0.2-1.3); CALCIUM 8.8 mg/dL (8.5-10.1); CARBON DIOXIDE 25.3 mmol/L (21.0-32.0); MAGNESIUM - SERUM 2.8 mg/dL (1.8-2.4); PROTEIN - SERUM 6.7 g/dL (6.4-8.2)
[2017-06-21 05:47] LABS: PHOSPHOROUS 9.1 mg/dL (2.5-4.9)
[2017-06-21 05:49] LABS: POTASSIUM - SERUM 7.2 mmol/L (3.5-5.1)
--- NOTE | 2017-06-21 06:00 | NUR ---
UPDATE CALLED TO CARLO NOE, NEW ORDERS RECIEVED,
--- NOTE | 2017-06-21 06:24 | NUR ---
CONSULT CALLED TO DR. CARRIZALES, NEW ORDERS RECIEVED,
--- NOTE | 2017-06-21 06:37 | NUR ---
PT CODED, SEE CODE BLUE SHEET
--- NOTE | 2017-06-21 06:50 | NUR ---
DR. BEJARANO NOTIFIED OF CHANGE IN PT STATUS
--- NOTE | 2017-06-21 06:55 | NUR ---
UPDATE CALLED TO DR. MACK, NEW ORDERS RECIEVED,
--- NOTE | 2017-06-21 07:00 | NUR ---
RECIEVED PT POST CODE. FAMILY NOTIFIED OF CONDITION.
--- NOTE | 2017-06-21 07:00 | NUR ---
ASSESSMENT COMPLETE PER FLOWSHEET.
--- NOTE | 2017-06-21 07:49 | NUR ---
CODE CALLED SEE CODE BLUE SHEET. FAMILY HERE AND UPDATED. CALLED SON IN [place]. INSTRUCT MOTHER IS IN VERY CRITICAL CONDITION. OUT COME OF EVENT IS POOR. FAMILY UNDERSTANDS.
[2017-06-21 08:01] LABS: CKMB 3.8 U/L (0.0-3.6); CREATINE KINASE 97 UL (21-215)
[2017-06-21 08:04] LABS: TROPONIN-I 0.122 ng/mL (0.000-0.060)
--- NOTE | 2017-06-21 08:15 | NUR ---
EPI INFUSING PER DR BEJARANO ORDER. DOPAMINE INCREASED TO 50 MCG PER KG PER MIN. HR 52.
--- NOTE | 2017-06-21 08:30 | NUR ---
DR BEJARANO AT THE BEDSIDE. MEDS GIVEN FOR LOW HR OF 42. PT IS PEA. EPI GIVEN AMP. AMP OF ATROPINE AND AMP OF BICARB. NO CHANGES IN RHYTHME.
--- NOTE | 2017-06-21 09:00 | NUR ---
DR BEJARANO IN ROOM TO PRONOUNCE. FAMILY NOTIFIED OF .
== END 2017-06-21 11:30 | DRG 166 ==
LOC: D.ER 05:45 → D.M2 07:31 → D.ICU 07:31 → D.M2 05-30 15:22 → D.ICU 06-21 04:18
PROVIDERS: Emergency Medicine; Family Medicine; Family Medicine Adult Medicine; General Practice; Internal Medicine Hematology & Oncology; Internal Medicine Pulmonary Disease; ADMIT Family Medicine
PROC: 0T9B70Z Drainage of Bladder with Drainage Device, Via Natural or Artificial Opening (ICD-10-PCS; principal; 2017-05-29)
PROC: 5A09357 Assistance with Respiratory Ventilation, Less than 24 Consecutive Hours, Continuous Positive Airway Pressure (ICD-10-PCS; 2017-05-29)
PROC: 05HC33Z Insertion of Infusion Device into Left Basilic Vein, Percutaneous Approach (ICD-10-PCS; 2017-06-13)
PROC: B54NZZA Ultrasonography of Left Upper Extremity Veins, Guidance (ICD-10-PCS; 2017-06-13)
PROC: 06H03DZ Insertion of Intraluminal Device into Inferior Vena Cava, Percutaneous Approach (ICD-10-PCS; 2017-06-16)
PROC: 5A12012 Performance of Cardiac Output, Single, Manual (ICD-10-PCS; 2017-06-21)
PROC: 5A12012 Performance of Cardiac Output, Single, Manual (ICD-10-PCS; 2017-06-21)
PROC: 5A12012 Performance of Cardiac Output, Single, Manual (ICD-10-PCS; 2017-06-21)
PROC: 0BH17EZ Insertion of Endotracheal Airway into Trachea, Via Natural or Artificial Opening (ICD-10-PCS; 2017-06-21)
PROC: 5A1935Z Respiratory Ventilation, Less than 24 Consecutive Hours (ICD-10-PCS; 2017-06-21)
DX: J96.21 Acute and chronic respiratory failure with hypoxia (principal); I21.4 Non-ST elevation (NSTEMI) myocardial infarction; J18.9 Pneumonia, unspecified organism; I26.99 Other pulmonary embolism without acute cor pulmonale; I50.23 Acute on chronic systolic (congestive) heart failure; F17.203 Nicotine dependence unspecified, with withdrawal; J44.1 Chronic obstructive pulmonary disease with (acute) exacerbation; E87.2 Acidosis; I48.92 Unspecified atrial flutter; J44.0 Chronic obstructive pulmonary disease with (acute) lower respiratory infection; N17.9 Acute kidney failure, unspecified; R04.89 Hemorrhage from other sites in respiratory passages; I42.9 Cardiomyopathy, unspecified; I11.0 Hypertensive heart disease with heart failure; R57.0 Cardiogenic shock; I25.10 Atherosclerotic heart disease of native coronary artery without angina pectoris; M51.36 Other intervertebral disc degeneration, lumbar region; Z79.01 Long term (current) use of anticoagulants; B18.2 Chronic viral hepatitis C; I48.0 Paroxysmal atrial fibrillation; Z95.5 Presence of coronary angioplasty implant and graft; Z95.1 Presence of aortocoronary bypass graft; I08.3 Combined rheumatic disorders of mitral, aortic and tricuspid valves; E87.5 Hyperkalemia; I46.9 Cardiac arrest, cause unspecified